=== PATIENT | male | born 1960 | race Caucasian/White ===

== ENCOUNTER → 2016-09-02 | Outpatient (CLI) | payer OTHER ==
[2016-09-02 12:51] LABS: MEAN CELL VOLUME 92.6 fL (80-100); MEAN CORPUSCULAR HEMOGLOBIN 31.7 pg (25-34); MEAN CORPUSCULAR HGB CONC 34.2 g/dl (32-36); MEAN PLATELET VOLUME 10.5 fL (7.4-10.4); PLATELET COUNT 228 K/uL (130-400); RED BLOOD COUNT 4.86 M/uL (4.7-6.1); WHITE BLOOD COUNT 5.27 K/uL (4.8-10.8)
[2016-09-02 13:03] LABS: ESTIMATED AVERAGE GLUCOSE 120 mg/dl; HA1C FLAG Normal (Normal)
[2016-09-02 13:16] LABS: CHOLESTEROL/HDL RATIO 4.1
== END | disposition home or self-care (01) ==
LOC: C.LAB1850 10:47
PROVIDERS: ATTEND Internal Medicine
DX: Z00.00 Encounter for general adult medical examination without abnormal findings (principal); Z13.1 Encounter for screening for diabetes mellitus

== ENCOUNTER → 2016-11-09 | Outpatient (CLI) | payer OTHER | END | disposition home or self-care (01) | LOC: C.LABSPEC 17:05 | PROVIDERS: ATTEND Podiatrist Primary Podiatric Medicine | DX: B35.1 Tinea unguium (principal) ==

== ENCOUNTER 2023-08-30 15:22 | Inpatient (IN) ==
[2023-08-30 16:41] LABS: Basophils # (auto) 0.03 K/uL (0.00-0.20); Basophils % (auto) 0.3 %; Eosinophils # (auto) 0.03 K/uL (0.00-0.50); Eosinophils % (auto) 0.3 %; Hematocrit (blood only) 43.5 % (42.0-52.0); Hemoglobin 14.7 g/dl (14.0-18.0); Immature Granulocytes # (auto) 0.06 K/uL (0.01-0.20); Immature Granulocytes % (auto) 0.7 %; Lymphocytes # (auto) 0.82 K/uL (1.20-3.40); Lymphocytes % (auto) 9.5 %; Mean Corpuscular Hemoglobin 31.2 pg (25.0-34.0); Mean Corpuscular Hgb Conc 33.8 g/dL (32.0-36.0); Mean Corpuscular Volume 92.4 fL (80.0-100.0); Mean Platelet Volume 9.2 fL (9.4-12.4); Monocytes # (auto) 0.55 K/uL (0.11-0.59); Monocytes % (auto) 6.4 %; Neutrophils % (auto) 82.8 %; Platelet Count 659 K/uL (130-400); RDW Coefficient of Variation 12.6 % (11.5-14.5); RDW Standard Deviation 42.8 fL (36.4-46.3); Red Blood Count 4.71 M/uL (4.70-6.10); White Blood Count 8.59 K/ul (4.8-10.8)
[2023-08-30 16:52] LABS: Alanine Aminotransferase 29 U/L (7-52); Albumin Globulin Ratio 1.1 (0.9-2); Albumin Level 4.1 gm/dl (3.4-5.0); Alkaline Phosphatase 149 U/L (34-104); Anion Gap 10 (3-11); Aspartate Aminotransferase 24 U/L (13-39); Bilirubin,Total 0.6 mg/dl (0.2-1.0); Blood Urea Nitrogen 36 mg/dl (6-23); Calcium 9.2 mg/dl (8.6-10.3); Carbon Dioxide 20 mmol/L (21-32); Chloride 105 mmol/L (98-107); Est GFR (African American) 70.8 ml/min; Est GFR (Non-African American) 61.1 ml/min; Globulin 3.7 gm/dl (2.5-4.0); Glucose 128 mg/dl (70-99(Fasting)); Magnesium 2.3 mg/dl (1.7-2.4); Potassium 3.9 mmol/L (3.5-5.1); Sodium 135 mmol/L (136-145); Total Protein 7.8 gm/dl (6.0-8.3)
[2023-08-30 17:06] LABS: Partial Thromboplastin Time 29 Seconds (21-31); Prothrombin Time 11.4 Seconds (9.0-12.0)
--- NOTE | 2023-08-30 18:51 | Emergency Department Note ---
Impression & Plan Elevated procalcitonin, Acute leg pain, Fever, Thrombocytosis, Tachycardia ED Provider Note NAME: OREN AWAN AGE: 62 SEX: M : 1960 ARRIVES VIA: Walk-In INFORMANT: Patient, ED PROVIDER(S): Bryan Ascencio MD Patient presented due to concern CHIEF COMPLAINT: MEDICAL DECISION MAKING: Patient presents due to concern for low-grade temperature of 100 with recent ORIF of the right lower extremity. Patient did have an IV established and blood work was obtained. Patient with a normal white count H&H with thrombocytosis of 659. Platelet count from June was 358. Mild hyponatremia 135. Prerenal azotemia noted. Alk phos 149 procalcitonin. Procalcitonin of .72. Patient did have blood cultures completed chest x-ray DVT ultrasound and urinalysis. Bio fire also obtained. Initial lactate not elevated. The patient's urinalysis does not show evidence of blood or infection. Bio fire negative. Chest ray read negative. The patient's DVT ultrasound was negative. Patient was splinted again. Patient was comfortable plan of care and was plan to be discharged home with the patient was noted be tachycardic and of the 140s and 150s. Patient was ordered IV fluids. The patient did have low-grade temperature but not true fever at 37 5. Patient was ordered Tylenol. Patient did not have significant change in his tachycardia which persisted even after IV fluids and Tylenol treatment. The patient is currently asymptomatic. DVT ultrasound is negative believe PE to be less likely. 2 separate EKGs ordered which shows sinus tachycardia patient denies any prior history of arrhythmia. Given the patient's persistent tachycardia I did speak to the on-call hospital service Dr. Sanchez and patient was admitted to the medicine service. Patient did have troponin and lactate ordered. Patient's troponin is negative. Lactate is not elevated. Of note the patient later had resolution of his tachycardia. Procedures: Splinting Indication: Prior right lower extremity surgery Verbal consent obtained. Risks and benefits were explained with the usual customary discussion. The injured extremity was identified. The patient was prepped and measured for the placement of a short leg trilaminar ortho-glass splint. Splint applied in the standard fashion over a layer of webril and secured using an elastic bandage. Set into a position of function. Normal neurovascular status after placement verified by me. The patient tolerated the procedure well and the care of the splint was discussed with the patient/family. No complications. Discussion w/ other healthcare providers: None Prior /Outside records reviewed: none Differential diagnosis: Viral syndrome, otitis, pharyngitis, pneumonia, influenza, meningitis, urinary tract infection, sepsis, bacteremia, as well as other pathologies. Diagnostics, as interpreted by me: ECG: Sinus tachycardia with first-degree AV block, rate of 138, normal SD and QRS, ST depressions in lateral leads no ST elevations. Repeat EKG interpreted by me Sinus tachycardia, rate of 138, normal SD and QRS, ST depressions in the lateral leads. No ST elevations. Cardiac monitoring: An order was placed for continuous cardiac monitoring. The monitor shows a rate of 135 with sinus rhythm. Patient was placed on pulse oximetry Medical decision rules: none Imaging studies: I informally interpreted the patient's Chest x-ray does not show obvious pneumonia or pneumothorax with formal report to follow. HPI: Patient presents due to concern for low-grade temperature weakness and fatigue. The patient relates that he did have a recent ORIF completed due to concern for fall in his yard that occurred 2 weeks prior. The patient did have the ORIF completed at [facility] in [place] with Dr. Tracy. Patient reportedly had some irritation of the skin was seen and evaluated had his splint removed and dressed as did have 2 areas of ulceration. Reportedly the patient had some vomiting yesterday was lightheaded dizzy had seen Dr. Arceo had blood work completed said that he had a temperature of 100 oral. Patient was very fatigable but does feel improved today. Given the concern with his recent right lower extremity surgery he presented here for further evaluation and treatment. The patient does not have follow-up with his primary surgeon for several weeks. Patient has been taking Lovenox injections at home. Patient denies any chest congestion cough upper respiratory symptoms ear pain or throat or rash. Patient denies any dysuria. PAST MEDICAL HISTORY: HLD PAST SURGICAL HISTORY: right lower extremity ORIF SOCIAL HISTORY: Non smoker, speaks belarusian. HOME MEDICATIONS: See Below ALLERGIES: See Below VITALS: See Below PHYSICAL EXAMINATION: GENERAL: NAD, non-toxic. Wearing glasses. EYE EXAM: Normal conjunctiva. PERRL, no anisocoria and EOM's grossly intact w/o pain. OROPHARYNX: Moist mucus membranes, grossly normal dentition. NECK: Trachea midline, no stridor. Supple, no nuchal rigidity, no adenopathy, non-tender. No signs of meningismus. FROM of the neck with good chin to chest and neck extension. LUNGS: Clear to auscultation. Normal chest wall mechanics. HEART: NSR, no MRG. ABDOMEN: Abdomen soft, non-tender, no masses, no rebound or guarding. BACK: No CVA TTP. SKIN: No rashes and no bruising. UPPER EXTREMITIES: Upper extremities are grossly normal. LOWER EXTREMITIES: Grossly normal, no edema. Right lower extremity with some bruising and swelling to the right ankle. Patient does have multiple incisional sites over the anterior portion of the ankle right lateral ankle proximal tibia without any overlying drainage. Prior blisters well-healed with prior Xeroform. No obvious fluctuance drainage crepitus or purulence. NEURO EXAM: A&O x3, cranial nerves II-XII grossly intact, normal speech, moves all 4 extremities. Past Med/Surg History Social History Smoking Status: Never smoker Preferred Language: Dominican Feels Safe at Home: Yes Allergies Allergies Allergy/AdvReac Type Severity Reaction Status Date / Time adhesive Allergy Intermediate RED, ITCHY Verified 08/30/23 19:28 SKIN aloe Allergy Intermediate RED, ITCHY Verified 08/30/23 19:28 SKIN zinc oxide Allergy Intermediate RED, ITCHY Verified 08/30/23 19:28 SKIN Home Meds Home Medications Medication Instructions Recorded Confirmed atenolol 25 mg tablet 25 mg PO DAILY 08/16/23 08/30/23 magnesium oxide 400 mg PO DAILY 08/16/23 08/30/23 nortriptyline 10 mg capsule 40 mg PO HS 08/16/23 08/30/23 rosuvastatin 5 mg tablet 5 mg PO QAM 08/16/23 08/30/23 topiramate 25 mg tablet 50 mg PO HS 08/16/23 08/30/23 cyanocobalamin (vitamin B-12) 1,000 mcg PO DAILY 08/30/23 08/30/23 1,000 mcg tablet (Vitamin B-12) Previous Rx's Medication Instructions Recorded cefdinir 300 mg capsule 300 mg PO Q12H 7 days #14 caps 08/30/23 doxycycline hyclate 100 mg tablet 100 mg PO BID 7 days #14 tabs 08/30/23 Results & Data (ED) Vital Signs Vital Signs - 24 hr 08/30/23 15:37 08/30/23 18:30 08/30/23 18:35 Temperature 36.3 C L Temperature Source Oral Pulse Rate 99 H 74 78 Pulse Rate from SpO2 Sensor 74 Respiratory Rate 14 15 Blood Pressure 116/80 134/86 Blood Pressure Mean 92 102 Pulse Oximetry 98 96 Oxygen Delivery Method Room Air Room Air Sepsis New/Unexplained Change in Mental Status No Sepsis Action Taken by Nursing No Action Required 08/30/23 19:00 08/30/23 19:30 08/30/23 20:00 Temperature Temperature Source Pulse Rate 71 100 H 72 Pulse Rate from SpO2 Sensor 73 87 72 Respiratory Rate 9 L 23 8 L Blood Pressure 136/83 116/70 144/84 H Blood Pressure Mean 100 85 104 Pulse Oximetry 91 98 100 Oxygen Delivery Method Room Air Room Air Room Air Sepsis New/Unexplained Change in Mental Status Sepsis Action Taken by Nursing 08/30/23 22:28 08/30/23 23:00 08/30/23 23:26 Temperature Temperature Source Pulse Rate 81 79 143 H Pulse Rate from SpO2 Sensor Respiratory Rate 19 26 H Blood Pressure 139/77 139/87 Blood Pressure Mean 97 104 Pulse Oximetry 97 100 Oxygen Delivery Method Sepsis New/Unexplained Change in Mental Status Sepsis Action Taken by Nursing 08/30/23 23:27 08/30/23 23:30 08/31/23 00:00 Temperature 37.6 C H Temperature Source Pulse Rate 135 H 137 H 129 H Pulse Rate from SpO2 Sensor Respiratory Rate 20 19 13 Blood Pressure 139/87 132/86 153/102 H Blood Pressure Mean 104 101 119 Pulse Oximetry 98 99 99 Oxygen Delivery Method Room Air Sepsis New/Unexplained Change in Mental Status Sepsis Action Taken by Nursing 08/31/23 00:30 08/31/23 00:47 08/31/23 00:54 Temperature Temperature Source Pulse Rate 133 H 167 H 148 H Pulse Rate from SpO2 Sensor Respiratory Rate 14 22 Blood Pressure 129/80 143/100 H Blood Pressure Mean 96 114 Pulse Oximetry 98 96 Oxygen Delivery Method Sepsis New/Unexplained Change in Mental Status Sepsis Action Taken by Nursing 08/31/23 01:01 08/31/23 01:26 08/31/23 01:26 Temperature Temperature Source Pulse Rate 137 H 132 H Pulse Rate from SpO2 Sensor 132 H Respiratory Rate 21 20 17 Blood Pressure 123/77 123/77 142/75 H Blood Pressure Mean 92 92 97 Pulse Oximetry 97 96 96 Oxygen Delivery Method Room Air Sepsis New/Unexplained Change in Mental Status Sepsis Action Taken by Nursing 08/31/23 01:30 Temperature Temperature Source Pulse Rate Pulse Rate from SpO2 Sensor 76 Respiratory Rate 15 Blood Pressure 120/69 Blood Pressure Mean 86 Pulse Oximetry 98 Oxygen Delivery Method Sepsis New/Unexplained Change in Mental Status Sepsis Action Taken by [facility] Medications Current Medication List: was personally reviewed by me Laboratory Data Attestation: I reviewed the patient's lab results. 08/30/23 16:13 08/30/23 16:13 Lab Results 08/30/23 08/30/23 08/30/23 Range/Units 16:13 16:36 19:33 WBC 8.59 (4.8-10.8) K/ul RBC 4.71 (4.70-6.10) M/uL Hgb 14.7 (14.0-18.0) g/dl Hct 43.5 (42.0-52.0) % MCV 92.4 (80.0-100.0) fL MCH 31.2 (25.0-34.0) pg MCHC 33.8 (32.0-36.0) g/dL RDW Std Deviation 42.8 (36.4-46.3) fL RDW Coeff of Eb 12.6 (11.5-14.5) % Plt Count 659 H (130-400) K/uL MPV 9.2 L (9.4-12.4) fL Immature Gran % (Auto) 0.7 % Neut % (Auto) 82.8 % Lymph % (Auto) 9.5 % Humphreys % (Auto) 6.4 % Eos % (Auto) 0.3 % Baso % (Auto) 0.3 % Neut # (Auto) 7.10 H (1.40-6.50) K/uL Lymph # (Auto) 0.82 L (1.20-3.40) K/uL Humphreys # (Auto) 0.55 (0.11-0.59) K/uL Eos # (Auto) 0.03 (0.00-0.50) K/uL Baso # (Auto) 0.03 (0.00-0.20) K/uL Immature Gran # (Auto) 0.06 (0.01-0.20) K/uL PT 11.4 (9.0-12.0) Seconds INR 1.0 (0.9-1.1) APTT 29 (21-31) Seconds PTT Ratio 1.0 Sodium 135 L (136-145) mmol/L Potassium 3.9 (3.5-5.1) mmol/L Chloride 105 (98-107) mmol/L Carbon Dioxide 20 L (21-32) mmol/L Anion Gap 10 (3-11) BUN 36 H (6-23) mg/dl Creatinine 1.24 (0.6-1.4) mg/dl Est Cr Clr Drug Dosing Not Reportable Est GFR ( Amer) 70.8 ml/min Est GFR (Non-Af Amer) 61.1 ml/min BUN/Creatinine Ratio 29.0 H (10-20) Glucose 128 H (70-99(Fasting)) mg/dl Lactate 2.0 (0.4-2.0) mmol/L Calcium 9.2 (8.6-10.3) mg/dl Magnesium 2.3 (1.7-2.4) mg/dl Total Bilirubin 0.6 (0.2-1.0) mg/dl AST 24 (13-39) U/L ALT 29 (7-52) U/L Alkaline Phosphatase 149 H (34-104) U/L Troponin I High Sens (0-20) pg/ml Total Protein 7.8 (6.0-8.3) gm/dl Albumin 4.1 (3.4-5.0) gm/dl Globulin 3.7 (2.5-4.0) gm/dl Albumin/Globulin Ratio 1.1 (0.9-2) Procalcitonin 0.72 H (0-0.5) ng/ml Urine Color Dark Yellow Urine Appearance Clear (Clear) Urine pH 5.5 (4.5-7.5) Ur Specific [place] 1.034 H (1.000-1.030) Urine Protein Trace H (Negative) Urine Glucose (UA) Negative (Negative) Urine Ketones Negative (Negative) Urine Blood Negative (Negative) Urine Nitrite Negative (Negative) Urine Bilirubin Negative (Negative) Urine Urobilinogen Negative (Negative) Ur Leukocyte Esterase Negative (Negative) Urine WBC (Auto) 1-5 (0-5) /hpf Urine RBC (Auto) 0-4 (0-4) /hpf U Hyaline Cast (Auto) 0 (0-5) /lpf U Epithel Cells (Auto) 0-5 (0-5) /lpf Urine Bacteria (Auto) Negative (Negative) Adenovirus (PCR) (NotDetected) B. pertussis DNA (PCR) (NotDetected) B.parapertussis DNA PCR (NotDetected) C. pneumoniae DNA (PCR) (NotDetected) Coronavirus OC43 (PCR) (NotDetected) Coronavirus HKU1 (PCR) (NotDetected) Coronavirus 229E (PCR) (NotDetected) SARS-CoV-2 (PCR) (NotDetected) Coronavirus NL63 (PCR) (NotDetected) Human Metapneumovir PCR (NotDetected) Influenza Type A (PCR) (NotDetected) Influenza Type B (PCR) (NotDetected) M. pneumoniae (PCR) (NotDetected) Parainfluenza 1 (PCR) (NotDetected) Parainfluenza 2 (PCR) (NotDetected) Parainfluenza 3 (PCR) (NotDetected) Parainfluenza 4 (PCR) (NotDetected) RSV (PCR) (NotDetected) Entero/Rhino (PCR) (NotDetected) 08/30/23 08/31/23 Range/Units 21:55 01:33 WBC (4.8-10.8) K/ul RBC (4.70-6.10) M/uL Hgb (14.0-18.0) g/dl Hct (42.0-52.0) % MCV (80.0-100.0) fL MCH (25.0-34.0) pg MCHC (32.0-36.0) g/dL RDW Std Deviation (36.4-46.3) fL RDW Coeff of Eb (11.5-14.5) % Plt Count (130-400) K/uL MPV (9.4-12.4) fL Immature Gran % (Auto) % Neut % (Auto) % Lymph % (Auto) % Humphreys % (Auto) % Eos % (Auto) % Baso % (Auto) % Neut # (Auto) (1.40-6.50) K/uL Lymph # (Auto) (1.20-3.40) K/uL Humphreys # (Auto) (0.11-0.59) K/uL Eos # (Auto) (0.00-0.50) K/uL Baso # (Auto) (0.00-0.20) K/uL Immature Gran # (Auto) (0.01-0.20) K/uL PT (9.0-12.0) Seconds INR (0.9-1.1) APTT (21-31) Seconds PTT Ratio Sodium (136-145) mmol/L Potassium (3.5-5.1) mmol/L Chloride (98-107) mmol/L Carbon Dioxide (21-32) mmol/L Anion Gap (3-11) BUN (6-23) mg/dl Creatinine (0.6-1.4) mg/dl Est Cr Clr Drug Dosing Est GFR ( Amer) ml/min Est GFR (Non-Af Amer) ml/min BUN/Creatinine Ratio (10-20) Glucose (70-99(Fasting)) mg/dl Lactate 1.5 (0.4-2.0) mmol/L Calcium (8.6-10.3) mg/dl Magnesium (1.7-2.4) mg/dl Total Bilirubin (0.2-1.0) mg/dl AST (13-39) U/L ALT (7-52) U/L Alkaline Phosphatase (34-104) U/L Troponin I High Sens 7.0 (0-20) pg/ml Total Protein (6.0-8.3) gm/dl Albumin (3.4-5.0) gm/dl Globulin (2.5-4.0) gm/dl Albumin/Globulin Ratio (0.9-2) Procalcitonin (0-0.5) ng/ml Urine Color Urine Appearance (Clear) Urine pH (4.5-7.5) Ur Specific [place] (1.000-1.030) Urine Protein (Negative) Urine Glucose (UA) (Negative) Urine Ketones (Negative) Urine Blood (Negative) Urine Nitrite (Negative) Urine Bilirubin (Negative) Urine Urobilinogen (Negative) Ur Leukocyte Esterase (Negative) Urine WBC (Auto) (0-5) /hpf Urine RBC (Auto) (0-4) /hpf U Hyaline Cast (Auto) (0-5) /lpf U Epithel Cells (Auto) (0-5) /lpf Urine Bacteria (Auto) (Negative) Adenovirus (PCR) Not Detected (NotDetected) B. pertussis DNA (PCR) Not Detected (NotDetected) B.parapertussis DNA PCR Not Detected (NotDetected) C. pneumoniae DNA (PCR) Not Detected (NotDetected) Coronavirus OC43 (PCR) Not Detected (NotDetected) Coronavirus HKU1 (PCR) Not Detected (NotDetected) Coronavirus 229E (PCR) Not Detected (NotDetected) SARS-CoV-2 (PCR) Not Detected (NotDetected) Coronavirus NL63 (PCR) Not Detected (NotDetected) Human Metapneumovir PCR Not Detected (NotDetected) Influenza Type A (PCR) Not Detected (NotDetected) Influenza Type B (PCR) Not Detected (NotDetected) M. pneumoniae (PCR) Not Detected (NotDetected) Parainfluenza 1 (PCR) Not Detected (NotDetected) Parainfluenza 2 (PCR) Not Detected (NotDetected) Parainfluenza 3 (PCR) Not Detected (NotDetected) Parainfluenza 4 (PCR) Not Detected (NotDetected) RSV (PCR) Not Detected (NotDetected) Entero/Rhino (PCR) Not Detected (NotDetected) Administered Medications Discontinued Medications Doxycycline Hyclate (Doxycycline Hyclate 100 Mg Cap) 100 mg PO NOW STA Stop: 08/30/23 19:27 Last Admin: 08/30/23 19:36 Dose: 100 mg Documented By: [facility] Ceftriaxone Sodium (Rocephin) 2,000 mg in 50 mls @ 100 mls/hr IV NOW STA Stop: 08/30/23 19:55 Last Infusion: 08/30/23 20:14 Dose: Infused Documented By: Admin: 08/30/23 19:36 Dose: 100 mls/hr Documented By: [facility] Sodium Chloride (Nss) 1,000 mls @ 999 mls/hr IV .Q1H1M ONE Stop: 08/30/23 20:31 Last Infusion: 08/30/23 21:21 Dose: Infused Documented By: Admin: 08/30/23 19:37 Dose: 999 mls/hr Documented By: MARISEL Acetaminophen (Ofirmev) 1,000 mg in 100 mls @ 400 mls/hr IV NOW STA Stop: 08/30/23 23:54 Last Infusion: 08/31/23 00:26 Dose: Infused Documented By: Admin: 08/30/23 23:52 Dose: 400 mls/hr Documented By: CARLEE Sodium Chloride (Nss) 1,000 mls @ 999 mls/hr IV .Q1H1M ONE Stop: 08/31/23 00:40 Last Infusion: 08/31/23 00:58 Dose: Infused Documented By: Admin: 08/30/23 23:52 Dose: 999 mls/hr Documented By: CARLEE Sodium Chloride (Nss) 500 mls @ 999 mls/hr IV .Q31M ONE Stop: 08/31/23 01:28 Last Admin: 08/31/23 01:25 Dose: 999 mls/hr Documented By: ERICK Ketorolac Tromethamine (Ketorolac Tromethamine 15 Mg/Ml Vial) 10 mg IV NOW ONE Stop: 08/30/23 23:41 Last Admin: 08/31/23 00:58 Dose: Not Given Documented By: EJW Imaging Data Radiologist's Impression: Venous Doppler Study 08/30/23 19:26 US venous doppler LE RT CLINICAL HISTORY: recent RLE ORIF, fever TECHNIQUE: Right lower extremity real-time compression venous ultrasound with Color Doppler imaging. Utilizing real-time ultrasonic imaging multiple real time high-resolution ultrasonic images with compression and noncompression maneuvers of the deep venous system in addition to color doppler imaging were performed from the common femoral vein through the proximal calf veins. COMPARISON: None available at the time of this dictation. FINDINGS/IMPRESSION: Currently there is normal compressibility of the deep venous system from the common femoral vein through the proximal calf veins. No superficial venous thrombosis is identified. ACT 112: Negative or not required by law. Electronically signed by: Santi Perez M.D. 08/30/2023 8:57 PM Discharge Plan Visit Data Chief Complaint: Abnormal Labs/Diagnostic Testing Stated Complaint: ABNORMAL LABS ED Provider: Bryan Ascencio Discharge Problem: Elevated procalcitonin, Acute leg pain, Fever, Thrombocytosis, Tachycardia Patient Disposition: Home - Self-Care Condition: Good Discharge Instructions [place]/Other Patient Handouts: ED [facility] Fever Activity Restrictions/Additional Instructions: Please return to the emergency department if you have worsening or recurrent symptoms not amenable to at-home treatment. Please call for a follow-up appointment with her primary care physician. Please take your medications as prescribed. If you have other concerns and/or complaints please feel free to also call your primary care physician's office or return the ED for further evaluation, management, and treatment. Take your medications as prescribed. If taking an antibiotic consider taking a probiotic and/or eating yogurt, but at the least, please take with food as it can cause upset stomach. If culture results are not available at discharge, if they are positive for concern of infection, you will be informed of the results as soon as they are available. Please ensure that you do call for follow-up with your primary care doctor as well as your primary surgeon. Your blood work showed a normal white count but you did have an elevation in your platelet count. Your kidney function likely showed dehydration. Your viral panel for things like COVID and flu were negative. Your chest x-ray did not show obvious pneumonia. You have been examined and treated today on an emergency basis only. This is not a substitute for, or an effort to provide, complete comprehensive medical care. It is impossible to recognize and treat all injuries or illnesses in a single emergency department visit. It is therefore important that you follow up closely with [facility], your PCP, and/or your specialist(s). Call as soon as possible for an appointment. Forms Stand Alone Forms: My [facility], Important Visit Information Prescriptions Prescriptions: New cefdinir 300 mg capsule 300 mg PO Q12H 7 Days Qty: 14 0RF doxycycline hyclate 100 mg tablet 100 mg PO BID 7 Days Qty: 14 0RF No Action atenolol 25 mg tablet 25 mg PO DAILY topiramate 25 mg tablet 50 mg PO HS nortriptyline 10 mg capsule 40 mg PO HS rosuvastatin 5 mg tablet 5 mg PO QAM magnesium oxide 400 mg magnesium Tablet 400 mg PO DAILY cyanocobalamin (vitamin B-12) [Vitamin B-12] 1,000 mcg Tablet 1,000 mcg PO DAILY Referrals Referrals: Primitivo Arceo MD [Primary Care Provider] - Discharge Problem: Acute leg pain Qualifiers: Laterality: right Qualified Code(s): M79.604 - Pain in right leg Fever Qualifiers: Fever type: unspecified Qualified Code(s): R50.9 - Fever, unspecified
[2023-08-30] MEDS: cefTRIAXone SODIUM 2,000 MG/50 ML BAG IV STA (19:36)
[2023-08-30] MEDS: DOXYCYCLINE HYCLATE 100 MG CAP PO STA (19:36)
[2023-08-30] MEDS: SODIUM CHLORIDE 0.9% 1,000 ML IV ONE ×2 (19:37→23:52)
[2023-08-30 20:02] LABS: Appearance Urine Clear (Clear); Bacteria Urine Automated Negative (Negative); Bilirubin Urine Negative (Negative); Blood Urine Negative (Negative); Cast Urine Automated 0 /lpf (0-5); Color Urine Dark Yellow; Epithelial Cell Urine Auto 0-5 /lpf (0-5); Glucose Urine UA Negative (Negative); Ketones Urine Negative (Negative); Leukocyte Esterase Urine Negative (Negative); Nitrite Urine Negative (Negative); Protein Urine Trace (Negative); RBC Urine Automated 0-4 /hpf (0-4); Specific Gravity Urine 1.034 (1.000-1.030); Urobilinogen Urine Negative (Negative); pH Urine 5.5 (4.5-7.5)
--- NOTE | 2023-08-30 20:58 | Ultrasound Report ---
US venous doppler LE RT CLINICAL HISTORY: recent RLE ORIF, fever TECHNIQUE: Right lower extremity real-time compression venous ultrasound with Color Doppler imaging. Utilizing real-time ultrasonic imaging multiple real time high-resolution ultrasonic images with comp ression and noncompression maneuvers of the deep venous system in addition to color doppler imaging w ere performed from the common femoral vein through the proximal calf veins. COMPARISON: None available at the time of this dictation. FINDINGS/IMPRESSION: Currently there is normal compressibility of the deep venous system from the common femoral vein thro ugh the proximal calf veins. No superficial venous thrombosis is identified. ACT 112: Negative or not required by law. Electronically signed by: Santi Perez M.D. 08/30/2023 8:57 PM
[2023-08-30 23:11] LABS: Adenovirus PCR Not Detected (NotDetected); Bordetella parapertussis PCR Not Detected (NotDetected); Bordetella pertussis PCR Not Detected (NotDetected); Chlamydia pneumoniae PCR Not Detected (NotDetected); Coronavirus 229E PCR Not Detected (NotDetected); Coronavirus CoV-2 (COVID19)PCR Not Detected (NotDetected); Coronavirus HKU1 PCR Not Detected (NotDetected); Coronavirus NL63 PCR Not Detected (NotDetected); Coronavirus OC43PCR Not Detected (NotDetected); Human Metapneumovirus PCR Not Detected (NotDetected); Influenza A PCR Not Detected (NotDetected); Influenza B PCR Not Detected (NotDetected); Mycoplasma pneumoniae PCR Not Detected (NotDetected); Parainfluenza Virus 1 PCR Not Detected (NotDetected); Parainfluenza Virus 2 PCR Not Detected (NotDetected); Parainfluenza Virus 3 PCR Not Detected (NotDetected); Parainfluenza Virus 4 PCR Not Detected (NotDetected); Respiratory Syncytial VirusPCR Not Detected (NotDetected); Rhinovirus/Enterovirus PCR Not Detected (NotDetected)
[2023-08-30] MEDS: ACETAMINOPHEN 1,000 MG/100 ML VIAL IV STA (23:52)
[2023-08-31] MEDS: KETOROLAC TROMETHAMINE 15 MG/ML VIAL IV ONE (00:58)
[2023-08-31] MEDS: SODIUM CHLORIDE 0.9% 500 ML IV ONE (01:25)
--- NOTE | 2023-08-31 02:32 | History & Physical Report ---
Date of Service August 31, 2023 Assessment & Plan (1) Tachycardia: Plan: 62-year-old male with past medical history significant for hyperlipidemia, moderate persistent asthma, bronchiectasis without complication, hypertension, psoriasis, migraine, history of Lyme disease, who had a fall on August 16, 2023 and found to have acute commuted displaced distal diaphysis fracture of the right tibia and fibula s/p reduction in the ER and was transferred to trauma center at [place] and s/p ORIF with nail as well as repair of right posterior malleolus fracture on August. Was having issues/blisters from the cast so he went back to Ortho on August 23 2023 and was recasted and gauze placed on blister. He had a regular follow-up appointment with PCP on August 29 2023. That day he was feeling weak and lethargic and somewhat lightheaded and was advised to come to the ER for workup for an infection. Today in the ER cast was replaced and there was no obvious infection noted. Plan was to discharge him on antibiotics but patient developed tachycardia with heart rate in 140s. Showing sinus tachycardia. Venous Doppler was negative for DVT. Patient taking Lovenox shots at home for DVT prophylaxis. But he states he did not take today's Lovenox dose. Currently tachycardia improved with fluids. Resting comfortably. Denies any headache. No blurred visions. No earache or runny nose. No sore throat. No cough. States last night he had a low-grade temperature. Appetite is okay. Denies any chest pain or shortness of breath. No nausea. No abdominal pain. Somewhat constipated initially after surgery but that got resolved. Denies any bloody or black stools. Normal micturition. Hemodynamics are okay currently. Tachycardia Mild temp spike Procalcitonin 0.7 Recently some blisters under the cast Empirically Rocephin and Doxy Tachycardia has improved with fluids Will continue IV fluids Doppler is negative for DVT Will do CTA chest Monitor in the hospital Follow repeat EKG and troponins History of moderate persistent asthma Bronchiectasis without complication Will monitor Hypertension On atenolol Hyperlipidemia On statin History of migraine Topamax and nortriptyline DVT prophylaxis Lovenox Disposition Med/telemetry Full code History of Present Illness Chief Complaint: Tachycardia Primary Care Provider: Primitivo Arceo MD 62-year-old male with past medical history significant for hyperlipidemia, moderate persistent asthma, bronchiectasis without complication, hypertension, psoriasis, migraine, history of Lyme disease, who had a fall on August 16, 2023 and found to have acute commuted displaced distal diaphysis fracture of the right tibia and fibula s/p reduction in the ER and was transferred to trauma center at [place] and s/p ORIF with nail as well as repair of right posterior malleolus fracture on August. Was having issues/blisters from the cast so he went back to Ortho on August 23 2023 and was recasted and gauze placed on blister. He had a regular follow-up appointment with PCP on August 29 2023. That day he was feeling weak and lethargic and somewhat lightheaded and was advised to come to the ER for workup for an infection. Today in the ER cast was replaced and there was no obvious infection noted. Plan was to discharge him on antibiotics but patient developed tachycardia with heart rate in 140s. Showing sinus tachycardia. Venous Doppler was negative for DVT. Patient taking Lovenox shots at home for DVT prophylaxis. But he states he did not take today's Lovenox dose. Currently tachycardia improved with fluids. Resting comfortably. Denies any headache. No blurred visions. No earache or runny nose. No sore throat. No cough. States last night he had a low-grade temperature. Appetite is okay. Denies any chest pain or shortness of breath. No nausea. No abdominal pain. Somewhat constipated initially after surgery but that got resolved. Denies any bloody or black stools. Normal micturition. Hemodynamics are okay currently. Past medical history. As mentioned above Past surgical history. Colonoscopy. EGD. Removal of ruptured appendix. Tonsillectomy and adenoidectomy. Treatment of tibial fracture by intramedullary implant. Social history. . No smoking. No alcohol use. No drug use. Family history. Mother has heart disease. Stroke. Father has hypertension. Migraines. Sister has obesity. Uncle has heart disorder. Allergies Allergy/AdvReac Type Severity Reaction Status Date / Time adhesive Allergy Intermediate RED, ITCHY Verified 08/30/23 19:28 SKIN aloe Allergy Intermediate RED, ITCHY Verified 08/30/23 19:28 SKIN zinc oxide Allergy Intermediate RED, ITCHY Verified 08/30/23 19:28 SKIN Home Medications Medication Instructions Recorded Confirmed Type atenolol 25 mg tablet 25 mg PO DAILY 08/16/23 08/30/23 History magnesium oxide 400 mg PO DAILY 08/16/23 08/30/23 History nortriptyline 10 mg capsule 40 mg PO HS 08/16/23 08/30/23 History rosuvastatin 5 mg tablet 5 mg PO QAM 08/16/23 08/30/23 History topiramate 25 mg tablet 50 mg PO HS 08/16/23 08/30/23 History cefdinir 300 mg capsule 300 mg PO Q12H 7 days #14 caps 08/30/23 Rx cyanocobalamin (vitamin B-12) 1,000 mcg PO DAILY 08/30/23 08/30/23 History 1,000 mcg tablet (Vitamin B-12) doxycycline hyclate 100 mg tablet 100 mg PO BID 7 days #14 tabs 08/30/23 Rx Past Med/Surg History Social History Smoking Status: Never smoker Hx Alcohol Use: No Hx Substance Use: No Preferred Language: Montene[place]in Communication Ability: Effective Dragger Out Required: No Beliefs That Will Affect Care: None Current Living Situation: Spouse Other Information That Helps Us Care for You: No Feels Safe at Home: Yes Safety Concerns: Feels Safe At This Time Review of Systems Review of Systems: All systems reviewed & are unremarkable except as noted in HPI & below Physical Exam Physical Exam: General- Not in distress Head- atraumatic Eyes- PERRL. ENT- oropharynx clear Neck- supple, no JVD. Lungs- clear to auscultation , no wheezing or crackles. Heart- regular rhythm; no murmur, no gallop. Abdomen- normal bowel sounds, soft, nontender, no distension. Extremities- right lower extremity in cast Neuro- alert, oriented PERRL, no facial palsy; no dysarthria; Results & Data Results & Data Vital Signs (Past 12 Hours) Vital Signs Temp Pulse Resp BP Pulse Ox O2 Del Method 08/31/23 01:30 15 120/69 98 08/31/23 01:26 17 142/75 H 96 08/31/23 01:26 132 H 20 123/77 96 Room Air 08/31/23 01:01 137 H 21 123/77 97 08/31/23 00:54 148 H 08/31/23 00:47 167 H 22 143/100 H 96 08/31/23 00:30 133 H 14 129/80 98 08/31/23 00:00 129 H 13 153/102 H 99 08/30/23 23:30 137 H 19 132/86 99 08/30/23 23:27 37.6 C H 135 H 20 139/87 98 Room Air 08/30/23 23:26 143 H 26 H 139/87 100 08/30/23 23:00 79 19 139/77 97 08/30/23 22:28 81 08/30/23 20:00 72 8 L 144/84 H 100 Room Air 08/30/23 19:30 100 H 23 116/70 98 Room Air 08/30/23 19:00 71 9 L 136/83 91 Room Air 08/30/23 18:35 78 08/30/23 18:30 74 15 134/86 96 Room Air 08/30/23 15:37 36.3 C L 99 H 14 116/80 98 Room Air Diagnostic Findings Laboratory Results WBC 8.59 K/ul (4.8-10.8) 08/30/23 16:13 RBC 4.71 M/uL (4.70-6.10) 08/30/23 16:13 Hgb 14.7 g/dl (14.0-18.0) 08/30/23 16:13 Hct 43.5 % (42.0-52.0) 08/30/23 16:13 MCV 92.4 fL (80.0-100.0) 08/30/23 16:13 MCH 31.2 pg (25.0-34.0) 08/30/23 16:13 MCHC 33.8 g/dL (32.0-36.0) 08/30/23 16:13 RDW Std Deviation 42.8 fL (36.4-46.3) 08/30/23 16:13 RDW Coeff of Eb 12.6 % (11.5-14.5) 08/30/23 16:13 Plt Count 659 K/uL (130-400) H 08/30/23 16:13 MPV 9.2 fL (9.4-12.4) L 08/30/23 16:13 Immature Gran % (Auto) 0.7 % 08/30/23 16:13 Neut % (Auto) 82.8 % 08/30/23 16:13 Lymph % (Auto) 9.5 % 08/30/23 16:13 Hale % (Auto) 6.4 % 08/30/23 16:13 Eos % (Auto) 0.3 % 08/30/23 16:13 Baso % (Auto) 0.3 % 08/30/23 16:13 Neut # (Auto) 7.10 K/uL (1.40-6.50) H 08/30/23 16:13 Lymph # (Auto) 0.82 K/uL (1.20-3.40) L 08/30/23 16:13 Hale # (Auto) 0.55 K/uL (0.11-0.59) 08/30/23 16:13 Eos # (Auto) 0.03 K/uL (0.00-0.50) 08/30/23 16:13 Baso # (Auto) 0.03 K/uL (0.00-0.20) 08/30/23 16:13 Immature Gran # (Auto) 0.06 K/uL (0.01-0.20) 08/30/23 16:13 PT 11.4 Seconds (9.0-12.0) 08/30/23 16:13 INR 1.0 (0.9-1.1) 08/30/23 16:13 APTT 29 Seconds (21-31) 08/30/23 16:13 PTT Ratio 1.0 08/30/23 16:13 Sodium 135 mmol/L (136-145) L 08/30/23 16:13 Potassium 3.9 mmol/L (3.5-5.1) 08/30/23 16:13 Chloride 105 mmol/L (98-107) 08/30/23 16:13 Carbon Dioxide 20 mmol/L (21-32) L 08/30/23 16:13 Anion Gap 10 (3-11) 08/30/23 16:13 BUN 36 mg/dl (6-23) H 08/30/23 16:13 Creatinine 1.24 mg/dl (0.6-1.4) 08/30/23 16:13 Est Cr Clr Drug Dosing Not Reportable 08/30/23 16:13 Est GFR ( Amer) 70.8 ml/min 08/30/23 16:13 Est GFR (Non-Af Amer) 61.1 ml/min 08/30/23 16:13 BUN/Creatinine Ratio 29.0 (10-20) H 08/30/23 16:13 Glucose 128 mg/dl (70-99(Fasting)) H 08/30/23 16:13 Lactate 1.5 mmol/L (0.4-2.0) 08/31/23 01:33 Calcium 9.2 mg/dl (8.6-10.3) 08/30/23 16:13 Magnesium 2.3 mg/dl (1.7-2.4) 08/30/23 16:13 Total Bilirubin 0.6 mg/dl (0.2-1.0) 08/30/23 16:13 AST 24 U/L (13-39) 08/30/23 16:13 ALT 29 U/L (7-52) 08/30/23 16:13 Alkaline Phosphatase 149 U/L (34-104) H 08/30/23 16:13 Total Protein 7.8 gm/dl (6.0-8.3) 08/30/23 16:13 Albumin 4.1 gm/dl (3.4-5.0) 08/30/23 16:13 Globulin 3.7 gm/dl (2.5-4.0) 08/30/23 16:13 Albumin/Globulin Ratio 1.1 (0.9-2) 08/30/23 16:13 Procalcitonin 0.72 ng/ml (0-0.5) H 08/30/23 16:13 Urine Color Dark Yellow 08/30/23 19:33 Urine Appearance Clear (Clear) 08/30/23 19:33 Urine pH 5.5 (4.5-7.5) 08/30/23 19:33 Ur Specific [place] 1.034 (1.000-1.030) H 08/30/23 19:33 Urine Protein Trace (Negative) H 08/30/23 19:33 Urine Glucose (UA) Negative (Negative) 08/30/23 19:33 Urine Ketones Negative (Negative) 08/30/23 19:33 Urine Blood Negative (Negative) 08/30/23 19:33 Urine Nitrite Negative (Negative) 08/30/23 19:33 Urine Bilirubin Negative (Negative) 08/30/23 19:33 Urine Urobilinogen Negative (Negative) 08/30/23 19:33 Ur Leukocyte Esterase Negative (Negative) 08/30/23 19:33 Urine WBC (Auto) 1-5 /hpf (0-5) 08/30/23 19:33 Urine RBC (Auto) 0-4 /hpf (0-4) 08/30/23 19:33 U Hyaline Cast (Auto) 0 /lpf (0-5) 08/30/23 19:33 U Epithel Cells (Auto) 0-5 /lpf (0-5) 08/30/23 19:33 Urine Bacteria (Auto) Negative (Negative) 08/30/23 19:33 Adenovirus (PCR) Not Detected (NotDetected) 08/30/23 21:55 B. pertussis DNA (PCR) Not Detected (NotDetected) 08/30/23 21:55 B.parapertussis DNA PCR Not Detected (NotDetected) 08/30/23 21:55 C. pneumoniae DNA (PCR) Not Detected (NotDetected) 08/30/23 21:55 Coronavirus OC43 (PCR) Not Detected (NotDetected) 08/30/23 21:55 Coronavirus HKU1 (PCR) Not Detected (NotDetected) 08/30/23 21:55 Coronavirus 229E (PCR) Not Detected (NotDetected) 08/30/23 21:55 SARS-CoV-2 (PCR) Not Detected (NotDetected) 08/30/23 21:55 Coronavirus NL63 (PCR) Not Detected (NotDetected) 08/30/23 21:55 Human Metapneumovir PCR Not Detected (NotDetected) 08/30/23 21:55 Influenza Type A (PCR) Not Detected (NotDetected) 08/30/23 21:55 Influenza Type B (PCR) Not Detected (NotDetected) 08/30/23 21:55 M. pneumoniae (PCR) Not Detected (NotDetected) 08/30/23 21:55 Parainfluenza 1 (PCR) Not Detected (NotDetected) 08/30/23 21:55 Parainfluenza 2 (PCR) Not Detected (NotDetected) 08/30/23 21:55 Parainfluenza 3 (PCR) Not Detected (NotDetected) 08/30/23 21:55 Parainfluenza 4 (PCR) Not Detected (NotDetected) 08/30/23 21:55 RSV (PCR) Not Detected (NotDetected) 08/30/23 21:55 Entero/Rhino (PCR) Not Detected (NotDetected) 08/30/23 21:55 Impressions Venous Doppler Study 08/30/23 19:26 US venous doppler LE RT CLINICAL HISTORY: recent RLE ORIF, fever TECHNIQUE: Right lower extremity real-time compression venous ultrasound with Color Doppler imaging. Utilizing real-time ultrasonic imaging multiple real time high-resolution ultrasonic images with compression and noncompression maneuvers of the deep venous system in addition to color doppler imaging were performed from the common femoral vein through the proximal calf veins. COMPARISON: None available at the time of this dictation. FINDINGS/IMPRESSION: Currently there is normal compressibility of the deep venous system from the common femoral vein through the proximal calf veins. No superficial venous thrombosis is identified. ACT 112: Negative or not required by law. Electronically signed by: Santi Perez M.D. 08/30/2023 8:57 PM ECG Additional Comments: ECG. Sinus tachycardia rate of 138. ST and T wave abnormality lateral leads. Code Status & VTE Plan VTE Prophylaxis Plan VTE Prophylaxis will be ordered: Yes
[2023-08-31] MEDS: OPTIRAY 350 500ml IV ONE (02:51)
--- NOTE | 2023-08-31 03:28 | CT Scan Report ---
Exam(s): CTA CHEST IV Amt: 107 ML OPTIRAY 350 EXAM: CT Angiography Chest With Intravenous Contrast CLINICAL HISTORY: Reason for exam: PE. TECHNIQUE: Axial computed tomographic angiography images of the chest with intravenous contrast. CTDI is 39.32 mGy and DLP is 867.6 mGy-cm. Automated exposure control was utilized for the study. A dose lowering technique was utilized adhering to the principles of ALARA. MIP reconstructed images were created and reviewed. COMPARISON: No relevant prior studies available. FINDINGS: Pulmonary arteries: Bilateral dependent atelectasis. No pulmonary embolism. Aorta: No acute findings. No thoracic aortic aneurysm. Lungs: Lung bases demonstrate bilateral dependent atelectasis. No mass. Pleural space: Unremarkable. No significant effusion. No pneumothorax. Heart: Unremarkable. No cardiomegaly. No significant pericardial effusion. No evidence of RV dysfunction. Bones/joints: No acute fracture. No dislocation. Soft tissues: Unremarkable. Lymph nodes: Unremarkable. No enlarged lymph nodes. IMPRESSION: No CT evidence of pulmonary embolism. Electronically signed by: Caesar Landrum M.D. 08/31/23 03:27 AM
[2023-08-31] MEDS ORDERED: oxyCODONE HCL IR 5 MG TAB (IMMEDIATE RELEASE) PO PRN (03:30)
[2023-08-31] MEDS ORDERED: NITROGLYCERIN SL 0.4 MG/TAB TAB SL PRN (03:30)
[2023-08-31] MEDS ORDERED: ACETAMINOPHEN 325 MG TAB PO PRN (03:30)
[2023-08-31] MEDS ORDERED: POLYETHYLENE (MIRALAX) 17 GM PACK PO PRN (03:30)
[2023-08-31] MEDS: SODIUM CHLORIDE 0.9% 1,000 ML IV SCH (03:52)
--- OUTSIDE RECORDS SUMMARY | 2023-08-31 07:02 | External Medical Summary | Summary of Care ---
Author Name Unknown Organization [facility] Address [address] [place] [address] Phone [phone] Care Team Providers Care Calculus Teacher Name Role Phone Primitivo Arceo MD Primary Care Provider + Reason for Referral * Evaluate & Treat - Unlimited Visits (Within 30 days (routine)) - Pending Review Specialty Diagnoses / Procedures Referred By Mikki arias Referred To Contact HOME CARE / Home Care Diagnoses Physical deconditioning Primitivo Arceo MD [address] [place] [address] Referral ID Status Reason Start Date Expiration Date Visits Requested Visits Authorized [id number] Pending Review Specialty Services Required 08/29/[phone] Question Answer Referral Priority Within 30 days (routine) Where should this appointment be scheduled? Chyna Comments Documentation of Okmk-wa-Qovm Encounter Addendum Patient Name: Daniel Avila I certify that this patient is under my care and that I, or a nurse practitioner or physician's showroom sales assistant working with me, had a [id number] encounter that meets the physician [id number] encounter requirements with this patient on: 08/29/2023 The encounter with the patient was in whole, or in part, for the following medical condition, which is the primary reason for home health care (List medical condition): Convalescence from surgery I certify that, based on my findings, the following services are medically necessary home health services: Nursing, Physical Therapy, and OT To provide the following care/treatments: (All hospitalists not following the patient after discharge should complete this section): Marielos Primary Care Physician to follow home care plan of care after discharge: Marielos My clinical findings support the need for the above services because: s/p recent surgery for tib/fib/ankle fx, is 50% wb, needs pt/ot for deconditioning upper body Further, I certify that my clinical findings support that this patient is homebound (i.e. Absences from home require considerable and taxing effort and are for medical reasons or denominational services or infrequently or of short duration when for other reason) because: Patient can't walk, 50% wb which makes mobility very taxing, doesn't drive Physician Signature: Date of Signature: Physician Printed Name: Primitivo Arceo MD Reason for Visit * Reason Onset Date Comments Hospital Follow-Up Hospital disc har follow up - discharged on 08/18, very restricted mobility since being home, has occasional dizziness. pt has blisters on foot and was recasted with gauze to cover. Pt's is concerned foot is infected. Pt is also in a lot of pain, cast is causing a lot of irritation. Pt's is interested in either PT or OT to help him move more at home Hospital Follow-Up 08/29/2023 Encounter Details Date Type Department Care Team (Latest Contact Info) Description 08/29/2023 3:00 PM EDT Office Visit General Internal Medicine [facility] [address] [place] [address] Primitivo Arceo MD [address] [place] [address] Hospital discharge follow-up*; Fracture of distal end of tibia with fibula, right, closed, initial encounter; Bronchiectasis without complication (HCC); Decreased hemoglobin; Serum phosphate decreased; Hypokalemia; Physical deconditioning Allergies Active Allergy Reactions Criticality Noted Date Comments Adhesive Tape Other (Please comment) 12/13/2008 blistering Zinc Rash 05/09/2014 documented as of this encounter (statuses as of 08/29/2023) Medications Medication Sig Dispensed Refills Start Date End Date Status IBUPROFEN 200 MG PO TABS Take 2 Tablets by mouth 2 times a day as needed (headache). 0 Active Magnesium Oxide 400 MG Tablet Take 1 Tab by mouth daily. 30 Tab 11 11/13/2019 Active Additional Information Patient taking differently:400 mg Oral Daily(AM),Indications: takes in the evening, Reported on 06/01/2022 Riboflavin 400 MG Capsule Take 1 Cap by mouth daily. 30 Cap 11 11/13/2019 Active Additional Information Patient taking differently:400 mg Oral Daily(AM),Indications: takes in the evening, Reported on 06/01/2022 ProAir HFA 108 (90 Base) MCG/ACT Inhalation Aerosol SolutionIndications :Cough Inhale 2 Puffs by mouth 4 times a day as needed for Wheezing. 18 g 0 12/10/2020 Active Fluticasone Propionate 50 MCG/ACT Nasal Suspension Administer 2 Sprays into each nostril daily. 0 04/15/2021 Active Additional Information Patient not taking.Reported on 08/29/2023 Triamcinolone Acetonide 0.1 % External Ointment (Aristocort)Indicat ions:Dermatitis Apply to rash nightly as needed 30 g 1 05/24/2022 Active Ammonium Lactate 12 % External CreamIndications:De rmatitis Apply to skin after bathing as needed 385 g 1 05/24/2022 Active Omeprazole 20 MG Oral Capsule Delayed Release (PriLOSEC)Indicatio ns:Gastroesophageal reflux disease without esophagitis,Cough Take 1 Capsule by mouth in the morning. 1 hour before the first meal of the day. 90 Capsule 3 06/02/2022 Active Fluticasone-Salmete rol 115-21 MCG/ACT Inhalation Aerosol (Advair HFA) Inhale 2 Puffs by mouth 2 times a day as needed for Cough, Shortness of Breath or Wheezing. 12 g 3 06/02/2022 Active Additional Information Patient not taking.Reported on 08/29/2023 Atenolol 25 MG Oral Tablet (Tenormin)Indicatio ns:HTN, goal below 130/80,Migraine without aura and without status migrainosus, not intractable TAKE 1 TABLET BY MOUTH ONCE DAILY FOR HEADACHE 90 Tablet 3 04/01/2023 Active Topiramate 25 MG Oral Tablet (topAMAX) TAKE 2 TABLETS BY MOUTH ONCE DAILY AT BEDTIME 180 Tablet 1 06/02/2023 Active Nortriptyline HCl 10 MG Oral Capsule (Pamelor) TAKE 3 CAPSULES BY MOUTH ONCE DAILY AT BEDTIME 120 Capsule 5 06/30/2023 Active Rosuvastatin Calcium 5 MG Oral Tablet (Crestor)Indication s:Mixed hyperlipidemia Take 1 Tablet by mouth in the morning. 90 Tablet 1 07/05/2023 Active Enoxaparin Sodium 60 MG/0.6ML Injection Solution Prefilled Syringe (LovenoOpower) Inject 0.5 mL (50 mg) under the skin twice a day (morning and before bedtime). Do all this for 14 days. 16.8 mL 0 08/19/2023 09/02/19 24 Active Carisoprodol 350 MG Oral Tablet (Soma) Take 1 Tablet by mouth 4 times a day as needed for Muscle spasms. 20 Tablet 0 08/23/2023 Active oxyCODONE HCl 5 MG Oral Tablet (Oxy IR) Take 1 Tablet by mouth every 6 hours as needed for Pain, Severe. 30 Tablet 0 08/25/2023 Active Rizatriptan Benzoate 10 MG Oral Tablet (Maxalt) TAKE 1 TABLET BY MOUTH AT ONSET OF HEADACHE, MAY REPEAT IN 24 HRS. NO MORE THAN 3 TIMES A WEEK 10 Tablet 5 08/29/2023 Active Docusate Sodium 100 MG Oral Capsule (Colace) Take 1 Capsule by mouth in the morning and 1 Capsule before bedtime. 10 Capsule 0 08/19/2023 08/29/19 24 Discontinu ed(Medicat ion List Clean Up) documented as of this encounter (statuses as of 08/29/2023) Active Problems Problem Noted Date Diagnosed Date Fracture of distal end of ti loli with fibula, right, closed, initial encounter 08/17/2023 Fall 08/17/2023 Mixed hyperlipidemia 10/03/2022 Bronchiectasis without complication 09/22/2022 HTN, goal below 130/80 04/24/2021 Moderate persistent asthma without complication 01/06/2021 Hx of nonmelanoma skin cancer 01/30/2020 Overview: BCC L nose decades ago History of Lyme disease 11/09/2018 Other psoriasis 07/10/2010 Migraine without aura 04/19/2003 documented as of this encounter (statuses as of 08/29/2023) Resolved Problems Problem Noted Date Diagnosed Date Resolved Date Prediabetes 10/03/2022 01/20/2023 Lyme disease 05/09/2014 11/09/2018 Dysphagia 07/10/2010 11/09/2018 Overview: ICD-10 update of inactive term Family history of premature CAD 04/19/2003 02/25/2012 documented as of this encounter (statuses as of 08/29/2023) Immunizations Name Administration Dates Next Due COVID-19 mRNA, LNP-s, No Pre serve, 2-Dose Series (Moderna) 04/18/2021,10/15/2020,09/17/2020 COVID-19, mRNA, LNR-S, Bival ent, PF, 10mcg/0.2 ml (Moderna) 6m to 5 years 03/18/2022 Pneumococcal Conjugate Vacci ne, 20-valent (Piqjugj11) 09/22/2022 Pneumococcal Polysaccharide PPV23 (Pneumovax) 04/24/2021 Seasonal Influenza, PF, 6 M & above, IM , (FluLaval or Fluzone) 02/10/2022,02/16/2021,03/04/2020,02/2019 Seasonal Influenza, Quadriva lent, No Preserve, IM 03/20/2018,03/09/2016,05/11/2015 Seasonal Influenza, Split, I IV3, With Preserve, Inj 02/08/2014,02/27/2013,04/17/2012,09/2010 TDAP (age 10 and older)(Boostrix) 11/17/2020 TDAP (age 11 and older)(Adacel) 07/10/2010 Zoster Vaccine Recombinant (Shingrix) 01/16/2019 ,11/09/2018 01/09/2019 documented as of this encounter Social History Tobacco Use Types Packs/Day Years Used Date Smoking Tobacco: Never Smokeless Tobacco: Never Alcohol Use Standard Drinks/Week Comments No 0 (1 standard drink = 0.6 oz pur e alcohol) PHQ-2 Answer Date Recorded PHQ Adult Total Score 0 09/22/2022 Hunger Vital Sign Answer Date Recorded Within the past 12 months, y ou worried that your food would run out before you got the money to buy more. Never true 09/23/19 23 Within the past 12 months, t he food you bought just didn't last and you didn't have money to get more. Never true 09/22/2022 Sex and Gender Information Value Date Recorded Sex Assigned at Male 11/09/2018 8:40 AM EDT Gender Identity Male 11/09/2018 8:40 AM EDT Sexual Orientation Straight 11/09/2018 8: 40 AM EDT Job Start Date Occupation Industry Not on file Not on file Not on file documented as of this encounter Last Filed Vital Signs Vital Sign Reading Time Taken Comments Blood Pressure 102/64 08/29/2023 2:49 PM EDT Pulse 60 08/29/2023 2:49 PM EDT Temperature 36.5 C (97.7 F) 08/29/2023 2:49 PM ED T Respiratory Rate - - Oxygen Saturation - - Inhaled Oxygen Concentration - - Weight 92.5 kg (203 lb 14.4 oz) 08/29/2023 2:49 PM EDT Height 188 cm (6' 2") 08/29/2023 2:49 PM EDT Body Mass Index 26.18 08/29/2023 2:49 PM EDT documented in this encounter Functional Status Functional Status Response Date of Assess ment Are you deaf or do you have serious difficulty h earing? No 08/17/2023 Are you blind or do you have serious difficulty seeing, even when wearing glasses? No 08/17/2023 Do you have serious difficul ty walking or climbing stairs? (5 years old or older) No 08/17/2023 Do you have difficulty dress ing or bathing? (5 years old or older) No 08/17/2023 Because of a physical, menta l, or emotional condition, do you have difficulty doing errands alone such as visiting a doctor s office or shopping? (15 years old or older) No 08/17/19 Cognitive Status Response Date of Assessm ent Because of a physical, menta l, or emotional condition, do you have serious difficulty concentrating, remembering, or making decisions? (5 years old or older) No 08/17/2023 documented as of this encounter Progress Notes * Primitivo Arceo MD - 08/29/2023 3:43 PM EDT Chief Complaint Patient presents with Hospital Follow-Up Hospital discharge follow up - discharged on 08/18, very restricted mobility since being home, has occasional dizziness. pt has blisters on foot and was recasted with gauze to cover. Pt's is concerned foot is infected. Pt is also in a lot of pain, cast is causing a lot of irritation. Pt's wifeis interested in either PT or OT to help him move more at home Hospital Follow-Up SUBJECTIVE: Daniel Avila is a 62 year old adult with PMH as below who presents for what was to be physical, but needs hospital follow up. Was admitted 08/16/23-08/19/23 after a slip and fall at home outside when slipped - caused a distal tib/fib fracture with displacement needing orif with nail which he had done as well as repair right posterior malleolus fracture on 08/17/23. He is only 50% weight bearing. Was having issues/blister from cast so went back down to ortho on 08/23/23 and they re-casted him andplaced gauze on blister. Has been taking a lot more easy at home now with resting, keeping off leg,but still has pain, ankle. No fevers, chills, extreme swelling. Did have toe pain but this is better after they trimmed gauze. No falls. Mentions occasional dizziness at home, no cp, sob, chaney, palpitations. Is eating, taking med for pain. Patient Active Problem List Diagnosis Code Migraine without aura G43.009 Other psoriasis L40.8 History of Lyme disease Z86.19 Hx of nonmelanoma skin cancer Z85.828 Moderate persistent asthma without complication J45.40 HTN, goal below 130/80 I10 Bronchiectasis without complication (HCC) J47.9 Mixed hyperlipidemia E78.2 Fracture of distal end of tibia with fibula, right, closed, initial encounter S82.831A, S82.301A Fall W19.XXXA Current Outpatient Medications Medication Sig Dispense Refill IBUPROFEN 200 MG PO TABS Take 2 Tablets by mouth 2 times a day as needed (headache). Magnesium Oxide 400 MG Tablet Take 1 Tab by mouth daily. (Patient taking differently: Take 1 Tabletby mouth in the morning.) 30 Tab 11 Riboflavin 400 MG Capsule Take 1 Cap by mouth daily. (Patient taking differently: Take 1 Capsule bymouth in the morning.) 30 Cap 11 ProAir HFA 108 (90 Base) MCG/ACT Inhalation Aerosol Solution Inhale 2 Puffs by mouth 4 times a day as needed for Wheezing. 18 g 0 Triamcinolone Acetonide 0.1 % External Ointment (Aristocort) Apply to rash nightly as needed 30 g 1 Ammonium Lactate 12 % External Cream Apply to skin after bathing as needed 385 g 1 Omeprazole 20 MG Oral Capsule Delayed Release (PriLOSEC) Take 1 Capsule by mouth in the morning. 1 hour before the first meal of the day. 90 Capsule 3 Atenolol 25 MG Oral Tablet (Tenormin) TAKE 1 TABLET BY MOUTH ONCE DAILY FOR HEADACHE 90 Tablet 3 Topiramate 25 MG Oral Tablet (topAMAX) TAKE 2 TABLETS BY MOUTH ONCE DAILY AT BEDTIME 180 Tablet 1 Nortriptyline HCl 10 MG Oral Capsule (Pamelor) TAKE 3 CAPSULES BY MOUTH ONCE DAILY AT BEDTIME 120 Capsule 5 Rosuvastatin Calcium 5 MG Oral Tablet (Crestor) Take 1 Tablet by mouth in the morning. 90 Tablet 1 Enoxaparin Sodium 60 MG/0.6ML Injection Solution Prefilled Syringe (Lovenox) Inject 0.5 mL (50 mg) under the skin twice a day (morning and before bedtime). Do all this for 14 days. 16.8 mL 0 Carisoprodol 350 MG Oral Tablet (Soma) Take 1 Tablet by mouth 4 times a day as needed for Muscle spasms. 20 Tablet 0 oxyCODONE HCl 5 MG Oral Tablet (Oxy IR) Take 1 Tablet by mouth every 6 hours as needed for Pain, Severe. 30 Tablet 0 Rizatriptan Benzoate 10 MG Oral Tablet (Maxalt) TAKE 1 TABLET BY MOUTH AT ONSET OF HEADACHE, MAY REPEAT IN 24 HRS. NO MORE THAN 3 TIMES A WEEK 10 Tablet 5 Fluticasone Propionate 50 MCG/ACT Nasal Suspension Administer 2 Sprays into each nostril daily. (Patient not taking: Reported on 08/29/2023) Fluticasone-Salmeterol 115-21 MCG/ACT Inhalation Aerosol (Advair HFA) Inhale 2 Puffs by mouth 2 times a day as needed for Cough, Shortness of Breath or Wheezing. (Patient not taking: Reported on 08/29/2023) 12 g 3 No current facility-administered medications for this visit. Review of patient's allergies indicates: Allergen Reactions Tape [Adhesive Tape] Other (Please comment) blistering Zinc Rash Health Maintenance Due Topic Date Due HIV Screening Never done Depression Screening 09/23/2023 ROS: CONSTITUTIONAL: No fevers, sweats, or chills EYE: No recent significant change in vision PULMONARY: No cough, sputum, or hemoptysis, No wheezing, No rales, No shortness of breath, and No recent change in breathing CARDIOVASCULAR: No chest pain, No shortness of breath, No dyspnea on exertion, No orthopnea, No paroxysmal nocturnal dyspnea, No edema, No palpitations, and No syncope EXTREMITIES: as per hpi SKIN/INTEGUMENTARY: as per hpi ALL OTHER SYSTEMS NEGATIVE I reviewed social, PMH, PSH, and family history and updated where needed. Social History Socioeconomic History Marital status: Spouse name: Naz Number of children: 2 Years of education: Not on file Highest education level: Not on file Occupational History Occupation: computer clerk - retired Comment: [employer] Tobacco Use Smoking status: Never Smokeless tobacco: Never Vaping Use Vaping Use: Never used Substance and Sexual Activity Alcohol use: No Drug use: No Sexual activity: Yes Partners: Female control/protection: Condom Other Topics Concern Not on file Social History Narrative No pets No mold Central air for heating and cooling with filtration system. They also have a blue light sterilizer in the system. Social Determinants of Health Financial Resource Strain: Not on file Food Insecurity: No Food Insecurity (09/22/2022) Hunger Vital Sign Worried About Running Out of Food in the Last Year: Never true Ran Out of Food in the Last Year: Never true Transportation Needs: Not on file Physical Activity: Not on file Stress: Not on file Social Connections: Not on file Intimate Partner Violence: Not on file Housing Stability: Not on file Past Medical History: Diagnosis Date Asthma Bronchiectasis (HCC) Dysphagia treated with exercise, s/p endoscopy that was normal. History of Lyme disease 11/09/2018 Migraine without aura Mixed hyperlipidemia 10/03/2022 Prediabetes 10/03/2022 Skin lesion 03/04/2016 Foot, told benign at fair, but to watch Past Surgical History: Procedure Laterality Date COLONOSCOPY, DIAGNOSTIC (RECTUM) 04/21/09 done normal colon exam COLONOSCOPY, DIAGNOSTIC (RECTUM) 02/13/2020 hyperplastic polyps, repeat 10 yrs / COLONOSCOPY FLEXIBLE PROXIMAL DIAGNOSTIC performed by Sandro Mac MD at ENDOSCOPY [facility] EGD, FLEXIBLE, DIAGNOSTIC 05/03/2012 UPPER GI ENDOSCOPY DIAGNOSTIC performed by Sandro Vale MD at ENDOSCOPY [facility], path shows inflammation and No evidence of cancer REMOVAL OF RUPTURED APPENDIX age 10 Appendectomy, Rupt Appendx+Abscess REMOVE TONSILS & ADENOIDS, UNDER 12 age 8 Tonsillectomy/Adenoids,<10 Y/O REPAIR TIBIA SHAFT FX W/IMPLANT Right 08/17/2023 TREATMENT TIBIAL FRACTURE BY INTRAMEDULLARY IMPLANT performed by German Roldan MD at OR [facility] RMV BENIGN LSN FACE <=.5CM 1983 Basal cell ca, left nose Family History Problem Relation Age of Onset Obesity Sister Heart disease Sister Pacemaker No Known Problems Brother Hypertension Father Neurological Disorder Father migraines Stroke Mother Heart disease Mother Heart Disorder Uncle (Unspecified) 3 maternal uncles of [place] in their 40's and early 50's OBJECTIVE: PHYSICAL EXAM: BP 102/64 | Pulse 60 | Temp 36.5 C (97.7 F) (Tympanic) | Ht 1.88 m (6' 2") | Wt 92.5 kg (203 lb14.4 oz) | BMI 26.18 kg/m | BSA 2.2 m General: alert, healthy, and no distress Head: Normocephalic, No masses, lesions, or abnormalities Heart: regular rate & rhythm, no murmur, no gallops, PMI non-displaced, S-1 normal, and S-2 normal Lungs: normal respiratory rate and rhythm, lungs clear to auscultation Ext: no edema at right toes, seem well perfused, not warm, no quad swelling, rest of leg in cast and splint Psych: normal affect, no flight of ideas or tangential thought, good eye contact, no pressured speech D/c hospital course: The pt is a 62 y/o male with a PMHx listed below that presents to [facility]'s ED via EMS from [facility] after a mechanical fall today. He said he was pulling on a tarp on a small grassy slop when he twisted hisR ankle and heard a "pop." He had immediate pain in his RLE. He fell backwards onto his buttock. Neg LOC or head injury. He was unable to get up, so 911 was called. At the OSH, he had R knee, tib/fib, and ankle XR. He was found to have a R distal tib/fib fx. ORTHO was consulted by the ED. You were seen by Orthopedics for your Right distal tib/fib fracture, Possible right age indeterminate tibial plateau avulsion, Right posterior malleolar fracture with intra-articular extension fracture (broken leg). You did require surgery. You were taken to surgery on 08/17/23 for operative fixation of your leg. You can bear 50% of your weight on your right leg when ambulating. I reviewed last phosphorus, gfr, cbc, potassium 08/23/23 ortho: PLAN: F/U with previously scheduled apt 50lb wb RLE Soma prescribed, PDMP reviewed ASSESSMENT: Z09 Hospital discharge follow-up (primary encounter diagnosis) S82.831A,S82.301A Fracture of distal end of tibia with fibula, right, closed, initial encounter J47.9 Bronchiectasis without complication (HCC) R71.0 Decreased hemoglobin E83.39 Serum phosphate decreased E87.6 Hypokalemia R53.81 Physical deconditioning PLAN: Hospital discharge follow-up (Primary) - DISCH MED RECON CUR MED LIS As below Fracture of distal end of tibia with fibula, right, closed, initial encounter S/p surgery, now with cast Cont oxycodone, soma - pain control per ortho We discussed given pain with cast, going back to ortho tomorrow, they will do, will let me know if issues with this Any cp, sob, palpitations worsening pain to er, they agree Recheck labs today as below Cont weight bearing per surgery May consider dexa down the line Bronchiectasis without complication (HCC) Seems stable Follow Cont inhalers Decreased hemoglobin - CBC WITH WBC DIFFERENTIAL; Future; Expected date: 08/29/2023 Serum phosphate decreased - COMPREHENSIVE METABOLIC PANEL; Future; Expected date: 08/29/2023 - PHOSPHORUS; Future; Expected date: 08/29/2023 Hypokalemia - COMPREHENSIVE METABOLIC PANEL; Future; Expected date: 08/29/2023 - MAGNESIUM; Future; Expected date: 08/29/2023 Physical deconditioning - HOME HEALTH REFERRAL OP Will let me know who they want to use Follow Up: Return in about 3 months (around 11/29/2023) for Return with Physician, Labs Today. | For: Return with Physician, Labs Today | Check-out note: Ok for private spot documented in this encounter Nursing Notes * Aster Louis MED ASSIST - 08/29/2023 3:00 PM EDT Chief Complaint Patient presents with Hospital Follow-Up Hospital discharge follow up - discharged on 08/18, very restricted mobility since being home, has occasional dizziness. pt has blisters on foot and was recasted with gauze to cover. Pt's is concerned foot is infected. Pt is also in a lot of pain, cast is causing a lot of irritation. Pt's wifeis interested in either PT or OT to help him move more at home documented in this encounter Plan of Treatment Upcoming Encounters Date Type Department Care Team (Late st Contact Info) Description 09/06/2023 12:00 PM EDT Office Visit Orthopaedics, [facility] [address] [place] [address] Eleno Sexton PA-C [address] [place] [address] 11/30/2023 12:00 PM EDT Office Visit General Internal Medicine [facility] [employer] [address] [place] [id number] Primitivo Arceo MD [address] [facility] [place] [address] 12/09/2023 3:45 PM EDT Office Visit Dermatology [facility] [address] [facility] [place] [address] Primitivo De Guzman MD [address] [facility] [place] [address] 09/03/2024 2:20 PM EDT Office Visit General Internal Medicine [facility] [address] [facility] [place] [address] Primitivo Arceo MD [address] [facility] [place] [address] Pending Results Name Type Priority Associated Diagnoses Date /Time CBC WITH WBC DIFFERENTIAL Lab Routine Decreased hemoglobin 08/29/2023 3:48 PM EDT COMPREHENSIVE METABOLIC PANEL Lab Routine Serum phosphate decreased Hypokalemia 08/29/2023 3:48 PM EDT PHOSPHORUS Lab Routine Serum phosphate decreased 08/29/2023 3:48 PM EDT MAGNESIUM Lab Routine Hypokalemia 08/29/2023 3:48 PM EDT Scheduled Orders Name Type Priority Associated Diagnoses Orde r Schedule CBC WITH WBC DIFFERENTIAL Lab Routine Decreased hemoglobin Expected: 08/29/2023 (Approximate), Expires: 08/28/2024 COMPREHENSIVE METABOLIC PANEL Lab Routine Serum phosphate decreased Hypokalemia Expected: 08/29/2023 (Approximate), Expires: 08/28/2024 PHOSPHORUS Lab Routine Serum phosphate decreased Expected: 08/29/2023 (Approximate), Expires: 08/28/2024 MAGNESIUM Lab Routine Hypokalemia Expected: 08/29/2023 (Approximate), Expires: 08/28/2024 Scheduled Procedures Name Priority Associated Diagnoses Date/Ti me COLONOSCOPY FLEXIBLE PROXIMAL DIAGNOSTIC Recall Screen for colon cancer Scheduled Referrals Name Type Priority Associated Diagnoses Orde r Schedule HOME HEALTH REFERRAL OP Referral Within 30 days (routine) Physical deconditioning Ordered: 08/29/2023 Health Maintenance Due Date Last Done Comments HIV Screening 1973 Cologuard 11/01/2003 Fecal Occult Blood Test 11/01/2003 Sigmoidoscopy 11/01/2003 Depression Screening 09/23/2023 09/22/2022 GFR 08/18/2024 08/19/2023, 08/04, 08/17/2023, Additional history exists Albumin/Creatinine Ratio 09/23/2025 09/23/2022 Diabetes Screening 08/18/2026 08/19/2023, 0 08/18/2023, 08/17/2023, Additional history exists Lipid Panel 02/19/2028 02/18/2023, 07/2 12/2022, 09/23/2022, Additional history exists Colonoscopy 02/12/2030 02/13/2020, 02/2020, 04/21/2009 Colorectal Cancer Screening 02/12/2030 DTaP,Tdap,and Td Vaccines (3 - Td or Tdap) 11/17/2030 11/17/2020, 07/10/2010, 04/19/2003 Zoster Vaccines Completed 01/16/2019, 11/09/2018 Pneumococcal Vaccine: Pediatrics (0 to 5 Years) and At-Risk Patients (6 to 64 Years) Completed 09/22/2022, 04/24/2021 COVID-19 Vaccine Completed 03/03/2023, , 04/18/2021, Additional history exists Influenza Vaccine (FLU shot) Completed 04/2023, 02/10/2022, 02/16/2021, Additional history exists GARDASIL-HPV IMMUNIZATION SERIES Aged Out No longer eligible based on patient's age to complete this topic Hepatitis B Aged Out No longer eligi ble based on patient's age to complete this topic MENINGOCOCCAL (MENACTRA/MENVEO) Aged Out No longer eligible based on patient's age to complete this topic documented as of this encounter Medical Devices Implanted Type Area Record Label Internship Device Identifier Shelf Expiration Date Model / Serial / Lot Nail T2 Alpha Tibia [id number] - [id number] Implanted:Qty: 1 on 08/17/2023 by German Roldan MD at OR [facility] [place] Right: Leg Lower TONEY : TRAUMA 07/06/2030 2341-1039S / / [id number] Screw T2 Alpha Lock 5x42.5mm - [id number] Implanted:Qty: 1 on 08/17/2023 by German Roldan MD at OR [facility] [place] Right: Leg Lower TONEY : TRAUMA 01/03/2033 2360-5042S / / [id number] Screw T2 Alpha Lock 5x42.5mm - [id number] Implanted:Qty: 1 on 08/17/2023 by German Roldan MD at OR [facility] [place] Right: Leg Lower TONEY : TRAUMA 05/05/2033 2360-5042S / / [id number] Screw T2 Alpha Lock 5x40mm - [id number] Implanted:Qty: 1 on 08/17/2023 by German Roldan MD at OR [facility] [place] Right: Leg Lower TONEY : TRAUMA 01/03/2033 2360-5040S / / [id number] Screw T2 Alpha Lock 5x47.5mm - [id number] Implanted:Qty: 1 on 08/17/2023 by German Roldan MD at OR [facility] [place] Right: Leg Lower TONEY : TRAUMA 06/05/2033 2360-5047S / / [id number] documented as of this encounter Visit Diagnoses Diagnosis Hospital discharge follow-up- Primary Other follow-up examination Fracture of distal end of tibia with fibula, right, closed, initial encounter Bronchiectasis without complication (HCC) Bronchiectasis without acute exacerbation Decreased hemoglobin Anemia, unspecified Serum phosphate decreased Disorders of phosphorus metabolism Hypokalemia Hypopotassemia Physical deconditioning Debility, unspecified documented in this encounter Advance Directives Latest Code Status on File Code Status Date Activated Date Inactivated Comments Full Code 08/17/2023 12:34 AM 08/19/2023 6:51 PM This order reflects the patients wishes and were consensually agreed upon. Question Answer Comments Discussion of Advance Directives occurred with: Not Discussed due to patient's condition Care Teams Calculus Teacher Relationship Specialty Start Date End Date Primitivo Arceo MD [address] [facility] [place] [address] PCP - General Internal Medicine 06/03/14 documented as of this encounter
--- OUTSIDE RECORDS SUMMARY | 2023-08-31 07:02 | External Medical Summary | Summary of Care ---
Author Name Unknown Organization [facility] Address [address] [place] [address] Phone [phone] Care Team Providers Care Inside Sales Engineer Name Role Phone Primitivo Arceo MD Primary Care Provider + Reason for Visit * Reason Comments Outpatient Testing Encounter Details Date Type Department Care Team (Late st Contact Info) Description 08/29/2023 3:50 PM EDT Laboratory Laboratory [facility] [place] [address] [place] [address] [facility] [address] [facility] [place] [address] Encounter for long-term (current) use of medications; Prediabetes; Decreased hemoglobin; Serum phosphate decreased; Hypokalemia Allergies Active Allergy Reactions Criticality Noted Date [...] HFA 108 (90 Base) MCG/ACT Inhalation Aerosol SolutionIndications: Cough Inhale 2 Puffs by mouth 4 times a day as needed for Wheezing. 18 g 0 12/10/2020 Active Fluticasone Propionate 50 MCG/ACT Nasal Suspension Administer 2 Sprays into each nostril daily. 0 04/15/2021 Active Additional Information Patient not taking.Reported on 08/29/2023 Triamcinolone Acetonide 0.1 % External Ointment (Aristocort)Indicati ons:Dermatitis Apply to rash nightly as needed 30 g 1 05/24/2022 Active Ammonium Lactate 12 % External CreamIndications:Bay matitis Apply to skin after bathing as needed 385 g 1 05/24/2022 Active Omeprazole 20 MG Oral Capsule Delayed Release (PriLOSEC)Indication s:Gastroesophageal reflux disease without esophagitis,Cough Take 1 Capsule by mouth in the morning. 1 hour before the first meal of the day. 90 Capsule 3 06/02/2022 Active Fluticasone-Salmeter ol 115-21 MCG/ACT Inhalation Aerosol (Advair HFA) Inhale 2 Puffs by mouth 2 times a day as needed for Cough, Shortness of Breath or Wheezing. 12 g 3 06/02/2022 Active Additional Information Patient not taking.Reported on 08/29/2023 Atenolol 25 MG Oral Tablet (Tenormin)Indication s:HTN, goal below 130/80,Migraine without aura and without [...] Active Rosuvastatin Calcium 5 MG Oral Tablet (Crestor)Indications :Mixed hyperlipidemia Take 1 Tablet by mouth in the morning. 90 Tablet 1 07/05/2023 Active Enoxaparin Sodium 60 MG/0.6ML Injection Solution Prefilled Syringe (Fiteezanox) Inject 0.5 mL (50 mg) under the skin twice a day (morning and before bedtime). Do all this for 14 days. 16.8 mL 0 08/19/2023 Active Carisoprodol 350 MG Oral Tablet (Soma) [...] A WEEK 10 Tablet 5 08/29/2023 Active documented as of this encounter (statuses as [...] years 03/18/2022 Pneumococcal Conjugate Vacci ne, 20-valent ([id number]) 09/22/2022 Pneumococcal Polysaccharide PPV23 (Pneumovax) 04/24/2021 Seasonal [...] on file documented as of this encounter Functional Status Functional Status Response [...] (15 years old or older) No 08/17/19 24 Cognitive Status Response Date of Assessm ent Because of a physical, menta l, or emotional condition, do you have serious difficulty concentrating, remembering, or making decisions? (5 years old or older) No 08/17/2023 documented as of this encounter Plan of Treatment Upcoming Encounters Date Type Department Care Team (Late st Contact Info) Description 09/06/2023 12:00 PM EDT Office Visit Orthopaedics, [place] [address] [place] [address] Eleno Sexton PA-C [address] [place] [address] 11/30/2023 12:00 PM EDT Office Visit General Internal Medicine [facility] [address] [place] [address] Primitivo Arceo MD [address] [place] [address] 12/09/2023 3:45 PM EDT Office Visit Dermatology [facility] [address] [place] [address] Primitivo De Guzman MD [address] [place] [address] 09/03/2024 2:20 PM EDT Office Visit General Internal Medicine [facility] [address] [place] [address] Primitivo Arceo MD [address] [place] [address] Pending Results Name Type Priority Associated Diagnoses Date /Time VITAMIN B12 Lab Routine Encounter for long-term (current) use of medications 08/29/2023 3:48 PM EDT HEMOGLOBIN A1C Lab Routine Prediabetes 08/29/2023 3:48 PM EDT CBC WITH WBC DIFFERENTIAL Lab Routine Decreased hemoglobin 08/29/2023 3:48 PM EDT COMPREHENSIVE METABOLIC PANEL Lab Routine Serum phosphate decreased Hypokalemia 08/29/2023 3:48 PM EDT PHOSPHORUS Lab Routine Serum phosphate decreased 08/29/2023 3:48 PM EDT MAGNESIUM Lab Routine Hypokalemia 08/29/2023 3:48 PM EDT CBC Lab Routine Decreased hemoglobin 08/29/2023 3:48 PM EDT DIFFERENTIAL, AUTOMATED Lab Routine Decreased hemoglobin 08/29/2023 3:48 PM EDT Scheduled Procedures Name Priority Associated Diagnoses Date/Ti me COLONOSCOPY FLEXIBLE PROXIMAL DIAGNOSTIC Recall Screen for colon cancer Health Maintenance Due Date Last Done Comments HIV Screening 1973 Cologuard 11/01/2003 Fecal Occult Blood Test 11/01/2003 Sigmoidoscopy 11/01/2003 Depression Screening 09/23/2023 09/22/2022 GFR 08/18/2024 08/19/2023, 08/04, 08/17/2023, Additional history exists Albumin/Creatinine Ratio 09/23/2025 09/23/2022 Diabetes Screening 08/18/2026 08/19/2023, 0 08/18/2023, 08/17/2023, Additional history exists Lipid Panel 02/19/2028 02/18/2023, 07/2 12/2022, 09/23/2022, Additional history exists Colonoscopy 02/12/2030 02/13/2020, 090 02/2020, 04/21/2009 Colorectal Cancer Screening 02/12/2030 DTaP,Tdap,and [...] this encounter Medical Devices Implanted Type Area Admin Dir Device Identifier Shelf Expiration Date Model / Serial / Lot Nail T2 Alpha Tibia [id number] - [id number] Implanted:Qty: 1 on 08/17/2023 by German Roldan [place] [facility] [place] Leg Lower TONEY : TRAUMA 07/06/2030 2341-1039S / / [id number] Screw T2 Alpha Lock 5x42.5mm - [id number] Implanted:Qty: 1 on 08/17/2023 by German Roldan [place] [facility] [place] Leg Lower TONEY : TRAUMA 01/03/2033 2360-5042S / / [id number] Screw T2 Alpha Lock 5x42.5mm - [id number] Implanted:Qty: 1 on 08/17/2023 by German Roldan MD [place] [facility] [place] Leg Lower TONEY : TRAUMA 05/05/2033 2360-5042S / / [id number] Screw T2 Alpha Lock 5x40mm - [id number] Implanted:Qty: 1 on 08/17/2023 by German Roldan MD [place] [facility] [place] Leg Lower TONEY : TRAUMA 01/03/2033 2360-5040S / / [id number] Screw T2 Alpha Lock 5x47.5mm - [id number] Implanted:Qty: 1 on 08/17/2023 by German Roldan MD [place] [facility] [place] Leg Lower TONEY : TRAUMA 06/05/2033 2360-5047S / / [id number] documented as of this encounter Visit Diagnoses Diagnosis Encounter for long-term (current) use of medications Encounter for long-term (current) use of other medications Prediabetes Other abnormal glucose Decreased hemoglobin Anemia, unspecified Serum phosphate decreased Disorders of phosphorus metabolism Hypokalemia Hypopotassemia documented in this encounter Advance Directives Latest Code Status on File Code Status Date Activated Date Inactivated Comments Full Code 08/17/2023 12:34 AM 08/19/2023 6:51 PM This order reflects the patients wishes and were consensually agreed upon. Question Answer Comments Discussion of Advance Directives occurred with: Not Discussed due to patient's condition Care Teams Inside Sales Engineer Relationship Specialty Start Date End Date Primitivo Arceo MD [address] [place] [address] PCP - General Internal Medicine 06/03/14 documented as of this encounter
--- OUTSIDE RECORDS SUMMARY | 2023-08-31 07:03 | External Medical Summary ---
Author Name Unknown Address Unknown Organization K01:LABORATORY [facility] [place] - [address] [place] [address] Laboratory Report Ordering Provider Test Date Status CHAIM CAMPOVERDE 08/29/2023 15:48:28 Final Observation Date Value Abnormality Reference (Units ) Status Vitamin B12 08/29/2023 15:48:28 1505 Above high normal 232-1245 (pg/mL) Final Performing Location LABORATORY C - [address] [place] [address]
--- OUTSIDE RECORDS SUMMARY | 2023-08-31 07:03 | External Medical Summary ---
Author Name Unknown Address Unknown Organization K01:LABORATORY [facility] - [address] [place] [address] Laboratory Report Ordering Provider Test Date Status CHAIM CAMPOVERDE 08/29/2023 15:48:28 Final Observation Date Value Abnormality Reference (Units ) Status Phosphate 08/29/2023 15:48:28 3.5 2.5-4.8 (m g/dL) Final Performing Location LABORATORY [facility] - [address] [place] [address]
--- OUTSIDE RECORDS SUMMARY | 2023-08-31 07:03 | External Medical Summary | Summary of Care ---
Author Name Unknown Organization [facility] Address [address] [place] [address] Phone [phone] Care Team Providers Care Data Engineer Name Role Phone Primitivo Arceo MD Primary Care Provider + Reason for Visit * Reason Onset Date Comments Medication Refill 08/25/2023 Encounter Details Date Type Department Care Team (Late st Contact Info) Description [facility] [address] [place] [address] German Roldan MD [address] [place] [address] Medication Refill ( ) Allergies Active Allergy Reactions Criticality Noted Date Comments Adhesive Tape Other (Please comment) 12/13/2008 blistering Zinc Rash 05/09/2014 documented as of this encounter (statuses as of 08/25/2023) Medications Medication Sig Dispensed Refills Start Date [...] daily. 0 04/15/2021 Active Additional Information Patient taking differently:2 [place] Each Nostril Daily(AM),As needed, Reported on 06/01/2022 Triamcinolone Acetonide 0.1 % External Ointment (Aristocort)Indicati [...] or Wheezing. 12 g 3 06/02/2022 Active Rizatriptan Benzoate 10 MG Oral Tablet (Maxalt) TAKE 1 TABLET BY MOUTH AT ONSET OF HEADACHE, MAY REPEAT IN 24 HRS. NO MORE THAN 3 TIMES A WEEK 10 Tablet 5 09/15/2022 Active Atenolol 25 MG Oral Tablet (Tenormin)Indication s:HTN, [...] the morning. 90 Tablet 1 07/05/2023 Active Acetaminophen 325 MG Oral Tablet (Tylenol) Take 3 Tablets by mouth in the morning and 3 Tablets at noon and 3 Tablets before bedtime. Do all this for 7 days. 63 Tablet 0 08/19/2023 4 Active Docusate Sodium 100 MG Oral Capsule (Colace) Take 1 Capsule by mouth in the morning and 1 Capsule before bedtime. 10 Capsule 0 08/19/2023 Active Enoxaparin Sodium 60 MG/0.6ML Injection Solution [...] Pain, Severe. 30 Tablet 0 08/25/2023 Active documented as of this encounter (statuses as of 08/25/2023) Active Problems Problem Noted Date Diagnosed Date [...] as of this encounter (statuses as of 08/25/2023) Resolved Problems Problem Noted Date Diagnosed Date Resolved Date Prediabetes 10/03/2022 01/20/2023 Lyme disease 05/09/2014 11/09/2018 Dysphagia 07/10/2010 11/09/2018 Overview: ICD-10 update of inactive term Family history of premature CAD 04/19/2003 02/25/2012 documented as of this encounter (statuses as of 08/25/2023) Immunizations Name Administration Dates Next Due COVID-19 mRNA, LNP-s, No Pre serve, 2-Dose Series (Moderna) 04/18/2021,10/15/2020,09/17/2020 COVID-19, mRNA, LNR-S, Bival ent, PF, 10mcg/0.2 ml (Moderna) 6m to 5 years 03/18/2022 Pneumococcal Conjugate Vacci ne, 20-valent ([id number]) 09/22/2022 Pneumococcal Polysaccharide PPV23 (Pneumovax) 04/24/2021 Seasonal [...] No 08/17/2023 documented as of this encounter Miscellaneous Notes * Telephone Encounter - Miesha Silveira PA-C - 08/25/2023 2:22 PM EDT Medication sent to the pharmacy * Telephone Encounter - Neeta Nguyen OSA - 08/25/2023 11:38 AM EDT Patient requesting refill of oxyCODONE HCl 5 MG Oral Tablet (Oxy IR) Please send to: [facility] [address] [place] Pt # [phone] documented in this encounter Plan of Treatment Upcoming Encounters Date Type Department Care Team (Late st Contact Info) Description 08/29/2023 3:00 PM EDT Office Visit General Internal Medicine [facility] [place] [address] [place] [address] Primitivo Arceo MD [address] [address] 09/06/2023 12:00 PM EDT Office Visit Orthopaedics, [place] [address] [place] [address] Eleno Sexton PA-C [address] [place] [address] 12/09/2023 3:45 PM EDT Office Visit Dermatology [facility] [place] [address] [facility] [place] [address] Primitivo De Guzman MD [address] [facility] [place] [address] Scheduled Procedures Name Priority Associated Diagnoses Date/Ti [...] 09/23/2022, Additional history exists Colonoscopy 02/12/2030 02/13/2020, 0902/2020, 04/21/2009 Colorectal Cancer Screening 02/12/2030 DTaP,Tdap,and Td [...] this encounter Medical Devices Implanted Type Area Industrial Relations Specialist Device Identifier Shelf Expiration Date Model / Serial / Lot Nail T2 Alpha Tibia [id number] - [id number] Implanted:Qty: 1 on 08/17/2023 by German Roldan MD [place] [facility] [place]: Leg Lower TONEY : TRAUMA 07/06/2030 2341-1039S / / [id number] Screw T2 Alpha Lock 5x42.5mm - [id number] Implanted:Qty: 1 on 08/17/2023 by German Roldan MD [place] [facility] [place]: Leg Lower TONEY : TRAUMA 01/03/2033 2360-5042S / / [id number] Screw T2 Alpha Lock 5x42.5mm - [id number] Implanted:Qty: 1 on 08/17/2023 by German Roldan MD [place] [facility] [place]: Leg Lower TONEY : TRAUMA 05/05/2033 2360-5042S / / [id number] Screw T2 Alpha Lock 5x40mm - [id number] Implanted:Qty: 1 on 08/17/2023 by German Roldan MD at [place] [facility] [place]: Leg Lower TONEY : TRAUMA 01/03/2033 2360-5040S / / [id number] Screw T2 Alpha Lock 5x47.5mm - [id number] Implanted:Qty: 1 on 08/17/2023 by German Roldan MD at [place] [facility] [place]: Leg Lower TONEY : TRAUMA 06/05/2033 2360-5047S / / [id number] documented as of this encounter Advance Directives Latest Code Status on File Code Status Date Activated Date Inactivated Comments Full Code 08/17/2023 12:34 AM 08/19/2023 6:51 PM This order reflects the patients wishes and were consensually agreed upon. Question Answer Comments Discussion of Advance Directives occurred with: Not Discussed due to patient's condition Care Teams Data Engineer Relationship Specialty Start Date End Date Primitivo Arceo MD [address] [place] [address] PCP - General Internal Medicine 06/03/14 documented as of this encounter
--- OUTSIDE RECORDS SUMMARY | 2023-08-31 07:03 | External Medical Summary | Summary of Care ---
Author Name Unknown Organization [facility] Address [address] [place] [address] Phone [phone] Care Team Providers Care Rotary Veneer Machine Operator Name Role Phone Primitivo Arceo MD Primary Care Provider + Encounter Details Date Type Department Care Team (Latest Contact Info) Description 08/16/2023 7:00 PM EDT - 08/16/2023 10:43 PM EDT Hospital Encounter Radiology Film [facility] [address] [place] [address] Discharge Disposition: Home - Self Care Allergies Active Allergy Reactions Criticality Noted Date Comments Adhesive Tape Other (Please comment) 12/13/2008 blistering Zinc Rash 05/09/2014 documented as of this encounter (statuses as of 08/24/2023) Medications Medication Sig Dispensed Refills Start Date [...] 04/15/2021 Active Additional Information Patient taking differently:2 [place] Each Nostril Daily(AM),As needed, Reported on 06/01/2022 [...] for 7 days. 63 Tablet 0 08/19/2023 Active Docusate Sodium 100 MG Oral Capsule (Colace) Take 1 Capsule by mouth in the morning and 1 Capsule before bedtime. 10 Capsule 0 08/19/2023 Active Enoxaparin Sodium 60 MG/0.6ML Injection Solution Prefilled Syringe (Lovenox) Inject 0.5 mL (50 mg) under the skin twice a day (morning and before bedtime). Do all this for 14 days. 16.8 mL 0 08/19/2023 4 Active oxyCODONE HCl 5 MG Oral Tablet (Oxy IR) Take 1 Tablet by mouth every 4 hours as needed for moderate to severe pain for up to 5 days. 25 Tablet 0 08/19/2023 4 Active documented as of this encounter (statuses as of 08/24/2023) Active Problems Problem Noted Date Diagnosed Date [...] as of this encounter (statuses as of 08/24/2023) Resolved Problems Problem Noted Date Diagnosed Date Resolved Date Prediabetes 10/03/2022 01/20/2023 Lyme disease 05/09/2014 11/09/2018 Dysphagia 07/10/2010 11/09/2018 Overview: ICD-10 update of inactive term Family history of premature CAD 04/19/2003 02/25/2012 documented as of this encounter (statuses as of 08/24/2023) Immunizations Name Administration Dates Next Due COVID-19 mRNA, LNP-s, No Pre serve, 2-Dose Series (Moderna) 04/18/2021,10/15/2020,09/17/2020 COVID-19, mRNA, LNR-S, Bival ent, PF, 10mcg/0.2 ml (Moderna) 6m to 5 years 03/18/2022 Pneumococcal Conjugate Vacci ne, 20-valent ([id number]) 09/22/2022 Pneumococcal Polysaccharide PPV23 (Pneumovax) 04/24/2021 Seasonal [...] on file documented as of this encounter Plan of Treatment Upcoming Encounters Date Type Department Care Team (Late st Contact Info) Description 08/29/2023 3:00 PM EDT Office Visit General Internal Medicine [facility] [address] [facility] [place] [address] Primitivo Arceo MD [address] [facility] [place] [address] 09/06/2023 12:00 PM EDT Office Visit Orthopaedics, [place] [address] [place] [address] Eleno Sexton PA-C [address] [place] [address] 12/09/2023 3:45 PM EDT Office Visit Dermatology [facility] [address] [facility] [place] [address] Primitivo De Guzman MD [address] [facility] [place] [address] Scheduled Procedures Name Priority Associated Diagnoses Date/Ti [...] this encounter Medical Devices Implanted Type Area Director Of Labor And Delivery Device Identifier Shelf Expiration Date Model / Serial / Lot Nail T2 Alpha Tibia [id number] - [id number] Implanted:Qty: 1 on 08/17/2023 by German Roldan MD at [place] [facility] [place] Right: Leg Lower TONEY : TRAUMA 07/06/2030 2341-1039S / / [id number] Screw T2 Alpha Lock 5x42.5mm - [id number] Implanted:Qty: 1 on 08/17/2023 by German Roldan MD at [place] [facility] [place] Right: Leg Lower TONEY : TRAUMA 01/03/2033 2360-5042S / / [id number] Screw T2 Alpha Lock 5x42.5mm - [id number] Implanted:Qty: 1 on 08/17/2023 by German Roldan MD at [place] [facility] [place] Right: Leg Lower TONEY : TRAUMA 05/05/2033 2360-5042S / / [id number] Screw T2 Alpha Lock 5x40mm - [id number] Implanted:Qty: 1 on 08/17/2023 by German Roldan MD at [place] [facility] [place] Right: Leg Lower TONEY : TRAUMA 01/03/2033 2360-5040S / / [id number] Screw T2 Alpha Lock 5x47.5mm - [id number] Implanted:Qty: 1 on 08/17/2023 by German Roldan MD at [place] [facility] [place] Right: Leg Lower TONEY : TRAUMA 06/05/2033 2360-5047S / / [id number] documented as of this encounter Procedures Procedure Name Priority Date/Time Associated Diagnosis Comments RADIOLOGY EXAM - GENERAL RAD (IMAGES ONLY,NO REPORT) Routine 08/16/2023 7:00 PM EDT documented in this encounter Results * RADIOLOGY EXAM - GENERAL RAD (IMAGES ONLY,NO REPORT) (08/16/2023 7:00 PM EDT) 08/16/2023 6:52 PM EDT Narrative Scheduling, Silent - 08/23/2023 5:09 PM EDT This is an imaging study not interpreted or resulted by a [employer] or [employer] contracted radiologist. Primitivo Arceo MD RADIOLOGY (RAD G ENERAL) documented in this encounter Advance Directives Latest Code Status on File Code Status Date Activated Date Inactivated Comments Full Code 08/17/2023 12:34 AM 08/19/2023 6:51 PM This order reflects the patients wishes and were consensually agreed upon. Question Answer Comments Discussion of Advance Directives occurred with: Not Discussed due to patient's condition Care Teams Rotary Veneer Machine Operator Relationship Specialty Start Date End Date Primitivo Arceo MD [address] [place] [address] [place] [address] PCP - General Internal Medicine 06/03/14 documented as of this encounter
--- OUTSIDE RECORDS SUMMARY | 2023-08-31 07:03 | External Medical Summary | Summary of Care ---
Author Name Unknown Organization [facility] Address [address] [place] [address] Phone [phone] Care Team Providers Care Judicial Law Clerk Name Role Phone Primitivo Arceo MD Primary Care Provider + Encounter Details Date Type Department Care Team (Latest Contact Info) Description 08/16/2023 4:00 PM EDT - 08/16/2023 4:04 PM EDT Hospital Encounter Radiology Film File [address] [place] [address] Discharge Disposition: Home - Self [...] 04/15/2021 Active Additional Information Patient taking differently:2 [place] Each Nostril Daily(AM),As needed, Reported on 06/01/2022 [...] Date Fracture of distal end of ti loil with fibula, right, closed, initial encounter 08/17/2023 [...] years 03/18/2022 Pneumococcal Conjugate Vacci ne, 20-valent ([id number]) 09/22/2022 Pneumococcal Polysaccharide PPV23 (Pneumovax) 04/24/2021 Seasonal [...] PM EDT Office Visit General Internal Medicine [facility] [address] [facility] [place] [address] Primitivo Arceo MD [address] [facility] [place] [address] 09/06/2023 12:00 PM EDT Office Visit Orthopaedics, [place] [address] [place] [address] Eleno Sexton PA-C [address] [place] [address] 12/09/2023 3:45 PM EDT Office Visit Dermatology [facility] [address] [facility] [place] [address] Primitivo De Guzman MD [address] [facility] [place] [address] Scheduled Procedures Name Priority Associated Diagnoses Date/Ti [...] this encounter Medical Devices Implanted Type Area Tail Board Man Device Identifier Shelf Expiration Date Model / Serial / Lot Nail T2 Alpha Tibia [id number] - [id number] Implanted:Qty: 1 on 08/17/2023 by [place] Roldan MD at [place] [facility] [place] Right: Leg Lower TONEY : TRAUMA 07/06/2030 2341-1039S / / [id number] Screw T2 Alpha Lock 5x42.5mm - [id number] Implanted:Qty: 1 on 08/17/2023 by [place] Roldan MD at [place] [facility] [place] Right: Leg Lower TONEY : TRAUMA 01/03/2033 2360-5042S / / [id number] Screw T2 Alpha Lock 5x42.5mm - [id number] Implanted:Qty: 1 on 08/17/2023 by [place] Roldan MD at [place] [facility] [place] Right: Leg Lower TONEY : TRAUMA 05/05/2033 2360-5042S / / [id number] Screw T2 Alpha Lock 5x40mm - [id number] Implanted:Qty: 1 on 08/17/2023 by [place] Roldan MD at [place] [facility] [place] Right: Leg Lower TONEY : TRAUMA 01/03/2033 2360-5040S / / [id number] Screw T2 Alpha Lock 5x47.5mm - [id number] Implanted:Qty: 1 on 08/17/2023 by [place] Roldan MD at [place] [facility] [place] Right: Leg Lower TONEY : TRAUMA 06/05/2033 2360-5047S / / [id number] documented as of this encounter Procedures Procedure Name Priority Date/Time Associated Diagnosis Comments RADIOLOGY EXAM - GENERAL RAD (IMAGES ONLY,NO REPORT) Routine 08/16/2023 4:00 PM EDT documented in this encounter Results * RADIOLOGY EXAM - GENERAL RAD (IMAGES ONLY,NO REPORT) (08/16/2023 4:00 PM EDT) 08/16/2023 3:37 PM EDT Narrative Scheduling, Silent - 08/23/2023 4:58 PM EDT This is an imaging study not interpreted or resulted by a [email or web address] or [email or web address] contracted radiologist. Primitivo Arceo MD RADIOLOGY (RAD G ENERAL) documented in this encounter Advance Directives Latest Code Status on File Code Status Date Activated Date Inactivated Comments Full Code 08/17/2023 12:34 AM 08/19/2023 6:51 PM This order reflects the patients wishes and were consensually agreed upon. Question Answer Comments Discussion of Advance Directives occurred with: Not Discussed due to patient's condition Care Teams Judicial Law Clerk Relationship Specialty Start Date End Date Primitivo Arceo MD [address] [place] [address] [place] [address] PCP - General Internal Medicine 06/03/14 documented as of this encounter
--- OUTSIDE RECORDS SUMMARY | 2023-08-31 07:03 | External Medical Summary | Summary of Care ---
Author Name Unknown Organization [facility] Address [address] [place] [address] Phone [phone] Care Team Providers Care Lube Attendant Name Role Phone Primitivo Arceo MD Primary Care Provider + Reason for Visit * Reason Comments eRx-Medication Refill Encounter Details Date Type Department Care Team (Late st Contact Info) Description 08/26/[address] [facility] [address] [place] [address] Delfina Barcenas PA-C [address] [facility] [place] [address] Allergies Active Allergy Reactions Criticality Noted Date Comments Adhesive Tape Other (Please comment) 12/13/2008 blistering Zinc Rash 05/09/2014 documented as of this encounter (statuses as of 08/26/2023) Medications Medication Sig Dispensed Refills Start Date [...] 04/15/2021 Active Additional Information Patient taking differently:2 [place] Each Nostril Daily(AM),As needed, Reported on 06/01/2022 [...] as of this encounter (statuses as of 08/26/2023) Active Problems Problem Noted Date Diagnosed Date [...] as of this encounter (statuses as of 08/26/2023) Resolved Problems Problem Noted Date Diagnosed Date Resolved Date Prediabetes 10/03/2022 01/20/2023 Lyme disease 05/09/2014 11/09/2018 Dysphagia 07/10/2010 11/09/2018 Overview: ICD-10 update of inactive term Family history of premature CAD 04/19/2003 02/25/2012 documented as of this encounter (statuses as of 08/26/2023) Immunizations Name Administration Dates Next Due COVID-19 mRNA, LNP-s, No Pre serve, 2-Dose Series (Moderna) 04/18/2021,10/15/2020,09/17/2020 COVID-19, mRNA, LNR-S, Bival ent, PF, 10mcg/0.2 ml (Moderna) 6m to 5 years 03/18/2022 Pneumococcal Conjugate Vacci ne, 20-valent ([id number]) 09/22/2022 Pneumococcal Polysaccharide PPV23 (Pneumovax) 04/24/2021 Seasonal [...] encounter Miscellaneous Notes * Telephone Encounter - Claudy Chase RPh - 08/26/2023 9:30 AM EDT Refused Prescriptions: Disp Refills Rizatriptan Benzoate 10 MG Oral Tablet (Ma*10 Tab*0 Sig: TAKE 1TABLET BY MOUTH AT THE ONSET OF HEADACHE, MAY REPEAT IN 24 HOURS. DO NOT TAKE MORE THAN 3 TIMES A WEEKRefused By: CLAUDY CHASEReason for Refusal: Duplicate Request documented in this encounter Plan of Treatment Upcoming Encounters Date Type Department Care Team (Late st Contact Info) Description 08/29/2023 3:00 PM EDT Office Visit General Internal Medicine [facility] [place] [address] [place] [address] Primitivo Arceo MD [address] [place] [address] 09/06/2023 12:00 PM EDT Office Visit Orthopaedics, [place] [address] [place] [address] Eleno Sexton PA-C [address] [place] [address] 12/09/2023 3:45 PM EDT Office Visit Dermatology [facility] [place] [address] [facility] [place] [address] Primitivo De Guzman MD [address] [facility] [place] [address] Scheduled Procedures Name Priority Associated Diagnoses Date/Ti [...] 09/23/2022, Additional history exists Colonoscopy 02/12/2030 02/13/2020, 09/0 02/2020, 04/21/2009 Colorectal Cancer Screening 02/12/2030 DTaP,Tdap,and [...] this encounter Medical Devices Implanted Type Area Funeral Arrangement Director Device Identifier Shelf Expiration Date Model / Serial / Lot Nail T2 Alpha Tibia [id number] - [id number] Implanted:Qty: 1 on 08/17/2023 by [place] Roldan MD [place] [facility] [place]: Leg Lower TONEY : TRAUMA 07/06/2030 2341-1039S / / [id number] Screw T2 Alpha Lock 5x42.5mm - [id number] Implanted:Qty: 1 on 08/17/2023 by [place] Roldan MD at [place] [facility] [place] Right: Leg Lower TONEY : TRAUMA 01/03/2033 2360-5042S / / [id number] Screw T2 Alpha Lock 5x42.5mm - [id number] Implanted:Qty: 1 on 08/17/2023 by [place] Roldan MD at [place] [facility] [place] Right: Leg Lower TONEY : TRAUMA 05/05/2033 2360-5042S / / [id number] Screw T2 Alpha Lock 5x40mm - [id number] Implanted:Qty: 1 on 08/17/2023 by [place] Roldan MD at [place] [facility] [place] Right: Leg Lower TONEY : TRAUMA 01/03/2033 2360-5040S / / [id number] Screw T2 Alpha Lock 5x47.5mm - [id number] Implanted:Qty: 1 on 08/17/2023 by [place] Roldan MD at [place] [facility] [place] Right: Leg Lower TONEY : TRAUMA 06/05/2033 2360-5047S / / [id number] documented as of this encounter Advance Directives Latest Code Status on File Code Status Date Activated Date Inactivated Comments Full Code 08/17/2023 12:34 AM 08/19/2023 6:51 PM This order reflects the patients wishes and were consensually agreed upon. Question Answer Comments Discussion of Advance Directives occurred with: Not Discussed due to patient's condition Care Teams Lube Attendant Relationship Specialty Start Date End Date Primitivo Arceo MD [address] [place] [address] PCP - General Internal Medicine 06/03/14 documented as of this encounter
--- OUTSIDE RECORDS SUMMARY | 2023-08-31 07:03 | External Medical Summary | Summary of Care ---
Author Name Unknown Organization [facility] Address [address] [place] [address] Phone [phone] Care Team Providers Care Manager Generation Name Role Phone Primitivo Arceo MD Primary Care Provider + Reason for Visit * Reason Onset Date Comments Medication Refill 08/25/2023 Encounter Details Date Type Department Care Team (Late st Contact Info) Description [facility] [address] [place] [address] German Roldan MD [address] [place] [address] Medication Refill ( ) Allergies [...] 04/15/2021 Active Additional Information Patient taking differently:2 [place] Each Nostril Daily(AM),As needed, Reported on 06/01/2022 [...] years 03/18/2022 Pneumococcal Conjugate Vacci ne, 20-valent ([id number]) 09/22/2022 Pneumococcal Polysaccharide PPV23 (Pneumovax) 04/24/2021 Seasonal [...] Oral Tablet (Oxy IR) Please send to: [facility] [id number] [place] Pt # [phone] documented in this encounter Plan of Treatment Upcoming Encounters Date Type Department Care Team (Late st Contact Info) Description 08/29/2023 3:00 PM EDT Office Visit General Internal Medicine [facility] [place] [address] [place] [address] Primitivo Arceo MD [address] [facility] [place] [address] 09/06/2023 12:00 PM EDT Office Visit Orthopaedics, [place] [address] [place] [address] Eleno Sexton PA-C [address] [place] [address] 12/09/2023 3:45 PM EDT Office Visit [facility] [place] [address] [facility] [place] [address] Primitivo De Guzman MD [address] [facility] [place] [address] Scheduled Procedures Name Priority Associated Diagnoses Date/Ti [...] this encounter Medical Devices Implanted Type Area Senior Clinical Data Analyst Device Identifier Shelf Expiration Date Model / Serial / Lot Nail T2 Alpha Tibia [id number] - [id number] Implanted:Qty: 1 on 08/17/2023 by [place] Roldan MD [place] [facility] [place]: Leg Lower TONEY : TRAUMA 07/06/2030 2341-1039S / / [id number] Screw T2 Alpha Lock 5x42.5mm - [id number] Implanted:Qty: 1 on 08/17/2023 by [place] Roldan MD [place] [facility] [place]: Leg Lower TONEY : TRAUMA 01/03/2033 2360-5042S / / [id number] Screw T2 Alpha Lock 5x42.5mm - [id number] Implanted:Qty: 1 on 08/17/2023 by [place] Roldan MD [place] [facility] [place]: Leg Lower TONEY : TRAUMA 05/05/2033 2360-5042S / / [id number] Screw T2 Alpha Lock 5x40mm - [id number] Implanted:Qty: 1 on 08/17/2023 by [place] Roldan MD [place] [facility] [place]: Leg Lower TONEY : TRAUMA 01/03/2033 2360-5040S / / [id number] Screw T2 Alpha Lock 5x47.5mm - [id number] Implanted:Qty: 1 on 08/17/2023 by [place] Roldan MD [place] [facility] [place]: Leg Lower TONEY : TRAUMA 06/05/2033 2360-5047S / / [id number] documented as of this encounter Advance Directives Latest Code Status on File Code Status Date Activated Date Inactivated Comments Full Code 08/17/2023 12:34 AM 08/19/2023 6:51 PM This order reflects the patients wishes and were consensually agreed upon. Question Answer Comments Discussion of Advance Directives occurred with: Not Discussed due to patient's condition Care Teams Manager Generation Relationship Specialty Start Date End Date Primitivo Arceo MD [address] [place] [address] PCP - General Internal Medicine 06/03/14 documented as of this encounter
--- OUTSIDE RECORDS SUMMARY | 2023-08-31 07:03 | External Medical Summary ---
Author Name Unknown Address Unknown Organization K01:LABORATORY [facility] - [address] [place] [address] Laboratory Report Ordering Provider Test Date Status GILLES,DOJOYCE 08/29/2023 15:48:28 Final Observation Date Value Abnormality Reference (Units ) Status SYNC LEUKOCYTES IN BLOOD BY AUTOMATED COUNT 08/29/2023 15:48:28 15.95 Above high normal 4.00-10.80 (K/uL) Final Segs 08/29/2023 15:48:28 90.9 Above high normal 40.0-75.0 (%) Final Lymphs % 08/29/2023 15:48:28 3.6 Below low normal 18.0-42.0 (%) Final Monos 08/29/2023 15:48:28 3.6 1.0-11.0 (%) Final Eosinophils 08/29/2023 15:48:28 0.8 0.0-6.0 (%) Final Basos 08/29/2023 15:48:28 0.4 0.0-2.0 (%) Final Immature Granulocyte, Percent 08/29/2023 15:48:28 0.7 0.0-2.0 (%) Final Absolute Segs 08/29/2023 15:48:28 14.51 Above high normal 1.80-7.70 (K/uL) Final Lymphs, absolute 08/29/2023 15:48:28 0.57 Below low normal 1.00-4.80 (K/ul) Final Monos, Abs 08/29/2023 15:48:28 0.57 0.00-1.10 (K/uL) Final Eos, Abs 08/29/2023 15:48:28 0.12 0.00-0.70 (K/uL) Final Basos, Abs 08/29/2023 15:48:28 0.07 0.00-0.20 (K/uL) Final Immature Granulocytes, Number 08/29/2023 15:48:28 0.11 0.00-0.20 (K/uL) Final Performing Location [facility] - [facility] [address] [facility] [address]
--- OUTSIDE RECORDS SUMMARY | 2023-08-31 07:03 | External Medical Summary | Summary of Care ---
Author Name Unknown Organization [facility] Address [address] [place] [address] Phone [phone] Care Team Providers Care Home Support Worker Name Role Phone Primitivo Arceo MD Primary Care Provider + Reason for Visit * Reason Onset Date Comments Medication Refill 08/26/2023 Encounter Details Date Type Department Care Team (Late st Contact Info) Description 08/26/2023 Refill Neurology [facility] [address] [place] [address] Cj Tillman MD [address] [place] [address] Allergies Active Allergy Reactions Criticality Noted Date [...] 04/15/2021 Active Additional Information Patient taking differently:2 [place] Each Nostril Daily(AM),As needed, Reported on 06/01/2022 Triamcinolone Acetonide 0.1 % External Ointment (Aristocort)Indicat [...] or Wheezing. 12 g 3 06/02/2022 Active Atenolol 25 MG Oral Tablet (Tenormin)Indicatio ns:HTN, [...] the morning. 90 Tablet 1 07/05/2023 Active Docusate Sodium 100 MG Oral Capsule [...] A WEEK 10 Tablet 5 08/29/2023 Active Rizatriptan Benzoate 10 MG Oral Tablet (Maxalt) TAKE 1 TABLET BY MOUTH AT ONSET OF HEADACHE, MAY REPEAT IN 24 HRS. NO MORE THAN 3 TIMES A WEEK 10 Tablet 5 09/15/2022 08/26/19 24 Discontinu ed(Refill) documented as of this encounter (statuses as [...] years 03/18/2022 Pneumococcal Conjugate Vacci ne, 20-valent ([id number]) 09/22/2022 Pneumococcal Polysaccharide PPV23 (Pneumovax) 04/24/2021 Seasonal [...] encounter Miscellaneous Notes * Telephone Encounter - Valerio Balderrama PA-C - 08/29/2023 7:44 AM EDT Signed Prescriptions: Disp Refills Rizatriptan Benzoate 10 MG Oral Tablet (Ma*10 Tab*5 Sig: TAKE 1 TABLET BY MOUTH AT ONSET OF HEADACHE, MAY REPEAT IN 24 HRS. NO MORE THAN 3 TIMES A WEEK Authorizing Provider: VALERIO BALDERRAMA * Telephone Encounter - Emma Jeong LPN - 08/26/2023 3:28 PM EDTPending Prescriptions: Disp Refills Rizatriptan Benzoate 10 MG Oral Tablet (Ma*10 Tab*5 Sig: TAKE 1TABLET BY MOUTH AT ONSET OF HEADACHE, MAY REPEAT IN 24 HRS. NO MORE THAN 3 TIMES A WEEK documented in this encounter Plan of Treatment Upcoming Encounters Date Type Department Care Team (Late st Contact Info) Description 08/29/2023 3:00 PM EDT Office Visit General Internal Medicine [facility] [address] [place] [address] Primitivo Arceo MD [address] [place] [address] 09/06/2023 12:00 PM EDT Office Visit Orthopaedics, [place] [address] [place] [address] Eleno Sexton, PAMaryannC [address] [place] [address] 12/09/2023 3:45 PM EDT Office Visit Dermatology [facility] [address] [place] [address] Primitivo De Guzman MD [address] [place] [address] Scheduled Procedures Name Priority Associated Diagnoses Date/Ti [...] Additional history exists Lipid Panel 02/19/2028 02/18/2023, 12/05, 09/23/2022, Additional history exists Colonoscopy 02/12/2030 02/13/2020, [...] this encounter Medical Devices Implanted Type Area Coater Operator Insulation Board Device Identifier Shelf Expiration Date Model / Serial / Lot Nail T2 Alpha Tibia [id number] - [id number] Implanted:Qty: 1 on 08/17/2023 by [place] Roldan MD at [place] [facility] [place] Right: Leg Lower TONEY : TRAUMA 07/06/2030 2341-1039S / / [id number] Screw T2 Alpha Lock 5x42.5mm - [id number] Implanted:Qty: 1 on 08/17/2023 by [place] Roldan MD at OR [facility] [place] Right: Leg Lower TONEY : TRAUMA 01/03/2033 2360-5042S / / [id number] Screw T2 Alpha Lock 5x42.5mm - [id number] Implanted:Qty: 1 on 08/17/2023 by [place] Roldan MD at OR [facility] [place] Right: Leg Lower TONEY : TRAUMA 05/05/2033 2360-5042S / / [id number] Screw T2 Alpha Lock 5x40mm - [id number] Implanted:Qty: 1 on 08/17/2023 by [place] Roldan MD at OR [facility] [place] Right: Leg Lower TONEY : TRAUMA 01/03/2033 2360-5040S / / [id number] Screw T2 Alpha Lock 5x47.5mm - [id number] Implanted:Qty: 1 on 08/17/2023 by [place] Roldan MD at OR [facility] [place] Right: Leg Lower TONEY : TRAUMA 06/05/2033 2360-5047S / / [id number] documented as of this encounter Advance Directives Latest Code Status on File Code Status Date Activated Date Inactivated Comments Full Code 08/17/2023 12:34 AM 08/19/2023 6:51 PM This order reflects the patients wishes and were consensually agreed upon. Question Answer Comments Discussion of Advance Directives occurred with: Not Discussed due to patient's condition Care Teams Home Support Worker Relationship Specialty Start Date End Date Primitivo Arceo MD [address] [place] [address] PCP - General Internal Medicine 06/03/14 documented as of this encounter
--- OUTSIDE RECORDS SUMMARY | 2023-08-31 07:03 | External Medical Summary ---
Author Name Unknown Address Unknown Organization K01:LABORATORY [facility] - [address] [place] [address] Laboratory Report Ordering Provider Test Date Status CHAIM [place]AMP[place] 08/29/2023 15:48:28 Final Observation Date Value Abnormality Reference (Units ) Status WBC, Total 08/29/2023 15:48:28 15.95 Above high normal 4.00-10.80 (K/uL) Final RBC 08/29/2023 15:48:28 4.89 4.50-5.25 (M/uL) Final Hemoglobin 08/29/2023 15:48:28 15.3 14.0-16.8 (g/dL) Final HCT 08/29/2023 15:48:28 48.7 Above high normal 40.0-48.4 (%) Final MCV 08/29/2023 15:48:28 99.6 82.0-99.5 (fL) Final MCH 08/29/2023 15:48:28 31.3 27.0-34.0 (pg) Final MCHC 08/29/2023 15:48:28 31.4 32.0-36.0 (g/dL) Final RDW 08/29/2023 15:48:28 12.5 11.5-15.5 (%) Final Platelets 08/29/2023 15:48:28 712 Above high normal 140-400 (K/uL) Final MPV 08/29/2023 15:48:28 9.9 6.6-11.1 (fL) Final Nucleated erythrocytes/100 leukocytes [Ratio] in Blood by Automated count 08/29/2023 15:48:28 0 <=0 (/100 WBCs) Final Performing Location LAB[facility]ATORY [facility] - [address] [place] [address]
--- OUTSIDE RECORDS SUMMARY | 2023-08-31 07:03 | External Medical Summary ---
Author Name Unknown Address Unknown Organization [id number]:[facility]ORY [facility] - [address] [facility] [address] Laboratory Report Ordering Provider Test Date Status CHAIM CAMPOVERDE 08/29/2023 15:48:28 Final Observation Date Value Abnormality Reference (Units ) Status BUN 08/29/2023 15:48:28 27 Above high normal 6- 20 (mg/dL) Final Creatinine 08/29/2023 15:48:28 1.1 0.6-1.2 ( mg/dL) Final The above reference range is based on the legal sex of the patient only. Results should be interpreted together with patient's sex at , gender identity, and clinical context. Glomerular filtration rate/1 .73 sq M.predicted [Volume Rate/Area] in Serum, Plasma or Blood by Creatinine-based formula (CKD-EPI) 08/29/2023 15:48:28 75 >=60 (mL/min) Fi nal eGFR is calculated based on the legal sex of the patient, using the CKD-EPI 2020 equation Sodium 08/29/2023 15:48:28 135 135-146 (m mol/L) Final Potassium 08/29/2023 15:48:28 5.8 Above high normal 3. 5-5.1 (mmol/L) Final Cl 08/29/2023 15:48:28 101 98-107 (mm ol/L) Final CO2 08/29/2023 15:48:28 18 Below low normal 22- 32 (mmol/L) Final Anion gap 08/29/2023 15:48:28 16 Above high normal 7- 15 (mmol/L) Final Glucose 08/29/2023 15:48:28 95 70-120 (mg /dL) Final Albumin 08/29/2023 15:48:28 4.6 3.8-5.0 (g /dL) Final AST (Aspartate aminotransferase) 08/29/2023 15:48:28 39 10-50 (U/L) Fin al Result may be falsely elevat ed due to hemolysis. Alk Phos 08/29/2023 15:48:28 219 Above high normal 35 -130 (U/L) Final Bilirubin, Total 08/29/2023 15:48:28 0.6 <=1 .2 (mg/dL) Final Calcium 08/29/2023 15:48:28 10.3 Above high normal 8. 4-10.2 (mg/dL) Final Protein 08/29/2023 15:48:28 7.7 6.0-8.3 (g /dL) Final ALT (Alanine aminotransferase) 08/29/2023 15:48:28 46 10-50 (U/L) Gurdeep mishra Performing Location [facility]ORY [facility] - [address] [facility] [address]
--- OUTSIDE RECORDS SUMMARY | 2023-08-31 07:03 | External Medical Summary ---
Author Name Unknown Address Unknown Organization K01:[facility] - [address] [place] [address] Laboratory Report Ordering Provider Test Date Status CHAIM CAMPOVERDE 08/29/2023 15:48:28 Final Observation Date Value Abnormality Reference (Units ) Status Magnesium 08/29/2023 15:48:28 2.7 Above high normal 1. 5-2.6 (mg/dL) Final Performing Location LABORATORY [facility] - [address] [place] [address]
--- OUTSIDE RECORDS SUMMARY | 2023-08-31 07:03 | External Medical Summary ---
Author Name Unknown Address Unknown Organization K01:[facility] [place] [address] [facility] [address] Laboratory Report Ordering Provider Test Date Status CHAIM CAMPOVERDE 08/29/2023 15:48:28 Final Observation Date Value Abnormality Reference (Units ) Status HbA1C 08/29/2023 15:48:28 6.1 Above high normal 4. 0-5.6 (%) Final The use of HbA1c to monitor glycemic status is based on normal hemoglobin and HbA composition. This test should not be used in patients with abnormal hemoglobin that affects the half life of the red blood cell or the in vivo glycation rates. Glucose, estimated average 08/29/2023 15:48:28 128 Above high normal <126 (mg/dL) Gurdeep mishra Performing Location [facility] [place] [address] [facility] [address]
--- OUTSIDE RECORDS SUMMARY | 2023-08-31 07:03 | External Medical Summary | Summary of Care ---
Author Name Unknown Organization [facility] Address [address] [place] [address] Phone [phone] Care Team Providers Care Hot Cell Technician Name Role Phone Primitivo Arceo MD Primary Care Provider + Encounter Details Date Type Department Care Team (Latest Contact Info) Description 08/16/2023 4:05 PM EDT - 08/16/2023 6:54 PM EDT Hospital Encounter Radiology Film File [address] [place] [address] Discharge Disposition: Home - Self [...] 04/15/2021 Active Additional Information Patient taking differently:2 Blunt Each Nostril Daily(AM),As needed, Reported on 06/01/2022 [...] years 03/18/2022 Pneumococcal Conjugate Vacci ne, 20-valent ([id number]) 09/22/2022 Pneumococcal Polysaccharide PPV23 (Pneumovax) 04/24/2021 Seasonal [...] PM EDT Office Visit General Internal Medicine [facility] [address] [place] [address] Primitivo Arceo MD [address] [facility] [place] [address] 09/06/2023 12:00 PM EDT Office Visit Orthopaedics, [place] [address] [place] [address] Eleno Sexton PA-C [address] [place] [address] 12/09/2023 3:45 PM EDT Office Visit Dermatology [facility] [address] [facility] [place] [address] Primitivo De Guzman MD [address] [facility] [place] [address] Scheduled Procedures Name Priority Associated Diagnoses Date/Ti [...] this encounter Medical Devices Implanted Type Area Patient Service Associate Device Identifier Shelf Expiration Date Model / Serial / Lot Nail T2 Alpha Tibia [id number] - [id number] Implanted:Qty: 1 on 08/17/2023 by German Roldan MD at [place] [facility] Right: Leg Lower TONEY : TRAUMA 07/06/2030 2341-1039S / / [id number] Screw T2 Alpha Lock 5x42.5mm - [id number] Implanted:Qty: 1 on 08/17/2023 by German Roldan MD at [place] [facility] Right: Leg Lower TONEY : TRAUMA 01/03/2033 2360-5042S / / [id number] Screw T2 Alpha Lock 5x42.5mm - [id number] Implanted:Qty: 1 on 08/17/2023 by German Roldan MD at [facility] Right: Leg Lower TONEY : TRAUMA 05/05/2033 2360-5042S / / [id number] Screw T2 Alpha Lock 5x40mm - [id number] Implanted:Qty: 1 on 08/17/2023 by German Roldan MD at [facility] Right: Leg Lower TONEY : TRAUMA 01/03/2033 2360-5040S / / [id number] Screw T2 Alpha Lock 5x47.5mm - [id number] Implanted:Qty: 1 on 08/17/2023 by German Roldan MD at [facility] Right: Leg Lower TONEY : TRAUMA 06/05/2033 2360-5047S / / [id number] documented as of this encounter Procedures Procedure Name Priority Date/Time Associated Diagnosis Comments RADIOLOGY EXAM - GENERAL RAD (IMAGES ONLY,NO REPORT) Routine 08/16/2023 4:05 PM EDT documented in this encounter Results * RADIOLOGY EXAM - GENERAL RAD (IMAGES ONLY,NO REPORT) (08/16/2023 4:05 PM EDT) 08/16/2023 3:37 PM EDT Narrative Scheduling, Silent - 08/23/2023 5:06 PM EDT This is an imaging study not interpreted or resulted by a [employer] or [employer] contracted radiologist. Primitivo Arceo MD RADIOLOGY (RAD G ENERAL) documented in this encounter Advance Directives Latest Code Status on File Code Status Date Activated Date Inactivated Comments Full Code 08/17/2023 12:34 AM 08/19/2023 6:51 PM This order reflects the patients wishes and were consensually agreed upon. Question Answer Comments Discussion of Advance Directives occurred with: Not Discussed due to patient's condition Care Teams Hot Cell Technician Relationship Specialty Start Date End Date Primitivo Arceo MD [address] [place] [address] [place] [address] PCP - General Internal Medicine 06/03/14 documented as of this encounter
--- OUTSIDE RECORDS SUMMARY | 2023-08-31 07:04 | External Medical Summary | Summary of Care ---
Author Name Unknown Organization [facility] Address [address] [place] [address] Phone [phone] Care Team Providers Care Retail Pos Specialist Name Role Phone Primitivo Arceo MD Primary Care Provider + Reason for Visit * Reason Onset Date Comments Advice 08/23/2023 Encounter Details Date Type Department Care Team (Late st Contact Info) Description [facility] [address] [place] [address] German Roldan MD [address] [place] [address] Advice Allergies Active Allergy Reactions Criticality Noted Date Comments Adhesive Tape Other (Please comment) 12/13/2008 blistering Zinc Rash 05/09/2014 documented as of this encounter (statuses as of 08/23/2023) Medications Medication Sig Dispensed Refills Start Date [...] 04/15/2021 Active Additional Information Patient taking differently:2 [place] Each Nostril Daily(AM),As needed, Reported on 06/01/2022 [...] 14 days. 16.8 mL 0 08/19/2023 Active oxyCODONE HCl 5 MG Oral Tablet (Oxy IR) Take 1 Tablet by mouth every 4 hours as needed for moderate to severe pain for up to 5 days. 25 Tablet 0 08/19/2023 4 Active documented as of this encounter (statuses as of 08/23/2023) Active Problems Problem Noted Date Diagnosed Date [...] as of this encounter (statuses as of 08/23/2023) Resolved Problems Problem Noted Date Diagnosed Date Resolved Date Prediabetes 10/03/2022 01/20/2023 Lyme disease 05/09/2014 11/09/2018 Dysphagia 07/10/2010 11/09/2018 Overview: ICD-10 update of inactive term Family history of premature CAD 04/19/2003 02/25/2012 documented as of this encounter (statuses as of 08/23/2023) Immunizations Name Administration Dates Next Due COVID-19 mRNA, LNP-s, No Pre serve, 2-Dose Series (Moderna) 04/18/2021,10/15/2020,09/17/2020 COVID-19, mRNA, LNR-S, Bival ent, PF, 10mcg/0.2 ml (Moderna) 6m to 5 years 03/18/2022 Pneumococcal Conjugate Vacci ne, 20-valent (Kbvkchf40) 09/22/2022 Pneumococcal Polysaccharide PPV23 (Pneumovax) 04/24/2021 Seasonal Influenza, PF, 6 M & above, IM , (FluLaval or Fluzone) 02/10/2022,02/16/2021,03/04/2020,02/2019 Seasonal Influenza, Quadriva lent, No Preserve, IM 03/20/2018,03/09/2016,05/11/2015 Seasonal Influenza, Split, I IV3, With Preserve, Inj 02/08/2014,02/27/2013,04/17/2012,09/2010,05/09/2003 TD - Tetanus/Diptheria (ADULT) 04/19/2003 TDAP (age 10 and older)(Boostrix) 11/17/2020 TDAP [...] Telephone Encounter - Miesha Silveira PA-C - 08/23/2023 8:39 AM EDT Called and spoke with patient arranged him to be seen at 1130 today. * Telephone Encounter - Luana Torres OSA - 08/23/2023 8:26 AM EDT Pt calling stating he is having issues with cast and requesting a return call. Please call documented in this encounter Plan of Treatment Upcoming Encounters Date Type Department Care Team (Late st Contact Info) Description 08/29/2023 3:00 PM EDT Office Visit General Internal Medicine [facility] [address] [place] [address] Primitivo Arceo MD [address] [place] [address] 09/06/2023 12:00 PM EDT Office Visit Orthopaedics, [place] [address] [place] [address] Eleno Sexton PA-C [address] [place] [address] 12/09/2023 3:45 PM EDT [facility] [address] [facility] [place] [address] Primitivo De Guzman MD [address] [facility] [place] [address] Scheduled Procedures Name Priority Associated Diagnoses Date/Ti [...] this encounter Medical Devices Implanted Type Area Post Tensioning Ironworker Helper Device Identifier Shelf Expiration Date Model / Serial / Lot Nail T2 Alpha Tibia [id number] - [id number] Implanted:Qty: 1 on 08/17/2023 by German Roldan MD [place] [facility] [place]: Leg Lower TONEY : TRAUMA 07/06/2030 2341-1039S / / [id number] Screw T2 Alpha Lock 5x42.5mm - [id number] Implanted:Qty: 1 on 08/17/2023 by German Roldan MD [place] [facility] [place] Right: Leg Lower TONEY : TRAUMA 01/03/2033 2360-5042S / / [id number] Screw T2 Alpha Lock 5x42.5mm - [id number] Implanted:Qty: 1 on 08/17/2023 by German Roldan MD at [place] [facility] Right: Leg Lower TONEY : TRAUMA 05/05/2033 2360-5042S / / [id number] Screw T2 Alpha Lock 5x40mm - [id number] Implanted:Qty: 1 on 08/17/2023 by German Roldan MD [place] [facility] Right: Leg Lower TONEY : TRAUMA 01/03/2033 2360-5040S / / [id number] Screw T2 Alpha Lock 5x47.5mm - [id number] Implanted:Qty: 1 on 08/17/2023 by German Roldan MD [place] [facility] [place] Right: Leg Lower TONEY : TRAUMA 06/05/2033 2360-5047S / / [id number] documented as of this encounter Advance Directives Latest Code Status on File Code Status Date Activated Date Inactivated Comments Full Code 08/17/2023 12:34 AM 08/19/2023 6:51 PM This order reflects the patients wishes and were consensually agreed upon. Question Answer Comments Discussion of Advance Directives occurred with: Not Discussed due to patient's condition Care Teams Retail Pos Specialist Relationship Specialty Start Date End Date Primitivo Arceo MD [address] [facility] [place] [address] PCP - General Internal Medicine 06/03/14 documented as of this encounter
--- OUTSIDE RECORDS SUMMARY | 2023-08-31 07:04 | External Medical Summary | Summary of Care ---
Author Name Unknown Organization [facility] Address [address] [place] [address] Phone [phone] Care Team Providers Care Artist Scientific Name Role Phone Primitivo Arceo MD Primary Care Provider + Reason for Visit * Reason Comments Follow Up S/p right tibia and fibula fracture Encounter Details Date Type Department Care Team (Latest Contact Info) Description 08/23/2023 11:30 AM EDT [facility] [address], [place] [id number] Miesha Silveira PA-C [address], [place] [id number] Aftercare following surgery of the musculoskeletal system* Allergies Active Allergy Reactions Criticality Noted Date [...] 04/15/2021 Active Additional Information Patient taking differently:2 [place] Each Nostril Daily(AM),As needed, Reported on 06/01/2022 [...] to 5 days. 25 Tablet 0 08/19/2023 Active Carisoprodol 350 MG Oral Tablet (Soma) Take 1 Tablet by mouth 4 times a day as needed for Muscle spasms. 20 Tablet 0 08/23/2023 Active documented as of this encounter (statuses [...] years 03/18/2022 Pneumococcal Conjugate Vacci ne, 20-valent (Cvnugse65) 09/22/2022 Pneumococcal Polysaccharide PPV23 (Pneumovax) 04/24/2021 Seasonal [...] as of this encounter Progress Notes * Miesha Silveira PA-C - 08/23/2023 2:25 PM EDT [facility] [place] [address] Patient Name: Daniel Avila DATE: 08/23/2023 PROCEDURE: ORIF Right Distal Tibia and Fibula fractures by Dr. Roldan on OR date: 08/17/2023 HPI: pt reports eearlier than scheduled f/u due to horrible ankle pain in his splint. He states that the pain is getting worse, and feels that the splint is causing him discomfort. He denies any fever, chills, nightsweats. Has been elevating General ROS: no fever or chills, no drainage from incision, no shortness of breath, no chest pain, no calf pain, no redness around incision Pain is as expected, and well controlled with oral narcotics and acetaminophen. OE: VITALS: as above. GENERAL: wdwn nad RESP: normal respiratory effort EXTREMITIES: RLE wwp, fracture blisters on the webspace of great toe, as well as the posterior aspect of the leg all unroofed, dry dressings were placed dorsiflexion intact, plantarflexion intact, sensation intact, flexion intact, and extension intact PULSES: The following pulses are normal: dorsalis pedis pulses and posterior tibials INCISION(S): will keep sutures for 2 weeks. IMPRESSION: S/P above PLAN: F/U with previously scheduled apt 50lb wb RLE Soma prescribed, PDMP reviewed CC: (1) Primitivo Arceo MD (2) Self Encounter No. : [id number] (2) Self documented in this encounter Plan of Treatment Upcoming Encounters Date Type Department Care Team (Late st Contact Info) Description 08/29/2023 3:00 PM EDT Office Visit General Internal Medicine [address] [place] [address] Primitivo Arceo MD [address] [facility] [place] [address] 09/06/2023 12:00 PM EDT Office Visit Orthopaedics, [place] [address] [place] [address] Eleno Sexton PA-C [address] [place] [address] 12/09/2023 3:45 PM EDT Office Visit Dermatology [facility] [address] [facility] [place] [address] Primitivo De Guzman MD [address] [facility] [place] [address] Scheduled Procedures Name Priority Associated Diagnoses Date/Ti [...] Additional history exists Lipid Panel 02/19/2028 02/18/2023, 0712/2022, 09/23/2022, Additional history exists Colonoscopy 02/12/2030 02/13/2020, [...] this encounter Medical Devices Implanted Type Area Mine Safety Director Device Identifier Shelf Expiration Date Model / Serial / Lot Nail T2 Alpha Tibia [id number] - [id number] Implanted:Qty: 1 on 08/17/2023 by German Roldan MD at OR [facility] Right: Leg Lower TONEY : TRAUMA 07/06/2030 2341-1039S / / [id number] Screw T2 Alpha Lock 5x42.5mm - [id number] Implanted:Qty: 1 on 08/17/2023 by German Roldan MD at OR [facility] Right: Leg Lower TONEY : TRAUMA 01/03/2033 2360-5042S / / [id number] Screw T2 Alpha Lock 5x42.5mm - [id number] Implanted:Qty: 1 on 08/17/2023 by German Roldan MD at OR [facility] Right: Leg Lower TONEY : TRAUMA 05/05/2033 2360-5042S / / [id number] Screw T2 Alpha Lock 5x40mm - [id number] Implanted:Qty: 1 on 08/17/2023 by German Roldan MD at OR [facility] Right: Leg Lower TONEY : TRAUMA 01/03/2033 2360-5040S / / [id number] Screw T2 Alpha Lock 5x47.5mm - [id number] Implanted:Qty: 1 on 08/17/2023 by German Roldan MD at OR [facility] Right: Leg Lower TONEY : TRAUMA 06/05/2033 2360-5047S / / [id number] documented as of this encounter Visit Diagnoses Diagnosis Aftercare following surgery of the musculoskeletal system- Primary Aftercare following surgery of the musculoskeletal system, NEC documented in this encounter Advance Directives Latest Code Status on File Code Status Date Activated Date Inactivated Comments Full Code 08/17/2023 12:34 AM 08/19/2023 6:51 PM This order reflects the patients wishes and were consensually agreed upon. Question Answer Comments Discussion of Advance Directives occurred with: Not Discussed due to patient's condition Care Teams Artist Scientific Relationship Specialty Start Date End Date Primitivo Arceo MD [address] [facility] [place] [address] PCP - General Internal Medicine 06/03/14 documented as of this encounter
--- OUTSIDE RECORDS SUMMARY | 2023-08-31 07:04 | External Medical Summary | Summary of Care ---
Author Name Unknown Organization [facility] Address [address] [place] [address] Phone [phone] Care Team Providers Care Laster Hand Name Role Phone Primitivo Arceo MD Primary Care Provider + Encounter Details Date Type Department Care Team (Late st Contact Info) Description 08/16/2023 Orders Only General Internal Medicine [facility] [place] [address] [facility] [place] [address] Primitivo Arceo MD [address] [facility] [place] [id number] Allergies Active Allergy Reactions Criticality Noted Date [...] 04/15/2021 Active Additional Information Patient taking differently:2 [place] Each Nostril Daily(AM),As needed, Reported on 06/01/2022 [...] years 03/18/2022 Pneumococcal Conjugate Vacci ne, 20-valent (Fnaigxe21) 09/22/2022 Pneumococcal Polysaccharide PPV23 (Pneumovax) 04/24/2021 Seasonal [...] PM EDT Office Visit General Internal Medicine [facility] [address] [facility] [place] [address] Primitivo Arceo MD [address] [facility] [place] [address] 09/06/2023 12:00 PM EDT Office Visit Orthopaedics, [place] [address] [place] [address] Eleno Sexton PA-C [address] [place] [address] 12/09/2023 3:45 PM EDT Office Visit Dermatology [facility] [address] [facility] [place] [address] Primitivo De Guzman MD [address] [facility] [place] [address] Scheduled Procedures Name Priority Associated Diagnoses Date/Ti [...] this encounter Medical Devices Implanted Type Area Coat Check Attendant Device Identifier Shelf Expiration Date Model / Serial / Lot Nail T2 Alpha Tibia [id number] - [id number] Implanted:Qty: 1 on 08/17/2023 by German Roldan MD at [place] [facility] [place] Right: Leg Lower TONEY : TRAUMA 07/06/2030 2341-1039S / / [id number] Screw T2 Alpha Lock 5x42.5mm - [id number] Implanted:Qty: 1 on 08/17/2023 by German Roldan MD at [place] [facility] [place] Right: Leg Lower TONEY : TRAUMA 01/03/2033 2360-5042S / / [id number] Screw T2 Alpha Lock 5x42.5mm - [id number] Implanted:Qty: 1 on 08/17/2023 by German Roldan MD at [place] [facility] [place] Right: Leg Lower TONEY : TRAUMA 05/05/2033 2360-5042S / / [id number] Screw T2 Alpha Lock 5x40mm - [id number] Implanted:Qty: 1 on 08/17/2023 by German Roldan MD at [place] [facility] [place] Right: Leg Lower TONEY : TRAUMA 01/03/2033 2360-5040S / / [id number] Screw T2 Alpha Lock 5x47.5mm - [id number] Implanted:Qty: 1 on 08/17/2023 by German Roldan MD at [facility] Right: Leg Lower TONEY : TRAUMA 06/05/2033 2360-4327S / / [id number] documented as of this encounter Procedures Procedure [...] study not interpreted or resulted by a [employer] or [employer] contracted radiologist. Primitivo Arceo MD RADIOLOGY (RAD G ENERAL) documented in this encounter Advance Directives Latest Code Status on File Code Status Date Activated Date Inactivated Comments Full Code 08/17/2023 12:34 AM 08/19/2023 6:51 PM This order reflects the patients wishes and were consensually agreed upon. Question Answer Comments Discussion of Advance Directives occurred with: Not Discussed due to patient's condition Care Teams Laster Hand Relationship Specialty Start Date End Date Primitivo Arceo MD [address] [place] [address] [place] [address] PCP - General Internal Medicine 06/03/14 documented as of this encounter
--- OUTSIDE RECORDS SUMMARY | 2023-08-31 07:04 | External Medical Summary | Summary of Care ---
Author Name Unknown Organization [facility] Address [address] [place] [address] Phone [phone] Care Team Providers Care Javascript Programmer Name Role Phone Primitivo Arceo MD Primary Care Provider + Encounter Details Date Type Department Care Team (Late st Contact Info) Description 08/16/2023 Orders Only General Internal Medicine [facility] [place] [address] [facility] [place] [phone] Primitivo Arceo MD [address] [facility] [place] [phone] Allergies Active Allergy Reactions Criticality Noted Date [...] 04/15/2021 Active Additional Information Patient taking differently:2 Clear Each Nostril Daily(AM),As needed, Reported on 06/01/2022 [...] years 03/18/2022 Pneumococcal Conjugate Vacci ne, 20-valent (Neifxcb75) 09/22/2022 Pneumococcal Polysaccharide PPV23 (Pneumovax) 04/24/2021 Seasonal [...] PM EDT Office Visit General Internal Medicine [facility] [address] [facility] [place] [address] Primitivo Arceo MD [address] [facility] [place] [address] 09/06/2023 12:00 PM EDT Office Visit Orthopaedics, [place] [address] [place] [address] Eleno Sexton PA-C [address] [place] [address] 12/09/2023 3:45 PM EDT Office Visit Dermatology [facility] [address] [facility] [place] [address] Primitivo De Guzman MD [address] [facility] [place] [address] Scheduled Procedures Name Priority Associated Diagnoses Date/Ti [...] this encounter Medical Devices Implanted Type Area Chief Growth Officer Device Identifier Shelf Expiration Date Model / Serial / Lot Nail T2 Alpha Tibia [id number] - [id number] Implanted:Qty: 1 on 08/17/2023 by German Roldan MD at [place] [facility] Right: Leg Lower TONEY : TRAUMA 07/06/2030 2341-1039S / / [id number] Screw T2 Alpha Lock 5x42.5mm - [id number] Implanted:Qty: 1 on 08/17/2023 by German Roldan MD at [place] [facility] Right: Leg Lower TONEY : TRAUMA 01/03/2033 2360-5042S / / [id number] Screw T2 Alpha Lock 5x42.5mm - [id number] Implanted:Qty: 1 on 08/17/2023 by German Roldan MD at [place] [facility] Right: Leg Lower TONEY : TRAUMA 05/05/2033 2360-5042S / / [id number] Screw T2 Alpha Lock 5x40mm - [id number] Implanted:Qty: 1 on 08/17/2023 by German Roldan MD at [place] [facility] Right: Leg Lower TONEY : TRAUMA 01/03/2033 2360-5040S / / [id number] Screw T2 Alpha Lock 5x47.5mm - [id number] Implanted:Qty: 1 on 08/17/2023 by German Roldan MD at [facility] Right: Leg Lower TONEY : TRAUMA 06/05/2033 2360-2307S / / [id number] documented as of this encounter Procedures Procedure [...] study not interpreted or resulted by a [employer] or [employer] contracted radiologist. Primitivo Arceo MD RADIOLOGY (RAD G ENERAL) documented in this encounter Advance Directives Latest Code Status on File Code Status Date Activated Date Inactivated Comments Full Code 08/17/2023 12:34 AM 08/19/2023 6:51 PM This order reflects the patients wishes and were consensually agreed upon. Question Answer Comments Discussion of Advance Directives occurred with: Not Discussed due to patient's condition Care Teams Javascript Programmer Relationship Specialty Start Date End Date Primitivo Arceo MD [address] [place] [address] [place] [address] PCP - General Internal Medicine 06/03/14 documented as of this encounter
--- OUTSIDE RECORDS SUMMARY | 2023-08-31 07:04 | External Medical Summary | Summary of Care ---
Author Name Unknown Organization [facility] Address [address] [place] [address] Phone [phone] Care Team Providers Care Automatic Seamer Name Role Phone Primitivo Arceo MD Primary Care Provider + Reason for Visit * Reason Onset Date Comments Advice 08/23/2023 Encounter Details Date Type Department Care Team (Late st Contact Info) Description [facility] [address] [place] [address] German Roldan MD [address] [place] [address] Advice Allergies Active Allergy Reactions [...] 04/15/2021 Active Additional Information Patient taking differently:2 [place] Each Nostril Daily(AM),As needed, Reported on 06/01/2022 [...] years 03/18/2022 Pneumococcal Conjugate Vacci ne, 20-valent ([id number]) 09/22/2022 Pneumococcal Polysaccharide PPV23 (Pneumovax) 04/24/2021 Seasonal [...] State Wilfredo Kellogg [address] [place] [address] Primitivo Arceo MD [address] [place] [address] 09/06/2023 12:00 PM EDT Office Visit Orthopaedics, [place] [address] [place] [address] Eleno Sexton PA-C [address] [place] [address] 12/09/2023 3:45 PM EDT [facility] [place] [address] Primitivo De Guzman MD 200 [facility] [place] [address] Scheduled Procedures Name Priority Associated Diagnoses Date/Ti [...] this encounter Medical Devices Implanted Type Area Electrical Technician Device Identifier Shelf Expiration Date Model / Serial / Lot Nail T2 Alpha Tibia [id number] - [id number] Implanted:Qty: 1 on 08/17/2023 by German Roldan [place] [facility] [place] Lower TONEY : TRAUMA 07/06/2030 2341-1039S / / [id number] Screw T2 Alpha Lock 5x42.5mm - [id number] Implanted:Qty: 1 on 08/17/2023 by German Roldan MD [place] [facility] [place] Leg Lower TONEY : TRAUMA 01/03/2033 2360-5042S / / [id number] Screw T2 Alpha Lock 5x42.5mm - [id number] Implanted:Qty: 1 on 08/17/2023 by German Roldan MD [place] [facility] [place]: Leg Lower TONEY : TRAUMA 05/05/2033 2360-5042S / / [id number] Screw T2 Alpha Lock 5x40mm - [id number] Implanted:Qty: 1 on 08/17/2023 by German Roldan MD [place] [facility] [place] Leg Lower TONEY : TRAUMA 01/03/2033 2360-5040S / / [id number] Screw T2 Alpha Lock 5x47.5mm - [id number] Implanted:Qty: 1 on 08/17/2023 by German Roldan MD [place] [facility] [place] Leg Lower TONEY : TRAUMA 06/05/2033 2360-5047S / / [id number] documented as of this encounter Advance Directives Latest Code Status on File Code Status Date Activated Date Inactivated Comments Full Code 08/17/2023 12:34 AM 08/19/2023 6:51 PM This order reflects the patients wishes and were consensually agreed upon. Question Answer Comments Discussion of Advance Directives occurred with: Not Discussed due to patient's condition Care Teams Automatic Seamer Relationship Specialty Start Date End Date Primitivo Arceo MD 200 [facility] [place] [address] PCP - General Internal Medicine 06/03/14 documented as of this encounter
--- OUTSIDE RECORDS SUMMARY | 2023-08-31 07:04 | External Medical Summary | Summary of Care ---
Author Name Unknown Organization [facility] Address [address] [place] [address] Phone [phone] Care Team Providers Care Hat Lining Blocker Name Role Phone Primitivo Arceo MD Primary Care Provider + Encounter Details Date Type Department Care Team (Late st Contact Info) Description 08/16/2023 Orders Only General Internal Medicine [facility] [place] [address] [facility] [place] [phone] Primitivo Arceo MD 200 [facility] [place] [phone] Allergies Active Allergy Reactions Criticality Noted Date [...] 04/15/2021 Active Additional Information Patient taking differently:2 [place] Each Nostril Daily(AM),As needed, Reported on 06/01/2022 [...] years 03/18/2022 Pneumococcal Conjugate Vacci ne, 20-valent ([id number]) 09/22/2022 Pneumococcal Polysaccharide PPV23 (Pneumovax) 04/24/2021 Seasonal [...] General Internal Medicine [facility] 200 [facility] [place] [address] Primitivo Arceo MD 200 [facility] [place] [address] 09/06/2023 12:00 PM EDT Office Visit Orthopaedics, [place] [address] [place] [address] Eleno Sexton PA-C [address] [place] [address] 12/09/2023 3:45 PM EDT Office Visit Dermatology [facility] 200 [facility] [place] [address] Primitivo De Guzman MD 200 [facility] [place] [address] Scheduled Procedures Name Priority Associated Diagnoses Date/Ti [...] this encounter Medical Devices Implanted Type Area Shot Blaster Device Identifier Shelf Expiration Date Model / Serial / Lot Nail T2 Alpha Tibia [id number] - [id number] Implanted:Qty: 1 on 08/17/2023 by German Roldan MD at [place] [facility] Right: Leg Lower TONEY : TRAUMA 07/06/2030 2341-1039S / / [id number] Screw T2 Alpha Lock 5x42.5mm - [id number] Implanted:Qty: 1 on 08/17/2023 by German Roldan MD at [place] [facility] Right: Leg Lower TONEY : TRAUMA 01/03/2033 2360-5042S / / [id number] Screw T2 Alpha Lock 5x42.5mm - [id number] Implanted:Qty: 1 on 08/17/2023 by German Roldan MD at [place] [facility] Right: Leg Lower TONEY : TRAUMA 05/05/2033 2360-5042S / / [id number] Screw T2 Alpha Lock 5x40mm - [id number] Implanted:Qty: 1 on 08/17/2023 by German Roldan MD at [place] [facility] Right: Leg Lower TONEY : TRAUMA 01/03/2033 2360-5040S / / [id number] Screw T2 Alpha Lock 5x47.5mm - [id number] Implanted:Qty: 1 on 08/17/2023 by German Roldan MD at [facility] Right: Leg Lower TONEY : TRAUMA 06/05/2033 2360-3927S / / [id number] documented as of this encounter Procedures Procedure [...] study not interpreted or resulted by a [facility] or [facility] contracted radiologist. Primitivo Arceo MD RADIOLOGY (RAD G ENERAL) documented in this encounter Advance Directives Latest Code Status on File Code Status Date Activated Date Inactivated Comments Full Code 08/17/2023 12:34 AM 08/19/2023 6:51 PM This order reflects the patients wishes and were consensually agreed upon. Question Answer Comments Discussion of Advance Directives occurred with: Not Discussed due to patient's condition Care Teams Hat Lining Blocker Relationship Specialty Start Date End Date Primitivo Arceo MD [address] [place] [address] [place] [address] PCP - General Internal Medicine 06/03/14 documented as of this encounter
--- OUTSIDE RECORDS SUMMARY | 2023-08-31 07:04 | External Medical Summary | Summary of Care ---
Author Name Unknown Organization [facility] Address [address] [place] [address] Phone [phone] Care Team Providers Care Cloth Finisher Name Role Phone Primitivo Arceo MD Primary Care Provider + Reason for Visit * Reason Onset Date Comments Advice 08/23/2023 Encounter Details Date Type Department Care Team (Late st Contact Info) Description [facility] [address] [place] [address] German Roldan MD [address] [place] [address] Advice Allergies Active Allergy Reactions [...] 04/15/2021 Active Additional Information Patient taking differently:2 [place] Each Nostril Daily(AM),As needed, Reported on 06/01/2022 [...] years 03/18/2022 Pneumococcal Conjugate Vacci ne, 20-valent ([id number]) 09/22/2022 Pneumococcal Polysaccharide PPV23 (Pneumovax) 04/24/2021 Seasonal [...] encounter Miscellaneous Notes * Telephone Encounter - Luana Torres OSA - 08/23/2023 8:26 AM EDT Pt calling stating he is having issues with cast and requesting a return call. Please call documented in this encounter Plan of Treatment Upcoming Encounters Date Type Department Care Team (Late st Contact Info) Description 08/29/2023 3:00 PM EDT Office Visit General Internal Medicine [facility] [address] [place] [address] Primitivo Arceo MD [address] [place] [address] 09/06/2023 12:00 PM EDT Office Visit Orthopaedics, [place] [address] [place] [address] Eleno Sexton PA-C [address] [place] [address] 12/09/2023 3:45 PM EDT Office Visit Dermatology [facility] [address] [place] [address] Primitivo De Guzman MD 200 [facility] [place] [address] Scheduled Procedures Name Priority Associated Diagnoses Date/Ti [...] this encounter Medical Devices Implanted Type Area Vehicle Monitor Technician Device Identifier Shelf Expiration Date Model / Serial / Lot Nail T2 Alpha Tibia [id number] - [id number] Implanted:Qty: 1 on 08/17/2023 [place] [facility] [place] Lower TONEY : TRAUMA 07/06/2030 2341-1039S / / [id number] Screw T2 Alpha Lock 5x42.5mm - [id number] Implanted:Qty: 1 on 08/17/2023 by German [place] [facility] [place] Leg Lower TONEY : TRAUMA 01/03/2033 2360-5042S / / [id number] Screw T2 Alpha Lock 5x42.5mm - [id number] Implanted:Qty: 1 on 08/17/2023 by German [place] [facility] [place]: Leg Lower TONEY : TRAUMA 05/05/2033 2360-5042S / / [id number] Screw T2 Alpha Lock 5x40mm - [id number] Implanted:Qty: 1 on 08/17/2023 by German [place] [facility] [place] Leg Lower TONEY : TRAUMA 01/03/2033 2360-5040S / / [id number] Screw T2 Alpha Lock 5x47.5mm - [id number] Implanted:Qty: 1 on 08/17/2023 by German [place] [facility] [place] Leg Lower TONEY : TRAUMA 06/05/2033 2360-5047S / / [id number] documented as of this encounter Advance Directives Latest Code Status on File Code Status Date Activated Date Inactivated Comments Full Code 08/17/2023 12:34 AM 08/19/2023 6:51 PM This order reflects the patients wishes and were consensually agreed upon. Question Answer Comments Discussion of Advance Directives occurred with: Not Discussed due to patient's condition Care Teams Cloth Finisher Relationship Specialty Start Date End Date Primitivo Arceo MD 200 [facility] [place] [address] PCP - General Internal Medicine 06/03/14 documented as of this encounter
--- OUTSIDE RECORDS SUMMARY | 2023-08-31 07:04 | External Medical Summary | Summary of Care ---
Author Name Unknown Organization [facility] Address [address] [place] [address] Phone [phone] Care Team Providers Care Traffic Circuit Engineer Name Role Phone Primitivo Arceo MD Primary Care Provider + Reason for Visit * Reason Onset Date Comments Advice 08/23/2023 Encounter Details Date Type Department Care Team (Late st Contact Info) Description [facility] [address] [place] [address] German Roldan MD [address] [place] [address] Advice Allergies Active Allergy Reactions [...] 04/15/2021 Active Additional Information Patient taking differently:2 [place] Each Nostril Daily(AM),As needed, Reported on 06/01/2022 [...] years 03/18/2022 Pneumococcal Conjugate Vacci ne, 20-valent ([id number]) 09/22/2022 Pneumococcal Polysaccharide PPV23 (Pneumovax) 04/24/2021 Seasonal [...] encounter Miscellaneous Notes * Telephone Encounter - Neeta Nguyen OSA - 08/23/2023 8:43 AM EDT Patient scheduled for 08/22 at 1130am with Ang * Telephone Encounter - Miesha Silveira PA-C [...] Team (Late st Contact Info) Description 08/23/2023 11:30 AM EDT Office Visit Orthopaedics, [place] [address] [place] [address] Miesha Silveira PA-C [address] [place] [address] 08/29/2023 3:00 PM EDT Office Visit General Internal Medicine [facility] [address] [facility] [place] [address] Primtiivo Arceo MD [address] [facility] [place] [address] 09/06/2023 12:00 PM EDT [facility] [address] [place] [address] Eleno Sexton PA-C [address] [place] [address] 12/09/2023 3:45 PM EDT Office Visit Dermatology [facility] [address] [facility] [place] [address] Primitivo De Guzman MD [address] [place] [address], [place] [address] Scheduled Procedures Name Priority Associated Diagnoses Date/Ti [...] this encounter Medical Devices Implanted Type Area Taxi Servicer Device Identifier Shelf Expiration Date Model / Serial / Lot Nail T2 Alpha Tibia [id number] - [id number] Implanted:Qty: 1 on 08/17/2023 by German Roldan MD [place] [facility] [place]: Leg Lower TONEY : TRAUMA 07/06/2030 2341-1039S / / [id number] Screw T2 Alpha Lock 5x42.5mm - [id number] Implanted:Qty: 1 on 08/17/2023 by German Roldan MD [place] [facility] [place] Right: Leg Lower TONEY : TRAUMA 01/03/2033 2360-5042S / / [id number] Screw T2 Alpha Lock 5x42.5mm - [id number] Implanted:Qty: 1 on 08/17/2023 by German Roldan MD at [place] [facility] [place] Right: Leg Lower TONEY : TRAUMA 05/05/2033 2360-5042S / / [id number] Screw T2 Alpha Lock 5x40mm - [id number] Implanted:Qty: 1 on 08/17/2023 by German Roldan MD at [place] [facility] [place] Right: Leg Lower TONEY : TRAUMA 01/03/2033 2360-5040S / / [id number] Screw T2 Alpha Lock 5x47.5mm - [id number] Implanted:Qty: 1 on 08/17/2023 by German Roldan MD at [place] [facility] [place] Right: Leg Lower TONEY : TRAUMA 06/05/2033 2360-5047S / / [id number] documented as of this encounter Advance Directives Latest Code Status on File Code Status Date Activated Date Inactivated Comments Full Code 08/17/2023 12:34 AM 08/19/2023 6:51 PM This order reflects the patients wishes and were consensually agreed upon. Question Answer Comments Discussion of Advance Directives occurred with: Not Discussed due to patient's condition Care Teams Traffic Circuit Engineer Relationship Specialty Start Date End Date Primitivo Arceo MD [address] [facility] [place] [address] PCP - General Internal Medicine 06/03/14 documented as of this encounter
--- OUTSIDE RECORDS SUMMARY | 2023-08-31 07:05 | External Medical Summary | Summary of Care ---
Author Name Unknown Organization [facility] Address [address] [place] [address] Phone [phone] Care Team Providers Care Dry Mill Operator Name Role Phone Primitivo Arceo MD Primary Care Provider + Encounter Details Date Type Department Care Team (Late st Contact Info) Description 08/20/2023 Patient Reported Data Patient Survey Ortho [facility] Allergies Active Allergy Reactions Criticality Noted Date Comments Adhesive Tape Other (Please comment) 12/13/2008 blistering Zinc Rash 05/09/2014 documented as of this encounter (statuses as of 08/20/2023) Medications Medication Sig Dispensed Refills Start Date [...] 04/15/2021 Active Additional Information Patient taking differently:2 [place] Each Nostril Daily(AM),As needed, Reported on 06/01/2022 [...] as of this encounter (statuses as of 08/20/2023) Active Problems Problem Noted Date Diagnosed Date [...] as of this encounter (statuses as of 08/20/2023) Resolved Problems Problem Noted Date Diagnosed Date Resolved Date Prediabetes 10/03/2022 01/20/2023 Lyme disease 05/09/2014 11/09/2018 Dysphagia 07/10/2010 11/09/2018 Overview: ICD-10 update of inactive term Family history of premature CAD 04/19/2003 02/25/2012 documented as of this encounter (statuses as of 08/20/2023) Immunizations Name Administration Dates Next Due COVID-19 mRNA, LNP-s, No Pre serve, 2-Dose Series (Moderna) 04/18/2021,10/15/2020,09/17/2020 COVID-19, mRNA, LNR-S, Bival ent, PF, 10mcg/0.2 ml (Moderna) 6m to 5 years 03/18/2022 Pneumococcal Conjugate Vacci ne, 20-valent ([id number]) 09/22/2022 Pneumococcal Polysaccharide PPV23 (Pneumovax) 04/24/2021 Seasonal [...] PM EDT Office Visit General Internal Medicine [facility] 200 [facility] [place] [address] Primitivo Arceo MD 200 [facility] [place] [address] 09/06/2023 12:00 PM EDT Office Visit Orthopaedics, [place] [address] [place] [address] Eleno Sexton, PA-C [address] [place] [address] 12/09/2023 3:45 PM EDT Office Visit Dermatology [facility] 200 [facility] [place] [address] Primitivo De Guzman MD [address] [place] [address] [place] [address] Scheduled Procedures Name Priority Associated Diagnoses Date/Ti [...] this encounter Medical Devices Implanted Type Area Licensed Club Manager Device Identifier Shelf Expiration Date Model / Serial / Lot Nail T2 Alpha Tibia [id number] - [id number] Implanted:Qty: 1 on 08/17/2023 by German Roldan MD [place] [facility] [place]: Leg Lower TONEY : TRAUMA 07/06/2030 2341-1039S / / [id number] Screw T2 Alpha Lock 5x42.5mm - [id number] Implanted:Qty: 1 on 08/17/2023 by German Roldan MD [place] [facility] [place]: Leg Lower TONEY : TRAUMA 01/03/2033 2360-5042S / / [id number] Screw T2 Alpha Lock 5x42.5mm - [id number] Implanted:Qty: 1 on 08/17/2023 by German Roldan MD [place] [facility] [place] Right: Leg Lower TONEY : TRAUMA 05/05/2033 2360-5042S / / [id number] Screw T2 Alpha Lock 5x40mm - [id number] Implanted:Qty: 1 on 08/17/2023 by German Roldan MD [place] [facility] [place] Right: Leg Lower TONEY : TRAUMA 01/03/2033 2360-5040S / / [id number] Screw T2 Alpha Lock 5x47.5mm - [id number] Implanted:Qty: 1 on 08/17/2023 by German Roldan MD [place] [facility] [place] Right: Leg Lower TONEY : TRAUMA 06/05/2033 2360-5047S / / [id number] documented as of this encounter Advance Directives Latest Code Status on File Code Status Date Activated Date Inactivated Comments Full Code 08/17/2023 12:34 AM 08/19/2023 6:51 PM This order reflects the patients wishes and were consensually agreed upon. Question Answer Comments Discussion of Advance Directives occurred with: Not Discussed due to patient's condition Care Teams Dry Mill Operator Relationship Specialty Start Date End Date Primitivo Arceo MD [address] [place] [address], [place] [address] PCP - General Internal Medicine 06/03/14 documented as of this encounter
--- OUTSIDE RECORDS SUMMARY | 2023-08-31 07:05 | External Medical Summary | Summary of Care ---
Author Name Unknown Organization [facility] Address [address] [place] [address] Phone [phone] Care Team Providers Care Radiologic Electronic Specialist Name Role Phone Primitivo Arceo MD [...] 04/15/2021 Active Additional Information Patient taking differently:2 [place] Each Nostril Daily(AM),As needed, Reported on 06/01/2022 [...] years 03/18/2022 Pneumococcal Conjugate Vacci ne, 20-valent (Cfutlkx21) 09/22/2022 Pneumococcal Polysaccharide PPV23 (Pneumovax) 04/24/2021 Seasonal [...] PM EDT Office Visit General Internal Medicine [facility] 200 [facility] [place] [address] Primitivo Arceo MD 200 [facility] [place] [address] 09/06/2023 12:00 PM EDT Office Visit Orthopaedics, [place] [address] [place] [address] Eleno Sexton, PA-C [address] [place] [address] 12/09/2023 3:45 PM EDT Office Visit Dermatology [facility] 200 [facility] [place] [address] Primitivo De Guzman MD [address] [place] [address] [place] [address] Scheduled Procedures Name Priority Associated Diagnoses Date/Ti [...] this encounter Medical Devices Implanted Type Area Plasma Table Operator Device Identifier Shelf Expiration Date Model / Serial / Lot Nail T2 Alpha Tibia [id number] - [id number] Implanted:Qty: 1 on 08/17/2023 by German Roldan MD at [place] [facility] Right: Leg Lower TONEY : TRAUMA 07/06/2030 2341-1039S / / [id number] Screw T2 Alpha Lock 5x42.5mm - [id number] Implanted:Qty: 1 on 08/17/2023 by German Roldan MD at [place] [facility] Right: Leg Lower TONEY : TRAUMA 01/03/2033 2360-5042S / / [id number] Screw T2 Alpha Lock 5x42.5mm - [id number] Implanted:Qty: 1 on 08/17/2023 by German Roldan MD at [place] [facility] Right: Leg Lower TONEY : TRAUMA 05/05/2033 2360-5042S / / [id number] Screw T2 Alpha Lock 5x40mm - [id number] Implanted:Qty: 1 on 08/17/2023 by German Roldan MD at [place] [facility] Right: Leg Lower TONEY : TRAUMA 01/03/2033 2360-5040S / / [id number] Screw T2 Alpha Lock 5x47.5mm - [id number] Implanted:Qty: 1 on 08/17/2023 by German Roldan MD at [place] [facility] Right: Leg Lower TONEY : TRAUMA 06/05/2033 2360-5047S / / [id number] documented as of this encounter Advance Directives Latest Code Status on File Code Status Date Activated Date Inactivated Comments Full Code 08/17/2023 12:34 AM 08/19/2023 6:51 PM This order reflects the patients wishes and were consensually agreed upon. Question Answer Comments Discussion of Advance Directives occurred with: Not Discussed due to patient's condition Care Teams Radiologic Electronic Specialist Relationship Specialty Start Date End Date Primitivo Arceo MD [address] [place] [address], [place] [address] PCP - General Internal Medicine 06/03/14 documented as of this encounter
--- OUTSIDE RECORDS SUMMARY | 2023-08-31 07:05 | External Medical Summary | Summary of Care ---
Author Name Unknown Organization [facility] Address [address] [place] [address] Phone [phone] Care Team Providers Care Call Center Supervisor Name Role Phone Primitivo Arceo MD Primary [...] 04/15/2021 Active Additional Information Patient taking differently:2 [place] Each Nostril Daily(AM),As needed, Reported on 06/01/2022 [...] years 03/18/2022 Pneumococcal Conjugate Vacci ne, 20-valent (Kkssphs42) 09/22/2022 Pneumococcal Polysaccharide PPV23 (Pneumovax) 04/24/2021 Seasonal [...] PM EDT Office Visit General Internal Medicine [facility] [address] [facility] [place] [address] Primitivo Arceo MD [address] [facility] [place] [address] 09/06/2023 12:00 PM EDT Office Visit Orthopaedics, [place] [address] [place] [address] Eleno Sexton, PA-C [address] [place] [address] 12/09/2023 3:45 PM EDT Office Visit Dermatology [facility] [address] [facility] [place] [address] Primitivo De Guzman MD [address] [place] [address] [place] [address] Scheduled Procedures Name Priority Associated Diagnoses Date/Ti [...] this encounter Medical Devices Implanted Type Area Vp Treasurer Device Identifier Shelf Expiration Date Model / Serial / Lot Nail T2 Alpha Tibia [id number] - [id number] Implanted:Qty: 1 on 08/17/2023 by German [place]old[place] [facility] [place] Leg Lower TONEY : TRAUMA 07/06/2030 2341-1039S / / [id number] Screw T2 Alpha Lock 5x42.5mm - [id number] Implanted:Qty: 1 on 08/17/2023 by German Roldan [place] [facility] [place]: Leg Lower TONEY : TRAUMA 01/03/2033 2360-5042S / / [id number] Screw T2 Alpha Lock 5x42.5mm - [id number] Implanted:Qty: 1 on 08/17/2023 by German Roldan MD [place] [facility] [place]: Leg Lower TONEY : TRAUMA 05/05/2033 2360-5042S / / [id number] Screw T2 Alpha Lock 5x40mm - [id number] Implanted:Qty: 1 on 08/17/2023 by German Roldan MD [place] [facility] [place]: Leg Lower TONEY : TRAUMA 01/03/2033 2360-5040S / / [id number] Screw T2 Alpha Lock 5x47.5mm - [id number] Implanted:Qty: 1 on 08/17/2023 by German Roldan MD [place] [facility] [place]: Leg Lower TONEY : TRAUMA 06/05/2033 2360-5047S / / [id number] documented as of this encounter Advance Directives Latest Code Status on File Code Status Date Activated Date Inactivated Comments Full Code 08/17/2023 12:34 AM 08/19/2023 6:51 PM This order reflects the patients wishes and were consensually agreed upon. Question Answer Comments Discussion of Advance Directives occurred with: Not Discussed due to patient's condition Care Teams Call Center Supervisor Relationship Specialty Start Date End Date Primitivo Arceo MD [address] [place] [address], [place] [address] PCP - General Internal Medicine 06/03/14 documented as of this encounter
--- OUTSIDE RECORDS SUMMARY | 2023-08-31 07:05 | External Medical Summary | Summary of Care ---
Author Name Unknown Organization [facility] Address [address] [place] [address] Phone [phone] Care Team Providers Care Tie Knitter Helper Name Role Phone Primitivo Arceo MD Primary [...] 04/15/2021 Active Additional Information Patient taking differently:2 [place] Each Nostril Daily(AM),As needed, Reported on 06/01/2022 [...] years 03/18/2022 Pneumococcal Conjugate Vacci ne, 20-valent ([id number]) 09/22/2022 Pneumococcal Polysaccharide PPV23 (Pneumovax) 04/24/2021 Seasonal [...] PM EDT Office Visit General Internal Medicine [facility] [address] [facility] [place] [address] Primitivo Arceo MD [address] [facility] [place] [address] 09/06/2023 12:00 PM EDT Office Visit Orthopaedics, [place] [address] [place] [address] Eleno Sexton, PA-C [address] [place] [address] 12/09/2023 3:45 PM EDT Office Visit Dermatology [facility] [address] [facility] [place] [address] Primitivo De Guzman MD [address] [place] [address] [place] [address] Scheduled Procedures Name Priority Associated Diagnoses Date/Ti [...] this encounter Medical Devices Implanted Type Area Lining Ironer Device Identifier Shelf Expiration Date Model / Serial / Lot Nail T2 Alpha Tibia [id number] - [id number] Implanted:Qty: 1 on 08/17/2023 by German Roldan MD at [place] [facility] [place] Right: Leg Lower TONEY : TRAUMA 07/06/2030 2341-1039S / / [id number] Screw T2 Alpha Lock 5x42.5mm - [id number] Implanted:Qty: 1 on 08/17/2023 by German Roldan MD at [place] [facility] [place] Right: Leg Lower TONEY : TRAUMA 01/03/2033 2360-5042S / / [id number] Screw T2 Alpha Lock 5x42.5mm - [id number] Implanted:Qty: 1 on 08/17/2023 by German Roldan MD at [place] [facility] [place] Right: Leg Lower TONEY : TRAUMA 05/05/2033 2360-5042S / / [id number] Screw T2 Alpha Lock 5x40mm - [id number] Implanted:Qty: 1 on 08/17/2023 by German Roldan MD at OR [facility] [place] Right: Leg Lower TONEY : TRAUMA 01/03/2033 2360-5040S / / [id number] Screw T2 Alpha Lock 5x47.5mm - [id number] Implanted:Qty: 1 on 08/17/2023 by German Roldan MD at OR [facility] [place] Right: Leg Lower TONEY : TRAUMA 06/05/2033 2360-5047S / / [id number] documented as of this encounter Advance Directives Latest Code Status on File Code Status Date Activated Date Inactivated Comments Full Code 08/17/2023 12:34 AM 08/19/2023 6:51 PM This order reflects the patients wishes and were consensually agreed upon. Question Answer Comments Discussion of Advance Directives occurred with: Not Discussed due to patient's condition Care Teams Tie Knitter Helper Relationship Specialty Start Date End Date Primitivo Arceo MD [address] [place] [address], [place] [address] PCP - General Internal Medicine 06/03/14 documented as of this encounter
--- OUTSIDE RECORDS SUMMARY | 2023-08-31 07:05 | External Medical Summary | Summary of Care ---
Author Name Unknown Organization [facility] Address [address] [place] [address] Phone [phone] Care Team Providers Care Molder Bench Name Role Phone Primitivo Arceo MD Primary Care Provider + Reason for Visit * Reason Onset Date Comments Hospital Follow-Up 08/22/2023 Encounter Details Date Type Department Care Team (Late st Contact Info) Description 08/22/2023 Telephone General Surgery, [place] [address] [place] [address] Flora Gonzalez RN [address] [place] [address] Hospital Follow-Up Allergies Active Allergy Reactions Criticality Noted Date Comments Adhesive Tape Other (Please comment) 12/13/2008 blistering Zinc Rash 05/09/2014 documented as of this encounter (statuses as of 08/22/2023) Medications Medication Sig Dispensed Refills Start Date [...] 04/15/2021 Active Additional Information Patient taking differently:2 [place] Each Nostril Daily(AM),As needed, Reported on 06/01/2022 [...] Sodium 60 MG/0.6ML Injection Solution Prefilled Syringe (LovenoAllofMe) Inject 0.5 mL (50 mg) under the [...] as of this encounter (statuses as of 08/22/2023) Active Problems Problem Noted Date Diagnosed Date [...] as of this encounter (statuses as of 08/22/2023) Resolved Problems Problem Noted Date Diagnosed Date Resolved Date Prediabetes 10/03/2022 01/20/2023 Lyme disease 05/09/2014 11/09/2018 Dysphagia 07/10/2010 11/09/2018 Overview: ICD-10 update of inactive term Family history of premature CAD 04/19/2003 02/25/2012 documented as of this encounter (statuses as of 08/22/2023) Immunizations Name Administration Dates Next Due COVID-19 mRNA, LNP-s, No Pre serve, 2-Dose Series (Moderna) 04/18/2021,10/15/2020,09/17/2020 COVID-19, mRNA, LNR-S, Bival ent, PF, 10mcg/0.2 ml (Moderna) 6m to 5 years 03/18/2022 Pneumococcal Conjugate Vacci ne, 20-valent ([id number]) 09/22/2022 Pneumococcal Polysaccharide PPV23 (Pneumovax) 04/24/2021 Seasonal [...] encounter Miscellaneous Notes * Telephone Encounter - Flora Gonzalez RN - 08/22/2023 2:35 PM EDT Call placed to patient to discuss recent hospital stay. Patient is doing well, had a small blister pop on his foot but is keeping a dry dressing over it. No concerns and does not look infected. He has plenty of pain meds left and was wondering if it was ok to continue taking them past 5 days shouldhe need to. We discussed this being ok. He is doing the Lovenox injections without any issues. He is aware of his follow up. He was concerned about his mobility, felt good Tuesday/Tuesday but yesterday was a rough day. We discussed his body telling him when he has done too much and he stated an understanding. Flora Gonzalez RN, BSN, TCRN, CCRN-K Trauma R D Intern 08/22/2023 2:37 PM documented in this encounter Plan of Treatment Upcoming Encounters Date Type Department Care Team (Late st Contact Info) Description 08/29/2023 3:00 PM EDT Office Visit General Internal Medicine [facility] [place] [address] [place] [address] Primitivo Arceo MD [address] [facility] [place] [address] 09/06/2023 12:00 PM EDT Office Visit Orthopaedics, [place] [address] [place] [address] Eleno Sexton PA-C [address] [place], [place] [id number] 12/09/2023 3:45 PM EDT Office Visit Dermatology [facility] [place] [address] [facility] [address] Primitivo De Guzman MD [address] [facility] [address] Scheduled Procedures Name Priority Associated Diagnoses Date/Ti [...] this encounter Medical Devices Implanted Type Area Security Operations Analyst Device Identifier Shelf Expiration Date Model / Serial / Lot Nail T2 Alpha Tibia [id number] - [id number] Implanted:Qty: 1 on 08/17/2023 by German Roldan MD at OR [facility] [place] Right: Leg Lower TONEY : TRAUMA 07/06/2030 2341-1039S / / [id number] Screw T2 Alpha Lock 5x42.5mm - [id number] Implanted:Qty: 1 on 08/17/2023 by German Roldan MD at OR [facility] [place] Right: Leg Lower TONEY : TRAUMA 01/03/2033 2360-5042S / / [id number] Screw T2 Alpha Lock 5x42.5mm - [id number] Implanted:Qty: 1 on 08/17/2023 by German Roldan MD at OR [facility] [place] Right: Leg Lower TONEY : TRAUMA 05/05/2033 2360-5042S / / [id number] Screw T2 Alpha Lock 5x40mm - [id number] Implanted:Qty: 1 on 08/17/2023 by German Roldan MD at OR [facility] [place] Right: Leg Lower TONEY : TRAUMA 01/03/2033 2360-5040S / / [id number] Screw T2 Alpha Lock 5x47.5mm - [id number] Implanted:Qty: 1 on 08/17/2023 by German Roldan MD at OR [facility] [place] Right: Leg Lower TONEY : TRAUMA 06/05/2033 2360-5047S / / [id number] documented as of this encounter Advance Directives Latest Code Status on File Code Status Date Activated Date Inactivated Comments Full Code 08/17/2023 12:34 AM 08/19/2023 6:51 PM This order reflects the patients wishes and were consensually agreed upon. Question Answer Comments Discussion of Advance Directives occurred with: Not Discussed due to patient's condition Care Teams Molder Bench Relationship Specialty Start Date End Date Primitivo Arceo MD [address] [facility] [place] [address] PCP - General Internal Medicine 06/03/14 documented as of this encounter
--- OUTSIDE RECORDS SUMMARY | 2023-08-31 07:05 | External Medical Summary | Summary of Care ---
Author Name Unknown Organization [facility] Address [address] [place] [address] Phone [phone] Care Team Providers Care Hoof And Shoe Inspector Name Role Phone Primitivo Arceo MD Primary [...] 04/15/2021 Active Additional Information Patient taking differently:2 [place] Each Nostril Daily(AM),As needed, Reported on 06/01/2022 [...] years 03/18/2022 Pneumococcal Conjugate Vacci ne, 20-valent ([id number]) 09/22/2022 Pneumococcal Polysaccharide PPV23 (Pneumovax) 04/24/2021 Seasonal [...] PM EDT Office Visit General Internal Medicine [facility] [address] [facility] [place] [address] Primitivo Arceo MD [address] [facility] [place] [address] 09/06/2023 12:00 PM EDT Office Visit Orthopaedics, [place] [address] [place] [address] Eleno Sexton, PA-C [address] [place] [address] 12/09/2023 3:45 PM EDT Office Visit Dermatology [facility] [address] [facility] [place] [address] Primitivo De Guzman MD [address] [place] [address] [place] [address] Scheduled Procedures Name Priority Associated Diagnoses Date/Ti [...] this encounter Medical Devices Implanted Type Area Barley Steeper Device Identifier Shelf Expiration Date Model / Serial / Lot Nail T2 Alpha Tibia [id number] - [id number] Implanted:Qty: 1 on 08/17/2023 by German Roldan MD at OR [facility] [place] Right: Leg Lower TONEY : TRAUMA 07/06/2030 2341-1039S / / [id number] Screw T2 Alpha Lock 5x42.5mm - [id number] Implanted:Qty: 1 on 08/17/2023 by German Roldan MD at OR [facility] [place] Right: Leg Lower TONEY : TRAUMA 01/03/2033 2360-5042S / / [id number] Screw T2 Alpha Lock 5x42.5mm - [id number] Implanted:Qty: 1 on 08/17/2023 by German Roldan MD at OR [facility] [place] Right: Leg Lower TONEY : TRAUMA 05/05/2033 2360-5042S / / [id number] Screw T2 Alpha Lock 5x40mm - [id number] Implanted:Qty: 1 on 08/17/2023 by German Roldan MD at OR [facility] [place] Right: Leg Lower TONEY : TRAUMA 01/03/2033 2360-5040S / / [id number] Screw T2 Alpha Lock 5x47.5mm - [id number] Implanted:Qty: 1 on 08/17/2023 by German Roldan MD at OR [facility] [place] Right: Leg Lower TONEY : TRAUMA 06/05/2033 2360-5047S / / [id number] documented as of this encounter Advance Directives Latest Code Status on File Code Status Date Activated Date Inactivated Comments Full Code 08/17/2023 12:34 AM 08/19/2023 6:51 PM This order reflects the patients wishes and were consensually agreed upon. Question Answer Comments Discussion of Advance Directives occurred with: Not Discussed due to patient's condition Care Teams Hoof And Shoe Inspector Relationship Specialty Start Date End Date Primitivo Arceo MD [address] [place] [address], [place] [address] PCP - General Internal Medicine 06/03/14 documented as of this encounter
--- OUTSIDE RECORDS SUMMARY | 2023-08-31 07:05 | External Medical Summary | Summary of Care ---
Author Name Unknown Organization [facility] Address [address] [place] [address] Phone [phone] Care Team Providers Care Business Objects Developer Name Role Phone Primitivo Arceo MD Primary Care Provider + Reason for Visit * Reason Comments transfer of records [facility] * Auth/Cert Specialty Diagnoses / Procedures Referred By Contac t Referred To Contact Diagnoses Fall RLE Comminuted Displaced Fracture of both Tibula/Fibula Ata Louis MD [address], [place] Bp5t [facility] [address], [place] Referral ID Status Reason Start Date Expiration Date Visits Re quested Visits Authorized [id number] Encounter Details Date Type Department Care Team (Latest Contact Info) Description 08/16/2023 10:44 PM EDT - 08/19/2023 2:46 PM EDT Hospital Encounter [id number] [address], [place] [phone] Miesha Gorman MD [address], [place] Ata Louis MD [address], [place] Dino Mclean MD [address], [place] Pt Handout (on AVS) Discharge Disposition: Home - Self Care Allergies [...] Tab by mouth daily. 30 Tab 11 0 Active Additional Information Patient taking differently:400 mg Oral Daily(AM),Indications: takes in the evening, Reported on 06/01/2022 Riboflavin 400 MG Capsule Take 1 Cap by mouth daily. 30 Cap 11 0 Active Additional Information Patient taking differently:400 mg Oral Daily(AM),Indications: takes in the evening, Reported on 06/01/2022 ProAir HFA 108 (90 Base) MCG/ACT Inhalation Aerosol SolutionIndications :Cough Inhale 2 Puffs by mouth 4 times a day as needed for Wheezing. 18 g 0 1 Active Fluticasone Propionate 50 MCG/ACT Nasal Suspension Administer 2 Sprays into each nostril daily. 0 1 Active Additional Information Patient taking differently:2 [place] Each Nostril Daily(AM),As needed, Reported on 06/01/2022 Triamcinolone Acetonide 0.1 % External Ointment (Aristocort)Indicat ions:Dermatitis Apply to rash nightly as needed 30 g 1 2 Active Ammonium Lactate 12 % External CreamIndications:De rmatitis Apply to skin after bathing as needed 385 g 1 2 Active Omeprazole 20 MG Oral Capsule Delayed Release (PriLOSEC)Indicatio ns:Gastroesophageal reflux disease without esophagitis,Cough Take 1 Capsule by mouth in the morning. 1 hour before the first meal of the day. 90 Capsule 3 2 Active Fluticasone-Salmete rol 115-21 MCG/ACT Inhalation Aerosol (Advair HFA) Inhale 2 Puffs by mouth 2 times a day as needed for Cough, Shortness of Breath or Wheezing. 12 g 3 2 Active Rizatriptan Benzoate 10 MG Oral Tablet (Maxalt) TAKE 1 TABLET BY MOUTH AT ONSET OF HEADACHE, MAY REPEAT IN 24 HRS. NO MORE THAN 3 TIMES A WEEK 10 Tablet 5 3 Active Atenolol 25 MG Oral Tablet (Tenormin)Indicatio ns:HTN, goal below 130/80,Migraine without aura and without status migrainosus, not intractable TAKE 1 TABLET BY MOUTH ONCE DAILY FOR HEADACHE 90 Tablet 3 3 Active Topiramate 25 MG Oral Tablet (topAMAX) TAKE 2 TABLETS BY MOUTH ONCE DAILY AT BEDTIME 180 Tablet 1 3 Active Nortriptyline HCl 10 MG Oral Capsule (Pamelor) TAKE 3 CAPSULES BY MOUTH ONCE DAILY AT BEDTIME 120 Capsule 5 4 Active Rosuvastatin Calcium 5 MG Oral Tablet (Crestor)Indication s:Mixed hyperlipidemia Take 1 Tablet by mouth in the morning. 90 Tablet 1 4 Active Acetaminophen 325 MG Oral Tablet (Tylenol) Take 3 Tablets by mouth in the morning and 3 Tablets at noon and 3 Tablets before bedtime. Do all this for 7 days. 63 Tablet 0 4 08/26/19 24 Active Docusate Sodium 100 MG Oral Capsule (Colace) Take 1 Capsule by mouth in the morning and 1 Capsule before bedtime. 10 Capsule 0 4 Active Enoxaparin Sodium 60 MG/0.6ML Injection Solution Prefilled Syringe (Lovenox) Inject 0.5 mL (50 mg) under the skin twice a day (morning and before bedtime). Do all this for 14 days. 16.8 mL 0 4 09/02/19 24 Active oxyCODONE HCl 5 MG Oral Tablet (Oxy IR) Take 1 Tablet by mouth every 4 hours as needed for moderate to severe pain for up to 5 days. 25 Tablet 0 4 08/24/19 24 Active Atenolol 25 MG Oral Tablet (Tenormin)Indicatio ns:HTN, goal below 130/80,Migraine without aura and without status migrainosus, not intractable TAKE 1 TABLET BY MOUTH DAILY FOR HEADACHE 90 Tablet 3 3 08/19/19 24 Discontinued documented as of this encounter (statuses as [...] years 03/18/2022 Pneumococcal Conjugate Vacci ne, 20-valent ([id number]) 09/22/2022 Pneumococcal Polysaccharide PPV23 (Pneumovax) 04/24/2021 Seasonal Influenza, PF, 6 M & above, IM , (FluLaval or Fluzone) 02/10/2022,02/16/2021,03/04/2020,1002/2019 Seasonal Influenza, Quadriva lent, No Preserve, IM [...] Sign Reading Time Taken Comments Blood Pressure 111/61 08/19/2023 10:01 AM EDT Pulse 60 08/19/2023 10:01 AM EDT Temperature 36.5 C (97.7 F) 08/19/2023 10:01 AM E DT Respiratory Rate 17 08/19/2023 10:01 AM EDT Oxygen Saturation 99% 08/19/2023 10:01 AM EDT Inhaled Oxygen Concentration - - Weight 93.4 kg (206 lb) 08/17/2023 4:24 AM EDT Height 188 cm (6' 2") 08/17/2023 4:24 AM EDT Body Mass Index 26.45 08/17/2023 4:24 AM EDT documented in this encounter Functional Status [...] No 08/17/2023 documented as of this encounter Discharge Summaries * Bryant Blackburn PA-C - 08/19/2023 6:50 AM EDT Images from the original note were not included. [address] [address] Admission Date: 08/16/2023 Discharge Date: 08/19/2023 DISCHARGE DIAGNOSES: Active Hospital Problems Diagnosis *Principal Diagnosis - Fracture of distal end of tibia with fibula, right, closed, initial encounter Fall HTN, goal below 130/80 Resolved Hospital Problems No resolved problems to display. Other Significant Diagnoses: none CONDITION ON DISCHARGE: stable Cognition: normal DISPOSITION ON DISCHARGE: home FOLLOW-UP: Future Appointments Appt Date/Time Provider Department 08/29/2023 3:00 PM Primitivo Arceo MD General Internal Medicine [facility] 12/09/2023 3:45 PM Primitivo De Guzman MD Dermatology [facility] Outpatient testing already scheduled: as above Outpatient testing that needs to be arranged: orthopedics Inpatient test results pending: none MEDICATIONS ON DISCHARGE: MEDICATION UPDATES AT DISCHARGE START taking these medications INSTRUCTIONS Acetaminophen 325 MG Tablet Commonly known as: Tylenol Take 3 Tablets by mouth in the morning and 3 Tablets at noon and 3 Tablets before bedtime. Do all this for 7 days. Docusate Sodium 100 MG Capsule Commonly known as: Colace Take 1 Capsule by mouth in the morning and 1 Capsule before bedtime. Enoxaparin 60 MG/0.6ML injection Commonly known as: Lovenox Inject 50 mg under the skin in the morning and 50 mg before bedtime. Do all this for 14 days. oxyCODONE 5 MG immediate release tablet Commonly known as: Oxy IR Take 1 Tablet by mouth every 4 hours as needed for Pain, Moderate for up to 5 days. CONTINUE taking these medications INSTRUCTIONS Ammonium Lactate 12 % cream Commonly known as: Lac-Hydrin Apply to skin after bathing as needed * Atenolol 25 MG Tablet Commonly known as: Tenormin TAKE 1 TABLET BY MOUTH DAILY FOR HEADACHE * Atenolol 25 MG Tablet Commonly known as: Tenormin TAKE 1 TABLET BY MOUTH ONCE DAILY FOR HEADACHE fluticasone 50 MCG/ACT nasal spray Commonly known as: Flonase Administer 2 Sprays into each nostril daily. Fluticasone-Salmeterol 115-21 MCG/ACT inhaler Commonly known as: Advair HFA Inhale 2 Puffs by mouth 2 times a day as needed for Cough, Shortness of Breath or Wheezing. Ibuprofen 200 MG Tablet Commonly known as: Motrin Take 2 Tablets by mouth 2 times a day as needed (headache). Magnesium Oxide 400 MG Tablet Take 1 Tab by mouth daily. nortriptyline 10 MG Capsule Commonly known as: Pamelor TAKE 3 CAPSULES BY MOUTH ONCE DAILY AT BEDTIME omeprazole 20 MG Cpdr Commonly known as: PriLOSEC Take 1 Capsule by mouth in the morning. 1 hour before the first meal of the day. ProAir HFA 108 (90 Base) MCG/ACT Aers Inhale 2 Puffs by mouth 4 times a day as needed for Wheezing. Riboflavin 400 MG Capsule Take 1 Cap by mouth daily. Rizatriptan 10 MG Tablet Commonly known as: Maxalt TAKE 1 TABLET BY MOUTH AT ONSET OF HEADACHE, MAY REPEAT IN 24 HRS. NO MORE THAN 3 TIMES A WEEK rosuvastatin 5 MG Tablet Commonly known as: Crestor Take 1 Tablet by mouth in the morning. topiramate 25 MG Tabs Commonly known as: topAMAX TAKE 2 TABLETS BY MOUTH ONCE DAILY AT BEDTIME Triamcinolone Acetonide 0.1 % ointment Commonly known as: Aristocort Apply to rash nightly as needed * This list has 2 medication(s) that are the same as other medications prescribed for you. Read thedirections carefully, and ask your doctor or other care provider to review them with you. ALLERGIES: Tape [adhesive tape] and Zinc INSTRUCTIONS: Diet: Normal diet Activity: You can bear 50% of your weight on your right leg when ambulating. Code Status: Full Code Indwelling devices: none ADMISSION HISTORY & PHYSICAL EXAM (focused): The pt is a 62 y/o male with a PMHx listed below that [facility] to [facility] from [facility] after a mechanical fall today. He said [...] fx. ORTHO was consulted by the ED. The pt was found sitting in a WC AAOX4 and GCS-15. His CC was distal RLE pain. He denied FARARR, LH, dizziness, vision changes, SOB, CP, abd pain, N/V/D, neck/back pain, and numbness/tingling in his extremities. Pt is not on any anticoagulants SEROLOGIST. Head: normocephalic / atraumatic Eyes: pupils 2 mm, bilaterally reactive to light, extraocular muscles intact ENT: oropharynx clear Neck: supple, non-tender, trachea midline Respiratory: clear to auscultation bilaterally; non-labored; saturating well on R/A; chest wall non-tender to palpation Cardiovascular: regular rate and rhythm, palpable peripheral pulses present Abdomen: soft, non-tender, non-distended Back: no tenderness across thoracic / lumbar spine Pelvis: non-tender, stable to anterior-posterior/lateral compression Rectal: deferred Genitourinary: deferred Musculoskeletal: swelling/ecchymosis to R distal smith region with pain on palpation; good ROM at R hip and foot/toes; good ROM/strength in all other extremities; all compartments are compressible; +2distal pulses; sensation intact Skin: grossly intact Neurologic: alert and oriented x3 HOSPITAL COURSE (focused): Broken Bone You were seen by Orthopedics for your Right distal tib/fib fracture, Possible right age indeterminate tibial plateau avulsion, Right posterior malleolar fracture with intra-articular extension fracture (broken leg). You did require surgery. You were taken to surgery on 08/17/23 for operative fixation of your leg. You can bear 50% of your weight on your right leg when ambulating. Follow-up Appointments - You will need to follow-up with Orthopedics in 2 weeks as an outpatient. Appointments with orthopaedics and other appropriate specialties, are or will be scheduled. If there is no orthopaedic appointment listed, and if you have not been contacted for a follow-up date/location/time by one week post-discharge, call to confirm your appointment. When asked to state the name of the physician, please say "Hospital Discharge". Surgical ORTHOPAEDIC WOUND CARE Discharge instructions: - Elevate the operative extremity above the level of your heart as much as possible. Wound Care - Keep dressing in place until follow-up visit. - You have sutures and/or ernie. They will be removed at your follow-up visit. - Do not pick at or pull the skin closure materials. Diet - Resume Pre-admission diet. - Do NOT drink alcoholic beverages while recovering from surgery. Call Orthopaedics for: - Persistent fever greater than 101 degrees F (38.3 degrees C) - Increasing pain not controlled with current medication - Wound drainage saturating multiple dressings and/or clothing - Spreading/increasing redness (some redness is normal) - Any other questions, concerns or test results - Pain medication cannot be refilled outside of normal business hours. Phone Numbers Tuesday-Tuesday from 8 am to 4 pm: [facility] [place] [phone] For after-hours emergencies: Call [phone] and have the Orthopaedic Surgeon regional recruiter paged. Call [facility], 911, or go to nearest Emergency Room for: - chest pain - shortness of breath or difficulty breathing - uncontrolled nausea/vomiting/diarrhea Pain Medications You are being discharged on Tylenol and oxycodone to control your pain. You should take 975 mg of Tylenol every 6 hours for the next 7 days. If you have increased pain you may use Oxycodone 5 mg every 4 hours as needed. - You have been prescribed a 5 day supply of these medications. If you need pain medication for longer than 5 days you will need to contact trauma and be seen in clinic. We will discuss if a refill of pain medication will be givento you. - You should take these medications as directed. Using prescription pain medication can be linked with risks such as addiction. Do not take these medications with alcohol, street drugs, or any other drugs that cause sleepiness. These medications can cause sleepiness. They can also weaken your ability to make decisions and drive a car. Blood clot prevention He is at high risk of blood clots due to his trauma and decreased mobility. He is being discharged on Lovenox, 50 mg twice a day for 14 days MINIMUM. After 14 days, his mobility should be assessed todetermine if this needs to be extended. INCIDENTAL FINDINGS: Please discuss the following -Mild tricompartmental osteoarthritis. -Proximal tibia bone islands. -Calcaneus bone island. Operations & Procedures:-S/p ORIF right fibula, IMN right tibia, and perc fixation right posterior malleolar fx 08/16 -EBL: 150 ml -IVF: 1100ml Complications: none significant SIGNIFICANT RESULTS: Vital Signs (last recorded): Most Recent Systolic BP: 118 mmHg (08/19/23643) Most Recent Diastolic BP: 59 mmHg (08/19/23643) Pulse: 61 (08/19/23643) Resp: 16 (08/19/23643) Most Recent Temperature: 36.61 C (08/19/23643) Weight: 93.4 kg (206 lb) (08/17/23 0424) SpO2: 100 % (08/19/23643) O2 flow rate: 0 L/MIN (08/18/23 1841) Labs: Lab results within last 7 days (see chart for full results) Units 08/19/23 0333 08/18/23 0342 WBC K/uL 9.25 10.72 HGB g/dL 12.2* 12.9* PLT K/uL 202 199 Sodium mmol/L 137 136 Potassium mmol/L 3.4* 4.2 Chloride mmol/L 109* 107 CO2 mmol/L 21* 21* BUN mg/dL 19 17 Creatinine mg/dL 1.2 1.2 Calcium mg/dL 8.4 8.2* Recent Cultures (2 Weeks) 08/17/2023 8:12 AM QUANT URINE CULTURE GROWTH No significant growth Imaging (focused): XR KNEE 4 OR MORE VIEWS Result Date: 08/16/2023 IMPRESSION This report is a preliminary interpretation by a resident physician and is subject to changes following review by an attending radiologist. Be sure to review the final report for any discrepancies. Comminuted, moderately displaced oblique fracture of the tibia and fibula, as above. XR TIB/FIB 2 VIEWS Result Date: 08/16/2023 IMPRESSION This report is a preliminary interpretation by a resident physician and is subject to changes following review by an attending radiologist. Be sure to review the final report for any discrepancies. Comminuted, moderately displaced oblique fracture of the tibia and fibula, as above. XR ANKLE 3 OR MORE VIEWS Result Date: 08/16/2023 IMPRESSION This report is a preliminary interpretation by a resident physician and is subject to changes following review by an attending radiologist. Be sure to review the final report for any discrepancies. Comminuted, moderately displaced oblique fracture of the tibia and fibula, as above. CONSULTS ORDERED: ORTHOPAEDICS CONSULT IP ANTI-COAGULATION CONSULT IP ADULT OCCUPATIONAL THERAPY CONSULT IP ADULT PHYSICAL THERAPY CONSULT IP REFERRING PHYSICIAN: Ref: SON SWANSON[[id number]] [address] [place] [address] (office) [phone] (fax) PRIMARY CARE PROVIDER: PCP: Primitivo Arceo MD [address] [place] [address] / [facility] [id number] (office) [phone] (fax) Note: To contact a physician responsible for this patients hospital care, please call [facility] [phone]. documented in this encounter Discharge Instructions * Discharge Instr - AVS* Bryant Blackburn PA-C - 08/19/2023 6:42 AM EDT Discharge Date: 08/19/23 You may call the department of trauma surgery at [phone] during business hours for any questions or test results. For after-hours emergencies call [phone] and have your doctor paged. The information below provides you with the instructions and the list of medications you need to betaking following discharge from the hospital. If you have any questions, please ask before leaving.Please carry this letter with you when you see your doctor in the clinic. If you have questions, you can reach us at the numbers above. Brief summary of your inpatient care: You were admitted to the trauma surgery service for the following injuries Broken Bone You were seen by Orthopedics for your Right distal tib/fib fracture, Possible right age indeterminate tibial plateau avulsion, Right posterior malleolar fracture with intra-articular extension fracture (broken leg). You did require surgery. You were taken to surgery on 08/17/23 for operative fixation of your leg. You can bear 50% of your weight on your right leg when ambulating. Follow-up Appointments - You will need to follow-up with Orthopedics in 2 weeks as an outpatient. Appointments with orthopaedics and other appropriate specialties, are or will be scheduled. If there is no orthopaedic appointment listed, and if you have not been contacted for a follow-up date/location/time by one week post-discharge, call to confirm your appointment. When asked to state the name of the physician, please say "Hospital Discharge". Surgical ORTHOPAEDIC WOUND CARE Discharge instructions: - Elevate the operative extremity above the level of your heart as much as possible. Wound Care - Keep dressing in place until follow-up visit. - You have sutures and/or ernie. They will be removed at your follow-up visit. - Do not pick at or pull the skin closure materials. Diet - Resume Pre-admission diet. - Do NOT drink alcoholic beverages while recovering from surgery. Call Orthopaedics for: - Persistent fever greater than 101 degrees F (38.3 degrees C) - Increasing pain not controlled with current medication - Wound drainage saturating multiple dressings and/or clothing - Spreading/increasing redness (some redness is normal) - Any other questions, concerns or test results - Pain medication cannot be refilled outside of normal business hours. Phone Numbers Tuesday-Tuesday from 8 am to 4 pm: [facility] [place] [phone] For after-hours emergencies: Call [phone] and have the Orthopaedic Surgeon regional recruiter paged. Call PCP, 911, or go to nearest Emergency Room for: - chest pain - shortness of breath or difficulty breathing - uncontrolled nausea/vomiting/diarrhea Pain Medications You are being discharged on Tylenol and oxycodone to control your pain. You should take 975 mg of Tylenol every 6 hours for the next 7 days. If you have increased pain you may use Oxycodone 5 mg every 4 hours as needed. - You have been prescribed a 5 day supply of these medications. If you need pain medication for longer than 5 days you will need to contact trauma and be seen in clinic. We will discuss if a refill of pain medication will be givento you. - You should take these medications as directed. Using prescription pain medication can be linked with risks such as addiction. Do not take these medications with alcohol, street drugs, or any other drugs that cause sleepiness. These medications can cause sleepiness. They can also weaken your ability to make decisions and drive a car. Blood clot prevention He is at high risk of blood clots due to his trauma and decreased mobility. He is being discharged on Lovenox, 50 mg twice a day for 14 days MINIMUM. After 14 days, his mobility should be assessed todetermine if this needs to be extended. INCIDENTAL FINDINGS: Please discuss the following -Mild tricompartmental osteoarthritis. -Proximal tibia bone islands. -Calcaneus bone island. Your doctors during this hospitalization included: Dr. Mclean - trauma surgery JamarGerman golden MD - Orthopedic surgeon Your primary diagnosis at discharge was as above Inpatient test results pending: none Operations & Procedures:-S/p ORIF right fibula, IMN right tibia, and perc fixation right posterior malleolar fx 08/16 -EBL: 150 ml -IVF: 1100ml Complications: none significant Advance Directive Documented: Advance Directive Does the Patient have an Advance Directive? Yes Diet: Normal diet Activity: You can bear 50% of your weight on your right leg when ambulating. Driving: Do not drive. Date you may return to work or school: Based on further instruction reviewed by surgeon after follow up visit. See your primary care physician (Primitivo Arceo MD) in 2 week(s). Special Instructions: Please keep all appointments as scheduled. Go to your nearest emergency department if you experience any of the following: sustained fever above 101.5, inability to eat, drink, or take pain medication, numbness/tingling in your extremities, severe nausea or vomiting. Do not drive or operate heavy machinery while taking prescription pain medication. You may take over the counter stool softeners toprevent constipation while taking pain medication. documented in this encounter Progress Notes * Bryant Blackburn PA-C - 08/19/2023 6:35 AM EDT PROGRESS NOTE - Trauma Surgery [facility] [address] Name: Daniel Avila [place] [id number] Date: 08/19/2023 Time: 6:36 AM HOSPITAL DAY#: 4 ROUNDING SURGEON: Walker ADMISSION DATE: 08/16/2023 OPERATIONS / PROCEDURES: -Ortho 08/16: ORIF of right fibula fracture 2. ORIF of right tibia shaft fracture with intramedullary nail 3. Percutaneous fixation of right posterior malleolus fracture INJURY COMPLEX: Active Problems: -Fall from standing -Right distal tib/fib fracture -Possible right age indeterminate tibial plateau avulsion -Right posterior malleolar fracture with intra-articular extension -Migraines -Asthma -Bronchiectasis -Lyme's disease -HLD INJURY COMPLEX: Active Problems: HTN, goal below 130/80 (POA: Yes) Fracture of distal end of tibia with fibula, right, closed, initial encounter (POA: Unknown) Fall (POA: Unknown) POA = Present On Admission INTERIM HISTORY (LAST 24 HOURS): Patient completed PT yesterday and cleared for home. Pending pain management may be able to discharge home today PHYSICAL EXAMINATION: Most Recent Vital Signs: BP: 104 mmHg/58 mmHg (08/19/23217) Pulse: 58 (08/19/23217) Temp: 36.39 C (08/19/23217) Temp Summary: Temp Min: 36 C (96.8 F) Max: 36.6 C (97.9 F) SpO2: 98 % (08/19/23217) O2 flow rate: 0 L/MIN (08/18/23 184) Supplemental O2 Delivery: Room Air, None (08/19/23217) SpO2: 98 % (08/19/23217) Vital Signs Last 24 Hours: Systolic BP: Most Recent Systolic BP Av mmHg Min: 94 mmHg Max: 109 mmHg Temperature: Most Recent Temperature Av.2 C Min: 36 C Max: 36.61 C Pulse: Pulse Av.7 Min: 55 Max: 73 Respirations: Resp Av Min: 16 Max: 16 SpO2: SpO2 Av.3 % Min: 97 % Max: 100 % HEENT: Atraumatic/normocephalic, pupils 3mm equal, round, reactive to light, mucous membranes moist, Neck: supple, non-tender, trachea midline, FROM without pain Respiratory: clear to auscultation bilaterally, unlabored breathing on 2L of oxygen via nasal cannula, able to take a deep breath as prompted (-) chest wall tenderness to palpation Cardiovascular: regular rate and rhythm, palpable peripheral pulses present Abdomen: soft, non-tender, non-distended, normal bowel sounds Back: no tenderness across thoracic / lumbar spine Pelvis: non-tender, stable to anterior-posterior/lateral compression Musculoskeletal: motor / sensation grossly intact, moving all extremities as prompted, (+) RLE withlong leg splint in place, it is clean and dry, decreased ROM to RLE due to splint and pain, but able to wiggle toes and move at right hip, edema noted to mid calve down, but it is soft and compressible, cap refill about 3 seconds on exam, sensation equal, (+) LLE and BUE intact, strength is 5/5 throughout, peripheral pulses here equal Skin: as above Neurologic: GCS Adult: eyes open 4 = spontaneous, best verbal response 5 = verbally appropriate forage, best motor response 6 = obeys commands appropriate for age, alert and oriented x3 DEVICES: Jessica: no TEDs/SCDs: yes IVC Filter: no Cervical Collar: no Thoracolumbar Fixation: no DIET: Regular ACTIVITY LEVEL: -PWB RLE -40-50 lbs ALLERGIES: Tape [adhesive tape] and Zinc LABORATORIES: Labs reviewed as indicated below: Lab results within last 7 days (see chart for full results) Units 08/19/23 0333 08/18/23 0342 WBC K/uL 9.25 10.72 HGB g/dL 12.2* 12.9* PLT K/uL 202 199 Sodium mmol/L 137 136 Potassium mmol/L 3.4* 4.2 Chloride mmol/L 109* 107 CO2 mmol/L 21* 21* BUN mg/dL 19 17 Creatinine mg/dL 1.2 1.2 Calcium mg/dL 8.4 8.2* Recent Cultures (2 Weeks) 08/17/2023 8:12 AM QUANT URINE CULTURE GROWTH No significant growth ASSESSMENT/PLAN: Right distal tib/fib fracture Possible right age indeterminate tibial plateau avulsion Right posterior malleolar fracture with intra-articular extension -Evaluated by Ortho, appreciate recs -S/p ORIF right fibula, IMN right tibia, and perc fixation right posterior malleolar fx 08/16 -EBL: 150 ml -IVF: 1100ml -PWB RLE -40-50 lbs -Maintain splint -Complete post op Ancef -Ortho following Migraines -Restarted on home Atenolol, Topamax, Nortr -Holding home Maxalt, restart on discharge Asthma Bronchiectasis -Restarted on home Breo -Albuterol PRN GERD -Restarted on home Prilosec HLD -Restarted on home Crestor DVT prophylaxis -TEDs/SCDS -Lovenox per protocol Bowel regimen -Colace -senna Pain control -ATC Tylenol -Soma PRN -Oxy PRN Diet -Will allow clear liquids post op until he is more awake -If he tolerates clears, will advance to regular -Will stop IVF when tolerating PO intake Activity -OOB -PWB RLE (40-50 lbs) -PT/OT consulted, pending recs Dispo -Home today Associated attestation - Dino Mclean MD - 08/19/2023 4:23 PM EDT I have reviewed the advanced practitioner's documentation on the date of service referenced in note, and I agree with, and take responsibility for the plan of care. I spent a total of 30 minutes coordinating, documenting, and providing care for this patient excluding time spent in the performance of separately billed services or time spent by another provider/QHP. - Pain well controlled - Discharge home today - Follow up with Ortho * Bryant Blackburn PA-C - 08/18/2023 1:07 PM EDT PROGRESS NOTE - [place] [facility] [id number] Name: Daniel Avila [place] [facility] [place] [facility] Date: 08/18/2023 Time: 1:07 PM HOSPITAL DAY#: 3 ROUNDING SURGEON: Vinay ADMISSION DATE: 08/16/2023 OPERATIONS / PROCEDURES: -Ortho 08/16: ORIF of right fibula fracture 2. ORIF of right tibia shaft fracture with intramedullary nail 3. Percutaneous fixation of right posterior malleolus fracture INJURY COMPLEX: Active Problems: -Fall from standing -Right distal tib/fib fracture -Possible right age indeterminate tibial plateau avulsion -Right posterior malleolar fracture with intra-articular extension -Migraines -Asthma -Bronchiectasis -Lyme's disease -HLD INTERIM HISTORY (LAST 24 HOURS): Patient had no events overnight medically stable for discharge. Pending PT/OT PHYSICAL EXAMINATION: Most Recent Vital Signs: BP: 106 mmHg/60 mmHg (08/18/231227) Pulse: 62 (08/18/231227) Temp: 36.61 C (08/18/231227) Temp Summary: Temp Min: 36.3 C (97.3 F) Max: 36.8 C (98.2 F) SpO2: 97 % (08/18/231227) O2 flow rate: 0 L/MIN (08/18/231227) Supplemental O2 Delivery: Room Air, None (08/18/231227) SpO2: 97 % (08/18/231227) Vital Signs Last 24 Hours: Systolic BP: Most Recent Systolic BP Av.5 mmHg Min: 101 mmHg Max: 125 mmHg Temperature: Most Recent Temperature Av.5 C Min: 36.28 C Max: 36.78 C Pulse: Pulse Av.5 Min: 54 Max: 80 Respirations: Resp Av.9 Min: 9 Max: 18 SpO2: SpO2 Av.1 % Min: 94 % Max: 99 % HEENT: Atraumatic/normocephalic, pupils 3mm equal, round, reactive to light, mucous membranes moist, Neck: supple, non-tender, trachea midline, FROM without pain Respiratory: clear to auscultation bilaterally, unlabored breathing on 2L of oxygen via nasal cannula, able to take a deep breath as prompted (-) chest wall tenderness to palpation Cardiovascular: regular rate and rhythm, palpable peripheral pulses present Abdomen: soft, non-tender, non-distended, normal bowel sounds Back: no tenderness across thoracic / lumbar spine Pelvis: non-tender, stable to anterior-posterior/lateral compression Musculoskeletal: motor / sensation grossly intact, moving all extremities as prompted, (+) RLE withlong leg splint in place, it is clean and dry, decreased ROM to RLE due to splint and pain, but able to wiggle toes and move at right hip, edema noted to mid calve down, but it is soft and compressible, cap refill about 3 seconds on exam, sensation equal, (+) LLE and BUE intact, strength is 5/5 throughout, peripheral pulses here equal Skin: as above Neurologic: GCS Adult: eyes open 4 = spontaneous, best verbal response 5 = verbally appropriate forage, best motor response 6 = obeys commands appropriate for age, alert and oriented x3 DEVICES: Jessica: no TEDs/SCDs: yes IVC Filter: no Cervical Collar: no Thoracolumbar Fixation: no DIET: NPO ACTIVITY LEVEL: bedrest ALLERGIES: Tape [adhesive tape] and Zinc LABORATORIES: Labs reviewed as indicated below: Lab results within last 7 days (see chart for full results) Units 08/18/23 0342 08/17/23 1702 WBC K/uL 10.72 10.99* HGB g/dL 12.9* 14.3 PLT K/uL 199 226 Sodium mmol/L 136 137 Potassium mmol/L 4.2 4.2 Chloride mmol/L 107 107 CO2 mmol/L 21* 21* BUN mg/dL 17 20 Creatinine mg/dL 1.2 1.1 Calcium mg/dL 8.2* 8.5 Recent Cultures (2 Weeks) 08/17/2023 8:12 AM QUANT URINE CULTURE GROWTH No significant growth CULTURES / SENSITIVITIES: -urine culture: pending RADIOGRAPHIC STUDIES: -Right knee, tib/fib, ankle: Acute displaced oblique fractures of the right distal tibia and fibuladiaphysis. -CXR: Left basilar atelectasis. Stable cardiomediastinal silhouette and bones. -PXR: No fracture, dislocation, or diastasis. Mild bilateral degenerative changes. -CT RLE: 1. Age-indeterminate knee posterior medial tibial plateau irregularity, concerning for possible acute avulsion fracture. Consider further assessment with knee MRI. 2. Age-indeterminate avulsion injury in the region of the femoral notch. 3. Multifocal fibula fractures, as above. 4. Acute comminuted angulated displaced distal tibia metadiaphyseal fracture. 5. Nondisplaced posterior malleolus intra-articular tibial fracture. 6. 3D CT reconstructions support the above findings. 7. No acute chest or pelvis radiographic finding. ASSESSMENT/PLAN: Right distal tib/fib fracture Possible right age indeterminate tibial plateau avulsion Right posterior malleolar fracture with intra-articular extension -Evaluated by Ortho, appreciate recs -S/p ORIF right fibula, IMN right tibia, and perc fixation right posterior malleolar fx 08/16 -EBL: 150 ml -IVF: 1100ml -PWB RLE -40-50 lbs -Maintain splint -Complete post op Ancef -Ortho following Migraines -Restarted on home Atenolol, Topamax, Nortr -Holding home Maxalt, restart on discharge Asthma Bronchiectasis -Restarted on home Breo -Albuterol PRN GERD -Restarted on home Prilosec HLD -Restarted on home Crestor DVT prophylaxis -TEDs/SCDS -Lovenox per protocol Bowel regimen -Colace -senna Pain control -ATC Tylenol -Soma PRN -Oxy PRN Diet -Will allow clear liquids post op until he is more awake -If he tolerates clears, will advance to regular -Will stop IVF when tolerating PO intake Activity -OOB -PWB RLE (40-50 lbs) -PT/OT consulted, pending recs Dispo -Medically stable for discharge, pending PT/OT Associated attestation - Dino Mclean MD - 08/18/2023 3:42 PM EDT I have reviewed the advanced practitioner's documentation on the date of service referenced in note, and I agree with, and take responsibility for the plan of care. I spent a total of 30 minutes coordinating, documenting, and providing care for this patient excluding time spent in the performance of separately billed services or time spent by another provider/QHP. - Pain well controlled - PT/OT eval - Possible discharge in the next day or two pending progress with PT/OT * Nimo Soto PA-C - 08/17/2023 6:10 AM EDT PROGRESS NOTE - Trauma [place] [facility] [place] [id number] Name: Daniel Avila [facility] Date: 08/17/2023 Time: 6:10 AM HOSPITAL DAY#: 2 ROUNDING SURGEON: Dr. Mclean ADMISSION DATE: 08/16/2023 OPERATIONS / PROCEDURES: -Ortho 08/16: ORIF of right fibula fracture 2. ORIF of right tibia shaft fracture with intramedullary nail 3. Percutaneous fixation of right posterior malleolus fracture INJURY COMPLEX: Active Problems: -Fall from standing -Right distal tib/fib fracture -Possible right age indeterminate tibial plateau avulsion -Right posterior malleolar fracture with intra-articular extension -Migraines -Asthma -Bronchiectasis -Lyme's disease -HLD INTERIM HISTORY (LAST 24 HOURS): Patient admitted to the hospital yesterday after a fall. He was found to have the injuries as listed above. He remained stable overnight without any acute issues. He is seen before his OR in PACU pre- op. He is awake and alert. He states he is having some discomfort in his right ankle are and lower right smith. It is more of a constant aching. He states it is tolerable at this time. He is ready to get the OR done with he states. He denies having any other pain, CP, SOB, abdominal pain, FARRAR, or nausea. Also denies having any numbness or tingling in his toes. He isAfebrile. He is also seen in PACU post-op after his OR He is s/p ORIF of his right fibular, right IM nail to tibia, and perc fixation of malleolus. He is asleep, but easily awakes to voice. He states he is feeling really groggy from the anesthesia at the moment. He denies having any FARRAR, CP, SOB, nausea, or trouble swallowing. He does have some slight pain in his right ankle, but it is improved from per-op.No other complaints. Is on 2L of oxygen via NC post op. Will wean when able. Afebrile. PHYSICAL EXAMINATION: Most Recent Vital Signs: BP: 112 mmHg/59 mmHg (08/17/23423) Pulse: 59 (08/17/23423) Temp: 35.33 C (08/17/23423) Temp Summary: Temp Min: 35.3 C (95.6 F) Max: 36.4 C (97.5 F) SpO2: 100 % (08/17/23423) O2 flow rate: Supplemental O2 Delivery: Room Air, None (08/17/23423) SpO2: 100 % (08/17/23423) Rhythm: Regular Vital Signs Last 24 Hours: Systolic BP: Most Recent Systolic BP Av.7 mmHg Min: 109 mmHg Max: 114 mmHg Temperature: Most Recent Temperature Av.9 C Min: 35.33 C Max: 36.39 C Pulse: Pulse Av Min: 59 Max: 71 Respirations: Resp Av.7 Min: 16 Max: 18 SpO2: SpO2 Av.7 % Min: 98 % Max: 100 % Pain Assessment (0-10): 3 Intake/Output Summary (Last 24 hours) at 08/17/2023 1724 Last data filed at 08/17/2023 1529 Gross per 24 hour Intake 1801.04 ml Output 450 ml Net 1351.04 ml LBM: SEROLOGIST HEENT: Atraumatic/normocephalic, pupils 3mm equal, round, reactive to light, mucous membranes moist, Neck: supple, non-tender, trachea midline, FROM without pain Respiratory: clear to auscultation bilaterally, unlabored breathing on 2L of oxygen via nasal cannula, able to take a deep breath as prompted (-) chest wall tenderness to palpation Cardiovascular: regular rate and rhythm, palpable peripheral pulses present Abdomen: soft, non-tender, non-distended, normal bowel sounds Back: no tenderness across thoracic / lumbar spine Pelvis: non-tender, stable to anterior-posterior/lateral compression Musculoskeletal: motor / sensation grossly intact, moving all extremities as prompted, (+) RLE withlong leg splint in place, it is clean and dry, decreased ROM to RLE due to splint and pain, but able to wiggle toes and move at right hip, edema noted to mid calve down, but it is soft and compressible, cap refill about 3 seconds on exam, sensation equal, (+) LLE and BUE intact, strength is 5/5 throughout, peripheral pulses here equal Skin: as above Neurologic: GCS Adult: eyes open 4 = spontaneous, best verbal response 5 = verbally appropriate forage, best motor response 6 = obeys commands appropriate for age, alert and oriented x3 DEVICES: Jessica: no TEDs/SCDs: yes IVC Filter: no Cervical Collar: no Thoracolumbar Fixation: no DIET: NPO ACTIVITY LEVEL: bedrest ALLERGIES: Tape [adhesive tape] and Zinc LABORATORIES: Labs reviewed as indicated below: Latest Reference Range & Units 08/17/23 09:21 Sodium 135 - 146 mmol/L 138 Potassium 3.5 - 5.1 mmol/L 3.8 Chloride 98 - 107 mmol/L 108 (H) CO2 22 - 32 mmol/L 21 (L) BUN 6 - 20 mg/dL 23 (H) Creatinine 0.6 - 1.2 mg/dL 1.2 Estimated Glomerular Filtration Rate >=60 mL/min 70 Anion Gap 7 - 15 mmol/L 9 Glucose 70 - 120 mg/dL 97 Calcium 8.4 - 10.2 mg/dL 8.8 Magnesium 1.5 - 2.6 mg/dL 2.2 Phosphorus 2.5 - 4.8 mg/dL 2.6 CBC Rpt WBC 4.00 - 10.80 K/uL 8.05 RBC 4.50 - 5.25 M/uL 4.62 HGB 14.0 - 16.8 g/dL 14.9 HCT 40.0 - 48.4 % 43.9 MCV 82.0 - 99.5 fL 95.0 MCH 27.0 - 34.0 pg 32.3 MCHC 32.0 - 36.0 g/dL 33.9 RDW 11.5 - 15.5 % 12.5 PLT 140 - 400 K/uL 221 MPV 6.6 - 11.1 fL 9.6 (H): Data is abnormally high (L): Data is abnormally low Rpt: View report in Results Review for more information CULTURES / SENSITIVITIES: -urine culture: pending RADIOGRAPHIC STUDIES: -Right knee, tib/fib, ankle: Acute displaced oblique fractures of the right distal tibia and fibuladiaphysis. -CXR: Left basilar atelectasis. Stable cardiomediastinal silhouette and bones. -PXR: No fracture, dislocation, or diastasis. Mild bilateral degenerative changes. -CT RLE: 1. Age-indeterminate knee posterior medial tibial plateau irregularity, concerning for possible acute avulsion fracture. Consider further assessment with knee MRI. 2. Age-indeterminate avulsion injury in the region of the femoral notch. 3. Multifocal fibula fractures, as above. 4. Acute comminuted angulated displaced distal tibia metadiaphyseal fracture. 5. Nondisplaced posterior malleolus intra-articular tibial fracture. 6. 3D CT reconstructions support the above findings. 7. No acute chest or pelvis radiographic finding. ASSESSMENT/PLAN: Right distal tib/fib fracture Possible right age indeterminate tibial plateau avulsion Right posterior malleolar fracture with intra-articular extension -Evaluated by Ortho, appreciate recs -S/p ORIF right fibula, IMN right tibia, and perc fixation right posterior malleolar fx 08/16 -EBL: 150 ml -IVF: 1100ml -PWB RLE -40-50 lbs -Maintain splint -Complete post op Ancef -Ortho following Migraines -Restarted on home Atenolol, Topamax, Nortr -Holding home Maxalt Asthma Bronchiectasis -Restarted on home Breo -Albuterol PRN GERD -Restarted on home Prilosec HLD -Restarted on home Crestor DVT prophylaxis -TEDs/SCDS -Lovenox per protocol Bowel regimen -Colace -senna -LBM: SEROLOGIST Pain control -ATC Tylenol -Soma PRN -Oxy PRN Diet -Will allow clear liquids post op until he is more awake -If he tolerates clears, will advance to regular -Will stop IVF when tolerating PO intake Activity -OOB -PWB RLE (40-50 lbs) -PT/OT post op Dispo -Not medically stable for discharge since he just had OR today This patient was discussed with and seen by Dr. Mclean Patient's decisional capacity: has capacity to make decisions Communication with Patient/Family: Patient updated Goals of Care: decrease pain and discomfort Associated attestation - Dino Mclean MD - 08/17/2023 7:38 PM EDT I have reviewed the advanced practitioner's documentation on the date of service referenced in note, and I agree with, and take responsibility for the plan of care. I spent a total of 30 minutes coordinating, documenting, and providing care for this patient excluding time spent in the performance of separately billed services or time spent by another provider/QHP. - OR today with Ortho - Pain well controlled - PT/OT post op documented in this encounter H&P Notes * Nimo Soto PA-C - 08/17/2023 5:37 PM EDT TRAUMA TERTIARY SURVEY [address] [id number] Name: Daniel Avila [place] [facility] [place] [facility] Date: 08/17/2023 Time: 5:37 PM PHYSICAL EXAM: HEENT: Atraumatic/normocephalic, pupils 3mm equal, round, reactive to light, mucous membranes moist, Neck: supple, non-tender, trachea midline, FROM without pain Respiratory: clear to auscultation bilaterally, unlabored breathing on 2L of oxygen via nasal cannula, able to take a deep breath as prompted (-) chest wall tenderness to palpation Cardiovascular: regular rate and rhythm, palpable peripheral pulses present Abdomen: soft, non-tender, non-distended, normal bowel sounds Back: no tenderness across thoracic / lumbar spine Pelvis: non-tender, stable to anterior-posterior/lateral compression Musculoskeletal: motor / sensation grossly intact, moving all extremities as prompted, (+) RLE withlong leg splint in place, it is clean and dry, decreased ROM to RLE due to splint and pain, but able to wiggle toes and move at right hip, edema noted to mid calve down, but it is soft and compressible, cap refill about 3 seconds on exam, sensation equal, (+) LLE and BUE intact, strength is 5/5 throughout, peripheral pulses here equal Skin: as above Neurologic: GCS Adult: eyes open 4 = spontaneous, best verbal response 5 = verbally appropriate forage, best motor response 6 = obeys commands appropriate for age, alert and oriented x3 UA: Latest Reference Range & Units 08/17/23 08:12 Color, Urine Colorless, Light Yellow, Yellow, Dark Yellow Yellow Clarity, Urine Clear Clear Glucose, Urine Negative mg/dL Negative Bilirubin, Urine Negative Negative Ketone, Urine Negative mg/dL Trace ! Specific [place], Urine 1.003 - 1.030 1.029 Blood, Urine Negative Negative pH, Urine 5.0 - 7.5 Units 6.5 Protein, Urine Negative mg/dL Trace ! Urobilinogen, Urine Normal mg/dL Normal Nitrite, Urine Negative Negative Esterase, Urine Negative Negative Comment, Urine SEE REPORT !: Data is abnormal SUBSTANCE ABUSE: ETOH: negative Substance Screen: positive, Morphine, hydrocodone CT SCAN: -CT RLE: 1. Age-indeterminate knee posterior medial tibial plateau irregularity, concerning for possible acute avulsion fracture. Consider further assessment with knee MRI. 2. Age-indeterminate avulsion injury in the region of the femoral notch. 3. Multifocal fibula fractures, as above. 4. Acute comminuted angulated displaced distal tibia metadiaphyseal fracture. 5. Nondisplaced posterior malleolus intra-articular tibial fracture. 6. 3D CT reconstructions support the above findings. 7. No acute chest or pelvis radiographic finding. C-SPINE CLEARANCE: yes RADIOGRAPHS: -Right knee, tib/fib, ankle: Acute displaced oblique fractures of the right distal tibia and fibuladiaphysis. -CXR: Left basilar atelectasis. Stable cardiomediastinal silhouette and bones. -PXR: No fracture, dislocation, or diastasis. Mild bilateral degenerative changes. MEDICATION RECONCILIATION: done NEW DIAGNOSTIC TESTS ORDERED: none CONSULTS: Orthopaedics, P.T., and O.T. INCIDENTAL FINDINGS: -Mild tricompartmental osteoarthritis. -Proximal tibia bone islands. -Calcaneus bone island. I have reviewed the patients controlled substance dispensing history in the Prescription Drug Monitoring Program in compliance with the [facility] regulations before prescribing a controlled substance: no concerns, will proceed * Alvin Wheatley PA-C - 08/17/2023 12:34 AM EDT CONSULT - Trauma [place] [facility] [place] [address] Name: Daniel Avila Location: Date: 08/17/2023 Time: 12:35 AM Date and Time Patient was Seen: 08/17/2023 at 00:00hrs REQUESTING SERVICE: ED REASON FOR CONSULT: Fall; R distal tib/fib fx FINAL ADMISSION STATUS: Trauma Consult, time - 00:00hrs MECHANISM OF INJURY: The pt is a 62 y/o male with a PMHx listed below that [place] [facility] [place] [facility] after a mechanical fall today. He said [...] fx. ORTHO was consulted by the ED. The pt was found sitting in a WC AAOX4 and GCS-15. His CC was distal RLE pain. He denied FARRAR, LH, dizziness, vision changes, SOB, CP, abd pain, N/V/D, neck/back pain, and numbness/tingling in his extremities. Pt is not on any anticoagulants SEROLOGIST. MODE OF TRANSPORTATION: ambulance LOSS OF CONSCIOUSNESS: no TETANUS VACCINE: There are no preventive care reminders to display for this patient. Administered in Trauma [place]: N/A PAST MEDICAL HISTORY: Past Medical History: Diagnosis Date Asthma Bronchiectasis (HCC) Dysphagia treated with exercise, s/p endoscopy that was normal. History of Lyme disease 11/09/2018 Migraine without aura Mixed hyperlipidemia 10/03/2022 Prediabetes 10/03/2022 Skin lesion 03/04/2016 Foot, told benign at fair, but to watch PAST SURGICAL HISTORY: Past Surgical History: Procedure Laterality Date COLONOSCOPY, DIAGNOSTIC (RECTUM) 04/21/09 done normal colon exam COLONOSCOPY, DIAGNOSTIC (RECTUM) 02/13/2020 hyperplastic polyps, repeat 10 yrs / COLONOSCOPY FLEXIBLE PROXIMAL DIAGNOSTIC performed by Sandro Mac MD at ENDOSCOPY [facility] EGD, FLEXIBLE, DIAGNOSTIC 05/03/2012 UPPER GI ENDOSCOPY DIAGNOSTIC performed by Sandro Vale MD at ENDOSCOPY [facility], path shows inflammation and No evidence of cancer REMOVAL OF RUPTURED APPENDIX age 10 Appendectomy, Rupt Appendx+Abscess REMOVE TONSILS & ADENOIDS, UNDER 12 age 8 Tonsillectomy/Adenoids,<10 Y/O RMV BENIGN LSN FACE <=.5CM 1983 Basal cell ca, left nose CURRENT HOSPITAL MEDICATIONS: Note that discontinued and completed medications (per the MAR) continue to display for 24 hours. Ordered medications to be given in the future also display. Current Facility-Administered Medications Medication Dose Route Frequency Provider Acetaminophen (Tylenol) tab 975 mg 975 mg Oral Q8H Alvin Wheatley PA-C Atenolol (Tenormin) tab 25 mg 25 mg Oral Daily(AM) Alvin Wheatley PA-C Carisoprodol (Soma) tab 350 mg 350 mg Oral Q6H PRN Alvin Wheatley PA-C Docusate Sodium (Colace) cap 100 mg 100 mg Oral BID(AM/PM) Alvin Wheatley PA-C Enoxaparin (Lovenox) inj 50 mg 0.5 mg/kg Subcutaneous Q12H (0600,1800) Alvin Wheatley PA-C fluticasone furoate-vilanterol (BREO ellipta) 100-25 MCG/ACT inhaler 1 Puff 1 Puff Inhalation Daily(AM) Alvin Wheatley PA-C nortriptyline (Pamelor) cap 30 mg 30 mg Oral QHS Alvin Wheatley PA-C NSS infusion Intravenous Continuous Alvin Wheatley PA-C omeprazole (PriLOSEC) cap 20 mg 20 mg Oral Daily(AM) Alvin Wheatley PA-C ondansetron ODT (Zofran) tab 4 mg 4 mg On Tongue Q6H PRN Alvin Wheatley PA-C Or ondansetron (Zofran) inj 4 mg 4 mg IV Push Q6H PRN Alvin Wheatley PA-C oxyCODONE (Oxy IR) tab 10 mg 10 mg Oral Q4H PRN Alvin Wheatley PA-C oxyCODONE (Oxy IR) tab 5 mg 5 mg Oral Q4H PRN Alvin Wheatley PA-C rosuvastatin (Crestor) tab 5 mg 5 mg Oral Daily(AM) Alvin Wheatley PA-C senna (Senokot) 2 Tablet 2 Tablet Oral BID(AM/PM) Alvin Wheatley PA-C topiramate (topAMAX) tab 50 mg 50 mg Oral QHS Alvin Wheatley PA-C TRAUMA enoxaparin per pharmacy order Does Not Apply Per Pharmacy Alvin Wheatley PA-C Current Outpatient Medications Medication Rosuvastatin Calcium 5 MG Oral Tablet (Crestor) Nortriptyline HCl 10 MG Oral Capsule (Pamelor) Topiramate 25 MG Oral Tablet (topAMAX) Atenolol 25 MG Oral Tablet (Tenormin) Atenolol 25 MG Oral Tablet (Tenormin) Rizatriptan Benzoate 10 MG Oral Tablet (Maxalt) Fluticasone-Salmeterol 115-21 MCG/ACT Inhalation Aerosol (Advair HFA) Omeprazole 20 MG Oral Capsule Delayed Release (PriLOSEC) Ammonium Lactate 12 % External Cream Triamcinolone Acetonide 0.1 % External Ointment (Aristocort) Fluticasone Propionate 50 MCG/ACT Nasal Suspension ProAir HFA 108 (90 Base) MCG/ACT Inhalation Aerosol Solution Magnesium Oxide 400 MG Tablet Riboflavin 400 MG Capsule IBUPROFEN 200 MG PO TABS ALLERGIES: Tape [adhesive tape] and Zinc SOCIAL HISTORY: Social History Tobacco Use Smoking status: Never Smokeless tobacco: Never Vaping Use Vaping Use: Never used Substance Use Topics Alcohol use: No Drug use: No FAMILY HISTORY: Family History Problem Relation Age of Onset Obesity Sister Heart disease Sister Pacemaker No Known Problems Brother Hypertension Father Neurological Disorder Father migraines Stroke Mother Heart disease Mother Heart Disorder Uncle (Unspecified) 3 maternal uncles of [place] in their 40's and early 50's REVIEW OF SYSTEMS: See HPI for pertinent positives and negatives, all other systems are negative. COLLARED: no BACKBOARD: no INTUBATED: no PHYSICAL EXAM: Most Recent Vital Signs: BP: 109 mmHg/41 mmHg (08/16/232154) Pulse: 62 (08/16/232154) Temp: 36.11 C (08/16/232154) Temp Summary: Temp Min: 36.1 C (97 F) Max: 36.1 C (97 F) SpO2: 98 % (08/16/232154) O2 flow rate: Supplemental O2 Delivery: Room Air, None (08/16/232154) Weight: 92.1 kg (203 lb) (08/16/232154) Rhythm: SR Head: normocephalic / atraumatic Eyes: pupils 2 mm, bilaterally reactive to light, extraocular muscles intact ENT: oropharynx clear Neck: supple, non-tender, trachea midline Respiratory: clear to auscultation bilaterally; non-labored; saturating well on R/A; chest wall non-tender to palpation Cardiovascular: regular rate and rhythm, palpable peripheral pulses present Abdomen: soft, non-tender, non-distended Back: no tenderness across thoracic / lumbar spine Pelvis: non-tender, stable to anterior-posterior/lateral compression Rectal: deferred Genitourinary: deferred Musculoskeletal: swelling/ecchymosis to R distal smith region with pain on palpation; good ROM at R hip and foot/toes; good ROM/strength in all other extremities; all compartments are compressible; +2distal pulses; sensation intact Skin: grossly intact Neurologic: alert and oriented x3 LABS: Labs reviewed as indicated below: Abnormal Labs Reviewed - No abnormal labs to display IMAGING: XR KNEE 4 OR MORE VIEWS Result Date: 08/16/2023 IMPRESSION This report is a preliminary interpretation by a resident physician and is subject to changes following review by an attending radiologist. Be sure to review the final report for any discrepancies. Comminuted, moderately displaced oblique fracture of the tibia and fibula, as above. XR TIB/FIB 2 VIEWS Result Date: 08/16/2023 IMPRESSION This report is a preliminary interpretation by a resident physician and is subject to changes following review by an attending radiologist. Be sure to review the final report for any discrepancies. Comminuted, moderately displaced oblique fracture of the tibia and fibula, as above. XR ANKLE 3 OR MORE VIEWS Result Date: 08/16/2023 IMPRESSION This report is a preliminary interpretation by a resident physician and is subject to changes following review by an attending radiologist. Be sure to review the final report for any discrepancies. Comminuted, moderately displaced oblique fracture of the tibia and fibula, as above. CXR and XR pelvis: pending FAST: pending, ED CONSULTS: ORTHO consulted by the ED PROCEDURES COMPLETED: None per trauma ASSESSMENT: -Mechanical fall -R comminuted, moderately displaced tibia/fibula fx PLAN: R comminuted, moderately displaced tibia/fibula fx: -ORTHO consulted; apprec recs: -NWB RLE, bedrest -Q4H neuro-vascular checks -will follow-up on additional recs Migraine: -SEROLOGIST atenolol and Topamax -hold SEROLOGIST maxalt GERD: -SEROLOGIST prilosec Asthma: -SEROLOGIST albuterol -Breo sub for SEROLOGIST advair Pain management: -Tylenol ATC -SOMA 350mg PRN -Oxy 5/10mg PRN -SEROLOGIST pamelor Diet: -NPO except meds -NSS @ 100ml/hr DVT prophylaxis: -TEDS/SCDS -Lovenox per protocol Bowel reg: -senna/colace PT/O: -when able Dispo: -admit to trauma med surg Alvin Wheatley PA-C Associated attestation - Ata Louis MD - 08/17/2023 6:46 PM EDT I have reviewed the advanced practitioner's documentation on the date of service referenced in note, and I agree with, and take responsibility for the plan of care. 62-year-old male with a history of dysphagia, Lyme disease, migraines, prediabetes, hyperlipidemia,asthma, and bronchiectasis that presented to [facility] after a mechanical fall. He was found to have a right distal spiral tibial and fibular fracture. He was transferred to [facility] for trauma and orthopedic evaluation. Ortho has recommended operative management and is currently nonweightbearing in a right lower extremity splint. We will admit for comanagement in the perioperative. I spent a total of 35 minutes coordinating, documenting, and providing care for this patient excluding time spent in the performance of separately billed services or time spent by another provider/QHP. documented in this encounter Consult Notes * Reina Lewis, [facility] - 08/19/2023 7:27 AM EDT PHARMACY MEDICATION TEACHING CONSULT ENOXAPARIN [address] [address] Name: Daniel Avila [place] [facility] [place] Date: 08/19/2023 Time: 7:23 AM Requesting Service: Trauma Surgery Reason for Enoxaparin Consult: Venous Thromboembolism Prophylaxis (VTE) Patient Active Problem List Diagnosis Code Migraine without aura G43.009 Other psoriasis L40.8 History of Lyme disease Z86.19 Hx of nonmelanoma skin cancer Z85.828 Moderate persistent asthma without complication J45.40 HTN, goal below 130/80 I10 Bronchiectasis without complication (HCC) J47.9 Mixed hyperlipidemia E78.2 Fracture of distal end of tibia with fibula, right, closed, initial encounter S82.831A, S82.301A Fall W19.XXXA Family member(s) present: none Patient agreed to allow visitors to attend teaching, if present. Teaching points covered with patient and/or family: Route, Dosage Form and Schedule (Including importance of taking medication as instructed),, Medication Intended Use/Action, Injection technique,, Precautions to be Observed while using this Medication,, Commonly Encountered Adverse Effects (Including risk of bleeding and potential signs and symptoms),, Methods for Self-monitoring,, Laboratory Monitoring (Including compliance with INR monitoring),, Potential Drug Interactions (Including medications that potentially affect bleeding, alcohol and amqr-xnk-aegggyv medications such as NSAIDs),, Therapeutic Contraindications,, Designated Handout(s) Provided,, Follow-up Monitoring (Including review of plans for post-discharge monitoring and follow-up),, Prescription Refill Information,, and Action for a Missed Dose. Written documentation regarding all of the teaching points was provided to the patient and/or family members present. Patient accepted patient education handout. Assessment of teaching effectiveness: Patient was very receptive to teaching. He is excited to go home. Also counseled patient on signs and symptoms of DVT/PE. Patient does not have concerns about injecting himself. Informed patient of shared handouts through [employer]. All questions answered in room. Displayed good understanding. Informed patient that if he had any further questions about the lovenox, his provider or pharmacist could help. Patient has expressed potential cost/home health concerns and Care Management has been made aware: No Plan if patient encounters questions later: Contact Physician/Provider. and Contact [facility]. Length of teaching: Brief (less than 15 minutes) Teaching completed according to pharmacy teaching standard [address] Reina Lewis [facility] * Nimo Power, OTR/L - 08/18/2023 10:43 AM EDTAssociated Order(s): ADULT OCCUPATIONAL THERAPY CONSULT IP GENERAL EVALUATION - Occupational Therapy [address] [address] Name: Daniel Avila Location: [place] [address]/A Date: 08/18/2023 Time: 1043 Daniel Avila is a 62 year old adult. Patient Status: Inpatient Insurance: Payor: [employer]) Plan: Eponym Product Type: *No Product type* Patient Seen: at bedside, nursing cleared patient for therapy Patient Identified By: Name, ID Band and Date Diagnosis: right rib/fib fracture s/p fall (08/18/231042) Status of treatment: Evaluation completed (08/18/231042) Orders: OT evaluation and treatment (08/18/231042) Weight Bearing Status: Partial weight bearing;RLE (40-60 lbs) (08/18/23 104) Precautions: Alarms;Falls;Safety (08/18/23 104) Total Treatment Time: 18 (08/18/231042) Past Medical History: Past Medical History: Diagnosis Date Asthma Bronchiectasis (HCC) Dysphagia treated with exercise, s/p endoscopy that was normal. History of Lyme disease 11/09/2018 Migraine without aura Mixed hyperlipidemia 10/03/2022 Prediabetes 10/03/2022 Skin lesion 03/04/2016 Foot, told benign at fair, but to watch Past Surgical History: Past Surgical History: Procedure Laterality Date COLONOSCOPY, DIAGNOSTIC (RECTUM) 04/21/09 done normal colon exam COLONOSCOPY, DIAGNOSTIC (RECTUM) 02/13/2020 hyperplastic polyps, repeat 10 yrs / COLONOSCOPY FLEXIBLE PROXIMAL DIAGNOSTIC performed by Sandro Mac MD at ENDOSCOPY [facility] EGD, FLEXIBLE, DIAGNOSTIC 05/03/2012 UPPER GI ENDOSCOPY DIAGNOSTIC performed by Sandro Vale MD at ENDOSCOPY [facility], path shows inflammation and No evidence of cancer REMOVAL OF RUPTURED APPENDIX age 10 Appendectomy, Rupt Appendx+Abscess REMOVE TONSILS & ADENOIDS, UNDER 10 age 8 Tonsillectomy/Adenoids,<10 Y/O REPAIR TIBIA SHAFT FX W/IMPLANT Right 08/17/2023 TREATMENT TIBIAL FRACTURE BY INTRAMEDULLARY IMPLANT performed [place] German Roldan [place] [facility] [place] [facility] [place]SN FACE <=.5CM 1983 Basal cell ca, left nose Social History/Disposition Lives with: Spouse (and son) (08/18/231042) Assistance available: Yes (08/18/231042) Dwelling type: Multi-story home (first floor setup) (08/18/231042) Entry steps: 1 (08/18/231042) Inside steps: 10 - 15 (first setup) (08/18/231042) Bedroom location: 1st floor (08/18/231042) Bath location: 1st floor full bath (08/18/231042) Prior Level of Function Reported by: Patient (08/18/231042) Ambulation: Ambulatory without device (08/18/231042) Grooming: Independent (08/18/231042) Bathing: Independent (08/18/231042) Dressing: Independent (08/18/231042) Feeding: Independent (08/18/231042) Toileting: Independent (08/18/231042) Meal Prep: Independent (08/18/231042) Homemaking: Independent (08/18/231042) Shopping: Independent (08/18/231042) Medication Management: Independent (08/18/231042) Money Management: Independent (08/18/231042) Driving: Yes (08/18/231042) Durable Medical Equipment at home: Rollator;Shower chair;Straight cane (may have Rolling walker) (08/18/231042) Pain: Patient has complaints of pain. Pain located right LE. Did not rate but stated it was not significant Observations Consciousness: Alert (08/18/231042) Orientation: Oriented times 4 (08/18/231042) Psychosocial: Patient can communicate basic needs;Patient can converse in a social setting (08/18/231042) Sitting posture: Forward head;Rounded shoulders (08/18/231042) Standing posture: Forward head;Rounded shoulders (08/18/231042) Safety awareness: The Patient verbalizes insight of current deficits.;The Patient demonstrates carryover of insight during functional tasks.;The Patient can communicate basic needs. (08/18/231042) Other Findings Endurance: Sitting tolerance;Standing tolerance;Good (08/18/231042) Light touch sensation: Intact (08/18/231042) Proprioception: Intact (08/18/231042) Coordination: Intact (08/18/231042) Tone: Normal tone (08/18/231042) Edema: No edema noted (08/18/231042) Current Functional Status: Bilateral Upper Extremity Range of Motion: WFL (08/18/231042) Strength Assessment: (4+/5 throughout) (08/18/231042) Self Care Able to provide self care: Yes (08/18/231042) Feeding: Modified Independent (08/18/231042) Grooming: Supervision (Please comment) (simulated combing hair) (08/18/231042) Dressing Upper Body: Supervision (Please comment) (robe) (08/18/231042) Lower Body: Supervision (Please comment) (sock) (08/18/231042) Functional Ambulation Assistive Device: Rolling walker (08/18/231042) Distance in feet:: 60 (08/18/231042) Level of Assistance: Supervision (Please Comment) (08/18/231042) Bed Mobility Supine-Sit: Supervision (Please comment) (08/18/231042) OT Transfers Sit-Stand: Supervision (Please comment) (08/18/231042) Stand-Sit: Supervision (Please comment) (08/18/231042) Bed-Chair: Supervision (Please comment) (08/18/231042) Balance Sit (Static): Fair (08/18/231042) Sit (Dynamic): Fair (08/18/231042) Stand (Static): Fair (08/18/231042) Stand (Dynamic): Fair (08/18/231042) Alarm Status Patient positioned in: Chair (08/18/231042) With: Pressure pad alarm intact and functioning and call rojas in reach (08/18/231042) Following session patient seated OOB in chair with chair alarm activated and cord plugged into callbell system. Patient and Family Goals: to get well Patient Education Education Topic: Role of OT;Plan of care goals (08/18/231042) Review of Precautions: Safety;Weight Bearing Status;Fall (08/18/231042) Education Provided to: Patient (08/18/231042) Response to Education: Receptive and agreeable to education (08/18/231042) Barriers to learning: Medical status (08/18/231042) Preferred learning method: Combination (08/18/231042) Treatment Provided: Evaluation Moderate Complexity 18 minutes - 04884: Patient was cooperative, pleasant, motivated, and alert during treatment session. Moderate complexity evaluation performed and 3-5 activity limitations were identified, including ADL deficit, functional mobility deficit, bed mobility deficit, decreased strength, decreased endurance, and impaired balance. Minimal or moderate modification of the functional task was necessary to complete the evaluation. Deficits Requiring O.T. Treatment: Deficits requiring O.T. treatment needs: ADL/self-care;Balance;Endurance;Functional mobility;Safety;Upper extremity strength (08/18/231042) Goals: Increase Strength of: increase 1/2 grade, Demonstrates sitting Balance at: modified independent, Demonstrates standing Balance at: modified independent, Demonstrates self care at: Grooming at Modified Independent , Bathing upper body at Modified Independent , Bathing lower body at Modified In dependent , Upper body dressing at Modified Independent , Lower body dressing at Modified Independent and Toileting at Modified Independent , Demonstrates Activity Tolerance at 40/45 minutes, Demonstrates Bed Mobility with: Supine to Sit: Modified Independent and Sit to Supine: Modified Independent, Demonstrates Transfers with: Sit to Stand: Modified Independent (100% with device/additional time) Stand to Sit: Modified Independent (100% with device/additional time) Bed to Chair/Wheelchair: Modified Independent (100% with device/additional time) Toilet: Modified Independent (100% with device/additional time) , Demonstrates Functional Ambulation: Assistive Device: least restrictive device and Level of Assistance: Modified Independent and Increase safety with transfers, ambulation and self care Goal Time Frame: 10 visits Assessment: patient is a 62 year old male admitted s/p fall and presents with minor deficits in allareas of care and mobility due to decreased strength, balance, activity tolerance, safety, PWB R LEand overall medical condition. Supervision to fernandez sock and complete UE self care after setup. Supervision to sit up at the edge of the bed and utilized bilateral UE to assist in bringing right LE towards edge of bed. Minimal pain throughout session. Educated on PWB status of 40-60 lbs and patient verbalized understanding. Stood and ambulated with use of rolling walker and accurately maintained weight bearing status throughout. Would benefit from continued OT treatment to maximize level of funct ional independence. Please consider home with post-acute care services which may include home health or outpatient therapy. The level of care will be determined in collaboration with the patient, family/caregiver and care team members. Treatment Plan: Accuracy with Precautions, Energy Conservation, Safety, Bed mobility training, Functional Ambulation, Transfer training, Upper extremity strengthening, Balance activities: , ADL training , and Endurance Anticipated Frequency (on eval): 3 to 5 times per week (08/18/231042) Equipment Needs Equipment needs: Rolling walker (08/18/231042) AM-PAC Help From Another Person Eating Meals: None (08/18/231042) Help From Another Person Taking Care of Personal Grooming: A little (08/18/231042) Help From Another Person To Put On/Take Off Upper Body Clothing: A little (08/18/231042) Help From Another Person To Put On/Take Off Lower Body Clothing: A little (08/18/231042) Help From Another Person Toileting: A little (08/18/231042) Help From Another Person Bathing: A little (08/18/231042) OT AM-PAC Score: 19 (08/18/231042) OT AM-PAC t-Scale Score: 40.22 (08/18/231042) HLM (Highest Level of Mobility) Goal: Level 5 standing (1 or more minutes) (08/18/23 1100) A portion of this AM-PAC assessment not scored based on functional assessment ; rather clinical decision making utilized based on current findings and/or prior level of function. Please refer to future AM-PAC calculations of functional ability as they become available. Nimo Power MS OTR/L Occupational Therapy [facility] 08/18/2023 2:33 PM * Caridad Arshad, PT - 08/18/2023 10:28 AM EDTAssociated Order(s): ADULT PHYSICAL THERAPY CONSULT IP GENERAL EVALUATION - Physical Therapy [address] [address] Name: Daniel Avila [facility]: [facility]/ Date: 08/18/2023 Time: 1028 Daniel Avila is a/an 62 year old adult. Patient Status: Inpatient Insurance: Payor: [employer]) Plan: Eponym Product Type: *No Product type* Patient Seen: at bedside, nursing cleared patient for therapy Patient Identified By: Name, ID Band and Date Diagnosis: s/p fall (08/18/23 1028) Status of treatment: Evaluation completed (08/18/23 1028) Orders: PT evaluation and treatment;OOB (08/18/23 1028) Weight Bearing Status: Partial weight bearing;RLE (40-50#) (08/18/23 1028) Precautions: Alarms;Falls;Safety (08/18/23 1028) Total Treatment Time--free text: 15 (08/18/23 1028) Past Medical History: Past Medical History: Diagnosis Date Asthma Bronchiectasis (HCC) Dysphagia treated with exercise, s/p endoscopy that was normal. History of Lyme disease 11/09/2018 Migraine without aura Mixed hyperlipidemia 10/03/2022 Prediabetes 10/03/2022 Skin lesion 03/04/2016 Foot, told benign at fair, but to watch Past Surgical History: Past Surgical History: Procedure Laterality Date COLONOSCOPY, DIAGNOSTIC (RECTUM) 04/21/09 done normal colon exam COLONOSCOPY, DIAGNOSTIC (RECTUM) 02/13/2020 hyperplastic polyps, repeat 10 yrs / COLONOSCOPY FLEXIBLE PROXIMAL DIAGNOSTIC performed by Sandro Mac MD at ENDOSCOPY [facility] EGD, FLEXIBLE, DIAGNOSTIC 05/03/2012 UPPER GI ENDOSCOPY DIAGNOSTIC performed by Sandro Vale MD at ENDOSCOPY [facility], path shows inflammation and No evidence of cancer REMOVAL OF RUPTURED APPENDIX age 10 Appendectomy, Rupt Appendx+Abscess REMOVE TONSILS & ADENOIDS, UNDER 10 age 8 Tonsillectomy/Adenoids,<10 Y/O REPAIR TIBIA SHAFT FX W/IMPLANT Right 08/17/2023 TREATMENT TIBIAL FRACTURE BY INTRAMEDULLARY IMPLANT performed [place] German Roldan [place] [facility] [place] [facility] B[place] LSN FACE <=.5CM 1982 Basal cell ca, left nose Subjective: Patient resting in bed, agrees to PT evaluation Social History/Disposition Lives with: Spouse (and son) (08/18/23 1043) Assistance available: Yes (08/18/23 104) Dwelling type: Multi-story home (first floor setup) (08/18/23 1043) Entry steps: 1 (08/18/23 104) Inside steps: 10 - 15 (first setup) (08/18/23 1043) Bedroom location: 1st floor (08/18/23 1043) Bath location: 1st floor full bath (08/18/23 1043) Prior Level of Function Reported by: Patient (08/18/23 1028) Ambulation: Ambulatory without device (08/18/23 1028) Devices at home: Rollator;Straight cane;Shower chair (08/18/23 1028) Observations Consciousness: Alert (08/18/23 1028) Orientation: Oriented times 4 (08/18/23 1028) Psychosocial: Patient can communicate basic needs;Patient can converse in a social setting (08/18/23 1028) Other Findings: Yes (08/18/23 1028) Findings: Light touch sensation (08/18/23 1028) Light Touch Sensation Results: Intact;LLE;RLE (08/18/23 1028) Sitting Posture: Forward head;Rounded shoulders (08/18/23 1028) Standing Posture: Forward head;Rounded shoulders (08/18/23 1028) Pain: Patient has complaints of pain. Pain located RLE, does not rate Range of Motion Range of Motion: WFL (R ankle not tested-splinted) (08/18/231027) Strength Assessment Strength Assessment: Deficits noted (08/18/231027) WNL, except: LLE;RLE (08/18/231027) LLE: 5/5 (08/18/231027) RLE: Hip;Knee;4+/5 (ankel not tested-splinted) (08/18/231027) P.T. Bed Mobility Supine-Sit: Supervision (08/18/231027) Transfers Sit-Stand: Supervision (08/18/231027) Stand-Sit: Supervision (08/18/231027) Ambulation: Distance ambulated (feet): 60 Assistive Device: Rolling walker Assist: Supervision Balance Sit (Static): Fair (08/18/231027) Sit (Dynamic): Fair (08/18/231027) Stand (Static): Fair (08/18/231027) Stand (Dynamic): Fair (08/18/231027) Patient and or Family Goal(s): to get well and to return home Patient Education Review of Precautions: Safety;Weight Bearing Status;Fall (role of PT) (08/18/231027) Safety Awareness: Patient verbalizes insight of current deficits;Patient demonstrates carryover of insight during functional tasks (08/18/231027) Preferred learning method: Combination (08/18/231027) Barriers to learning: None (08/18/231027) Method of Education: Verbalized to patient (08/18/231027) Topic of Education: Weight bearing restrictions, Safety with mobility, Goals/plan of care, Use of assistive device, and Fall prevention Method of Education: Verbal discussion and explanation provided to patient: verbalized understanding and or agreement of this information Treatment Provided: Evaluation Moderate Complexity 15 minutes - 41633: Patient was cooperative, pleasant, and motivated during treatment session. Moderate complexity evaluation performed and 1-2 personal factors or comorbidities were identified that will impact plan of care, including weight bearing restrictions. Patient presents with limitations in strength, bed mobility, transfers, gait, elevations, balance, and endurance, which will impact plan of care. These limitations will be addressed bythe goals set for this patient. Alarm Status Patient positioned in: Chair (03/14/24 1028) With: Pressure pad alarm intact and functioning and call rojas in reach (08/18/23 1028) Following session patient seated OOB in chair with chair alarm activated and cord plugged into callbell system. Treatment Status: Treatment at bedside (08/18/23 102) Goals: Demonstrate Bed Mobility with: Sit to supine: modified independent Supine to sit:modified independent Demonstrate transfers with: Sit to stand: modified independent Stand to sit: modified independent Bed to chair: modified independent with least restrictive device Chair to bed: modified independent with least restrictive device Demonstrate ambulation: distance: 100 feet with assistive device: least restrictive device and level of assistance: modified independent Demonstrate Stair climbing (when appropriate): number of stairs: 1 with level of assistance: modified independent Increase Strength: to 5/5 BLE Increase Balance: fair+ sitting / fair+ standing Time Frame: 10 visits Assessment: Patient is 62 y/o male with dx s/p fall. Patient is currently PWB RLE (40-50#). Prior to admission, patient was independent with mobility with no device. Patient currently requires supervision for supine to sit, sit<>stand, and ambulation with rolling walker x60'. Good compliance with PWB RLE. Ended session with patient resting comfortably in chair. Would recommend use of rolling walker and not rollator for safety, patient verbalizes understanding. Patient's mobility is limited by decreased LE strength, decreased balance, overall medical status, and decreased activity tolerance. Patient would benefit from continued PT to maximize functional independence. Please consider home with post-acute care services which may include home health or outpatient therapy. The level of care will be determined in collaboration with the patient, family/caregiver and care team members. Deficits requiring P.T. treatment needs: Mobility;Balance;Weakness;Endurance;Lower extremity strength (08/18/23 102) Equipment Needs: Equipment needs: (tbd) (08/18/23 102) Treatment Plan: Bed mobility training, Transfer training, Gait training, Elevation training, Strengthening exercises: BLE, and Balance activities Anticipated Frequency (on eval): 3 to 5 times per week (08/18/23 102) AM PAC Score with Stairs: 18 A portion of this AM-PAC assessment not scored based on functional assessment; rather clinical decision making utilized based on current findings and/or prior level of function. Please refer to future AM-PAC calculations of functional ability as they become available. * Ruddy Evangelista RPh - 08/17/2023 5:59 AM EDTAssociated Order(s): ANTI- COAGULATION CONSULT IP PHARMACY ENOXAPARIN IP CONSULT [address] [address] Name: Daniel Avila Location: [place] [address] Date: 08/17/2023 Time: 5:59 AM GENERAL INFORMATION: Height: 188 cm (6' 2") (08/17/23423) Weight: 93.4 kg (206 lb) (08/17/23423) BMI: 26.44 (08/17/23423) Principle Problem: No Principal Problem: There is no principal problem currently on the Problem List. Please update the Problem List and refresh. Criteria met to warrant anti-Xa level monitoring for enoxaparin: This patient does not meet any criteria for enoxaparin monitoring * Juan C Leon MD - 08/17/2023 1:43 AM EDTAssociated Order(s): ORTHOPAEDICS CONSULT IP ORTHOPAEDIC SURGERY CONSULTATION NOTE [address] [address] Name: Daniel Avila Date: 08/17/2023 Time: 1:43 AM Location: Requesting service: ED Reason for consult: "tib fib [facility] from [facility]" Notified of consult at 2250. Care for the patient, including evaluation, review of imaging, and/or planning of treatment began at 2254. History of Presenting Illness: Daniel Avila is a 62 year old adult with PMH of asthma who presents to [facility] as a transfer from [facility] after twisting his right leg in mud while picking up sticks in his backyard.The patient then had a fall from standing onto the right leg which he noted immediate deformity about the ankle and inability to bear weight. He experienced severe pain in the right lower extremity, but denies pain elsewhere. He denies any numbness or tingling. He does not take any anticoagulants he has an unassisted community ambulator at baseline. Denies head injury or LOC. Comfortable at rest. Tobacco use?: no H/o DVT/PE? no Anticoagulation use?: no Metal allergy?: no Occupation: Retired Denies numbness, tingling Past Medical History: Past Medical History: Diagnosis Date Asthma Bronchiectasis (HCC) Dysphagia treated with exercise, s/p endoscopy that was normal. History of Lyme disease 11/09/2018 Migraine without aura Mixed hyperlipidemia 10/03/2022 Prediabetes 10/03/2022 Skin lesion 03/04/2016 Foot, told benign at fair, but to watch Past Surgical History: Past Surgical History: Procedure Laterality Date COLONOSCOPY, DIAGNOSTIC (RECTUM) 04/21/09 done normal colon exam COLONOSCOPY, DIAGNOSTIC (RECTUM) 02/13/2020 hyperplastic polyps, repeat 10 yrs / COLONOSCOPY FLEXIBLE PROXIMAL DIAGNOSTIC performed by Sandro Mac MD at ENDOSCOPY [facility] EGD, FLEXIBLE, DIAGNOSTIC 05/03/2012 UPPER GI ENDOSCOPY DIAGNOSTIC performed by Sandro Vale MD at ENDOSCOPY [facility], path shows inflammation and No evidence of cancer REMOVAL OF RUPTURED APPENDIX age 10 Appendectomy, Rupt Appendx+Abscess REMOVE TONSILS & ADENOIDS, UNDER 10 age 8 Tonsillectomy/Adenoids,<10 Y/O RMV BENIGN LSN FACE <=.5CM 1983 Basal cell ca, left nose Allergies: Review of patient's allergies indicates: Allergen Reactions Tape [Adhesive Tape] Other (Please comment) blistering Zinc Rash Home medications: Prior to Admission medications Medication Sig Last Dose Discont. Rosuvastatin Calcium 5 MG Oral Tablet (Crestor) Take 1 Tablet by mouth in the morning. Nortriptyline HCl 10 MG Oral Capsule (Pamelor) TAKE 3 CAPSULES BY MOUTH ONCE DAILY AT BEDTIME Topiramate 25 MG Oral Tablet (topAMAX) TAKE 2 TABLETS BY MOUTH ONCE DAILY AT BEDTIME Atenolol 25 MG Oral Tablet (Tenormin) TAKE 1 TABLET BY MOUTH DAILY FOR HEADACHE Atenolol 25 MG Oral Tablet (Tenormin) TAKE 1 TABLET BY MOUTH ONCE DAILY FOR HEADACHE Rizatriptan Benzoate 10 MG Oral Tablet (Maxalt) TAKE 1 TABLET BY MOUTH AT ONSET OF HEADACHE, MAY REPEAT IN 24 HRS. NO MORE THAN 3 TIMES A WEEK Fluticasone-Salmeterol 115-21 MCG/ACT Inhalation Aerosol (Advair HFA) Inhale 2 Puffs by mouth 2 times a day as needed for Cough, Shortness of Breath or Wheezing. Omeprazole 20 MG Oral Capsule Delayed Release (PriLOSEC) Take 1 Capsule by mouth in the morning. 1 hour before the first meal of the day. Ammonium Lactate 12 % External Cream Apply to skin after bathing as needed Triamcinolone Acetonide 0.1 % External Ointment (Aristocort) Apply to rash nightly as needed Fluticasone Propionate 50 MCG/ACT Nasal Suspension Administer 2 Sprays into each nostril daily. Patient taking differently: Administer 2 Sprays into each nostril in the morning. As needed. ProAir HFA 108 (90 Base) MCG/ACT Inhalation Aerosol Solution Inhale 2 Puffs by mouth 4 times a day as needed for Wheezing. Magnesium Oxide 400 MG Tablet Take 1 Tab by mouth daily. Patient taking differently: Take 1 Tablet by mouth in the morning. Riboflavin 400 MG Capsule Take 1 Cap by mouth daily. Patient taking differently: Take 1 Capsule by mouth in the morning. IBUPROFEN 200 MG PO TABS Take 2 Tablets by mouth 2 times a day as needed (headache). Family History: non-contributory Social History: Social History Tobacco Use Smoking status: Never Smokeless tobacco: Never Vaping Use Vaping Use: Never used Substance Use Topics Alcohol use: No Drug use: No Physical Exam: Blood pressure 109/41, pulse 62, temperature 36.1 C (97 F), temperature source Tympanic, resp. rate 16, weight 92.1 kg (203 lb), SpO2 98%. General: Appears laying on stretcher. NAD. Awake and alert. MSK: RUE: Skin intact throughout Non-tender to palpation over: Clavicle, shoulder, humerus, elbow, forearm, wrist, hand, and fingers. Motor intact to AIN/PIN/ulnar distributions SILT to medial/ulnar/radial distributions Palpable radial pulse LUE: Skin intact throughout Non-tender to palpation over: Clavicle, shoulder, humerus, elbow, forearm, wrist, hand, and fingers. Motor: intact to AIN/PIN/ulnar distributions Sensation: SILT to medial/ulnar/radial distributions Palpable radial pulse Pelvis: non-tender to compression RLE: skin intact throughout. Gross deformity about the ankle with swelling Severe TTP over distal tibia / ankle Non-tender to palpation over: Hip, thigh, knee, foot, and toes. Motor: wiggles toes, unable to DF/PF at ankle due to pain, unable to straight leg raise Sensation: SILT to plantar and dorsal foot Compartments soft and compressible Palpable DP pulse LLE: skin intact throughout Non-tender to palpation over: Hip, thigh, knee, leg, ankle, foot, and toes. Motor: wiggles toes, DF/PF at ankle, able to straight leg raise Sensation: SILT to plantar and dorsal foot Compartments soft and compressible Palpable DP pulse Imaging: I have personally reviewed and interpreted the imaging studies noted below: XR R knee, tib/fib/ankle (08/17/2023): comminuted mildly displaced spiral fracture of the distal third tibia and fibula CT RLE (08/17/2023): ordered LABORATORY VALUES: Lab results within last 7 days (see chart for full results) Units 08/17/23 0016 08/17/23 0015 WBC K/uL -- 12.30* HGB g/dL -- 16.1 PLT K/uL -- 246 Sodium mmol/L -- 139 Potassium mmol/L -- 4.7 Chloride mmol/L -- 108* CO2 mmol/L -- 21* BUN mg/dL -- 22* Creatinine mg/dL -- 1.1 Phosphorus mg/dL -- 2.8 Magnesium mg/dL -- 2.1 Calcium mg/dL -- 9.0 Glucose mg/dL -- 137* Lactate mmol/L -- 1.8 INR 1.0 -- No results found for: "CRP" Lab Results Component Value Date/Time HEMOGLOBIN A1C - [facility] 6.0 (H) 11/17/2018 01:49 PM Cultures Recent Cultures (2 Weeks) No lab values to display. Assessment: Daniel Avila is a 62 year old year old adult s/p twisting injury and fall from standing sustaining mildly displaced spiral distal 1/3 tibia and fibula fractures. Closed, NVI. Plan: - Admit to trauma surgery - Plan to proceed to surgery within 24 hours - Well padded above knee splint applied to RLE- maintain splint - NWB RLE - Patient education: patient was counseled on appropriate splint care - NPO after 2400: Yes - TEDs/SCDs - We appreciate primary teams' assistance with medical optimization prior to surgery - The patient demonstrated understanding of the risks and benefits of surgery and consented with both verbal and written consent - Consent scanned into Epic under scans tab: Yes - The patient was educated that they are at high risk of complications due their medical comorbidities/presenting injury - XR R tib/fib and ankle ordered s/p RLE splint - CT RLE ordered s/p RLE splint -Provisional care provided by resident -Definitive care to provided by attending at a later date Given the nature of the patient's traumatic high energy/open fractures, along with the patient's underlying co-morbidities, the patient was informed that they are at higher risk of complications including but not limited to nonunion, malunion, infection, loss of fixation/hardware failure, hematoma/seroma, and the possible need for additional procedures/surgeries as indicated. General supervision provided by Dr. Vargas, attending physician on-call. Associated attestation - Antonia Vargas MD - 08/17/2023 7:39 AM EDT I did not see the patient, but I have reviewed the trainee documentation and was readily available on date of service. Name : Daniel Avila Date : 08/17/2023 Daniel Avila is a 62 year old year old adult s/p twisting injury and fall from standing sustaining mildly displaced spiral distal 1/3 tibia and fibula fractures. Closed, NVI. Provisional care provided. Plan for operative treatment once optimized. Patient to be reviewed with Orthopaedic Trauma Service for further definitive treatment planning. I have discussed the patient's management with Dr. Leon and agree with the note. Please refer tothe documented findings and plan of care. The patient's service consisted of a service. I was readily available for immediate [id number] consultation and assistance. I have reviewed the medical history, physical examination, diagnosis, and plan. Antonia Vargas MD [facility] documented in this encounter Nursing Notes * Fadumo Laureano, RN - 08/17/2023 5:46 PM EDT Dual Licensed Skin Assessment completed by Pradeep Laureano RN and Osmany Alatorre RN. The patient is/has a N/A Skin Breakdown (includes non blanchable erythema): Yes - Surgical/Procedural changes only. -fernie and splint to RLE * Kurt Peterson NA - 08/17/2023 5:44 PM EDT Post Anesthesia Care Unit Transport Note [address] [address] Dept. Daniel Avila Transported from PeriOp to : [facility] Time: 1735 Care of patient transferred to: ANDRE Garber Transported via: Bed Belongings with Patient: YES Pulse : 68 Temp : 36.8 BP : 101/61 Respirations : 18 Pulse Ox : 96 O2 : 2L SCDS: On but not activated/no machine * Fadumo Gaxiola RN - 08/17/2023 4:39 PM EDT PERIOP TO IP HANDOFF COMMUNICATION NOTE [address] [address] Name: Daniel Avila AGE: [age] year old [place] [facility] [place] Date: 08/17/2023 Attention to: Shirlene Ceron Report from: Fadumo Gaxiola RN Patient arriving via: Bed Time of call: 4:39 PM Phone Ext: [phone] Reason for SBAR (Situation, Background, Assessment, Recommendation) handoff: Procedure/Diagnostic/Treatment Sending to: [facility] Emotional/Personal Events & Special Needs: none Prescriptions in chart: Yes Code Status: Full Code Safety Concerns: no safety concerns identified Allergies: Tape [adhesive tape] and Zinc PMH: Past Medical History: Diagnosis Date Asthma Bronchiectasis (HCC) Dysphagia treated with exercise, s/p endoscopy that was normal. History of Lyme disease 11/09/2018 Migraine without aura Mixed hyperlipidemia 10/03/2022 Prediabetes 10/03/2022 Skin lesion 03/04/2016 Foot, told benign at fair, but to watch PSH: Past Surgical History: Procedure Laterality Date COLONOSCOPY, DIAGNOSTIC (RECTUM) 04/21/09 done normal colon exam COLONOSCOPY, DIAGNOSTIC (RECTUM) 02/13/2020 hyperplastic polyps, repeat 10 yrs / COLONOSCOPY FLEXIBLE PROXIMAL DIAGNOSTIC performed by Sandro Mac MD at ENDOSCOPY [facility] EGD, FLEXIBLE, DIAGNOSTIC 05/03/2012 UPPER GI ENDOSCOPY DIAGNOSTIC performed by Sandro Vale MD at ENDOSCOPY [facility], path shows inflammation and No evidence of cancer REMOVAL OF RUPTURED APPENDIX age 10 Appendectomy, Rupt Appendx+Abscess REMOVE TONSILS & ADENOIDS, UNDER 12 age 8 Tonsillectomy/Adenoids,<10 Y/O RMV BENIGN LSN FACE <=.5CM 1983 Basal cell ca, left nose Isolation: Isolation: Procedure: ORIF of right fibula fracture 2. ORIF of right tibia shaft fracture with intramedullary nail 3. Percutaneous fixation of right posterior malleolus fracture Type of Anesthesia: General endotracheal anesthesia IV intake: 1100 mL EBL: OR: 150 mL PACU: 0 mL Urine output: OR 0 mL PACU 0 mL IUBC (Jessica): Incision location: R leg Dressing location: R leg Time of last skin assessment: 1635 Pressure injuries or areas of concern: none Lines: Peripheral Line Right Arm 20 Gauge (Active) Status Fluids infusing 08/17/23 1635 Tubing Changed No 08/17/23 1635 Phlebitis Scale 0 08/17/23 1635 Infiltration Scale 0 08/17/23 1635 Site Description (Other) Without redness, swelling or drainage 08/17/23 1635 Site Intervention None required 08/17/23 1635 Dressing Assessment Dressing clean, dry, and intact 08/17/23 1635 Dressing Intervention None required 08/17/23 1635 Number of days: 1 Vital Signs: BP: 107/70 (08/17/23 1630) Temp: 36.5 C (97.7 F) (08/17/23 1630) Pulse: 68 (08/17/23 1630) Resp: 10 (08/17/23 1630) SpO2: 96 % (08/17/23 1630) O2 flow rate: 2 L/MIN (08/17/23 1630) Time of last pain medication: 1510 Med: Dilaudid Time of last antibiotic: 1257 Med: Ancef Time of last antiemetic: 1512 Med: Zofran ASSISTANT PROJECT ENGINEER: no Drips: no Neurological: Neuro WNL: X - Exceptions to WNL as documented below (08/17/23 0800) Speech: Clear (08/17/231634) Level of Consciousness: Responds to voice (08/17/231634) RUE Motor Strength: 5-Active movement with full resistance (08/17/23 163) RLE Motor Strength: 2-Active movement with gravity eliminated (08/17/231634) LUE Motor Strength: 5-Active movement with full resistance (08/17/231634) LLE Motor Strength: 5-Active movement with full resistance (08/17/231634) Coma Score: 15 (08/17/231634) Respiratory: Respiratory WNL: WNL- within normal limits (08/17/231634) Oxygen therapy/ Mechanical vent Supplemental O2 Delivery: Nasal Cannula (08/17/231629) O2 flow rate: 2 L/MIN (08/17/23 163) Cardiac: Cardiovascular WNL: WNL - within normal limits (08/17/231634) Rhythm: NSR (08/17/231634) Extremities: +Sensation;Right;Left;Upper;Lower;Warm (08/17/231634) Capillary Refill: 3 sec (08/17/231634) GI: GI WNL: WNL - within normal limits (08/17/231634) Abdomen: Soft;Non-distended;Non-tender (08/17/231634) : WNL: X - Exceptions to WNL as documented below (08/17/231634) Urine Description: Other-Describe (no urine to assess at this time) (08/17/231634) Due to Void: 2204 Integumentary:Integumentary WNL: X - Exceptions to WNL as documented below (08/17/231634) Skin Description: Dry;Warm (08/17/231634) Skin Color: Flesh Tone (03/13/24 1635) Skin Lesion: Other - Describe (see below) (08/17/23 1635) Dom Score (auto-calculation): 16 (08/17/23 0800) Family updated on transfer: no Additional Assessment Information: n/a * Alec Keller RN - 08/17/2023 4:08 PM EDT Dual Licensed Skin Assessment completed by Pradeep Keller RN and Chung Reyez RN The patient is/has a N/A Skin Breakdown (includes non blanchable erythema): Yes - Surgical/Procedural changes only. * Alec Keller RN - 08/17/2023 11:59 AM EDT Dual Licensed Skin Assessment completed by Pradeep Keller RN and Chung Oh RN The patient is/has a N/A Skin Breakdown (includes non blanchable erythema): No RLE dressing * Fadumo Laureano RN - 08/17/2023 10:49 AM EDT IP TO PERIOP HANDOFF COMMUNICATION NOTE [address] [address] Name: Daniel Avila AGE: [age] year old Location: [place] [address] Date: 08/17/2023 Attention to: PACU Report from: Fadumo Laureano RN Patient arriving via: Bed Time of Call: 1050 Phone Ext.: [phone] Reason for SBAR handoff: OR Consent: Emotional/Personal Events & Special Needs: . Allergies: Tape [adhesive tape] and Zinc PMH: Past Medical History: Diagnosis Date Asthma Bronchiectasis (HCC) Dysphagia treated with exercise, s/p endoscopy that was normal. History of Lyme disease 11/09/2018 Migraine without aura Mixed hyperlipidemia 10/03/2022 Prediabetes 10/03/2022 Skin lesion 03/04/2016 Foot, told benign at fair, but to watch PSH: Past Surgical History: Procedure Laterality Date COLONOSCOPY, DIAGNOSTIC (RECTUM) 04/21/09 done normal colon exam COLONOSCOPY, DIAGNOSTIC (RECTUM) 02/13/2020 hyperplastic polyps, repeat 10 yrs / COLONOSCOPY FLEXIBLE PROXIMAL DIAGNOSTIC performed by Sandro Mac MD at ENDOSCOPY [facility] EGD, FLEXIBLE, DIAGNOSTIC 05/03/2012 UPPER GI ENDOSCOPY DIAGNOSTIC performed [place] Sandro Vale [place] [facility], path shows inflammation and No evidence of cancer REMOVAL OF RUPTURED APPENDIX age 10 Appendectomy, Rupt Appendx+Abscess REMOVE TONSILS & ADENOIDS, UNDER 12 age 8 Tonsillectomy/Adenoids,<10 Y/O RMV BENIGN LSN FACE <=.5CM 1983 Basal cell ca, left nose Isolation: Situation/Background Admission Date: 08/16/2023 Patient Service: Trauma Surgery Attending: Dino Mclean MD Level of Care: Med Surg [3] Assessment Vital Signs: BP: 124/66 (08/17/23 1031) Temp: 36 C (96.8 F) (08/17/23 1031) Pulse: 60 (08/17/23 1031) Resp: 16 (08/17/23 1031) SpO2: 99 % (08/17/23 1031) Lines: Peripheral Line Right Arm 20 Gauge (Active) Status Fluids infusing 08/17/23 1000 Tubing Changed Yes 08/17/23 0500 Phlebitis Scale 0 08/17/23 0500 Infiltration Scale 0 08/17/23 0500 Site Description (Other) Without redness, swelling or drainage 08/17/23 0500 Site Intervention Flushed 08/17/23 0500 Dressing Assessment Dressing clean, dry, and intact 08/17/23 0500 Dressing Intervention None required 08/17/23 0500 Number of days: 1 Restraints: No orders of the defined types were placed in this encounter. Labs: Please see Lab Flowsheet for lab values. Lab Comments: . Diet: Orders Placed This Encounter Procedures NPO Except Meds NPO: Additional Diet Information: meds with sip of water Intake and Output: Intake/Output Summary (Last 24 hours) at 08/17/2023 1049 Last data filed at 08/17/2023 0815 Gross per 24 hour Intake 218.25 ml Output 300 ml Net -81.75 ml Belongings Remaining with Patient: left on BP5 What were AM meds taken with: water Time of last pain medication: NA Med: NA Time of last antibiotic: NA Med: NA Time of last skin assessment: 0800 Pressure injuries or areas of concern: sacrum and R heel Neurological: Neuro WNL: X - Exceptions to WNL as documented below (08/17/23799) Speech: Clear (08/17/23799) Level of Consciousness: Alert (08/17/23799) RUE Motor Strength: 5-Active movement with full resistance (08/17/23799) RLE Motor Strength: 3-Active movement against gravity (08/17/23799) LUE Motor Strength: 5-Active movement with full resistance (08/17/23799) LLE Motor Strength: 5-Active movement with full resistance (08/17/23799) Coma Score: 15 (08/17/23799) Respiratory: Respiratory WNL: WNL- within normal limits (08/17/23799) Oxygen therapy/ Mechanical vent Supplemental O2 Delivery: Room Air, None (08/17/23 1031) Cardiac: Cardiovascular WNL: WNL - within normal limits (08/17/23799) Rhythm: Regular (08/17/23799) Extremities: +Sensation;Right;Left;Upper;Lower (08/17/23799) Capillary Refill: 2 sec (08/17/23799) GI: GI WNL: WNL - within normal limits (08/17/23799) Abdomen: Soft;Non-distended (08/17/23799) : WNL: WNL - within normal limits (08/17/23799) Integumentary: Integumentary WNL: X - Exceptions to WNL as documented below (08/17/23799) Skin Description: Warm;Dry (08/17/23799) Skin Color: Flesh Tone (08/17/23799) Skin Lesion: Other - Describe (RLE splint/FERNIE- breakdown not visualized w dressing intact) (08/17/23 0430) Dom Score (auto-calculation): 16 (03/13/24 0800) Additional Assessment Information: . * Robert Antonio RN - 08/17/2023 4:45 AM EDT Dual Licensed Skin Assessment completed by robert lua and lorri altamirano The patient is/has a N/A Skin Breakdown (includes non blanchable erythema): No RLE in splint/FERNIE documented in this encounter Miscellaneous Notes * Ancillary Progress Note - Uma Alvarez LSW - 08/19/2023 10:06 AM EDT CARE MANAGEMENT - TRAUMA DISCHARGE NOTE [address] [address] Name: Daniel Avila Location: [address] Date: 08/19/2023 Time: 10:06 AM The following coordination of care and discharge plan has been coordinated with the care team, patient, family and/or caregiver according to the patients needs and preferences. Discharge Discharge Second Notice Important Message from Medicare delivered: Not Applicable (08/19/23 100) Was Caregiver/Family/Facility contacted regarding discharge: Yes (08/19/23 100) Discharge Transportation: Family/Friends drive (08/19/23 1005) Date of scheduled discharge transportation: 08/19/23 (08/19/23 1005) Final Discharge Plan (Complete only at time of Discharge): Home - Self Care (08/19/23 100) Narrative: Pt is medically ready to discharge home with no sw/cm needs. SW will continue to follow and remain available as needed. * Ancillary Progress Note - Lucy Barnard PTA - 08/19/2023 9:20 AM EDT PROGRESS NOTE - Physical Therapy [address] [address] Name: Daniel Avila [place] [facility] [place] Date: 08/19/2023 Time: 9:20 AM Daniel Avila is a/an 62 year old adult. Patient Status: Inpatient Insurance: Payor: DIMITRI FRANCIS ([employer]) Plan: Eponym Product Type: *No Product type* Patient Seen: at bedside, nursing cleared patient for therapy Patient Identified By: Name, ID Band and Date Diagnosis: s/p fall (08/19/23919) Status of treatment: Treatment completed (08/19/23919) Orders: PT evaluation and treatment;OOB (08/19/23919) Weight Bearing Status: Partial weight bearing;RLE (40-50#) (08/19/23919) Precautions: Alarms;Falls;Safety (08/19/23919) Total Treatment Time--free text: 17 (08/19/23919) Subjective: pt feels confident about going home today Pain: No complaints of pain Transfers Sit-Stand: Supervision (08/19/23919) Stand-Sit: Supervision (08/19/23919) Ambulation: Distance ambulated (feet): 180 Assistive Device: Rolling walker Assist: Supervision Stair Training: Number of stairs: 3 Number of handrails: using step stool and rolling walker to simulate pt's 1 step to enter home Level of Assistance: minimal assistance for first attempt, then contact guard for 2 more attempts up/ down step stool Balance Sit (Static): Fair (08/19/23919) Sit (Dynamic): Fair (08/19/23919) Stand (Static): Fair (08/19/23919) Stand (Dynamic): Fair (08/19/23919) Patient and or Family Goal(s): to get well and to return home Topic of Education: Weight bearing restrictions, Safety with mobility, Goals/plan of care, Stair training, and Fall prevention Method of Education: Verbal discussion and explanation provided to pt: verbalized understanding andor agreement of this information and demonstrated the exercise and or task Treatment Provided: Gait Training 17 minutes: gait training with rolling walker stair training Alarm Status Patient positioned in: Chair (08/19/23919) With: Pressure pad alarm intact and functioning and call rojas in reach (08/19/23919) Patient Education Review of Precautions: Safety;Weight Bearing Status;Fall (08/19/23919) Safety Awareness: Patient verbalizes insight of current deficits;Patient demonstrates carryover of insight during functional tasks;Patient can communicate basic needs (08/19/23919) Preferred learning method: Combination (08/19/23919) Barriers to learning: None (08/19/23919) Method of Education: Verbalized to patient (08/19/23919) Assessment: pt alert and agreeable to treatment. Pt seated in recliner upon arrival. Pt ambulated 180 ft from recliner into hallway with rolling walker at supervision. Pt able to follow PWB well. Pt education on negotiating stairs utilizing PWB of RLE. Pt was able to step up/down step stool with rolling walker to simulate pt's 1 step to enter home with minimal assistance for first attempt, then contact guard for 2 more attempts. Pt was able to follow PWB well. Please consider home with post-acute care services which may include home health or outpatient therapy. The level of care will be determined in collaboration with the patient, family/caregiver and care team members. Deficits requiring P.T. treatment needs: Mobility;Balance;Weakness;Endurance;Lower extremity strength (08/19/23919) Plan: Continue with current treatment plan established on evaluation. AM PAC Score with Stairs: 18 * Pt Handout (on AVS) - Reina Lewis RPh - 08/19/2023 6:56 AM EDT Images from the original note were not included. Enoxaparin - Video This is enoxaparin. It's given as an injection. To view the video go to this web address: https://bit.[email or web address] Or, scan this QR code with your smart phone 2023 [employer] / [employer]. All Rights Reserved. * Care Plan - Stephanie Lopez RN - 08/19/2023 4:09 AM EDT Clinical Goal(s): Pt will remain free of falls (08/18/23 2204) Possible barriers to meeting goal(s)/advancing plan of care: Pt condition Stability of the patient: Moderately stable - low risk of patient condition declining or worsening Summary regarding today's goal(s): Met: Pt remains free of falls Recommendations: Continue falls precautions * Care Plan - Lizette Bautista RN - 08/18/2023 6:14 PM EDT Clinical Goal(s): Pt will remain free from injury this shift. (08/18/23 0700) Possible barriers to meeting goal(s)/advancing plan of care: pt's condition Stability of the patient: Moderately stable - low risk of patient condition declining or worsening Summary regarding today's goal(s): Met: pt remained free from injury Recommendations: continue safety precautions * Ancillary Progress Note - Fuad Jain Jr., RDN - 08/18/2023 12:01 PM EDT CLINICAL NUTRITION ADULT RISK ASSESSMENT [address] [address] Name: Daniel Avila [place] [facility] [place] Date: 08/18/2023 Time: 12:01 PM How patient was identified (select 2): Medical record number and Name Daniel Avila is a 62 year old adult being assessed for clinical nutrition risk related to trauma Primary diagnosis: 62 year old male admitted as of 08/16/23 s/p fall with resulting R tibial/fibularFx. Other pertinent information: Patient is receiving a PO diet following surgical repair of his RLE fractures on 08/16. He is tolerating diet as ordered at this time. Documented meal intakes have been within a range of 75-100% thus far. No recent significant changes to appetite or intake are noted. No current issues with chewing or swallowing are reported. No N/V at this time, though Nursing does indicate that pt is having some bloating. Anthropometrics Measurements Admission weight (for dietitians): 93.4 kg Height: 188 cm (6' 2") (08/17/23423) Weight: 93.4 kg (206 lb) (08/17/23423) BMI: 26.44 (08/17/23423) Usual Body Weight or EDW for Dialysis Patients: ~97-100 kg within the past year Diet: Regular Previously followed diet: Regular Food Allergies/Intolerances: None known Oral Nutrition Supplement (ONS): None Pertinent medications/vitamins/minerals/supplements: Colace, Omeprazole, Senna, Topiramate RISK FACTORS: Adult Energy Intake: No significant decrease Interpretation of Weight Change: No recent/significant weight change Skin: Compromise without nutrition-related implications - RLE surgical wound NUTRITION RISK CATEGORY: Nutrition Risk Category: Low/Moderate (0-1 factors) Clinical Nutrition Recommendations: Diet: Continue current nutrition plan NUTRITION INTERVENTION/PLAN: Continue current care plan Will follow and adjust nutritional plan as medical condition requires. Please contact for change(s)in patient condition requiring earlier intervention. Fuad Jain RDN, CSG, LDN Clinical Dietitian II Clinical Nutrition Services [facility] / * Care Plan - Lorri Garza RN - 08/18/2023 5:16 AM EDT Problem: Actual & Potential for Falls Goal: Patient will remain free of falls. Outcome: Progressing Problem: Pain & Impaired Comfort Goal: Patient's pain & discomfort is manageable. Outcome: Progressing Problem: Safety & Risk for Injury Goal: Patient will remain free from injury. Outcome: Progressing Clinical Goal(s): patient will be free from injury throughout the shift. (08/17/23 2300) Possible barriers to meeting goal(s)/advancing plan of care: Patient condition Stability of the patient: Moderately unstable - medium risk of patient condition declining or worsening Summary regarding today's goal(s): Met: Recommendations: Call rojas reinforced, patient items by bedside, fall alarms on. * Ancillary Progress Note - Rock Archer, PhD - 08/17/2023 2:55 PM EDT Injured Trauma Survivor Screen (ITSS) BEFORE THIS INJURY Have you ever taken medication for, or been given a mental health diagnosis? PTSD:N/A DEP: No- 0 Has there ever been a time in your life you have been bothered by feeling down or hopeless or lost all interest in the things you usually enjoyed for more than 2 weeks? PTSD: N/A DEP: No- 0 WHEN YOU WERE INJURED OR RIGHT AFTERWARD 3. Did you think you were going to ? PTSD: No- 0 DEP: No- 0 4. Do you think this was done to you intentionally? PTSD: No- 0, DEP: N/A SINCE YOUR INJURY 5. Have you felt emotionally detached from your loved ones? PTSD: N/A, DEP No- 0 6. Do you find yourself crying and unsure why? PTSD: N/A, DEP No- 0 7. Have you felt more restless, tense or jumpy than usual? PTSD: No- 0, DEP: N/A 8. Have you found yourself unable to stop worrying? PTSD: No- 0, DEP: N/A 9. Do you find yourself thinking that the world is unsafe and that people are not to be trusted? PTSD No- 0 DEP: N/A TOTAL SCORE: PTSD: 0, DEP 0 Score > or = 2 in PTSD category is positive for PTSD risk (place psychology consult for Dr Brasher indicating + ITSS) Score > or = 2 in DEP category is positive for Depression Risk (check with Dr Brasher to see if aconsult is needed) Pt denies having ahistory of anxiety/depression. Will continue to follow. Rock Archer, PhD, spindle maker [employer] [facility] 08/17/2023 2:56 PM * Ancillary Progress Note - Rock Archer, PhD - 08/17/2023 2:52 PM EDT SBIRT NOTE Was screening able to be completed? Yes If unable to be completed, why? n/a S (screening) [facility]AGE-[employer] Substance Abuse Screening Tool (Any "yes" answer indicates a positive screen) C Have you ever felt the need to Cut down on your drinking or drug use? No A Have people Annoyed you by criticizing your drinking or drug use? No G Have you ever felt Guilty about drinking or drug use? No E Have you ever felt you needed a drink or used drugs first thing in the morning to steady your nerves or to get rid of a hangover (Eye-Account Assistant)? No BI (brief intervention) to be done on all patients: I have reviewed both ETOH/ Urine Tox screen with patient and discussed the results as well. After reviewing the results patient admits they they do or do not feel their drinking &/or druguse interferes with their life/goals for the future. Do Not Patient does or does not want to be referred to treatment at this time. Does not RT (referral for treatment) to be done if BI and/or screening +, or any concerns/issues arose whilespeaking with patient (pamphlet for area services given to all pts no matter what): Not referred (reason why no concerns identified during brief intervention- pt denies use of drugs and/or alcohol. Urine tox positive for hydrocodone and oxycodone- unclear if these were administered to patient at OSH prior to [place] [facility] Confirmatory pending. ETOH negative. Will continue to follow.) Rock Archer, PhD, spindle maker [employer] [facility] 08/17/2023 2:55 PM * Ancillary Progress Note - Rock Archer, PhD - 08/17/2023 2:46 PM EDT NURSING PROGRESS NOTE - Rehabilitation Review - Trauma Surgery [facility] [address] Name: Daniel Avila [place] [facility] Date: 08/17/2023 Time: 2:46 PM ADULT REHABILITATION REVIEW Chart reviewed according to [place] [employer] guidelines. Case discussed in trauma rounds. Mechanism of Injury: Twisted ankle at home. Transfer from [facility]. Injuries consistant with mechanism. Anti-coagulation, Orthopedics consulted. Occupation: Retired. Injury prevention: Fall risks/weight bearing status. Rehabilitation needs assessed. Rehabilitation Medicine: N/A Trauma Psychology: N/A Alcohol/Chemical Dependency: N/A Social Work: yes -- MARGOT Pratt, following. Physical Therapy: yes -- consult to be placed when medically appropriate, post- op, then pending eval/recs Speech Pathology: N/A Occupational Therapy: yes --consult to be placed when medically appropriate, post-op, then pending eval/recs Industrial Locomotive Operator Services: yes -- following, as needed. Plan: Home vs rehab when medically stable. Pt reports he lives with his , Naz, and 27 year old son, Eleno, in a 2 story home with 1 ALON. Per patient, he has a RW, cane, crutches, bedside commode and shower chair at home. Pt denies having a history of a rehab stay in the past. Pending PT/OT consult, eval/recs, post-op. Will continue to follow. Rock Archer, PhD, spindle maker [employer] [facility] 08/17/2023 2:52 PM * Ancillary Progress Note - Inés Fischer LSW - 08/17/2023 11:09 AM EDT CARE MANAGEMENT - TRAUMA INITIAL SCREENING [facility] [address] Name: Daniel Avila Location: [place] [address] Date: 08/17/2023 Time: 11:10 AM Discussed with Trauma and with the interdisciplinary care team. This Speech And Language Clinician performed a chartreview and met with Pt at bedside to complete admission screen and assessed needs for transition planning. The customer care associate role and services were explained and emotional support was provided. Chief Complaint: transfer of records ([facility]) Prior Living Arrangements What was your living situation prior to admission/observation?: Independently;With Spouse;With Child (08/17/23 0689) Living Quarters: House (08/17/231108) Number of steps to enter living quarters:: 1 (08/17/231108) How many stories is the dwelling?: Two Stories (08/17/231108) Prior Level of Functioning Describe the patient's ability prior to admission/observation to perform ADLs: Performs independently (08/17/231108) Describe the patient's mobility status prior to admission: Patient ambulates independently (08/17/231108) Patient uses assistive device: No (08/17/231108) Caregiver Information Patient Contacts Name Relation Home Work Mobile NAZ AVILA Spouse [phone] Eleno Avila Adult Child [phone] Risk Stratification Risk Stratification Psycho Social / Medical Concerns Identified: None Identified (08/17/231108) Readmission Risk Score: 7.7 (08/17/23 0801) AM-PAC Score With Stairs : 14 (08/17/23 0430) Prior to Admission Services Services Prior to Admission SEROLOGIST Services (Services received within the last 30 days with exception, Psych within last two years): N/A (08/17/231108) SEROLOGIST Transportation (Services received within the last 30 days): Family/Friends Personal Vehicle;Patient drives self (08/17/231108) Outpatient Speech And Language Clinician: No care sales floor team member to display Comments: Pt planning to go to OR today. PT/OT pending. Pt reported that he does have access to rollator, shower chair, BSC and cane if needed. Patient/Family Expectations: anticipate home with For further screening information, please refer to the Care Management flow document. * Ancillary Progress Note - Ata Villar SPEECH AND LANGUAGE CLINICIAN-MANAGER CALL CENTER - 08/17/2023 6:38 AM EDT PATIENT DRIVEN PROTOCOL - Respiratory Care Services [address] [address] Name: Daniel Avila [facility] Date: 08/17/2023 Time: 6:38 AM Patient Driven Protocol Summary: Initial evaluation performed. This Treatment Plan and medications will be reviewed by the Primary Care Team for any contraindications. Respiratory Care Treatment Plan Aerosol Therapy Treatment:: Inhaler(s) QDAY with Breo Ellipta (Fluticasone furoate 100 mcg and Vilanterol 25 mcg inhalation powder) / 1 inhalation. to reduce work of breathing and improve pulmonary gas exchange and suppress bronchial inflammation and edema by the use of systemic steroid sparing therapy. . Pulmonary Volume Expansion Therapy: Incentive Spirometry PRN to prevent or treat alveolar consolidation and atelectasis. . The patient will be re-evaluated: No re-evaluation needed. Indications for treatment met. The Triage Level is: (Assessment Score = 0 - 5) Level 5. Triage Level Definitions: Level 1 Severe Respiratory/Airway Compromise Level 2 Moderate Respiratory/Airway Compromise or high risk for pulmonary complications Level 3 Mild Respiratory/Airway Compromise or moderate risk for pulmonary complications Level 4 Episodic Respiratory/Airway Compromise or low risk for pulmonary complications Level 5 No Respiratory/Airway Compromise Triage 1 Triage 2 Triage 3 Triage 4 Triage 5 greater than 20 16 - 20 11 - 15 6 - 10 0 - 5 Medical Record Assessment Clinical Findings Pulmonary Status: 0 - No History Surgical Status: 1 - General Surgery Chest X-Ray: 1 - CXR Pending Assessment Score: 2 Patient Assessment Clinical Findings Respiratory Pattern: 0 - RR 12 - 20; Patient only gets breathless with strenuous exercise. Breath Sounds: 0 - Clear to auscultation Cough Effectiveness: 0 - Strong non-productive Sputum Production: 0 - No sputum production Level of Activity: 0 - Ambulatory O2 needed to keep SpO2 greater than or equal to 92%: 0 - Room Air Assessment Score: 0 Total Assessment Score: 2 Breath Sounds: Inspiratory and expiratory clear bilaterally.. Cough and Sputum: No cough was present.. CXR: Pending. Vital Signs: Resp: 18 (08/17/23636) Pulse: 58 (08/17/23636) Temp: 35.3 C (95.6 F) (08/17/23423) BP: 112/59 (08/17/23423) SpO2: 100 % (08/17/23636) PFT: Minimal Predicted IC: 1.25 L. Inspiratory capacity: 3.5 L. Primary Service: Trauma Surgery. Admitting Diagnosis: Fall [W19.XXXA] Pulmonary Diagnosis: Asthma. Prescriptions/Home Medications/Durable Medical Equipment: Advair. * Care Plan - Robert Antonio RN - 08/17/2023 6:06 AM EDT Clinical Goal(s): pt will remain free from falls for shift (08/17/23 0430) Possible barriers to meeting goal(s)/advancing plan of care: clinical condition Stability of the patient: Moderately stable - low risk of patient condition declining or worsening Summary regarding today's goal(s): Met: met Recommendations: continue hourly rounds * Progress Notes - Non-Billable - Juan C Leon MD - 08/17/2023 5:55 AM EDT Brief Orthopaedic Progress Note - Compartment check Daniel Avila [id number] 08/17/2023. Patient seen and examined at bedside. No changes in pain. No new numbness or tingling. Patient otherwise comfortable - sleeping well without complaint Exam: RLE: compartments soft and compressible (windowed through splint) no pain with extension of toes SILT toes Toes WWP Low index of suspicion of compartment syndrome. Rest of plan per prior documentation Please notify service if there is new onset numbness or tingling, increasing pain requirement/ agitation, or other concerns. General supervision provided by Dr. Vargas. * Communication - Tank Valdovinos RN - 08/17/2023 4:21 AM EDT Hand-Off - Nurse Communication Note Name: Daniel Avila [facility] Date: 08/17/2023 Time: 4:21 AM Sending to: AP5 Safety Concerns: Fall Risk Allergies: Tape [adhesive tape] and Zinc Code Status: Full Code Isolation: None Isolation flowsheet: Special Needs: Special Needs comments: Attention to: AP5 Charge Nurse Report from: Tank Valdovinos RN Phone extension: [phone] Patient arriving via: Bed Reason for SBAR handoff: Admission Situation/Background Admission date: 08/16/2023 Patient Service: Trauma Surgery [[id number]] Attending Provider: Ata Louis MD Admitting diagnosis: Fall Chief Complaint: transfer of records ([facility]) Problem list: Active Problems: * No active hospital problems. * Resolved Problems: * No resolved hospital problems. * Level of Care: Med Surg [3] Assessment Vital Signs: BP: 109/41 (08/16/232154) Temp: 36.1 C (97 F) (08/16/232154) Pulse: 62 (08/16/232154) Resp: 16 (08/16/232154) SpO2: 98 % (08/16/232154) Weight: 92.1 kg (203 lb) (08/16/232154) Fall Scale: Fall Score: 60 (08/17/23229) Fall Interventions: Bed at low level;Yellow armband applied/intact and on patient (08/17/23229) Neurological: [place] Coma Scale Eyes Open: Spontaneous (08/17/2310) Best Verbal Response: Verbally appropriate for age (08/17/2310) Best Motor Response: Obeys commands appropriate for age (08/17/2310) Coma Score: 15 (08/17/2310) Additional Neurological Information: A&O x4 Respiratory: Respiratory WNL: WNL- within normal limits (08/17/2311) Oxygen therapy/ Mechanical vent Supplemental O2 Delivery: Room Air, None (08/16/232154) Additional Respiratory Information: n/a Cardiac: Rhythm: Regular (08/17/2310) Extremities: +Sensation;Right;Left;Upper;Lower (08/17/2310) Additional Cardiac Information: n/a GI/: Abdomen: Soft;Non-distended;Non-tender (08/17/2311) Additional GI/ Information: n/a Integumentary: Skin Description: Warm;Dry (except bilateral feet) (08/17/2312) Additional Integumentary Information: n/a Restraints: No orders of the defined types were placed in this encounter. Lines: Peripheral Line Right Arm 20 Gauge (Active) Number of days: 1 Labs: Labs This Encounter CBC - Abnormal; Notable for the following components: Result Value Ref Range WBC 12.30 4.00 - 10.80 K/uL All other components within normal limits BASIC METABOLIC PANEL - Abnormal; Notable for the following components: BUN 22 6 - 20 mg/dL Chloride 108 98 - 107 mmol/L CO2 21 22 - 32 mmol/L Glucose 137 70 - 120 mg/dL All other components within normal limits PHOSPHORUS - Normal MAGNESIUM - Normal PT INR - Normal Narrative: Warfarin Therapy INR: 2.0-3.0 conventional anticoagulation INR: 2.5-3.5 high intensity anticoagulation APTT - Normal Narrative: Anticoagulation may affect testing. Refer to [employer] Test Catalog for a listof effects. LACTATE - Normal ETHANOL, MEDICAL - Normal SARS-COV-2 (COVID-19), NAAT - Normal TYPE AND SCREEN ABO/RH URINALYSIS, REFLEX TO MICROSCOPIC CULTURE, URINE, QUANTITATIVE TOXICOLOGY, URINE SCREEN W/ CONFIRMATION MRSA SCREEN, PCR CBC BASIC METABOLIC PANEL MAGNESIUM PHOSPHORUS Diet: Orders Placed This Encounter Procedures NPO Except Meds Additional Diet Information: n/a Intake and Output: No intake or output data in the 24 hours ending 08/17/23420 Patient Belongings and Home Medications Patient Belongings at Bedside Belongings at Bedside: Electronic devices;Other valuables (08/17/23229) Patient Electronics: Cell phone (08/17/23229) Other Valuables: Wallet (08/17/23229) Patient Belongings Sent Home (Does not apply to Ambulatory areas) Belongings Sent Home: None (08/17/23229) Patient Belongings Sent to Safe/Locker Belongings Sent to Safe: None (08/17/23229) Patient Medications Medications Brought by Patient?: No (08/17/23229) Recommendations/Follow up Goals/Plan of Care: -Neuro checks q4 -Pain mgt -SCD Consults not completed: Anticipated tests/studies/procedures: for OR Medication Reconcilliation completed for this Admission? * Progress Notes - Non-Billable - HarlingenJuan C MD - 08/17/2023 3:09 AM EDT Brief Orthopaedic Progress Note - Compartment check Daniel Avila [id number] 08/17/2023. Patient seen and examined at bedside. No changes in pain. No new numbness or tingling. Patient otherwise comfortable. Exam: RLE: compartments soft and compressible (windowed through splint) no pain with extension of toes SILT toes Palpable DP pulse Low index of suspicion of compartment syndrome. Rest of plan per prior documentation Will continue to follow with serial examinations Please notify service if there is new onset numbness or tingling, increasing pain requirement/ agitation, or other concerns. General supervision provided by Dr. Vargas. * Medical Necessity - Primitivo Norman, Utilization Review Staff - 08/17/2023 12:36 AM EDT AdmissionCare Guideline: Musculoskeletal Disease, Inpatient Based on the indications selected for the patient, the bed status of Inpatient was determined to beMET The following indications were selected as present at the time of evaluation of the patient: - Nonvertebral fracture, dislocation, or other musculoskeletal injury that requires inpatient care (medical), as indicated by 1 or more of the following: - Major injury requiring inpatient care (nature of injury necessitates inpatient treatment or monitoring) Additional Information: Comminuted, moderately displaced oblique fracture of the tibia and fibula AdmissionCare documentation entered by: Primitivo Norman [facility] [employer], 27th edition, Copyright 2022 [facility] [employer] All Rights Reserved. [id number] Solely for purpose of utilization review and payment; not a diagnostic tool documented in this encounter Plan of Treatment Upcoming Encounters Date Type Department Care Team (Late st Contact Info) Description 08/29/2023 3:00 PM EDT Office Visit General Internal Medicine [place] [facility] Kellogg [address] [place] [address] Primitivo Arceo MD [address] [place] [address] 09/06/2023 12:00 PM EDT Office Visit Orthopaedics, [place] [address] [place] [address] Eleno Sexton PA-C [address] [place] [address] 12/09/2023 3:45 PM EDT [facility] [place] [facility] [address] [place] [address] Primitivo De Guzman MD [address] [place] [address] Pending Results Name Type Priority Associated Diagnoses Date /Time OPIOIDS, URINE CONFIRMATION Lab Routine 08/17/2023 8:12 AM EDT Scheduled Orders Name Type Priority Associated Diagnoses Orde r Schedule EKG EKG Routine Trauma Perform Now for 1 Occurrences starting 08/17/2023 until 08/17/2023 OPIOIDS, URINE CONFIRMATION Lab Routine One Time for 1 Occurrences starting 08/17/2023 until 08/17/2023 Scheduled Procedures Name Priority Associated Diagnoses Date/Ti [...] this encounter Medical Devices Implanted Type Area Cloth Neutralizer Device Identifier Shelf Expiration Date Model / Serial / Lot Nail T2 Alpha Tibia [id number] - [id number] Implanted:Qty: 1 on 08/17/2023 by German Roldan [place] [facility] Right: Leg Lower TONEY : TRAUMA 07/06/2030 [id number] / / [id number] Screw T2 Alpha Lock 5x42.5mm - [id number] Implanted:Qty: 1 on 08/17/2023 by German Roldan [place] [facility] Right: Leg Lower TONEY : TRAUMA 01/03/2033 [id number] / / [id number] Screw T2 Alpha Lock 5x42.5mm - [id number] Implanted:Qty: 1 on 08/17/2023 by German Roldan [place] [facility] Right: Leg Lower TONEY : TRAUMA 05/05/2033 [id number] / / [id number] Screw T2 Alpha Lock 5x40mm - [id number] Implanted:Qty: 1 on 08/17/2023 by German Roldan [place] [facility] Right: Leg Lower TONEY : TRAUMA 01/03/2033 [id number] / / [id number] Screw T2 Alpha Lock 5x47.5mm - [id number] Implanted:Qty: 1 on 08/17/2023 by German Roldan [place] [facility] Right: Leg Lower TONEY : TRAUMA 06/05/2033 [id number] / / [id number] documented as of this encounter Procedures Procedure Name Priority Date/Time Associated Diagnosis Comments BASIC METABOLIC PANEL Routine 08/19/2023 3:33 AM EDT PHOSPHORUS Routine 08/19/2023 3:33 AM EDT CBC Routine 08/19/2023 3:33 AM EDT MAGNESIUM Routine 08/19/2023 3:33 AM EDT BASIC METABOLIC PANEL Routine 08/18/2023 3:42 AM EDT PHOSPHORUS Routine 08/18/2023 3:42 AM EDT CBC Routine 08/18/2023 3:42 AM EDT MAGNESIUM Routine 08/18/2023 3:42 AM EDT BASIC METABOLIC PANEL STAT 08/17/2023 5:02 PM EDT CBC STAT 08/17/2023 5:02 PM EDT XR TIB/FIB 2 VIEWS STAT 08/17/2023 4: 37 PM EDT XR INTRA-OP C-ARM CASE Routine 3:35 PM EDT GLUCOSE METER, POINT OF CARE HORACIO 08/17/2023 2:38 PM EDT REPAIR TIBIA SHAFT FX W/IMPLANT 08/17/2023 12:24 PM EDT Fracture BASIC METABOLIC PANEL Routine 08/17/2023 9:21 AM EDT PHOSPHORUS Routine 08/17/2023 9:21 AM EDT CBC Routine 08/17/2023 9:21 AM EDT MAGNESIUM Routine 08/17/2023 9:21 AM EDT XR ANKLE 3 OR MORE VIEWS STAT 08/17/2023 9:18 AM EDT XR TIB/FIB 2 VIEWS STAT 08/17/2023 9: 18 AM EDT MRSA SCREEN, PCR Routine 08/17/2023 8:12 AM EDT TOXICOLOGY, URINESCREEN W/ CONFIRMATION Routine 08/17/2023 8:12 AM EDT CULTURE, URINE, QUANTITATIVE STAT 08/17/2023 8:12 AM EDT URINALYSIS, REFLEX TO MICROSCOPIC STAT 08/17/2023 8:[address] LOWER EXTREMITY RIGHT WO CONTRAST STAT 08/17/2023 3:[address] 3D RECONSTRUCTION MUSCULOSKELETAL STAT 08/17/2023 3:25 AM EDT XR CHEST 1 VIEW STAT 08/17/2023 2:24 AM EDT XR ANKLE 3 OR MORE VIEWS STAT 08/17/2023 2:24 AM EDT XR TIB/FIB 2 VIEWS STAT 08/17/2023 2: 24 AM EDT XR PELVIS AP VIEW STAT 08/17/2023 2:2 4 AM EDT SARS-COV-2 (COVID-19), NAAT STAT 08/17/2023 1:25 AM EDT PT INR STAT 08/17/2023 12:16 AM EDT APTT STAT 08/17/2023 12:16 AM EDT BASIC METABOLIC PANEL STAT 08/17/2023 12:15 AM EDT ABO/RH STAT 08/17/2023 12:15 AM EDT TYPE AND SCREEN STAT 08/17/2023 12:15 AM EDT PHOSPHORUS STAT 08/17/2023 12:15 AM EDT LACTATE Routine 08/17/2023 12:15 AM EDT ETHANOL, MEDICAL STAT 08/17/2023 12:1 5 AM EDT CBC STAT 08/17/2023 12:15 AM EDT MAGNESIUM STAT 08/17/2023 12:15 AM EDT XR ANKLE 3 OR MORE VIEWS STAT 08/16/2023 11:14 PM EDT XR TIB/FIB 2 VIEWS STAT 08/16/2023 11 :14 PM EDT XR KNEE 4 OR MORE VIEWS STAT 08/16/19 11:14 PM EDT documented in this encounter Results * (ABNORMAL) PHOSPHORUS (08/19/2023 3:33 AM EDT) [facility] Phosphorus 1.6(L) 2.5 - 4.8 mg/dL 08/19/2023 4:24 AM EDT [facility] [place] Venous blood specimen / Unknown Venipuncture / Unknown 08/19/2023 3:33 AM EDT 08/19/2023 3:54 AM EDT Alvin Wheatley PA-C LAB BLOOD OR DERABLES [facility] [address] [place] [address] * MAGNESIUM (08/19/2023 3:33 AM EDT) Magnesium 2.0 1.5 - 2.6 mg/dL 08/19/2023 4:24 AM EDT LABORATORY C Blood Venous blood specimen / Unknown Venipuncture / Unknown 08/19/2023 3:33 AM EDT 08/19/2023 3:54 AM EDT Alvin Wheatley PA-C LAB BLOOD OR DERABLES [facility] [address] [place] [address] * (ABNORMAL) BASIC METABOLIC PANEL (08/19/2023 3:33 AM EDT) BUN 19 6 - 20 mg/dL 08/19/2023 4:24 AM EDT LABORATORY C Creatinine 1.2 0.6 - 1.2 mg/dL 08/19/2023 4:24 AM EDT [facility] Comment:The above reference range is based on the legal sex of the patient only. Results should be interpreted together with patient's sex at , gender identity, and clinical context. Estimated Glomerular Filtration Rate 65 >=60 mL/min 08/19/2023 4:24 AM EDT [facility] Comment:eGFR is calculated b ased on the legal sex of the patient, using the CKD- EPI 2020 equation Sodium 137 135 - 146 mmol/L 08/19/2023 4:24 AM EDT [facility] Potassium 3.4(L) 3.5 - 5.1 mmol/L 08/19/2023 4:24 AM EDT LAB[facility] Chloride 109(H) 98 - 107 mmol/L 08/19/2023 4:24 AM EDT [facility] CO2 21(L) 22 - 32 mmol/L 08/19/2023 4:24 AM EDT [facility] Anion Gap 7 7 - 15 mmol/L 08/19/2023 4:24 AM EDT [facility] Glucose 114 70 - 120 mg/dL 08/19/2023 4:24 AM EDT [facility] Calcium 8.4 8.4 - 10.2 mg/dL 08/19/2023 4:24 AM EDT [facility] Blood Venous blood specimen / Unknown Venipuncture / Unknown 08/19/2023 3:33 AM EDT 08/19/2023 3:54 AM EDT Alvin Wheatley PA-C LAB BLOOD OR DERABLES [facility] [address] [place] [address] * (ABNORMAL) CBC (08/19/2023 3:33 AM EDT) [facility] WBC 9.25 4.00 - 10.80 K/uL 08/19/2023 4:11 AM EDT [facility] RBC 3.87 4.50 - 5.25 M/uL 08/19/2023 4:11 AM EDT [facility] HGB 12.2(L) 14.0 - 16.8 g/dL 08/19/2023 4:11 AM EDT [facility] HCT 37.5(L) 40.0 - 48.4 % 08/19/2023 4:11 AM EDT [facility] MCV 96.9 82.0 - 99.5 fL 08/19/2023 4:11 AM EDT [facility] MCH 31.5 27.0 - 34.0 pg 08/19/2023 4:11 AM EDT [facility] MCHC 32.5 32.0 - 36.0 g/dL 08/19/2023 4:11 AM EDT [facility] RDW 12.4 11.5 - 15.5 % 08/19/2023 4:11 AM EDT [facility] PLT 202 140 - 400 K/uL 08/19/2023 4:11 AM EDT [facility] MPV 9.8 6.6 - 11.1 fL 08/19/2023 4:11 AM EDT [facility] nRBCs 0 <=0 /100 WBCs 08/19/2023 4:11 AM EDT [facility] Blood Venous blood specimen / Unknown Venipuncture / Unknown 08/19/2023 3:33 AM EDT 08/19/2023 3:54 AM EDT Alvin Villatorowaiqasim FRANCIS-C LAB BLOOD OR DERABLES Performing Organization Address [facility]/ZIP Co de Phone Number [facility] [address] [place] [address] * PHOSPHORUS (08/18/2023 3:42 AM EDT) Phosphorus 3.2 2.5 - 4.8 mg/dL 08/18/2023 4:36 AM EDT LABORATORY C Blood Venous blood specimen / Unknown Venipuncture / Unknown 08/18/2023 3:42 AM EDT 08/18/2023 4:02 AM EDT Alvin FRANCIS-C LAB BLOOD OR DERABLES Performing Organization Address [facility]/ZIP Co de Phone Number [facility] [address] [place] [address] * MAGNESIUM (08/18/2023 3:42 AM EDT) Magnesium 2.3 1.5 - 2.6 mg/dL 08/18/2023 4:36 AM EDT LABORATORY C Blood Venous blood specimen / Unknown Venipuncture / Unknown 08/18/2023 3:42 AM EDT 08/18/2023 4:02 AM EDT Alvin FRANCIS-C LAB BLOOD OR DERABLES Performing Organization Address City/[facility]/ZIP Co de Phone Number [facility] [address] [place] [address] * (ABNORMAL) BASIC METABOLIC PANEL (08/18/2023 3:42 AM EDT) BUN 17 6 - 20 mg/dL 08/18/2023 4:36 AM EDT [facility] Creatinine 1.2 0.6 - 1.2 mg/dL 08/18/2023 4:36 AM EDT [facility] Comment:The above reference range is based on the legal sex of the patient only. Results should be interpreted together with patient's sex at , gender identity, and clinical context. Estimated Glomerular Filtration Rate 70 >=60 mL/min 08/18/2023 4:36 AM EDT [facility] Comment:eGFR is calculated b ased on the legal sex of the patient, using the CKD- EPI 2020 equation Sodium 136 135 - 146 mmol/L 08/18/2023 4:36 AM EDT [facility] Potassium 4.2 3.5 - 5.1 mmol/L 08/18/2023 4:36 AM EDT [facility] Chloride 107 98 - 107 mmol/L 08/18/2023 4:36 AM EDT [facility] CO2 21(L) 22 - 32 mmol/L 08/18/2023 4:36 AM EDT [facility] Anion Gap 8 7 - 15 mmol/L 08/18/2023 4:36 AM EDT [facility] Glucose 103 70 - 120 mg/dL 08/18/2023 4:36 AM EDT [facility] Calcium 8.2(L) 8.4 - 10.2 mg/dL 08/18/2023 4:36 AM EDT [facility] Blood Venous blood specimen / Unknown Venipuncture / Unknown 08/18/2023 3:42 AM EDT 08/18/2023 4:02 AM EDT Alvin Wheatley PA-C LAB BLOOD OR DERABLES [facility] [address] [place] [address] * (ABNORMAL) CBC (08/18/2023 3:42 AM EDT) WBC 10.72 4.00 - 10.80 K/uL 08/18/2023 4:14 AM EDT [facility] RBC 3.98 4.50 - 5.25 M/uL 08/18/2023 4:14 AM EDT LAB[facility] HGB 12.9(L) 14.0 - 16.8 g/dL 08/18/2023 4:14 AM EDT [facility] HCT 38.3(L) 40.0 - 48.4 % 08/18/2023 4:14 AM EDT [facility] MCV 96.2 82.0 - 99.5 fL 08/18/2023 4:14 AM EDT [facility] MCH 32.4 27.0 - 34.0 pg 08/18/2023 4:14 AM EDT [facility] MCHC 33.7 32.0 - 36.0 g/dL 08/18/2023 4:14 AM EDT [facility] RDW 12.1 11.5 - 15.5 % 08/18/2023 4:14 AM EDT [facility] PLT 199 140 - 400 K/uL 08/18/2023 4:14 AM EDT [facility] MPV 9.5 6.6 - 11.1 fL 08/18/2023 4:14 AM EDT [facility] nRBCs 0 <=0 /100 WBCs 08/18/2023 4:14 AM EDT [facility] Blood Venous blood specimen / Unknown Venipuncture / Unknown 08/18/2023 3:42 AM EDT 08/18/2023 4:02 AM EDT Alvin Wheatley PA-C LAB BLOOD OR DERABLES [facility] [address] [place] [address] * (ABNORMAL) BASIC METABOLIC PANEL (08/17/2023 5:02 PM EDT) BUN 20 6 - 20 mg/dL 08/17/2023 6:04 PM EDT [facility] Creatinine 1.1 0.6 - 1.2 mg/dL 08/17/2023 6:04 PM EDT [facility] Comment:The above reference range is based on the legal sex of the patient only. Results should be interpreted together with patient's sex at , gender identity, and clinical context. Estimated Glomerular Filtration Rate 77 >=60 mL/min 08/17/2023 6:04 PM EDT [facility] Comment:eGFR is calculated b ased on the legal sex of the patient, using the CKD- EPI 2020 equation Sodium 137 135 - 146 mmol/L 08/17/2023 6:04 PM EDT [facility] Potassium 4.2 3.5 - 5.1 mmol/L 08/17/2023 6:04 PM EDT [facility] Chloride 107 98 - 107 mmol/L 08/17/2023 6:04 PM EDT [facility] CO2 21(L) 22 - 32 mmol/L 08/17/2023 6:04 PM EDT [facility] Anion Gap 9 7 - 15 mmol/L 08/17/2023 6:04 PM EDT [facility] Glucose 124(H) 70 - 120 mg/dL 08/17/2023 6:04 PM EDT [facility] Calcium 8.5 8.4 - 10.2 mg/dL 08/17/2023 6:04 PM EDT LABORATORY C Blood Venous blood specimen / Unknown Venipuncture / Unknown 08/17/2023 5:02 PM EDT 08/17/2023 5:10 PM EDT Nimo Soto PA-C LAB BLOOD ORD ERABLES [facility] [address] [place] [address] * (ABNORMAL) CBC (08/17/2023 5:02 PM EDT) WBC 10.99(H) 4.00 - 10.80 K/uL 08/17/2023 5:40 PM EDT [facility] RBC 4.49 4.50 - 5.25 M/uL 08/17/2023 5:40 PM EDT [facility] HGB 14.3 14.0 - 16.8 g/dL 08/17/2023 5:40 PM EDT [facility] HCT 43.2 40.0 - 48.4 % 08/17/2023 5:40 PM EDT [facility] MCV 96.2 82.0 - 99.5 fL 08/17/2023 5:40 PM EDT [facility] MCH 31.8 27.0 - 34.0 pg 08/17/2023 5:40 PM EDT [facility] MCHC 33.1 32.0 - 36.0 g/dL 08/17/2023 5:40 PM EDT [facility] RDW 12.3 11.5 - 15.5 % 08/17/2023 5:40 PM EDT [facility] PLT 226 140 - 400 K/uL 08/17/2023 5:40 PM EDT [facility] MPV 9.6 6.6 - 11.1 fL 08/17/2023 5:40 PM EDT [facility] nRBCs 0 <=0 /100 WBCs 08/17/2023 5:40 PM EDT [facility] Blood Venous blood specimen / Unknown Venipuncture / Unknown 08/17/2023 5:02 PM EDT 08/17/2023 5:10 PM EDT Nimo Soto PA-C LAB BLOOD ORD ERABLES [facility] [address] [place] [address] * XR TIB/FIB 2 VIEWS (08/17/2023 4:37 PM EDT) Anatomical Region Laterality Modality Lower Extremity, TibFib Computed Radiography 08/17/2023 5:19 PM EDT Impressions 08/17/2023 5:29 PM EDT IMPRESSION As above. I have personally reviewed this examination and agree with the resident/fellow physician's interpretation. Narrative 08/17/2023 5:29 PM EDT EXAM RT XR TIB/FIB 2 VIEWS - 08/17/2023 4:37 pm HISTORY postop TECHNIQUE Four views of the right tib-fib were acquired. COMPARISON X-ray from earlier today FINDINGS ORIF of right fibula fracture with plate and screw, right tibia shaft fracture with intramedullary nail and percutaneous fixation of right posterior malleolus fracture with screw. Improved alignment. A splint is in place. Procedure Note Liam Nova MD - 08/17/2023 EXAM RT XR TIB/FIB 2 VIEWS - 08/17/2023 4:37 pm HISTORY postop TECHNIQUE Four views of the right tib-fib were acquired. COMPARISON X-ray from earlier today FINDINGS ORIF of right fibula fracture with plate and screw, right tibia shaftfracture with intramedullary nail and percutaneous fixation of rightposterior malleolus fracture with screw. Improved alignment. A splint isin place. IMPRESSION IMPRESSION As above. I have personally reviewed this examination and agree with the resident/fellow physician's interpretation. Yared Romero MD RADIOLOGY ([facility]) * XR INTRA-OP C-ARM CASE (08/17/2023 3:35 PM EDT) Narrative Scheduling, Silent - 08/17/2023 3:38 PM EDT This procedure will not be read by a Radiologist. Please see operative note. Juan C Leon MD RADIOLOGY ( [facility]) * GLUCOSE METER, POINT OF CARE (08/17/2023 2:38 PM EDT) Glucose Meter 109 70 - 120 mg/dL 08/17/2023 2:41 PM EDT [facility] Blood Whole blood specimen / Unknown 08/17/2023 2:38 PM EDT 08/17/2023 2:41 PM EDT Dino Mclean MD LAB POINT OF C ARE TEST DOCKED DEVICE UNSOLICITED RESULTS [facility] [address] [place] [address] * PHOSPHORUS (08/17/2023 9:21 AM EDT) Phosphorus 2.6 2.5 - 4.8 mg/dL 08/17/2023 10:08 AM EDT [facility] Blood Venous blood specimen / Unknown Venipuncture / Unknown 08/17/2023 9:21 AM EDT 08/17/2023 9:42 AM EDT Alvin Wheatley PA-C LAB BLOOD OR DERABLES [facility] [address] [place] [address] * MAGNESIUM (08/17/2023 9:21 AM EDT) Magnesium 2.2 1.5 - 2.6 mg/dL 08/17/2023 10:08 AM EDT [facility] Blood Venous blood specimen / Unknown Venipuncture / Unknown 08/17/2023 9:21 AM EDT 08/17/2023 9:42 AM EDT Monaedory Vj Wheatley PA-C LAB BLOOD OR DERABLES [facility] [address] [place] [address] * (ABNORMAL) BASIC METABOLIC PANEL (08/17/2023 9:21 AM EDT) BUN 23(H) 6 - 20 mg/dL 08/17/2023 10:08 AM EDT [facility] Creatinine 1.2 0.6 - 1.2 mg/dL 08/17/2023 10:08 AM EDT [facility] Comment:The above reference range is based on the legal sex of the patient only. Results should be interpreted together with patient's sex at , gender identity, and clinical context. Estimated Glomerular Filtration Rate 70 >=60 mL/min 08/17/2023 10:08 AM EDT [facility] Comment:eGFR is calculated b ased on the legal sex of the patient, using the CKD- EPI 2020 equation Sodium 138 135 - 146 mmol/L 08/17/2023 10:08 AM EDT [facility] Potassium 3.8 3.5 - 5.1 mmol/L 08/17/2023 10:08 AM EDT LABORATORY C Chloride 108(H) 98 - 107 mmol/L 08/17/2023 10:08 AM EDT LABORATORY C CO2 21(L) 22 - 32 mmol/L 08/17/2023 10:08 AM EDT [facility] Anion Gap 9 7 - 15 mmol/L 08/17/2023 10:08 AM EDT LABORATORY C Glucose 97 70 - 120 mg/dL 08/17/2023 10:08 AM EDT LABORATORY C Calcium 8.8 8.4 - 10.2 mg/dL 08/17/2023 10:08 AM EDT [facility] Blood Venous blood specimen / Unknown Venipuncture / Unknown 08/17/2023 9:21 AM EDT 08/17/2023 9:42 AM EDT Alvin Wheatley PA-C LAB BLOOD OR DERABLES [facility] [address] [place] [address] * CBC (08/17/2023 9:21 AM EDT) WBC 8.05 4.00 - 10.80 K/uL 08/17/2023 9:54 AM EDT [facility] RBC 4.62 4.50 - 5.25 M/uL 08/17/2023 9:54 AM EDT [facility] HGB 14.9 14.0 - 16.8 g/dL 08/17/2023 9:54 AM EDT [facility] HCT 43.9 40.0 - 48.4 % 08/17/2023 9:54 AM EDT [facility] MCV 95.0 82.0 - 99.5 fL 08/17/2023 9:54 AM EDT [facility] MCH 32.3 27.0 - 34.0 pg 08/17/2023 9:54 AM EDT [facility] MCHC 33.9 32.0 - 36.0 g/dL 08/17/2023 9:54 AM EDT [facility] RDW 12.5 11.5 - 15.5 % 08/17/2023 9:54 AM EDT [facility] PLT 221 140 - 400 K/uL 08/17/2023 9:54 AM EDT [facility] MPV 9.6 6.6 - 11.1 fL 08/17/2023 9:54 AM EDT [facility] nRBCs 0 <=0 /100 WBCs 08/17/2023 9:54 AM EDT [facility] Blood Venous blood specimen / Unknown Venipuncture / Unknown 08/17/2023 9:21 AM EDT 08/17/2023 9:42 AM EDT Alvin Wheatley PA-C LAB BLOOD OR DERABLES [facility] [address] [place] [address] * XR ANKLE 3 OR MORE VIEWS (08/17/2023 9:18 AM EDT) Anatomical Region Laterality Modality Ankle, Lower Extremity Digital R adiography 08/17/2023 10:2 7 AM EDT Impressions 08/17/2023 10:25 AM EDT IMPRESSION As above. Narrative 08/17/2023 10:25 AM EDT EXAM XR TIB/FIB 2 VIEWS; XR ANKLE 3 OR MORE VIEWS-08/17/2023 9:18 am HISTORY s/p splint COMPARISON X-rays from earlier the same date TECHNIQUE Two views of the right tibia/fibula and three views of the right ankle were obtained. FINDINGS Right tibia/fibula and ankle: A splint is in place. The distal tibia and fibula fractures appear to demonstrate increased anterolateral displacement of the distal fracture fragments. The proximal fibula fracture is similar in appearance. Procedure Note Cliff Foley MD - 08/17/2023 EXAM XR TIB/FIB 2 VIEWS; XR ANKLE 3 OR MORE VIEWS-08/17/2023 9:18 am HISTORY s/p splint COMPARISON X-rays from earlier the same date TECHNIQUE Two views of the right tibia/fibula and three views of the right anklewere obtained. FINDINGS Right tibia/fibula and ankle: A splint is in place. The distal tibia andfibula fractures appear to demonstrate increased anterolateraldisplacement of the distal fracture fragments. The proximal fibulafracture is similar in appearance. IMPRESSION IMPRESSION As above. Juan C Leon MD RADIOLOGY ( [facility]) * XR TIB/FIB 2 VIEWS (08/17/2023 9:18 AM EDT) Anatomical Region Laterality Modality Lower Extremity, TibFib Digital Radiography 08/17/2023 10:2 7 AM EDT Impressions 08/17/2023 10:25 AM EDT IMPRESSION As above. Narrative 08/17/2023 10:25 AM EDT EXAM XR TIB/FIB 2 VIEWS; XR ANKLE 3 OR MORE VIEWS-08/17/2023 9:18 am HISTORY s/p splint COMPARISON X-rays from earlier the same date TECHNIQUE Two views of the right tibia/fibula and three views of the right ankle were obtained. FINDINGS Right tibia/fibula and ankle: A splint is in place. The distal tibia and fibula fractures appear to demonstrate increased anterolateral displacement of the distal fracture fragments. The proximal fibula fracture is similar in appearance. Procedure Note Cliff Foley MD - 08/17/2023 EXAM XR TIB/FIB 2 VIEWS; XR ANKLE 3 OR MORE VIEWS-08/17/2023 9:18 am HISTORY s/p splint COMPARISON X-rays from earlier the same date TECHNIQUE Two views of the right tibia/fibula and three views of the right anklewere obtained. FINDINGS Right tibia/fibula and ankle: A splint is in place. The distal tibia andfibula fractures appear to demonstrate increased anterolateraldisplacement of the distal fracture fragments. The proximal fibulafracture is similar in appearance. IMPRESSION IMPRESSION As above. Juan C Leon MD RADIOLOGY ( [facility]) * MRSA SCREEN, PCR (08/17/2023 8:12 AM EDT) [facility] MRSA PCR Result Negative Negative 10:13 AM EDT [facility] Comment:No Methicillin resis tant Staphylococcus aureus detected by PCR (amplified probe). Upper Respiratory Swab of internal nose / Unknown Non-blood Collection / Unknown 08/17/2023 8:12 AM EDT 08/17/2023 8:32 AM EDT Alvin Wheatley PA-C LAB MICRO - GENERAL ORDERABLES [facility] [address] [place] [address] * (ABNORMAL) TOXICOLOGY, URINESCREEN W/ CONFIRMATION (08/17/2023 8:12 AM EDT) Pathologist [facility] Amphetamines Screen, U Negative Negative 08/17/2023 9:24 AM EDT [facility] Benzodiazepines Screen, U Negative Negative 08/17/2023 9:24 AM EDT [facility] Cannabinoids Screen, U Negative Negative 08/17/2023 9:24 AM EDT [facility] Cocaine Metabolite Screen, U Negative Negative 08/17/2023 9:24 AM EDT [facility] Fentanyl Screen, U Negative Negative 2023 9:24 AM EDT [facility] Hydrocodone Screen, U Positive(A) Negative 08/17/2023 9:24 AM EDT [facility] Methadone Metabolite Screen, U Negative Negative 08/17/2023 9:24 AM EDT [facility] Morphine/Codeine Screen, U Positive(A) Negative 08/17/2023 9:24 AM EDT [facility] Oxycodone Screen, U Negative Negative 08/17/2023 9:24 AM EDT [facility] Urine Urine specimen obtained by clean catch procedure / Unknown Non-blood Collection / Unknown 08/17/2023 8:12 AM EDT 08/17/2023 8:22 AM EDT Narrative [facility] - 08/17/2023 9:24 AM EDT Cutoff Concentrations: Drug Level Amphetamines 500 ng/mL Benzodiazepines 100 ng/mL Cannabinoids 50 ng/mL Cocaine Metabolite 150 ng/mL Fentanyl 1 ng/mL Hydrocodone / Hydromorphone 300 ng/mL Methadone Metabolite 100 ng/mL Morphine / Codeine 300 ng/mL Oxycodone / Oxymorphone 100 ng/mL Screening results are presumptive and can only be used for medical purposes. Positive screening results are reflexed to confirmatory testing. Alvin Wheatley PA-C LAB URINE OR DERABLES Performing Organization Address City/State/[facility] Co de Phone Number [facility] [address] [place] [address] * CULTURE, URINE, QUANTITATIVE (08/17/2023 8:12 AM EDT) Culture Growth No significant growth 08/18/2023 7:58 AM EDT [facility] Urine Urine specimen obtained by clean catch procedure / Unknown Non-blood Collection / Unknown 08/17/2023 8:12 AM EDT 08/17/2023 8:21 AM EDT Chardei Leray Eshleman PA-C LAB MICRO - GENERAL ORDERABLES Performing Organization Address [facility] Co de Phone Number [facility] [place] [address] [place] [address] * (ABNORMAL) URINALYSIS, REFLEX TO MICROSCOPIC (08/17/2023 8:12 AM EDT) Color, Urine Yellow Colorless, Light Yellow, Yellow, Dark Yellow 08/17/2023 8:34 AM EDT LABORATORY C Clarity, Urine Clear Clear 08/17/2023 8:34 AM EDT LABORATORY C Glucose, Urine Negative Negative mg/dL 08/17/2023 8:34 AM EDT LABORATORY C Bilirubin, Urine Negative Negative 08/17/2023 8:34 AM EDT LABORATORY C Ketone, Urine Trace(A) Negative mg/dL 08/17/2023 8:34 AM EDT [facility] [place], Urine 1.029 1.003 - 1.030 08/17/2023 8:34 AM EDT [facility] [place] Blood, Urine Negative Negative 08/17/2023 8:34 AM EDT LABORATORY C pH, Urine 6.5 5.0 - 7.5 Units 08/17/2023 8:34 AM EDT LABORATORY C Protein, Urine Trace(A) Negative mg/dL 08/17/2023 8:34 AM EDT [facility] [place] Urobilinogen, Urine Normal Normal mg/dL 08/17/2023 8:34 AM EDT LABORATORY C Nitrite, Urine Negative Negative 08/17/2023 8:34 AM EDT LABORATORY C Esterase, Urine Negative Negative 8:34 AM EDT LABORATORY C Comment, Urine 08/17/2023 8:34 AM EDT LABORATORY C Comment:Screen negative - Mi croscopic not performed. Urine Non-blood Collection / Unknown 08/17/2023 8:12 AM EDT 08/17/2023 8:21 AM EDT Alvin Wheatley PA-C LAB URINE OR DERABLES Performing Organization Address [facility] Co de Phone Number [facility] [place] [address] [place] [address] * CT 3D RECONSTRUCTION MUSCULOSKELETAL (08/17/2023 3:25 AM EDT) Anatomical Region Laterality Modality 3drecon, Musculoskeletal, An kle, Elbow, Femur, Foot, Hip, Knee, Scapula, Shoulder, Wrist, Hand, HUMERUS, Forearm, TibFib Computed Tomography 08/17/2023 5:50 AM EDT Impressions 08/17/2023 5:48 AM EDT IMPRESSION 1. Age-indeterminate knee posterior medial tibial plateau irregularity, concerning for possible acute avulsion fracture. Consider further assessment with knee MRI. 2. Age-indeterminate avulsion injury in the region of the femoral notch. 3. Multifocal fibula fractures, as above. 4. Acute comminuted angulated displaced distal tibia metadiaphyseal fracture. 5. Nondisplaced posterior malleolus intra-articular tibial fracture. 6. 3D CT reconstructions support the above findings. 7. No acute chest or pelvis radiographic finding. Narrative 08/17/2023 5:[address] SCAN OF THE RT LWREXT; 3DRECON; PELVIS; ANKLE; CHEST; 3D CT RECONSTRUCTIONS OF THE RT LWREXT; 3DRECON; PELVIS; ANKLE; CHEST - 08/17/2023 HISTORY distal 1/3 tib/fib fracture; s/p splint; trauma COMPARISON Preceding imaging. TECHNIQUE Computed tomography of the RT lower extremity was performed without intravenous contrast. Coronal and sagittal reformatted images were provided. 3D reconstructions of the RT lower extremity were created on a separate workstation. Maximal intensity projections and surface rendered images were provided. Right tibia and fibula and right ankle radiography was performed. Chest and pelvis radiography was also performed. FINDINGS CT SCAN OF THE RT lower extremity WITHOUT CONTRAST: Bones: Age-indeterminate knee posterior medial tibial plateau irregularity, concerning for possible acute avulsion fracture. Chronic appearing lateral tibial spine irregularity. Age-indeterminate avulsion injury in the region of the femoral notch. Age-indeterminate, likely acute proximal medial fibula avulsion fracture. Age-indeterminate, likely acute distal fibula avulsion fracture. Acute comminuted displaced angulated distal fibula shaft fracture. Partially imaged anterior talus prominent trabecula and lucencies, incompletely evaluated. Could further assess with dedicated foot radiography, if clinically indicated, of doubtful clinical significance. Acute comminuted angulated displaced distal tibia metadiaphyseal fracture. Nondisplaced posterior malleolus intra-articular tibial fracture. Mild tricompartmental osteoarthritis. Proximal tibia bone islands. Calcaneus bone island. Soft Tissues: Soft tissue swelling and contusion. Ankle effusion. Vasculature: Limited non-contrast assessment. Other: Splinting material in place. 3D CT RECONSTRUCTIONS OF THE RT lower extremity: These additional images aid in demonstrating and confirming the findings discussed in the above report. Right ankle radiography: Concordant with the above. Right tibia and fibula radiography: Concordant with the above. Chest radiography: Left basilar atelectasis. Stable cardiomediastinal silhouette and bones. Pelvis radiography: No fracture, dislocation, or diastasis. Mild bilateral degenerative changes. Procedure Note Dino Benoit MD - 08/17/[address] SCAN OF THE RT LWREXT; 3DRECON; PELVIS; ANKLE; CHEST; 3D CTRECONSTRUCTIONS OF THE RT LWREXT; 3DRECON; PELVIS; ANKLE; CHEST -08/17/2023 HISTORY distal 13 tib/fib fracture; s/p splint; trauma COMPARISON Preceding imaging. TECHNIQUE Computed tomography of the RT lower extremity was performed withoutintravenous contrast. Coronal and sagittal reformatted images wereprovided. 3D reconstructions of the RT lower extremity were created on a separateworkstation. Maximal intensity projections and surface rendered imageswere provided. Right tibia and fibula and right ankle radiography was performed. Chest and pelvis radiography was also performed. FINDINGS CT SCAN OF THE RT lower extremity WITHOUT CONTRAST: Bones: Age-indeterminate knee posterior medial tibial plateau irregularity,concerning for possible acute avulsion fracture. Chronic appearinglateral tibial spine irregularity. Age-indeterminate avulsion injury in the region of the femoral notch. Age-indeterminate, likely acute proximal medial fibula avulsionfracture. Age-indeterminate, likely acute distal fibula avulsion fracture. Acute comminuted displaced angulated distal fibula shaft fracture. Partially imaged anterior talus prominent trabecula and lucencies,incompletely evaluated. Could further assess with dedicated footradiography, if clinically indicated, of doubtful clinical significance. Acute comminuted angulated displaced distal tibia metadiaphyseal fracture.Nondisplaced posterior malleolus intra-articular tibial fracture. Mild tricompartmental osteoarthritis. Proximal tibia bone islands. Calcaneus bone island. Soft Tissues: Soft tissue swelling and contusion. Ankle effusion. Vasculature: Limited non-contrast assessment. Other: Splinting material in place. 3D CT RECONSTRUCTIONS OF THE RT lower extremity: These additional images aid in demonstrating and confirming the findingsdiscussed in the above report. Right ankle radiography: Concordant with the above. Right tibia and fibula radiography: Concordant with the above. Chest radiography: Left basilar atelectasis. Stable cardiomediastinalsilhouette and bones. Pelvis radiography: No fracture, dislocation, or diastasis. Mildbilateral degenerative changes. IMPRESSION IMPRESSION 1. Age-indeterminate knee posterior medial tibial plateau irregularity,concerning for possible acute avulsion fracture. Consider furtherassessment with knee MRI. 2. Age-indeterminate avulsion injury in the region of the femoral notch. 3. Multifocal fibula fractures, as above. 4. Acute comminuted angulated displaced distal tibia metadiaphysealfracture. 5. Nondisplaced posterior malleolus intra-articular tibial fracture. 6. 3D CT reconstructions support the above findings. 7. No acute chest or pelvis radiographic finding. Juan C Leon MD RAD CT * CT LOWER EXTREMITY RIGHT WO CONTRAST (08/17/2023 3:25 AM EDT) Anatomical Region Laterality Modality Lower Extremity, Ankle, Femu r, Foot, Hip, Knee, Musculoskeletal, TibFib Computed Tomography 08/17/2023 5:50 AM EDT Impressions 08/17/2023 5:48 AM EDT IMPRESSION 1. Age-indeterminate knee posterior medial tibial plateau irregularity, concerning for possible acute avulsion fracture. Consider further assessment with knee MRI. 2. Age-indeterminate avulsion injury in the region of the femoral notch. 3. Multifocal fibula fractures, as above. 4. Acute comminuted angulated displaced distal tibia metadiaphyseal fracture. 5. Nondisplaced posterior malleolus intra-articular tibial fracture. 6. 3D CT reconstructions support the above findings. 7. No acute chest or pelvis radiographic finding. Narrative 08/17/2023 5:[address] SCAN OF THE RT LWREXT; 3DRECON; PELVIS; ANKLE; CHEST; 3D CT RECONSTRUCTIONS OF THE RT LWREXT; 3DRECON; PELVIS; ANKLE; CHEST - 08/17/2023 HISTORY distal 1/3 tib/fib fracture; s/p splint; trauma COMPARISON Preceding imaging. TECHNIQUE Computed tomography of the RT lower extremity was performed without intravenous contrast. Coronal and sagittal reformatted images were provided. 3D reconstructions of the RT lower extremity were created on a separate workstation. Maximal intensity projections and surface rendered images were provided. Right tibia and fibula and right ankle radiography was performed. Chest and pelvis radiography was also performed. FINDINGS CT SCAN OF THE RT lower extremity WITHOUT CONTRAST: Bones: Age-indeterminate knee posterior medial tibial plateau irregularity, concerning for possible acute avulsion fracture. Chronic appearing lateral tibial spine irregularity. Age-indeterminate avulsion injury in the region of the femoral notch. Age-indeterminate, likely acute proximal medial fibula avulsion fracture. Age-indeterminate, likely acute distal fibula avulsion fracture. Acute comminuted displaced angulated distal fibula shaft fracture. Partially imaged anterior talus prominent trabecula and lucencies, incompletely evaluated. Could further assess with dedicated foot radiography, if clinically indicated, of doubtful clinical significance. Acute comminuted angulated displaced distal tibia metadiaphyseal fracture. Nondisplaced posterior malleolus intra-articular tibial fracture. Mild tricompartmental osteoarthritis. Proximal tibia bone islands. Calcaneus bone island. Soft Tissues: Soft tissue swelling and contusion. Ankle effusion. Vasculature: Limited non-contrast assessment. Other: Splinting material in place. 3D CT RECONSTRUCTIONS OF THE RT lower extremity: These additional images aid in demonstrating and confirming the findings discussed in the above report. Right ankle radiography: Concordant with the above. Right tibia and fibula radiography: Concordant with the above. Chest radiography: Left basilar atelectasis. Stable cardiomediastinal silhouette and bones. Pelvis radiography: No fracture, dislocation, or diastasis. Mild bilateral degenerative changes. Procedure Note Dino Benoit MD - 08/17/[address] SCAN OF THE RT LWREXT; 3DRECON; PELVIS; ANKLE; CHEST; 3D CTRECONSTRUCTIONS OF THE RT LWREXT; 3DRECON; PELVIS; ANKLE; CHEST -08/17/2023 HISTORY distal 1/3 tib/fib fracture; s/p splint; trauma COMPARISON Preceding imaging. TECHNIQUE Computed tomography of the RT lower extremity was performed withoutintravenous contrast. Coronal and sagittal reformatted images wereprovided. 3D reconstructions of the RT lower extremity were created on a separateworkstation. Maximal intensity projections and surface rendered imageswere provided. Right tibia and fibula and right ankle radiography was performed. Chest and pelvis radiography was also performed. FINDINGS CT SCAN OF THE RT lower extremity WITHOUT CONTRAST: Bones: Age-indeterminate knee posterior medial tibial plateau irregularity,concerning for possible acute avulsion fracture. Chronic appearinglateral tibial spine irregularity. Age-indeterminate avulsion injury in the region of the femoral notch. Age-indeterminate, likely acute proximal medial fibula avulsionfracture. Age-indeterminate, likely acute distal fibula avulsion fracture. Acute comminuted displaced angulated distal fibula shaft fracture. Partially imaged anterior talus prominent trabecula and lucencies,incompletely evaluated. Could further assess with dedicated footradiography, if clinically indicated, of doubtful clinical significance. Acute comminuted angulated displaced distal tibia metadiaphyseal fracture.Nondisplaced posterior malleolus intra-articular tibial fracture. Mild tricompartmental osteoarthritis. Proximal tibia bone islands. Calcaneus bone island. Soft Tissues: Soft tissue swelling and contusion. Ankle effusion. Vasculature: Limited non-contrast assessment. Other: Splinting material in place. 3D CT RECONSTRUCTIONS OF THE RT lower extremity: These additional images aid in demonstrating and confirming the findingsdiscussed in the above report. Right ankle radiography: Concordant with the above. Right tibia and fibula radiography: Concordant with the above. Chest radiography: Left basilar atelectasis. Stable cardiomediastinalsilhouette and bones. Pelvis radiography: No fracture, dislocation, or diastasis. Mildbilateral degenerative changes. IMPRESSION IMPRESSION 1. Age-indeterminate knee posterior medial tibial plateau irregularity,concerning for possible acute avulsion fracture. Consider furtherassessment with knee MRI. 2. Age-indeterminate avulsion injury in the region of the femoral notch. 3. Multifocal fibula fractures, as above. 4. Acute comminuted angulated displaced distal tibia metadiaphysealfracture. 5. Nondisplaced posterior malleolus intra-articular tibial fracture. 6. 3D CT reconstructions support the above findings. 7. No acute chest or pelvis radiographic finding. Juan C Leon MD RAD CT * XR ANKLE 3 OR MORE VIEWS (08/17/2023 2:24 AM EDT) Anatomical Region Laterality Modality Ankle, Lower Extremity Digital R adiography 08/17/2023 5:50 AM EDT Impressions 08/17/2023 5:48 AM EDT IMPRESSION 1. Age-indeterminate knee posterior medial tibial plateau irregularity, concerning for possible acute avulsion fracture. Consider further assessment with knee MRI. 2. Age-indeterminate avulsion injury in the region of the femoral notch. 3. Multifocal fibula fractures, as above. 4. Acute comminuted angulated displaced distal tibia metadiaphyseal fracture. 5. Nondisplaced posterior malleolus intra-articular tibial fracture. 6. 3D CT reconstructions support the above findings. 7. No acute chest or pelvis radiographic finding. Narrative 08/17/2023 5:[address] SCAN OF THE RT LWREXT; 3DRECON; PELVIS; ANKLE; CHEST; 3D CT RECONSTRUCTIONS OF THE RT LWREXT; 3DRECON; PELVIS; ANKLE; CHEST - 08/17/2023 HISTORY distal 1/3 tib/fib fracture; s/p splint; trauma COMPARISON Preceding imaging. TECHNIQUE Computed tomography of the RT lower extremity was performed without intravenous contrast. Coronal and sagittal reformatted images were provided. 3D reconstructions of the RT lower extremity were created on a separate workstation. Maximal intensity projections and surface rendered images were provided. Right tibia and fibula and right ankle radiography was performed. Chest and pelvis radiography was also performed. FINDINGS CT SCAN OF THE RT lower extremity WITHOUT CONTRAST: Bones: Age-indeterminate knee posterior medial tibial plateau irregularity, concerning for possible acute avulsion fracture. Chronic appearing lateral tibial spine irregularity. Age-indeterminate avulsion injury in the region of the femoral notch. Age-indeterminate, likely acute proximal medial fibula avulsion fracture. Age-indeterminate, likely acute distal fibula avulsion fracture. Acute comminuted displaced angulated distal fibula shaft fracture. Partially imaged anterior talus prominent trabecula and lucencies, incompletely evaluated. Could further assess with dedicated foot radiography, if clinically indicated, of doubtful clinical significance. Acute comminuted angulated displaced distal tibia metadiaphyseal fracture. Nondisplaced posterior malleolus intra-articular tibial fracture. Mild tricompartmental osteoarthritis. Proximal tibia bone islands. Calcaneus bone island. Soft Tissues: Soft tissue swelling and contusion. Ankle effusion. Vasculature: Limited non-contrast assessment. Other: Splinting material in place. 3D CT RECONSTRUCTIONS OF THE RT lower extremity: These additional images aid in demonstrating and confirming the findings discussed in the above report. Right ankle radiography: Concordant with the above. Right tibia and fibula radiography: Concordant with the above. Chest radiography: Left basilar atelectasis. Stable cardiomediastinal silhouette and bones. Pelvis radiography: No fracture, dislocation, or diastasis. Mild bilateral degenerative changes. Procedure Note Dino Benoit MD - 08/17/[address] SCAN OF THE RT LWREXT; 3DRECON; PELVIS; ANKLE; CHEST; 3D CTRECONSTRUCTIONS OF THE RT LWREXT; 3DRECON; PELVIS; ANKLE; CHEST -08/17/2023 HISTORY distal 1/3 tib/fib fracture; s/p splint; trauma COMPARISON Preceding imaging. TECHNIQUE Computed tomography of the RT lower extremity was performed withoutintravenous contrast. Coronal and sagittal reformatted images wereprovided. 3D reconstructions of the RT lower extremity were created on a separateworkstation. Maximal intensity projections and surface rendered imageswere provided. Right tibia and fibula and right ankle radiography was performed. Chest and pelvis radiography was also performed. FINDINGS CT SCAN OF THE RT lower extremity WITHOUT CONTRAST: Bones: Age-indeterminate knee posterior medial tibial plateau irregularity,concerning for possible acute avulsion fracture. Chronic appearinglateral tibial spine irregularity. Age-indeterminate avulsion injury in the region of the femoral notch. Age-indeterminate, likely acute proximal medial fibula avulsionfracture. Age-indeterminate, likely acute distal fibula avulsion fracture. Acute comminuted displaced angulated distal fibula shaft fracture. Partially imaged anterior talus prominent trabecula and lucencies,incompletely evaluated. Could further assess with dedicated footradiography, if clinically indicated, of doubtful clinical significance. Acute comminuted angulated displaced distal tibia metadiaphyseal fracture.Nondisplaced posterior malleolus intra-articular tibial fracture. Mild tricompartmental osteoarthritis. Proximal tibia bone islands. Calcaneus bone island. Soft Tissues: Soft tissue swelling and contusion. Ankle effusion. Vasculature: Limited non-contrast assessment. Other: Splinting material in place. 3D CT RECONSTRUCTIONS OF THE RT lower extremity: These additional images aid in demonstrating and confirming the findingsdiscussed in the above report. Right ankle radiography: Concordant with the above. Right tibia and fibula radiography: Concordant with the above. Chest radiography: Left basilar atelectasis. Stable cardiomediastinalsilhouette and bones. Pelvis radiography: No fracture, dislocation, or diastasis. Mildbilateral degenerative changes. IMPRESSION IMPRESSION 1. Age-indeterminate knee posterior medial tibial plateau irregularity,concerning for possible acute avulsion fracture. Consider furtherassessment with knee MRI. 2. Age-indeterminate avulsion injury in the region of the femoral notch. 3. Multifocal fibula fractures, as above. 4. Acute comminuted angulated displaced distal tibia metadiaphysealfracture. 5. Nondisplaced posterior malleolus intra-articular tibial fracture. 6. 3D CT reconstructions support the above findings. 7. No acute chest or pelvis radiographic finding. Juan C Leon MD RADIOLOGY ( [facility]) * XR TIB/FIB 2 VIEWS (08/17/2023 2:24 AM EDT) Anatomical Region Laterality Modality Lower Extremity, TibFib Digital Radiography 08/17/2023 5:50 AM EDT Impressions 08/17/2023 5:48 AM EDT IMPRESSION 1. Age-indeterminate knee posterior medial tibial plateau irregularity, concerning for possible acute avulsion fracture. Consider further assessment with knee MRI. 2. Age-indeterminate avulsion injury in the region of the femoral notch. 3. Multifocal fibula fractures, as above. 4. Acute comminuted angulated displaced distal tibia metadiaphyseal fracture. 5. Nondisplaced posterior malleolus intra-articular tibial fracture. 6. 3D CT reconstructions support the above findings. 7. No acute chest or pelvis radiographic finding. Narrative 08/17/2023 5:[address] SCAN OF THE RT LWREXT; 3DRECON; PELVIS; ANKLE; CHEST; 3D CT RECONSTRUCTIONS OF THE RT LWREXT; 3DRECON; PELVIS; ANKLE; CHEST - 08/17/2023 HISTORY distal 1/3 tib/fib fracture; s/p splint; trauma COMPARISON Preceding imaging. TECHNIQUE Computed tomography of the RT lower extremity was performed without intravenous contrast. Coronal and sagittal reformatted images were provided. 3D reconstructions of the RT lower extremity were created on a separate workstation. Maximal intensity projections and surface rendered images were provided. Right tibia and fibula and right ankle radiography was performed. Chest and pelvis radiography was also performed. FINDINGS CT SCAN OF THE RT lower extremity WITHOUT CONTRAST: Bones: Age-indeterminate knee posterior medial tibial plateau irregularity, concerning for possible acute avulsion fracture. Chronic appearing lateral tibial spine irregularity. Age-indeterminate avulsion injury in the region of the femoral notch. Age-indeterminate, likely acute proximal medial fibula avulsion fracture. Age-indeterminate, likely acute distal fibula avulsion fracture. Acute comminuted displaced angulated distal fibula shaft fracture. Partially imaged anterior talus prominent trabecula and lucencies, incompletely evaluated. Could further assess with dedicated foot radiography, if clinically indicated, of doubtful clinical significance. Acute comminuted angulated displaced distal tibia metadiaphyseal fracture. Nondisplaced posterior malleolus intra-articular tibial fracture. Mild tricompartmental osteoarthritis. Proximal tibia bone islands. Calcaneus bone island. Soft Tissues: Soft tissue swelling and contusion. Ankle effusion. Vasculature: Limited non-contrast assessment. Other: Splinting material in place. 3D CT RECONSTRUCTIONS OF THE RT lower extremity: These additional images aid in demonstrating and confirming the findings discussed in the above report. Right ankle radiography: Concordant with the above. Right tibia and fibula radiography: Concordant with the above. Chest radiography: Left basilar atelectasis. Stable cardiomediastinal silhouette and bones. Pelvis radiography: No fracture, dislocation, or diastasis. Mild bilateral degenerative changes. Procedure Note Dino Benoit MD - 08/17/[address] SCAN OF THE RT LWREXT; 3DRECON; PELVIS; ANKLE; CHEST; 3D CTRECONSTRUCTIONS OF THE RT LWREXT; 3DRECON; PELVIS; ANKLE; CHEST -08/17/2023 HISTORY distal 1/3 tib/fib fracture; s/p splint; trauma COMPARISON Preceding imaging. TECHNIQUE Computed tomography of the RT lower extremity was performed withoutintravenous contrast. Coronal and sagittal reformatted images wereprovided. 3D reconstructions of the RT lower extremity were created on a separateworkstation. Maximal intensity projections and surface rendered imageswere provided. Right tibia and fibula and right ankle radiography was performed. Chest and pelvis radiography was also performed. FINDINGS CT SCAN OF THE RT lower extremity WITHOUT CONTRAST: Bones: Age-indeterminate knee posterior medial tibial plateau irregularity,concerning for possible acute avulsion fracture. Chronic appearinglateral tibial spine irregularity. Age-indeterminate avulsion injury in the region of the femoral notch. Age-indeterminate, likely acute proximal medial fibula avulsionfracture. Age-indeterminate, likely acute distal fibula avulsion fracture. Acute comminuted displaced angulated distal fibula shaft fracture. Partially imaged anterior talus prominent trabecula and lucencies,incompletely evaluated. Could further assess with dedicated footradiography, if clinically indicated, of doubtful clinical significance. Acute comminuted angulated displaced distal tibia metadiaphyseal fracture.Nondisplaced posterior malleolus intra-articular tibial fracture. Mild tricompartmental osteoarthritis. Proximal tibia bone islands. Calcaneus bone island. Soft Tissues: Soft tissue swelling and contusion. Ankle effusion. Vasculature: Limited non-contrast assessment. Other: Splinting material in place. 3D CT RECONSTRUCTIONS OF THE RT lower extremity: These additional images aid in demonstrating and confirming the findingsdiscussed in the above report. Right ankle radiography: Concordant with the above. Right tibia and fibula radiography: Concordant with the above. Chest radiography: Left basilar atelectasis. Stable cardiomediastinalsilhouette and bones. Pelvis radiography: No fracture, dislocation, or diastasis. Mildbilateral degenerative changes. IMPRESSION IMPRESSION 1. Age-indeterminate knee posterior medial tibial plateau irregularity,concerning for possible acute avulsion fracture. Consider furtherassessment with knee MRI. 2. Age-indeterminate avulsion injury in the region of the femoral notch. 3. Multifocal fibula fractures, as above. 4. Acute comminuted angulated displaced distal tibia metadiaphysealfracture. 5. Nondisplaced posterior malleolus intra-articular tibial fracture. 6. 3D CT reconstructions support the above findings. 7. No acute chest or pelvis radiographic finding. Juan C Leon MD RADIOLOGY ( [facility]) * XR PELVIS 1 VIEW (08/17/2023 2:24 AM EDT) Anatomical Region Laterality Modality Pelvis, Lower Extremity Digital Radiography 08/17/2023 5:50 AM EDT Impressions 08/17/2023 5:48 AM EDT IMPRESSION 1. Age-indeterminate knee posterior medial tibial plateau irregularity, concerning for possible acute avulsion fracture. Consider further assessment with knee MRI. 2. Age-indeterminate avulsion injury in the region of the femoral notch. 3. Multifocal fibula fractures, as above. 4. Acute comminuted angulated displaced distal tibia metadiaphyseal fracture. 5. Nondisplaced posterior malleolus intra-articular tibial fracture. 6. 3D CT reconstructions support the above findings. 7. No acute chest or pelvis radiographic finding. Narrative 08/17/2023 5:[address] SCAN OF THE RT LWREXT; 3DRECON; PELVIS; ANKLE; CHEST; 3D CT RECONSTRUCTIONS OF THE RT LWREXT; 3DRECON; PELVIS; ANKLE; CHEST - 08/17/2023 HISTORY distal 1/3 tib/fib fracture; s/p splint; trauma COMPARISON Preceding imaging. TECHNIQUE Computed tomography of the RT lower extremity was performed without intravenous contrast. Coronal and sagittal reformatted images were provided. 3D reconstructions of the RT lower extremity were created on a separate workstation. Maximal intensity projections and surface rendered images were provided. Right tibia and fibula and right ankle radiography was performed. Chest and pelvis radiography was also performed. FINDINGS CT SCAN OF THE RT lower extremity WITHOUT CONTRAST: Bones: Age-indeterminate knee posterior medial tibial plateau irregularity, concerning for possible acute avulsion fracture. Chronic appearing lateral tibial spine irregularity. Age-indeterminate avulsion injury in the region of the femoral notch. Age-indeterminate, likely acute proximal medial fibula avulsion fracture. Age-indeterminate, likely acute distal fibula avulsion fracture. Acute comminuted displaced angulated distal fibula shaft fracture. Partially imaged anterior talus prominent trabecula and lucencies, incompletely evaluated. Could further assess with dedicated foot radiography, if clinically indicated, of doubtful clinical significance. Acute comminuted angulated displaced distal tibia metadiaphyseal fracture. Nondisplaced posterior malleolus intra-articular tibial fracture. Mild tricompartmental osteoarthritis. Proximal tibia bone islands. Calcaneus bone island. Soft Tissues: Soft tissue swelling and contusion. Ankle effusion. Vasculature: Limited non-contrast assessment. Other: Splinting material in place. 3D CT RECONSTRUCTIONS OF THE RT lower extremity: These additional images aid in demonstrating and confirming the findings discussed in the above report. Right ankle radiography: Concordant with the above. Right tibia and fibula radiography: Concordant with the above. Chest radiography: Left basilar atelectasis. Stable cardiomediastinal silhouette and bones. Pelvis radiography: No fracture, dislocation, or diastasis. Mild bilateral degenerative changes. Procedure Note Dino Benoit MD - 08/17/[address] SCAN OF THE RT LWREXT; 3DRECON; PELVIS; ANKLE; CHEST; 3D CTRECONSTRUCTIONS OF THE RT LWREXT; 3DRECON; PELVIS; ANKLE; CHEST -08/17/2023 HISTORY distal 1/3 tib/fib fracture; s/p splint; trauma COMPARISON Preceding imaging. TECHNIQUE Computed tomography of the RT lower extremity was performed withoutintravenous contrast. Coronal and sagittal reformatted images wereprovided. 3D reconstructions of the RT lower extremity were created on a separateworkstation. Maximal intensity projections and surface rendered imageswere provided. Right tibia and fibula and right ankle radiography was performed. Chest and pelvis radiography was also performed. FINDINGS CT SCAN OF THE RT lower extremity WITHOUT CONTRAST: Bones: Age-indeterminate knee posterior medial tibial plateau irregularity,concerning for possible acute avulsion fracture. Chronic appearinglateral tibial spine irregularity. Age-indeterminate avulsion injury in the region of the femoral notch. Age-indeterminate, likely acute proximal medial fibula avulsionfracture. Age-indeterminate, likely acute distal fibula avulsion fracture. Acute comminuted displaced angulated distal fibula shaft fracture. Partially imaged anterior talus prominent trabecula and lucencies,incompletely evaluated. Could further assess with dedicated footradiography, if clinically indicated, of doubtful clinical significance. Acute comminuted angulated displaced distal tibia metadiaphyseal fracture.Nondisplaced posterior malleolus intra-articular tibial fracture. Mild tricompartmental osteoarthritis. Proximal tibia bone islands. Calcaneus bone island. Soft Tissues: Soft tissue swelling and contusion. Ankle effusion. Vasculature: Limited non-contrast assessment. Other: Splinting material in place. 3D CT RECONSTRUCTIONS OF THE RT lower extremity: These additional images aid in demonstrating and confirming the findingsdiscussed in the above report. Right ankle radiography: Concordant with the above. Right tibia and fibula radiography: Concordant with the above. Chest radiography: Left basilar atelectasis. Stable cardiomediastinalsilhouette and bones. Pelvis radiography: No fracture, dislocation, or diastasis. Mildbilateral degenerative changes. IMPRESSION IMPRESSION 1. Age-indeterminate knee posterior medial tibial plateau irregularity,concerning for possible acute avulsion fracture. Consider furtherassessment with knee MRI. 2. Age-indeterminate avulsion injury in the region of the femoral notch. 3. Multifocal fibula fractures, as above. 4. Acute comminuted angulated displaced distal tibia metadiaphysealfracture. 5. Nondisplaced posterior malleolus intra-articular tibial fracture. 6. 3D CT reconstructions support the above findings. 7. No acute chest or pelvis radiographic finding. Alvin FRANCIS-C RADIOLOGY (R AD GENERAL) * XR CHEST 1 VIEW (08/17/2023 2:24 AM EDT) Anatomical Region Laterality Modality Chest Digital Radiogra phy 08/17/2023 5:50 AM EDT Impressions 08/17/2023 5:48 AM EDT IMPRESSION 1. Age-indeterminate knee posterior medial tibial plateau irregularity, concerning for possible acute avulsion fracture. Consider further assessment with knee MRI. 2. Age-indeterminate avulsion injury in the region of the femoral notch. 3. Multifocal fibula fractures, as above. 4. Acute comminuted angulated displaced distal tibia metadiaphyseal fracture. 5. Nondisplaced posterior malleolus intra-articular tibial fracture. 6. 3D CT reconstructions support the above findings. 7. No acute chest or pelvis radiographic finding. Narrative 08/17/2023 5:[address] SCAN OF THE RT LWREXT; 3DRECON; PELVIS; ANKLE; CHEST; 3D CT RECONSTRUCTIONS OF THE RT LWREXT; 3DRECON; PELVIS; ANKLE; CHEST - 08/17/2023 HISTORY distal 1/3 tib/fib fracture; s/p splint; trauma COMPARISON Preceding imaging. TECHNIQUE Computed tomography of the RT lower extremity was performed without intravenous contrast. Coronal and sagittal reformatted images were provided. 3D reconstructions of the RT lower extremity were created on a separate workstation. Maximal intensity projections and surface rendered images were provided. Right tibia and fibula and right ankle radiography was performed. Chest and pelvis radiography was also performed. FINDINGS CT SCAN OF THE RT lower extremity WITHOUT CONTRAST: Bones: Age-indeterminate knee posterior medial tibial plateau irregularity, concerning for possible acute avulsion fracture. Chronic appearing lateral tibial spine irregularity. Age-indeterminate avulsion injury in the region of the femoral notch. Age-indeterminate, likely acute proximal medial fibula avulsion fracture. Age-indeterminate, likely acute distal fibula avulsion fracture. Acute comminuted displaced angulated distal fibula shaft fracture. Partially imaged anterior talus prominent trabecula and lucencies, incompletely evaluated. Could further assess with dedicated foot radiography, if clinically indicated, of doubtful clinical significance. Acute comminuted angulated displaced distal tibia metadiaphyseal fracture. Nondisplaced posterior malleolus intra-articular tibial fracture. Mild tricompartmental osteoarthritis. Proximal tibia bone islands. Calcaneus bone island. Soft Tissues: Soft tissue swelling and contusion. Ankle effusion. Vasculature: Limited non-contrast assessment. Other: Splinting material in place. 3D CT RECONSTRUCTIONS OF THE RT lower extremity: These additional images aid in demonstrating and confirming the findings discussed in the above report. Right ankle radiography: Concordant with the above. Right tibia and fibula radiography: Concordant with the above. Chest radiography: Left basilar atelectasis. Stable cardiomediastinal silhouette and bones. Pelvis radiography: No fracture, dislocation, or diastasis. Mild bilateral degenerative changes. Procedure Note Dino Benoit MD - 08/17/[address] SCAN OF THE RT LWREXT; 3DRECON; PELVIS; ANKLE; CHEST; 3D CTRECONSTRUCTIONS OF THE RT LWREXT; 3DRECON; PELVIS; ANKLE; CHEST -08/17/2023 HISTORY distal 1/3 tib/fib fracture; s/p splint; trauma COMPARISON Preceding imaging. TECHNIQUE Computed tomography of the RT lower extremity was performed withoutintravenous contrast. Coronal and sagittal reformatted images wereprovided. 3D reconstructions of the RT lower extremity were created on a separateworkstation. Maximal intensity projections and surface rendered imageswere provided. Right tibia and fibula and right ankle radiography was performed. Chest and pelvis radiography was also performed. FINDINGS CT SCAN OF THE RT lower extremity WITHOUT CONTRAST: Bones: Age-indeterminate knee posterior medial tibial plateau irregularity,concerning for possible acute avulsion fracture. Chronic appearinglateral tibial spine irregularity. Age-indeterminate avulsion injury in the region of the femoral notch. Age-indeterminate, likely acute proximal medial fibula avulsionfracture. Age-indeterminate, likely acute distal fibula avulsion fracture. Acute comminuted displaced angulated distal fibula shaft fracture. Partially imaged anterior talus prominent trabecula and lucencies,incompletely evaluated. Could further assess with dedicated footradiography, if clinically indicated, of doubtful clinical significance. Acute comminuted angulated displaced distal tibia metadiaphyseal fracture.Nondisplaced posterior malleolus intra-articular tibial fracture. Mild tricompartmental osteoarthritis. Proximal tibia bone islands. Calcaneus bone island. Soft Tissues: Soft tissue swelling and contusion. Ankle effusion. Vasculature: Limited non-contrast assessment. Other: Splinting material in place. 3D CT RECONSTRUCTIONS OF THE RT lower extremity: These additional images aid in demonstrating and confirming the findingsdiscussed in the above report. Right ankle radiography: Concordant with the above. Right tibia and fibula radiography: Concordant with the above. Chest radiography: Left basilar atelectasis. Stable cardiomediastinalsilhouette and bones. Pelvis radiography: No fracture, dislocation, or diastasis. Mildbilateral degenerative changes. IMPRESSION IMPRESSION 1. Age-indeterminate knee posterior medial tibial plateau irregularity,concerning for possible acute avulsion fracture. Consider furtherassessment with knee MRI. 2. Age-indeterminate avulsion injury in the region of the femoral notch. 3. Multifocal fibula fractures, as above. 4. Acute comminuted angulated displaced distal tibia metadiaphysealfracture. 5. Nondisplaced posterior malleolus intra-articular tibial fracture. 6. 3D CT reconstructions support the above findings. 7. No acute chest or pelvis radiographic finding. Alvin Wheatley PA-C RADIOLOGY (R AD GENERAL) * SARS-COV-2 (COVID-19), NAAT (08/17/2023 1:25 AM EDT) Pathologist [facility] SARS-CoV-2 (COVID-19) Result Negative Negative 08/17/2023 3:03 AM EDT [facility] Comment: 2019 Novel Coronavirus not detected. This express test was developed and its performance characteristics determined by [facility]. It has not been cleared or approved by the U.S. Food and Drug Administration (FDA). FDA does not require this test to go thru premarket FDA review. This test is used for clinical purposes. It should not be regarded as investigational or for research. This laboratory is certified under the Clinical Laboratory Improvement Amendments (CLIA) as qualified to perform high complexity clinical laboratory testing. This test is a nucleic acid amplification test (NAAT), a reverse transcriptase polymerase chain reaction (RT-PCR) test, or a Centers for Disease Control- acceptable equivalent. The test is performed in a high complexity Clinical Laboratory Improvement Amendments-(CLIA) certified laboratory. The test is acceptable for SARS-CoV-2 diagnosis, surveillance, and travel within the [place] and to most countries. Please check with local testing authorities about requirements before travel. The validation of bronchial specimens, tracheal aspirates, and sputum for this assay was developed and performance characteristics determined by [facility]. The validation of alternate specimen types has not been cleared or approved by the U.S. Food and Drug Administration (FDA). It has been determined that such clearance is not necessary. Upper Respiratory Mid-turbinate nasal swab / Unknown Non-blood Collection / Unknown 08/17/2023 1:25 AM EDT 08/17/2023 1:50 AM EDT Alvin FRANCIS-C LAB MICRO - GENERAL ORDERABLES [facility] [address] [place] [address] * APTT (08/17/2023 12:16 AM EDT) aPTT 30 21 - 38 seconds 08/17/2023 12:49 AM EDT [facility] Blood Venous blood specimen / Unknown Venipuncture / Unknown 08/17/2023 12:16 AM EDT 08/17/2023 12:25 AM EDT Narrative [facility] - 08/17/2023 12:49 AM EDT Anticoagulation may affect testing. Refer to [facility] Test Catalog for a list of effects. Alvin Zabala SnapYetidominic FRANCIS-C LAB BLOOD OR DERABLES [facility] [address] [place] [address] * PT INR (08/17/2023 12:16 AM EDT) [facility] Prothrombin Time 13.4 11.6 - 15.2 seconds 08/17/2023 12:48 AM EDT [facility] INR 1.0 0.8 - 1.2 08/17/2023 12:48 AM EDT [facility] Blood Venous blood specimen / Unknown Venipuncture / Unknown 08/17/2023 12:16 AM EDT 08/17/2023 12:25 AM EDT Narrative [facility] - 08/17/2023 12:48 AM EDT Warfarin Therapy INR: 2.0-3.0 conventional anticoagulation INR: 2.5-3.5 high intensity anticoagulation Alvin Wheatley PA-C LAB BLOOD OR DERABLES Performing Organization Address City/[facility] Co de Phone Number [facility] [address] [place] [address] * ABO/RH (08/17/2023 12:15 AM EDT) Pathologist [facility] ABO O 08/17/2023 1:48 AM EDT [facility] Rh Positive 08/17/2023 1:48 AM EDT [facility] Blood Venous blood specimen / Unknown Venipuncture / Unknown 08/17/2023 12:15 AM EDT 08/17/2023 12:25 AM EDT Alvin Wheatley PA-C LAB BLOOD BA NK TEST ORDERABLES Performing Organization Address City/[facility] Co de Phone Number [facility] [address] [place] [address] * TYPE AND SCREEN (08/17/2023 12:15 AM EDT) Pathologist [facility] ABO O 08/17/2023 1:48 AM EDT [facility] Rh Positive 08/17/2023 1:48 AM EDT [facility] Red Blood Cell Antibody Screen Negative 08/17/2023 1:48 AM EDT [facility] Specimen Expiration Date 08/20/2023 23:59 08/17/2023 1:48 AM EDT [facility] Blood Venous blood specimen / Unknown Venipuncture / Unknown 08/17/2023 12:15 AM EDT 08/17/2023 12:25 AM EDT Alvin Wheatley PA-C LAB BLOOD BA NK TEST ORDERABLES Performing Organization Address City/[facility]/ZIP Co de Phone Number [facility] [address] [place] [address] * ETHANOL, MEDICAL (08/17/2023 12:15 AM EDT) ETHANOL, MEDICAL Negative Negative 08/17/2023 12:50 AM EDT [facility] Blood Venous blood specimen / Unknown Venipuncture / Unknown 08/17/2023 12:15 AM EDT 08/17/2023 12:25 AM EDT Alvin Wheatley PA-C LAB BLOOD OR DERABLES Performing Organization Address [facility] Co de Phone Number [facility] [address] [place] [address] * LACTATE (08/17/2023 12:15 AM EDT) Lactate 1.8 0.4 - 2.0 mmol/L 08/17/2023 12:51 AM EDT [facility] Blood Venous blood specimen / Unknown Venipuncture / Unknown 08/17/2023 12:15 AM EDT 08/17/2023 12:25 AM EDT Alvin Wheatley PA-C LAB BLOOD OR DERABLES Performing Organization Address [place]/[facility] Co de Phone Number [facility] [address] [place] [address] * MAGNESIUM (08/17/2023 12:15 AM EDT) Magnesium 2.1 1.5 - 2.6 mg/dL 08/17/2023 12:50 AM EDT [facility] Blood Venous blood specimen / Unknown Venipuncture / Unknown 08/17/2023 12:15 AM EDT 08/17/2023 12:25 AM EDT Alvin Villatorodominic FRANCIS-C LAB BLOOD OR DERABLES Performing Organization Address [facility] Co de Phone Number LABORATORY [address] [address] * PHOSPHORUS (08/17/2023 12:15 AM EDT) Phosphorus 2.8 2.5 - 4.8 mg/dL 08/17/2023 12:50 AM EDT [facility] Blood Venous blood specimen / Unknown Venipuncture / Unknown 08/17/2023 12:15 AM EDT 08/17/2023 12:25 AM EDT Alvin Villatorodominic FRANCIS-C LAB BLOOD OR DERABLES Performing Organization Address [facility] de Phone Number LABORATORY [address] [address] * (ABNORMAL) BASIC METABOLIC PANEL (08/17/2023 12:15 AM EDT) BUN 22(H) 6 - 20 mg/dL 08/17/2023 12:50 AM EDT [facility] Creatinine 1.1 0.6 - 1.2 mg/dL 08/17/2023 12:50 AM EDT [facility] Comment:The above reference range is based on the legal sex of the patient only. Results should be interpreted together with patient's sex at , gender identity, and clinical context. Estimated Glomerular Filtration Rate 77 >=60 mL/min 08/17/2023 12:50 AM EDT [facility] Comment:eGFR is calculated b ased on the legal sex of the patient, using the CKD- EPI 2020 equation Sodium 139 135 - 146 mmol/L 08/17/2023 12:50 AM EDT [facility] Potassium 4.7 3.5 - 5.1 mmol/L 08/17/2023 12:50 AM EDT [facility] Chloride 108(H) 98 - 107 mmol/L 08/17/2023 12:50 AM EDT [facility] CO2 21(L) 22 - 32 mmol/L 08/17/2023 12:50 AM EDT [facility] Anion Gap 10 7 - 15 mmol/L 08/17/2023 12:50 AM EDT [facility] Glucose 137(H) 70 - 120 mg/dL 08/17/2023 12:50 AM EDT [facility] Calcium 9.0 8.4 - 10.2 mg/dL 08/17/2023 12:50 AM EDT [facility] Blood Venous blood specimen / Unknown Venipuncture / Unknown 08/17/2023 12:15 AM EDT 08/17/2023 12:25 AM EDT Alvin Wheatley PA-C LAB BLOOD OR DERABLES Performing Organization Address City/State/[facility] Co de Phone Number [facility] [address] [place] [address] * (ABNORMAL) CBC (08/17/2023 12:15 AM EDT) WBC 12.30(H) 4.00 - 10.80 K/uL 08/17/2023 12:38 AM EDT [facility] RBC 5.01 4.50 - 5.25 M/uL 08/17/2023 12:38 AM EDT [facility] HGB 16.1 14.0 - 16.8 g/dL 08/17/2023 12:38 AM EDT [facility] HCT 47.9 40.0 - 48.4 % 08/17/2023 12:38 AM EDT [facility] MCV 95.6 82.0 - 99.5 fL 08/17/2023 12:38 AM EDT [facility] MCH 32.1 27.0 - 34.0 pg 08/17/2023 12:38 AM EDT [facility] MCHC 33.6 32.0 - 36.0 g/dL 08/17/2023 12:38 AM EDT [facility] RDW 12.4 11.5 - 15.5 % 08/17/2023 12:38 AM EDT [facility] PLT 246 140 - 400 K/uL 08/17/2023 12:38 AM EDT [facility] MPV 9.5 6.6 - 11.1 fL 08/17/2023 12:38 AM EDT [facility] nRBCs 0 <=0 /100 WBCs 08/17/2023 12:38 AM EDT [facility] Blood Venous blood specimen / Unknown Venipuncture / Unknown 08/17/2023 12:15 AM EDT 08/17/2023 12:25 AM EDT Alvin Wheatley PA-C LAB BLOOD OR DERABLES [facility] [address] [place] [address] * XR ANKLE 3 OR MORE VIEWS (08/16/2023 11:14 PM EDT) Anatomical Region Laterality Modality Ankle, Lower Extremity Digital R adiography 08/16/2023 11:3 5 PM EDT Impressions 08/17/2023 3:19 AM EDT IMPRESSION Acute displaced oblique fractures of the right distal tibia and fibula diaphysis. I have personally reviewed this examination and agree with the resident/fellow physician's interpretation. Narrative 08/17/2023 3:19 AM EDT EXAM RIGHT XR KNEE 4 OR MORE VIEWS; XR TIB/FIB 2 VIEWS; XR ANKLE 3 OR MORE VIEWS - 08/16/2023 11:14 pm HISTORY injury TECHNIQUE Five views of the right knee were submitted. Two views of the right tib/fib were submitted. Three views of the right ankle were submitted. COMPARISON Right tib/fib and right ankle x-rays 08/16/2023. FINDINGS Right knee: No acute displaced fracture or dislocation. Normal alignment and mineralization. Joint spaces are preserved without significant narrowing or osteophyte formation. No joint effusion is appreciated. No focal soft tissue swelling is seen. Right tib/fib: Redemonstrated, acute displaced oblique fractures of the distal tibia and fibula diaphysis with associated tissue swelling. Right ankle: No additional acute fracture or dislocation. Joint spaces are preserved without significant narrowing or osteophyte formation. Soft tissue swelling is seen. Procedure Note Sawyer Pruett MD - 08/17/2023 EXAM RIGHT XR KNEE 4 OR MORE VIEWS; XR TIB/FIB 2 VIEWS; XR ANKLE 3 OR MOREVIEWS - 08/16/2023 11:14 pm HISTORY injury TECHNIQUE Five views of the right knee were submitted. Two views of the right tib/fib were submitted. Three views of the right ankle were submitted. COMPARISON Right tib/fib and right ankle x-rays 08/16/2023. FINDINGS Right knee: No acute displaced fracture or dislocation. Normal alignment andmineralization. Joint spaces are preserved without significant narrowing or osteophyteformation. No joint effusion is appreciated. No focal soft tissue swelling is seen. Right tib/fib: Redemonstrated, acute displaced oblique fractures of the distal tibia andfibula diaphysis with associated tissue swelling. Right ankle: No additional acute fracture or dislocation. Joint spaces are preserved without significant narrowing or osteophyteformation. Soft tissue swelling is seen. IMPRESSION IMPRESSION Acute displaced oblique fractures of the right distal tibia and fibuladiaphysis. I have personally reviewed this examination and agree with the resident/fellow physician's interpretation. Jb Roach DO RADIOLOGY (RAD GENER AL) * XR TIB/FIB 2 VIEWS (08/16/2023 11:14 PM EDT) Anatomical Region Laterality Modality Lower Extremity, TibFib Digital Radiography 08/16/2023 11:3 5 PM EDT Impressions 08/17/2023 3:19 AM EDT IMPRESSION Acute displaced oblique fractures of the right distal tibia and fibula diaphysis. I have personally reviewed this examination and agree with the resident/fellow physician's interpretation. Narrative 08/17/2023 3:19 AM EDT EXAM RIGHT XR KNEE 4 OR MORE VIEWS; XR TIB/FIB 2 VIEWS; XR ANKLE 3 OR MORE VIEWS - 08/16/2023 11:14 pm HISTORY injury TECHNIQUE Five views of the right knee were submitted. Two views of the right tib/fib were submitted. Three views of the right ankle were submitted. COMPARISON Right tib/fib and right ankle x-rays 08/16/2023. FINDINGS Right knee: No acute displaced fracture or dislocation. Normal alignment and mineralization. Joint spaces are preserved without significant narrowing or osteophyte formation. No joint effusion is appreciated. No focal soft tissue swelling is seen. Right tib/fib: Redemonstrated, acute displaced oblique fractures of the distal tibia and fibula diaphysis with associated tissue swelling. Right ankle: No additional acute fracture or dislocation. Joint spaces are preserved without significant narrowing or osteophyte formation. Soft tissue swelling is seen. Procedure Note Sawyer Pruett MD - 08/17/2023 EXAM RIGHT XR KNEE 4 OR MORE VIEWS; XR TIB/FIB 2 VIEWS; XR ANKLE 3 OR MOREVIEWS - 08/16/2023 11:14 pm HISTORY injury TECHNIQUE Five views of the right knee were submitted. Two views of the right tib/fib were submitted. Three views of the right ankle were submitted. COMPARISON Right tib/fib and right ankle x-rays 08/16/2023. FINDINGS Right knee: No acute displaced fracture or dislocation. Normal alignment andmineralization. Joint spaces are preserved without significant narrowing or osteophyteformation. No joint effusion is appreciated. No focal soft tissue swelling is seen. Right tib/fib: Redemonstrated, acute displaced oblique fractures of the distal tibia andfibula diaphysis with associated tissue swelling. Right ankle: No additional acute fracture or dislocation. Joint spaces are preserved without significant narrowing or osteophyteformation. Soft tissue swelling is seen. IMPRESSION IMPRESSION Acute displaced oblique fractures of the right distal tibia and fibuladiaphysis. I have personally reviewed this examination and agree with the resident/fellow physician's interpretation. Jb Roach RADIOLOGY (RAD GENER AL) * XR KNEE 4 OR MORE VIEWS (08/16/2023 11:14 PM EDT) Anatomical Region Laterality Modality Knee, Lower Extremity Digital Ra diography 08/16/2023 11:3 5 PM EDT Impressions 08/17/2023 3:19 AM EDT IMPRESSION Acute displaced oblique fractures of the right distal tibia and fibula diaphysis. I have personally reviewed this examination and agree with the resident/fellow physician's interpretation. Narrative 08/17/2023 3:19 AM EDT EXAM RIGHT XR KNEE 4 OR MORE VIEWS; XR TIB/FIB 2 VIEWS; XR ANKLE 3 OR MORE VIEWS - 08/16/2023 11:14 pm HISTORY injury TECHNIQUE Five views of the right knee were submitted. Two views of the right tib/fib were submitted. Three views of the right ankle were submitted. COMPARISON Right tib/fib and right ankle x-rays 08/16/2023. FINDINGS Right knee: No acute displaced fracture or dislocation. Normal alignment and mineralization. Joint spaces are preserved without significant narrowing or osteophyte formation. No joint effusion is appreciated. No focal soft tissue swelling is seen. Right tib/fib: Redemonstrated, acute displaced oblique fractures of the distal tibia and fibula diaphysis with associated tissue swelling. Right ankle: No additional acute fracture or dislocation. Joint spaces are preserved without significant narrowing or osteophyte formation. Soft tissue swelling is seen. Procedure Note Sawyer Pruett MD - 08/17/2023 EXAM RIGHT XR KNEE 4 OR MORE VIEWS; XR TIB/FIB 2 VIEWS; XR ANKLE 3 OR MOREVIEWS - 08/16/2023 11:14 pm HISTORY injury TECHNIQUE Five views of the right knee were submitted. Two views of the right tib/fib were submitted. Three views of the right ankle were submitted. COMPARISON Right tib/fib and right ankle x-rays 08/16/2023. FINDINGS Right knee: No acute displaced fracture or dislocation. Normal alignment andmineralization. Joint spaces are preserved without significant narrowing or osteophyteformation. No joint effusion is appreciated. No focal soft tissue swelling is seen. Right tib/fib: Redemonstrated, acute displaced oblique fractures of the distal tibia andfibula diaphysis with associated tissue swelling. Right ankle: No additional acute fracture or dislocation. Joint spaces are preserved without significant narrowing or osteophyteformation. Soft tissue swelling is seen. IMPRESSION IMPRESSION Acute displaced oblique fractures of the right distal tibia and fibuladiaphysis. I have personally reviewed this examination and agree with the resident/fellow physician's interpretation. Jb Roach DO RADIOLOGY (RAD GENER AL) documented in this encounter Visit Diagnoses Diagnosis Fracture of distal end of tibia with fibula, right, closed, initial encounter- Primary Fall Unspecified fall Trauma Injury, other and unspecified, unspecified site Closed fracture of right tibia and fibula, initial encounter Fall Unspecified fall HTN, goal below 130/80 Unspecified essential hypertension documented in this encounter Administered Medications Inactive Administered Medications - up to 3 most recent administrations Medication Order MAR Action Action Date Dose Rate Site Acetaminophen (Tylenol) tab 975 mg 975 mg, Oral, ONCE, On Tu08/16/23 at 2315, For 1 dose, Maximum of 4 grams (4000 mg) per day. Given 08/16/2023 10:51 PM EDT 975 mg Acetaminophen (Tylenol) tab 975 mg 975 mg, Oral, Q8H, First dose (after last modification) on Tue08/17/23 at 0600, Last dose on Tue08/21/23 at 2200, For 5 days, Maximum 4 g acetaminophen/day. Avoid in patients with severe hepatic impairment or severe active liver disease. Use for 5 days. Given 08/19/2023 1:43 PM EDT 975 mg Given 08/19/2023 5:31 AM EDT 975 mg Given 08/18/2023 9:09 PM EDT 975 mg Atenolol (Tenormin) tab 25 mg 25 mg, Oral, Daily(AM), First dose on Tue08/17/23 at 0900, Until Discontinued, Hold for HR less than 60 or SBP below 100 and notify service if dose is held Given 08/19/2023 7:52 AM EDT 25 mg Given 08/18/2023 8:40 AM EDT 25 mg Carisoprodol (Soma) tab 350 mg 350 mg, Oral, Q6H PRN Muscle spasms, Starting on Tue08/17/23 at 0033, Until Tue08/19/23 at 1846 ceFAZolin in dextrose (Ancef) ivpb 2 g 2 g, IV Piggyback, Q8H, 2 doses, First dose on Tue08/17/23 at 2100, Last dose on Tue08/18/23 at 0500, Post-op New Bag 08/18/2023 5:11 AM EDT 2 g 100 mL/hr Rate Verify 08/17/2023 9:59 PM EDT 4 g/hr 100 mL/hr New Bag 08/17/2023 9:29 PM EDT 2 g 100 mL/hr Docusate Sodium (Colace) cap 100 mg 100 mg, Oral, BID (.AM/PM), First dose on Tue08/17/23 at 0900, Until Discontinued, For oral administration ONLY, if route of administration is other than oral and alternative product must be ordered. Given 08/19/2023 7:52 AM EDT 100 mg Given 08/18/2023 9:09 PM EDT 100 mg Given 08/18/2023 8:39 AM EDT 100 mg Enoxaparin (Lovenox) inj 50 mg 50 mg (rounded from 46.05 mg = 0.5 mg/kg 92.1 kg), Subcutaneous, Q12H (0600,1800), First dose on Tue08/17/23 at 0600, Until Discontinued, If patient is on warfarin, inform provider if daily INR value is 2 or greater! Given 08/19/2023 5:31 AM EDT 50 mg Abdom en Left Lower Given 08/18/2023 5:58 PM EDT 50 mg Ab domen Right Lower Given 08/18/2023 5:07 AM EDT 50 mg Ab domen Left Upper ketorolac (Toradol) 30 MG/ML inj 15 mg 15 mg, IV Push, ONCE, On Tue08/16/23 at 2315, For 1 dose Given 08/16/2023 10:51 PM EDT 15 mg nortriptyline (Pamelor) cap 30 mg 30 mg, Oral, QHS, First dose on Tue08/17/23 at 0045, Until Discontinued Given 08/18/2023 9:09 PM EDT 30 mg Given 08/17/2023 10:34 PM EDT 30 mg Given 08/17/2023 2:44 AM EDT 30 mg NSS infusion Intravenous, at 100 mL/hr, CONTINUOUS, Starting on Tue08/17/23 at 0115, Until Tue08/17/23 at 1749 Rate Verify 08/17/2023 11:42 AM EDT 100 mL/hr Restarted 08/17/2023 9:31 AM EDT 100 mL/hr Restarted 08/17/2023 8:40 AM EDT 100 mL/hr NSS infusion Intravenous, at 50 mL/hr, CONTINUOUS, Starting on Tue08/17/23 at 1830, Until Tue08/18/23 at 0941 Rate Verify 08/18/2023 7:00 AM EDT 50 mL /hr Restarted 08/18/2023 5:41 AM EDT 50 mL/hr New Bag 08/17/2023 6:49 PM EDT 50 mL/hr omeprazole (PriLOSEC) cap 20 mg 20 mg, Oral, Daily(AM), First dose on Tue08/17/23 at 0900, Until Discontinued, This med should NOT be Crushed or Chewed Given 08/19/2023 7:53 AM EDT 20 mg Given 08/18/2023 8:39 AM EDT 20 mg Given 08/17/2023 7:55 AM EDT 20 mg ondansetron (Zofran) inj 4 mg 4 mg, IV Push, Q6H PRN Other, May use for nausea or vomiting if patient unable to take oral ondansetron, Starting on Tue08/17/23 at 0033, Until Tue08/19/23 at 1846 ondansetron ODT (Zofran) tab 4 mg 4 mg, On Tongue, Q6H PRN Nausea, Vomiting, Starting on Tue08/17/23 at 0033, Until Tue08/19/23 at 1846 oxyCODONE (Oxy IR) tab 10 mg 10 mg, Oral, Q4H PRN Pain, Severe, Starting on Tue08/17/23 at 0033, Until Tue08/19/23 at 1846, Hold for somnolence or respiratory rate less than 10 oxyCODONE (Oxy IR) tab 5 mg 5 mg, Oral, Q4H PRN Pain, Moderate, Starting on Tue08/17/23 at 0033, Until Tue08/19/23 at 1846, Hold for somnolence or respiratory rate less than 10 Given 08/19/2023 7:52 AM EDT 5 mg Given 08/18/2023 9:09 PM EDT 5 mg Given 08/18/2023 12:10 PM EDT 5 mg potassium and sodium phosphate (Phos-Nak) oral powder 2 Packet 2 Packet, Oral, BID (0700,1900), First dose on Tue08/19/23 at 0715, Last dose on Tue08/19/23 at 1900, For 1 day, Mix in 1/3 glass of water, stir well and administer promptly. 1 packet contains Phosphorus 250 mg (~8 mMoles) + potassium 280 mg (~7.125 mEq) + sodium 160mg (~7.125 mEq) Given 08/19/2023 7:52 AM EDT 2 Packets rosuvastatin (Crestor) tab 5 mg 5 mg, Oral, Daily(AM), First dose on Tue08/17/23 at 0900, Until Discontinued Given 08/19/2023 7:52 AM EDT 5 mg Given 08/18/2023 8:39 AM EDT 5 mg Given 08/17/2023 7:55 AM EDT 5 mg senna (Senokot) 2 Tablet 2 Tablet, Oral, BID (.AM/PM), First dose on Tue08/17/23 at 0900, Until Discontinued, hold if patient have loose stool or frequent bowel movements Given 08/19/2023 7:52 AM EDT 2 Tablets Given 08/18/2023 9:09 PM EDT 2 Tablets Given 08/18/2023 8:39 AM EDT 2 Tablets topiramate (topAMAX) tab 50 mg 50 mg, Oral, QHS, First dose on Tue08/17/23 at 0045, Until Discontinued Given 08/18/2023 9:09 PM EDT 50 mg Given 08/17/2023 9:23 PM EDT 50 mg Given 08/17/2023 2:43 AM EDT 50 mg documented in this encounter Active and Recently Administered Medications Times are shown in EDT. Scheduled Medication Order 08/17/2023 08/18/2023 08/19/2023 Acetaminophen (Tylenol) tab 975 mg 975 mg, Oral, Q8H, First dose (after last modification) on Tue08/17/23 at 0600, Last dose on Tue08/21/23 at 2200, For 5 days, Maximum 4 g acetaminophen/day. Avoid in patients with severe hepatic impairment or severe active liver disease. Use for 5 days. 0450 (Given - Provider: Robert Antonio RN)1400 (OR/Procedure - Provider: Shirlene Ceron RN)2122 (Given - Provider: Lorri Garza RN) 0507 (Given - Provider: Lorri Garza RN)141 (Given - Provider: Lizette Mehta RN)2108 (Given - Provider: Stephanie Lopez RN) 0531 (Given - Provider: Stephanie Lopez RN)1343 (Given - Provider: Kym Dawson RN) Atenolol (Tenormin) tab 25 mg 25 mg, Oral, Daily(AM), First dose on Tue08/17/23 at 0900, Until Discontinued, Hold for HR less than 60 or SBP below 100 and notify service if dose is held 0900 (Not Given - Provider: Fadumo Laureano RN - Reason: Parameter(s) Not Met - Comment: HR 56, Nimo Soto aware) 0840 (Given - Provider: Kym Dawson RN) 0752 (Given - Provider: Kym Dawson RN) ceFAZolin in dextrose (Ancef) ivpb 2 g (COMPLETED) 2 g, IV Piggyback, ONCALL, 1 dose, Starting on Tue08/17/23 at 0153, Until Tue08/17/23 at 1257, Administer within 60 minutes of skin incision 1257 (Given - Provider: Ata Tapia CRNA) ceFAZolin in dextrose (Ancef) ivpb 2 g (COMPLETED) 2 g, IV Piggyback, Q8H, 2 doses, First dose on Tue08/17/23 at 2100, Last dose on Tue08/18/23 at 0500, Post-op 2128 (New Bag - Provider: Lorri Garza RN)2158 (Rate Verify - Provider: Lorri Garza RN)2158 (Stopped - Provider: Kym Dawson RN) 0511 (New Bag - Provider: Lorri Garza RN)0541 (Stopped - Provider: Kym Dawson RN) Docusate Sodium (Colace) cap 100 mg 100 mg, Oral, BID (.AM/PM), First dose on Tue08/17/23 at 0900, Until Discontinued, For oral administration ONLY, if route of administration is other than oral and alternative product must be ordered. 0900 (Not Given - Provider: Fadumo Laureano RN - Reason: Refused-Notify Provider - Comment: Nimo ortiz)212 (Given - Provider: Lorri Garza RN) 0839 (Given - Provider: Kym Dawson RN)2108 (Given - Provider: Stephanie Lopez RN) 0752 (Given - Provider: Kym Dawson RN) Enoxaparin (Lovenox) inj 50 mg 50 mg (rounded from 46.05 mg = 0.5 mg/kg 92.1 kg), Subcutaneous, Q12H (0600,1800), First dose on Tue08/17/23 at 0600, Until Discontinued, If patient is on warfarin, inform provider if daily INR value is 2 or greater! 0611 (Given - Provider: Robert Antonio, ANDRE)1748 (Given - Provider: Shirlene Ceron, ANDRE) 0507 (Given - Provider: Lorri Garza, ANDRE)1758 (Given - Provider: Lizette Mehta, ANDRE) 0531 (Given - Provider: Stephanie Lopez RN) nortriptyline (Pamelor) cap 30 mg 30 mg, Oral, QHS, First dose on Tue08/17/23 at 0045, Until Discontinued 0244 (Given - Provider: Tank Valdovinos RN)2234 (Given - Provider: Lorri Garza RN) 210 (Given - Provider: Stephanie Lopez RN) omeprazole (PriLOSEC) cap 20 mg 20 mg, Oral, Daily(AM), First dose on Tue08/17/23 at 0900, Until Discontinued, This med should NOT be Crushed or Chewed 0755 (Given - Provider: Fadumo Laureano RN) 0839 (Given - Provider: Kym Dawson RN) 0753 (Given - Provider: Kym Dawson RN) potassium and sodium phosphate (Phos-Nak) oral powder 2 Packet 2 Packet, Oral, BID (0700,1900), First dose on Tue08/19/23 at 0715, Last dose on Tue08/19/23 at 1900, For 1 day, Mix in 1/3 glass of water, stir well and administer promptly. 1 packet contains Phosphorus 250 mg (~8 mMoles) + potassium 280 mg (~7.125 mEq) + sodium 160mg (~7.125 mEq) 0752 (Given - Provider: Kym Dawson, ANDRE) rosuvastatin (Crestor) tab 5 mg 5 mg, Oral, Daily(AM), First dose on Tue08/17/23 at 0900, Until Discontinued 0755 (Given - Provider: Fadumo Laureano RN) 0839 (Given - Provider: Kym Dawson, RN) 075 (Given - Provider: Kym Dawson RN) senna (Senokot) 2 Tablet 2 Tablet, Oral, BID (.AM/PM), First dose on Tue08/17/23 at 0900, Until Discontinued, hold if patient have loose stool or frequent bowel movements 0900 (Not Given - Provider: Fadumo Laureano RN - Reason: Refused-Notify Provider - Comment: Nimo ortiz)2122 (Given - Provider: Lorri Garza RN) 08 (Given - Provider: Kym Dawson, ANDRE)2108 (Given - Provider: Stephanie Lopez, RN) 075 (Given - Provider: Kym Dawson RN) topiramate (topAMAX) tab 50 mg 50 mg, Oral, QHS, First dose on Tue08/17/23 at 0045, Until Discontinued 0243 (Given - Provider: Tank Valdovinos RN)2122 (Given - Provider: Lorri Garza RN) 2108 (Given - Provider: Stephanie Lopez, RN) Continuous Medication Order 08/17/2023 08/18/2023 08/19/2023 NSS infusion (CANCELED) Intravenous, at 100 mL/hr, CONTINUOUS, Starting on Tue08/17/23 at 0115, Until Tue08/17/23 at 1749 0355 (New Bag - Provider: Tank Valdovinos RN)0415 (Stopped - Provider: Robert Antonio RN)0455 (New Bag - Provider: Robert Antonio RN)0634 (Paused - Provider: Robert Antonio RN)0642 (Restarted - Provider: Robert Antonio RN)0655 (Rate Verify - Provider: Robert Antonio RN)0731 (Paused - Provider: Fadumo Laureano RN)0742 (Restarted - Provider: Fadumo aLureano RN)0837 (Paused - Provider: Fadumo Laureano RN)0840 (Restarted - Provider: Fadumo Laureano RN)0924 (Paused - Provider: Fadumo Laureano RN)0931 (Restarted - Provider: Fadumo Laureano RN)1142 (Rate Verify - Provider: Fadumo Laureano RN)1749 (Stopped - Provider: Shirlene Ceron RN) NSS infusion (CANCELED) Intravenous, at 50 mL/hr, CONTINUOUS, Starting on Tue08/17/23 at 1830, Until Zabrina 08/18/23 at 0941 1849 (New Bag - Provider: Shirlene Ceron RN) 0511 (Paused - Provider: Kym Dawson RN)0541 (Restarted - Provider: Kym Dawson RN)0700 (Rate Verify - Provider: Kym Dawson RN)0941 (Stopped - Provider: Kym Dawson RN)1143 (Stopped - Provider: Kym Dawson RN) PRN Medication Order 08/17/2023 08/18/2023 08/19/2023 Carisoprodol (Soma) tab 350 mg 350 mg, Oral, Q6H PRN Muscle spasms, Starting on Tue08/17/23 at 0033, Until Tue08/19/23 at 1846 mupirocin calcium (Bactroban) 2 % ointment (CANCELED) ONCE PRN INTRA PROCEDURE, Starting on Tue08/17/23 at 1514, Until Tue08/17/23 at 1602, Intra-Op 1514 (Given - Provider: Yared Romero MD - Comment: topical to right lower leg incision sites) ondansetron (Zofran) inj 4 mg(Linked Group 1) 4 mg, IV Push, Q6H PRN Other, May use for nausea or vomiting if patient unable to take oral ondansetron, Starting on Tue08/17/23 at 0033, Until Tue08/19/23 at 1846 ondansetron ODT (Zofran) tab 4 mg(Linked Group 1) 4 mg, On Tongue, Q6H PRN Nausea, Vomiting, Starting on Tue08/17/23 at 0033, Until Tue08/19/23 at 1846 oxyCODONE (Oxy IR) tab 10 mg 10 mg, Oral, Q4H PRN Pain, Severe, Starting on Tue08/17/23 at 0033, Until Tue08/19/23 at 1846, Hold for somnolence or respiratory rate less than 10 oxyCODONE (Oxy IR) tab 5 mg 5 mg, Oral, Q4H PRN Pain, Moderate, Starting on Tue08/17/23 at 0033, Until Tue08/19/23 at 1846, Hold for somnolence or respiratory rate less than 10 2126 (Given - Provider: Lorri Garza, RN) 1210 (Given - Provider: Kym Dawson, RN)2109 (Given - Provider: Stephanie Lopez, ANDRE) 0752 (Given - Provider: Kym Dawson RN) sodium chloride IR 0.9 % irrigation (CANCELED) ONCE PRN INTRA PROCEDURE, Starting on Tue08/17/23 at 1331, Until Tue08/17/23 at 1602, Intra-Op 1331 (Given - Provider: German Roldan MD - Comment: prn intraop right lower leg) Linked Groups Order Group 1: ondansetron ODT (Zofran) tab 4 mgJump to med 4 mg, On Tongue, Q6H PRN Nausea, Vomiting, Starting on Tue08/17/23 at 0033, Until Tue08/19/23 at 1846 Or ondansetron (Zofran) inj 4 mgJump to med 4 mg, IV Push, Q6H PRN Other, May use for nausea or vomiting if patient unable to take oral ondansetron, Starting on Tue08/17/23 at 0033, Until Tue08/19/23 at 1846 documented in this encounter Advance Directives Latest Code Status on File Code Status Date Activated Date Inactivated Comments Full Code 08/17/2023 12:34 AM 08/19/2023 6:51 PM This order reflects the patients wishes and were consensually agreed upon. Question Answer Comments Discussion of Advance Directives occurred with: Not Discussed due to patient's condition Care Teams Business Objects Developer Relationship Specialty Start Date End Date Primitivo Arceo MD [address] [place] [address] PCP - General Internal Medicine 06/03/14 documented as of this encounter
--- OUTSIDE RECORDS SUMMARY | 2023-08-31 07:06 | External Medical Summary ---
Author Name Unknown Address Unknown Organization [id number]:[place] [facility] [place] [address] [place] [address] Laboratory Report Ordering Provider Test Date Status SOTERO ROMAN 08/19/2023 03:33:00 Final Observation Date Value Abnormality Reference (Units ) Status BUN 08/19/2023 03:33:00 19 6-20 (mg/d L) Final Creatinine 08/19/2023 03:33:00 1.2 0.6-1.2 ( mg/dL) Final The above reference range is based on the legal sex of the patient only. Results should be interpreted together with patient's sex at , gender identity, and clinical context. Glomerular filtration rate/1 .73 sq M.predicted [Volume Rate/Area] in Serum, Plasma or Blood by Creatinine-based formula (CKD-EPI) 08/19/2023 03:33:00 65 >=60 (mL/min) Fi nal eGFR is calculated based on the legal sex of the patient, using the CKD-EPI 2020 equation SODIUM 08/19/2023 03:33:00 137 135-146 (m mol/L) Final Potassium 08/19/2023 03:33:00 3.4 Below low normal 3.5 -5.1 (mmol/L) Final Cl 08/19/2023 03:33:00 109 Above high normal 98 -107 (mmol/L) Final CO2 08/19/2023 03:33:00 21 Below low normal 22- 32 (mmol/L) Final Anion gap 08/19/2023 03:33:00 7 7-15 (mmol /L) Final Glucose 08/19/2023 03:33:00 114 70-120 (mg /dL) Final Calcium 08/19/2023 03:33:00 8.4 8.4-10.2 ( mg/dL) Final Performing Location LABORATORY [facility] - [address] [place] [address]
--- OUTSIDE RECORDS SUMMARY | 2023-08-31 07:06 | External Medical Summary ---
Author Name Unknown Address Unknown Organization [id number]:LABORATORY [facility] – [place] - [address] [place] [address] Laboratory Report Ordering Provider Test Date Status SOTERO ROMAN 08/19/2023 03:33:00 Final Observation Date Value Abnormality Reference (Units ) Status Phosphate 08/19/2023 03:33:00 1.6 Below low normal 2.5 -4.8 (mg/dL) Final Performing Location LABORATORY [facility] - [address] [place] [address]
--- OUTSIDE RECORDS SUMMARY | 2023-08-31 07:06 | External Medical Summary ---
Author Name Unknown Address Unknown Organization [id number]:LABORATORY [facility] – [place] - [facility] [address] [place] [address] Laboratory Report Ordering Provider Test Date Status SOTERO ROMAN 08/19/2023 03:33:00 Final Observation Date Value Abnormality Reference (Units ) Status WBC, Total 08/19/2023 03:33:00 9.25 4.00-10.80 (K/uL) Final RBC 08/19/2023 03:33:00 3.87 4.50-5.25 (M/uL) Final Hemoglobin 08/19/2023 03:33:00 12.2 Below low normal 14.0-16.8 (g/dL) Final HCT 08/19/2023 03:33:00 37.5 Below low normal 40.0-48.4 (%) Final MCV 08/19/2023 03:33:00 96.9 82.0-99.5 (fL) Final MCH 08/19/2023 03:33:00 31.5 27.0-34.0 (pg) Final MCHC 08/19/2023 03:33:00 32.5 32.0-36.0 (g/dL) Final RDW 08/19/2023 03:33:00 12.4 11.5-15.5 (%) Final Platelets 08/19/2023 03:33:00 202 140-400 (K/uL) Final MPV 08/19/2023 03:33:00 9.8 6.6-11.1 (fL) Final Nucleated erythrocytes/100 leukocytes [Ratio] in Blood by Automated count 08/19/2023 03:33:00 0 <=0 (/100 WBCs) Final Performing Location LABORATORY [facility] – [place] - [address] [place] [address]
--- OUTSIDE RECORDS SUMMARY | 2023-08-31 07:06 | External Medical Summary ---
Author Name Unknown Address Unknown Organization [id number]:LABORATORY [facility] - [address] [place] [address] Laboratory Report Ordering Provider Test Date Status SOTERO ROMAN 08/19/2023 03:33:00 Final Observation Date Value Abnormality Reference (Units ) Status Magnesium 08/19/2023 03:33:00 2.0 1.5-2.6 (m g/dL) Final Performing Location LABORATORY [facility] - [address] [place] [address]
--- OUTSIDE RECORDS SUMMARY | 2023-08-31 07:06 | External Medical Summary ---
Author Name Unknown Address Unknown Organization [id number]:LABORATORY [facility] – [place] - [facility] [address] [place] [address] Laboratory Report Ordering Provider Test Date Status SOTERO ROMAN 08/18/2023 03:42:00 Final Observation Date Value Abnormality Reference (Units ) Status WBC, Total 08/18/2023 03:42:00 10.72 4.00-10.80 (K/uL) Final RBC 08/18/2023 03:42:00 3.98 4.50-5.25 (M/uL) Final Hemoglobin 08/18/2023 03:42:00 12.9 Below low normal 14.0-16.8 (g/dL) Final HCT 08/18/2023 03:42:00 38.3 Below low normal 40.0-48.4 (%) Final MCV 08/18/2023 03:42:00 96.2 82.0-99.5 (fL) Final MCH 08/18/2023 03:42:00 32.4 27.0-34.0 (pg) Final MCHC 08/18/2023 03:42:00 33.7 32.0-36.0 (g/dL) Final RDW 08/18/2023 03:42:00 12.1 11.5-15.5 (%) Final Platelets 08/18/2023 03:42:00 199 140-400 (K/uL) Final MPV 08/18/2023 03:42:00 9.5 6.6-11.1 (fL) Final Nucleated erythrocytes/100 leukocytes [Ratio] in Blood by Automated count 08/18/2023 03:42:00 0 <=0 (/100 WBCs) Final Performing Location LABORATORY [facility] [place] - [address] [place] [address]
--- OUTSIDE RECORDS SUMMARY | 2023-08-31 07:06 | External Medical Summary ---
Author Name Unknown Address Unknown Organization [id number]:LABORATORY [facility] – [place] - [address] [place] [address] Laboratory Report Ordering Provider Test Date Status SOTERO ROMAN 08/18/2023 03:42:00 Final Observation Date Value Abnormality Reference (Units ) Status BUN 08/18/2023 03:42:00 17 6-20 (mg/d L) Final Creatinine 08/18/2023 03:42:00 1.2 0.6-1.2 ( mg/dL) Final The above reference range is based on the legal sex of the patient only. Results should be interpreted together with patient's sex at , gender identity, and clinical context. Glomerular filtration rate/1 .73 sq M.predicted [Volume Rate/Area] in Serum, Plasma or Blood by Creatinine-based formula (CKD-EPI) 08/18/2023 03:42:00 70 >=60 (mL/min) Fi nal eGFR is calculated based on the legal sex of the patient, using the CKD-EPI 2020 equation SODIUM 08/18/2023 03:42:00 136 135-146 (m mol/L) Final Potassium 08/18/2023 03:42:00 4.2 3.5-5.1 (m mol/L) Final Cl 08/18/2023 03:42:00 107 98-107 (mm ol/L) Final CO2 08/18/2023 03:42:00 21 Below low normal 22- 32 (mmol/L) Final Anion gap 08/18/2023 03:42:00 8 7-15 (mmol /L) Final Glucose 08/18/2023 03:42:00 103 70-120 (mg /dL) Final Calcium 08/18/2023 03:42:00 8.2 Below low normal 8.4 -10.2 (mg/dL) Final Performing Location LABORATORY [facility] - [address] [place] [address]
--- OUTSIDE RECORDS SUMMARY | 2023-08-31 07:06 | External Medical Summary | Summary of Care ---
Author Name Unknown Organization [facility] Address [address] [place] [address] Phone [phone] Care Team Providers Care Digital Engineer Name Role Phone Primitivo Arceo MD Primary Care Provider + Encounter Details Date Type Department Care Team (Late st Contact Info) Description 08/16/2023 Orders Only [facility] [address] [place] [address] Diony Mondragon, DO [address] [place] [address] Allergies Active Allergy Reactions Criticality Noted Date Comments Adhesive Tape Other (Please comment) 12/13/2008 blistering Zinc Rash 05/09/2014 documented as of this encounter (statuses as of 08/18/2023) Medications Medication Sig Dispensed Refills Start Date End Date Status IBUPROFEN 200 MG PO TABS Take 2 Tablets by mouth 2 times a day as needed (headache). 0 Suspended Magnesium Oxide 400 MG Tablet Take 1 Tab by mouth daily. 30 Tab 11 11/13/2019 Suspended Additional Information Patient taking differently:400 mg Oral Daily(AM),Indications: takes in the evening, Reported on 06/01/2022 Riboflavin 400 MG Capsule Take 1 Cap by mouth daily. 30 Cap 11 11/13/2019 Suspended Additional Information Patient taking differently:400 mg Oral Daily(AM),Indications: takes in the evening, Reported on 06/01/2022 ProAir HFA 108 (90 Base) MCG/ACT Inhalation Aerosol SolutionIndications :Cough Inhale 2 Puffs by mouth 4 times a day as needed for Wheezing. 18 g 0 12/10/2020 Suspended Additional Information Fluticasone Propionate 50 MCG/ACT Nasal Suspension Administer 2 Sprays into each nostril daily. 0 04/15/2021 Suspended Additional Information Patient taking differently:2 [place] Each Nostril Daily(AM),As needed, Reported on 06/01/2022 Triamcinolone Acetonide 0.1 % External Ointment (Aristocort)Indicat ions:Dermatitis Apply to rash nightly as needed 30 g 1 05/24/2022 Suspended Additional Information Ammonium Lactate 12 % External CreamIndications:De rmatitis Apply to skin after bathing as needed 385 g 1 05/24/2022 Suspended Additional Information Omeprazole 20 MG Oral Capsule Delayed Release (PriLOSEC)Indicatio ns:Gastroesophageal reflux disease without esophagitis,Cough Take 1 Capsule by mouth in the morning. 1 hour before the first meal of the day. 90 Capsule 3 06/02/2022 Suspended Additional Information Fluticasone-Salmete rol 115-21 MCG/ACT Inhalation Aerosol (Advair HFA) Inhale 2 Puffs by mouth 2 times a day as needed for Cough, Shortness of Breath or Wheezing. 12 g 3 06/02/2022 Suspended Additional Information Rizatriptan Benzoate 10 MG Oral Tablet (Maxalt) TAKE 1 TABLET BY MOUTH AT ONSET OF HEADACHE, MAY REPEAT IN 24 HRS. NO MORE THAN 3 TIMES A WEEK 10 Tablet 5 09/15/2022 Suspended Additional Information Atenolol 25 MG Oral Tablet (Tenormin)Indicatio ns:HTN, goal below 130/80,Migraine without aura and without status migrainosus, not intractable TAKE 1 TABLET BY MOUTH DAILY FOR HEADACHE 90 Tablet 3 04/01/2023 Suspended Additional Information Atenolol 25 MG Oral Tablet (Tenormin)Indicatio ns:HTN, goal below 130/80,Migraine without aura and without status migrainosus, not intractable TAKE 1 TABLET BY MOUTH ONCE DAILY FOR HEADACHE 90 Tablet 3 04/01/2023 Suspended Additional Information Topiramate 25 MG Oral Tablet (topAMAX) TAKE 2 TABLETS BY MOUTH ONCE DAILY AT BEDTIME 180 Tablet 1 06/02/2023 Suspended Additional Information Nortriptyline HCl 10 MG Oral Capsule (Pamelor) TAKE 3 CAPSULES BY MOUTH ONCE DAILY AT BEDTIME 120 Capsule 5 06/30/2023 Suspended Additional Information Rosuvastatin Calcium 5 MG Oral Tablet (Crestor)Indication s:Mixed hyperlipidemia Take 1 Tablet by mouth in the morning. 90 Tablet 1 07/05/2023 Suspended Additional Information documented as of this encounter (statuses as of 08/18/2023) Active Problems Problem Noted Date Diagnosed Date [...] as of this encounter (statuses as of 08/18/2023) Resolved Problems Problem Noted Date Diagnosed Date Resolved Date Prediabetes 10/03/2022 01/20/2023 Lyme disease 05/09/2014 11/09/2018 Dysphagia 07/10/2010 11/09/2018 Overview: ICD-10 update of inactive term Family history of premature CAD 04/19/2003 02/25/2012 documented as of this encounter (statuses as of 08/18/2023) Immunizations Name Administration Dates Next Due COVID-19 mRNA, LNP-s, No Pre serve, 2-Dose Series (Moderna) 04/18/2021,10/15/2020,09/17/2020 COVID-19, mRNA, LNR-S, Bival ent, PF, 10mcg/0.2 ml (Moderna) 6m to 5 years 03/18/2022 Pneumococcal Conjugate Vacci ne, 20-valent ([id number]) 09/22/2022 Pneumococcal Polysaccharide PPV23 (Pneumovax) 04/24/2021 Seasonal Influenza, PF, 6 M & above, IM , (FluLaval or Fluzone) 02/10/2022,02/16/2021,03/04/2020,10/0 02/2019 Seasonal Influenza, Quadriva lent, No Preserve, IM [...] Office Visit General Internal Medicine Deepthi Bales [place] [address] [place] [address] Primitivo Arceo MD [address] [place] [address] [address] 12/09/2023 3:45 PM EDT Office Visit Dermatology [facility] Wilfredo [place] [address] [place] [address] Primitivo De Guzman MD [address] [place] [address] Scheduled Procedures Name Priority Associated Diagnoses Date/Ti me COLONOSCOPY FLEXIBLE PROXIMAL DIAGNOSTIC Recall Screen for colon cancer Health Maintenance Due Date Last Done Comments HIV Screening 1973 Cologuard 11/01/2003 Fecal Occult Blood Test 11/01/2003 Sigmoidoscopy 11/01/2003 Depression Screening 09/23/2023 09/22/2022 GFR 08/17/2024 08/18/2023, 08/04, 08/17/2023, Additional history exists Albumin/Creatinine Ratio 09/23/2025 09/23/2022 Diabetes Screening 08/17/2026 08/18/2023, 0 08/17/2023, 08/17/2023, Additional history exists Lipid Panel 02/19/2028 [...] this encounter Medical Devices Implanted Type Area Pipe Roller Device Identifier Shelf Expiration Date Model / Serial / Lot Nail T2 Alpha Tibia [id number] - [id number] Implanted:Qty: 1 on 08/17/2023 by German Roldan MD at OR [facility] [facility] Right: Leg Lower TONEY : TRAUMA 07/06/2030 2341-1039S / / [id number] Screw T2 Alpha Lock 5x42.5mm - [id number] Implanted:Qty: 1 on 08/17/2023 by German Roldan MD at OR [facility] Right: Leg Lower TONEY : TRAUMA 01/03/2033 2360-5042S / / [id number] Screw T2 Alpha Lock 5x42.5mm - [id number] Implanted:Qty: 1 on 08/17/2023 by German Roldan MD at OR [facility] [place] Right: Leg Lower TONEY : TRAUMA 05/05/2033 2360-5042S / / [id number] Screw T2 Alpha Lock 5x40mm - [id number] Implanted:Qty: 1 on 08/17/2023 by German Roldan MD at OR [facility] [place] Right: Leg Lower TONEY : TRAUMA 01/03/2033 2360-5040S / / [id number] Screw T2 Alpha Lock 5x47.5mm - [id number] Implanted:Qty: 1 on 08/17/2023 by German Roldan MD at OR [facility] Right: Leg Lower TONEY : TRAUMA 06/05/2033 [id number] / / [id number] documented as of this encounter Procedures Procedure Name Priority Date/Time Associated Diagnosis Comments RADIOLOGY EXAM - GENERAL RAD (IMAGES ONLY,NO REPORT) Routine 08/16/2023 3:55 PM EDT documented in this encounter Results * RADIOLOGY EXAM - GENERAL RAD (IMAGES ONLY,NO REPORT) (08/16/2023 3:55 PM EDT) 08/16/2023 3:37 PM EDT Narrative Scheduling, Silent - 08/18/2023 8:35 AM EDT This is an imaging study not interpreted or resulted by a [facility] or [facility] contracted radiologist. Diony Mondragon DO RADIOLOGY (RAD GENERAL) documented in this encounter Advance Directives Latest Code Status on File Code Status Date Activated Date Inactivated Comments Full Code 08/17/2023 12:34 AM This orde r reflects the patients wishes and were consensually agreed upon. Question Answer Comments Discussion of Advance Directives occurred with: Not Discussed due to patient's condition Care Teams Digital Engineer Relationship Specialty Start Date End Date Primitivo Arceo MD [address] [facility] [place] [address] PCP - General Internal Medicine 06/03/14 documented as of this encounter
--- OUTSIDE RECORDS SUMMARY | 2023-08-31 07:06 | External Medical Summary | Summary of Care ---
Author Name Unknown Organization [facility] Address [address] [place] [address] Phone [phone] Care Team Providers Care Retail Solar Advisor Name Role Phone Primitivo Arceo MD Primary Care Provider + Encounter Details Date Type Department Care Team (Latest Contact Info) Description 08/16/2023 3:55 PM EDT - 08/16/2023 6:54 PM EDT Hospital Encounter Radiology Film File [address] [place] [address] Arrived Discharge Disposition: Home - Self Care Allergies Active Allergy Reactions Criticality Noted Date Comments Adhesive Tape Other (Please comment) 12/13/2008 blistering Zinc Rash 05/09/2014 documented as of this encounter (statuses as of 08/19/2023) Medications Medication Sig Dispensed Refills Start Date End Date Status IBUPROFEN 200 MG PO TABS Take 2 Tablets by mouth 2 times a day as needed (headache). 0 Suspended Magnesium Oxide 400 MG Tablet Take 1 Tab by mouth daily. 30 Tab 11 0 Suspended Additional Information Patient taking differently:400 mg Oral Daily(AM),Indications: takes in the evening, Reported on 06/01/2022 Riboflavin 400 MG Capsule Take 1 Cap by mouth daily. 30 Cap 11 0 Suspended Additional Information Patient taking differently:400 mg Oral Daily(AM),Indications: takes in the evening, Reported on 06/01/2022 ProAir HFA 108 (90 Base) MCG/ACT Inhalation Aerosol SolutionIndications :Cough Inhale 2 Puffs by mouth 4 times a day as needed for Wheezing. 18 g 0 1 Suspended Additional Information Fluticasone Propionate 50 MCG/ACT Nasal Suspension Administer 2 Sprays into each nostril daily. 0 1 Suspended Additional Information Patient taking differently:2 [place] Each Nostril Daily(AM),As needed, Reported on 06/01/2022 Triamcinolone Acetonide 0.1 % External Ointment (Aristocort)Indicat ions:Dermatitis Apply to rash nightly as needed 30 g 1 2 Suspended Additional Information Ammonium Lactate 12 % External CreamIndications:De rmatitis Apply to skin after bathing as needed 385 g 1 2 Suspended Additional Information Omeprazole 20 MG Oral Capsule Delayed Release (PriLOSEC)Indicatio ns:Gastroesophageal reflux disease without esophagitis,Cough Take 1 Capsule by mouth in the morning. 1 hour before the first meal of the day. 90 Capsule 3 2 Suspended Additional Information Fluticasone-Salmete rol 115-21 MCG/ACT Inhalation Aerosol (Advair HFA) Inhale 2 Puffs by mouth 2 times a day as needed for Cough, Shortness of Breath or Wheezing. 12 g 3 2 Suspended Additional Information Rizatriptan Benzoate 10 MG Oral Tablet (Maxalt) TAKE 1 TABLET BY MOUTH AT ONSET OF HEADACHE, MAY REPEAT IN 24 HRS. NO MORE THAN 3 TIMES A WEEK 10 Tablet 5 3 Suspended Additional Information Atenolol 25 MG Oral Tablet (Tenormin)Indicatio ns:HTN, goal below 130/80,Migraine without aura and without status migrainosus, not intractable TAKE 1 TABLET BY MOUTH DAILY FOR HEADACHE 90 Tablet 3 3 08/19/19 24 Discontinued Atenolol 25 MG Oral Tablet (Tenormin)Indicatio ns:HTN, goal below 130/80,Migraine without aura and without status migrainosus, not intractable TAKE 1 TABLET BY MOUTH ONCE DAILY FOR HEADACHE 90 Tablet 3 3 Suspended Additional Information Topiramate 25 MG Oral Tablet (topAMAX) TAKE 2 TABLETS BY MOUTH ONCE DAILY AT BEDTIME 180 Tablet 1 3 Suspended Additional Information Nortriptyline HCl 10 MG Oral Capsule (Pamelor) TAKE 3 CAPSULES BY MOUTH ONCE DAILY AT BEDTIME 120 Capsule 5 4 Suspended Additional Information Rosuvastatin Calcium 5 MG Oral Tablet (Crestor)Indication s:Mixed hyperlipidemia Take 1 Tablet by mouth in the morning. 90 Tablet 1 4 Suspended Additional Information documented as of this encounter (statuses as of 08/19/2023) Active Problems Problem Noted Date Diagnosed Date [...] as of this encounter (statuses as of 08/19/2023) Resolved Problems Problem Noted Date Diagnosed Date Resolved Date Prediabetes 10/03/2022 01/20/2023 Lyme disease 05/09/2014 11/09/2018 Dysphagia 07/10/2010 11/09/2018 Overview: ICD-10 update of inactive term Family history of premature CAD 04/19/2003 02/25/2012 documented as of this encounter (statuses as of 08/19/2023) Immunizations Name Administration Dates Next Due COVID-19 mRNA, LNP-s, No Pre serve, 2-Dose Series (Moderna) 04/18/2021,10/15/2020,09/17/2020 COVID-19, mRNA, LNR-S, Bival ent, PF, 10mcg/0.2 ml (Moderna) 6m to 5 years 03/18/2022 Pneumococcal Conjugate Vacci ne, 20-valent ([id number]) 09/22/2022 Pneumococcal Polysaccharide PPV23 (Pneumovax) 04/24/2021 Seasonal [...] Office Visit General Internal Medicine Deepthi [place] [address] [place] [address] Primitivo Arceo MD [address] [place] [address] 09/06/2023 12:00 PM EDT Office Visit Orthopaedics, [place] [address], [place] [id number] Eleno Sexton PAJamie [address] [place] [address] 12/09/2023 3:45 PM EDT Office Visit Dermatology [facility] Wilfredo [place] [address] [facility] [place] [address] Primitivo De Guzman MD [address] [facility] [place] [address] Scheduled Procedures Name Priority Associated Diagnoses Date/Ti [...] this encounter Medical Devices Implanted Type Area Finisher Operator Device Identifier Shelf Expiration Date Model / Serial / Lot Nail T2 Alpha Tibia [id number] - [id number] Implanted:Qty: 1 on 08/17/2023 by German Roldan MD at OR [facility] [place] Right: Leg Lower TONEY : TRAUMA 07/06/2030 2341-1039S / / [id number] Screw T2 Alpha Lock 5x42.5mm - [id number] Implanted:Qty: 1 on 08/17/2023 by German Roldan MD at OR [facility] [place] Right: Leg Lower TONEY : TRAUMA 01/03/2033 2360-5042S / / [id number] Screw T2 Alpha Lock 5x42.5mm - [id number] Implanted:Qty: 1 on 08/17/2023 by German Roldan MD at OR [facility] [place] Right: Leg Lower TONEY : TRAUMA 05/05/2033 2360-5042S / / [id number] Screw T2 Alpha Lock 5x40mm - [id number] Implanted:Qty: 1 on 08/17/2023 by German Roldan MD at OR [facility] [place] Right: Leg Lower TONEY : TRAUMA 01/03/2033 2360-5040S / / [id number] Screw T2 Alpha Lock 5x47.5mm - [id number] Implanted:Qty: 1 on 08/17/2023 by German Roldan MD at OR [facility] [place] Right: Leg Lower TONEY : TRAUMA 06/05/2033 2360-5047S / / [id number] documented as of this encounter Procedures Procedure [...] study not interpreted or resulted by a [facility] or [facility] contracted radiologist. Diony Mondragon DO RADIOLOGY (RAD GENERAL) documented in this encounter Advance Directives Latest Code Status on File Code Status Date Activated Date Inactivated Comments Full Code 08/17/2023 12:34 AM This orde r reflects the patients wishes and were consensually agreed upon. Question Answer Comments Discussion of Advance Directives occurred with: Not Discussed due to patient's condition Care Teams Retail Solar Advisor Relationship Specialty Start Date End Date Primitivo Arceo MD [address] [place] [address] PCP - General Internal Medicine 06/03/14 documented as of this encounter
--- OUTSIDE RECORDS SUMMARY | 2023-08-31 07:07 | External Medical Summary ---
Author Name Unknown Address Unknown Organization K01:[facility] - [address] [place] [address] Laboratory Report Ordering Provider Test Date Status SOTERO ROMAN 08/18/2023 03:42:00 Final Observation Date Value Abnormality Reference (Units ) Status Magnesium 08/18/2023 03:42:00 2.3 1.5-2.6 (m g/dL) Final Performing Location [facility] - [address] [place] [address]
--- OUTSIDE RECORDS SUMMARY | 2023-08-31 07:07 | External Medical Summary | Summary of Care ---
Author Name Unknown Organization [facility] Address [address] [place] [address] Phone [phone] Care Team Providers Care Trestle Mechanic Name Role Phone Primitivo Arceo MD Primary Care Provider + Encounter Details Date Type Department Care Team (Latest Contact Info) Description 08/16/2023 6:55 PM EDT - 08/16/2023 10:43 PM EDT Hospital Encounter Radiology Film File [address] [place] [address] Arrived Discharge Disposition: Home - Self Care Allergies Active Allergy Reactions Criticality Noted Date Comments Adhesive Tape Other (Please comment) 12/13/2008 blistering Zinc Rash 05/09/2014 documented as of this encounter (statuses as of 08/17/2023) Medications Medication Sig Dispensed Refills Start Date [...] 04/15/2021 Suspended Additional Information Patient taking differently:2 [place] Each Nostril Daily(AM),As needed, Reported on 06/01/2022 [...] as of this encounter (statuses as of 08/17/2023) Active Problems Problem Noted Date Diagnosed Date Mixed hyperlipidemia 10/03/2022 Bronchiectasis without complication 09/22/2022 HTN, goal below 130/80 04/24/2021 Moderate persistent asthma without complication 01/06/2021 Hx of nonmelanoma skin cancer 01/30/2020 Overview: BCC L nose decades ago History of Lyme disease 11/09/2018 Other psoriasis 07/10/2010 Migraine without aura 04/19/2003 documented as of this encounter (statuses as of 08/17/2023) Resolved Problems Problem Noted Date Diagnosed Date Resolved Date Prediabetes 10/03/2022 01/20/2023 Lyme disease 05/09/2014 11/09/2018 Dysphagia 07/10/2010 11/09/2018 Overview: ICD-10 update of inactive term Family history of premature CAD 04/19/2003 02/25/2012 documented as of this encounter (statuses as of 08/17/2023) Immunizations Name Administration Dates Next Due COVID-19 mRNA, LNP-s, No Pre serve, 2-Dose Series (Moderna) 04/18/2021,10/15/2020,09/17/2020 COVID-19, mRNA, LNR-S, Bival ent, PF, 10mcg/0.2 ml (Moderna) 6m to 5 years 03/18/2022 Pneumococcal Conjugate Vacci ne, 20-valent ([id number]) 09/22/2022 Pneumococcal Polysaccharide PPV23 (Pneumovax) 04/24/2021 Seasonal [...] PM EDT Office Visit [facility] [address] [place] [address] Primitivo Arceo MD [address] [place] [address] 12/09/2023 3:45 PM EDT Office [facility] [address] [place] [address] Primitivo De Guzman MD [address] [place] [address] Scheduled Procedures Name Priority Associated Diagnoses Date/Ti me TREATMENT TIBIAL FRACTURE BY INTRAMEDULLARY IMPLANT Fracture 08/17/2023 12:24 PM EDT COLONOSCOPY FLEXIBLE PROXIMA L DIAGNOSTIC Recall Screen for colon cancer Health Maintenance Due Date Last Done Comments HIV Screening 1975 Cologuard 11/01/2003 Fecal Occult Blood Test 11/01/2003 Sigmoidoscopy 11/01/2003 Depression Screening 09/23/2023 09/22/2022 GFR 08/16/2024 08/17/2023, 08/04, 09/23/2022, Additional history exists Albumin/Creatinine Ratio 09/23/2025 09/23/2022 Diabetes Screening 08/16/2026 08/17/2023, 0 08/17/2023, 12/30/2022, Additional history exists Lipid Panel 02/19/2028 02/18/2023, [...] documented as of this encounter Medical Devices Not on filedocumented as of this encounter Procedures Procedure Name Priority Date/Time Associated Diagnosis Comments RADIOLOGY EXAM - GENERAL RAD (IMAGES ONLY,NO REPORT) Routine 08/16/2023 6:55 PM EDT documented in this encounter Results * RADIOLOGY EXAM - GENERAL RAD (IMAGES ONLY,NO REPORT) (08/16/2023 6:55 PM EDT) 08/16/2023 6:52 PM EDT Narrative Scheduling, Silent - 08/16/2023 10:13 PM EDT This is an imaging study not interpreted or resulted by a [facility] or [facility] contracted radiologist. Diony Mondragon DO RADIOLOGY (RAD GENERAL) documented in this encounter Advance Directives Latest Code Status on File Code Status Date Activated Date Inactivated Comments Full Code 08/17/2023 12:34 AM This orde r reflects the patients wishes and were consensually agreed upon. Question Answer Comments Discussion of Advance Directives occurred with: Not Discussed due to patient's condition Care Teams Trestle Mechanic Relationship Specialty Start Date End Date Primitivo Arceo MD [address] [place] [address] PCP - General Internal Medicine 06/03/14 documented as of this encounter
--- OUTSIDE RECORDS SUMMARY | 2023-08-31 07:07 | External Medical Summary ---
Author Name Unknown Address Unknown Organization K01:[facility] [place] [facility] [address] [facility] [address] [place] [address] Laboratory Report Ordering Provider Test Date Status ALEJANDRO LOCO 08/17/2023 17:02:00 Final Observation Date Value Abnormality Reference (Units ) Status WBC, Total 08/17/2023 17:02:00 10.99 Above high normal 4.00-10.80 (K/uL) Final RBC 08/17/2023 17:02:00 4.49 4.50-5.25 (M/uL) Final Hemoglobin 08/17/2023 17:02:00 14.3 14.0-16.8 (g/dL) Final HCT 08/17/2023 17:02:00 43.2 40.0-48.4 (%) Final MCV 08/17/2023 17:02:00 96.2 82.0-99.5 (fL) Final MCH 08/17/2023 17:02:00 31.8 27.0-34.0 (pg) Final MCHC 08/17/2023 17:02:00 33.1 32.0-36.0 (g/dL) Final RDW 08/17/2023 17:02:00 12.3 11.5-15.5 (%) Final Platelets 08/17/2023 17:02:00 226 140-400 (K/uL) Final MPV 08/17/2023 17:02:00 9.6 6.6-11.1 (fL) Final Nucleated erythrocytes/100 leukocytes [Ratio] in Blood by Automated count 08/17/2023 17:02:00 0 <=0 (/100 WBCs) Final Performing Location [facility] [place] [address] [place] [address]
--- OUTSIDE RECORDS SUMMARY | 2023-08-31 07:07 | External Medical Summary ---
Author Name Unknown Address Unknown Organization K01:[facility] [place] - [address] [place] [address] Laboratory Report Ordering Provider Test Date Status ALEJANDRO LOCO 08/17/2023 17:02:00 Final Observation Date Value Abnormality Reference (Units ) Status BUN 08/17/2023 17:02:00 20 6-20 (mg/d L) Final Creatinine 08/17/2023 17:02:00 1.1 0.6-1.2 ( mg/dL) Final The above reference range is based on the legal sex of the patient only. Results should be interpreted together with patient's sex at , gender identity, and clinical context. Glomerular filtration rate/1 .73 sq M.predicted [Volume Rate/Area] in Serum, Plasma or Blood by Creatinine-based formula (CKD-EPI) 08/17/2023 17:02:00 77 >=60 (mL/min) Fi nal eGFR is calculated based on the legal sex of the patient, using the CKD-EPI 2020 equation SODIUM 08/17/2023 17:02:00 137 135-146 (m mol/L) Final Potassium 08/17/2023 17:02:00 4.2 3.5-5.1 (m mol/L) Final Cl 08/17/2023 17:02:00 107 98-107 (mm ol/L) Final CO2 08/17/2023 17:02:00 21 Below low normal 22- 32 (mmol/L) Final Anion gap 08/17/2023 17:02:00 9 7-15 (mmol /L) Final Glucose 08/17/2023 17:02:00 124 Above high normal 70 -120 (mg/dL) Final Calcium 08/17/2023 17:02:00 8.5 8.4-10.2 ( mg/dL) Final Performing Location [facility] - [address] [place] [address]
--- OUTSIDE RECORDS SUMMARY | 2023-08-31 07:07 | External Medical Summary ---
Author Name Unknown Address Unknown Organization : Laboratory Report Ordering Provider Test Date Status DELBERT ARNDT 08/17/2023 14:38:42 Final Observation Date Value Abnormality Reference (Units ) Status Glucose Point of Care 08/17/2023 14:38:42 109 70-120 (mg/dL) Final Performing Location
--- OUTSIDE RECORDS SUMMARY | 2023-08-31 07:07 | External Medical Summary | Summary of Care ---
Author Name Unknown Organization [facility] Address [address] [place] [address] Phone [phone] Care Team Providers Care Clinical Implementation Specialist Name Role Phone Primitivo Arceo MD Primary Care Provider + Encounter Details Date Type Department Care Team (Latest Contact Info) Description 08/16/2023 3:50 PM EDT - 08/16/2023 6:54 PM EDT Hospital Encounter Radiology Film File [address] [place] [address] Arrived Discharge Disposition: Home - [...] 04/15/2021 Suspended Additional Information Patient taking differently:2 [place] Each Nostril Daily(AM),As needed, Reported on 06/01/2022 [...] years 03/18/2022 Pneumococcal Conjugate Vacci ne, 20-valent ([id number]) 09/22/2022 Pneumococcal Polysaccharide PPV23 (Pneumovax) 04/24/2021 Seasonal [...] PM EDT [facility] [place] [address] [place] [address] Primitivo Arceo MD [address] [place] [place] [address] 12/09/2023 3:45 PM EDT Office [facility] [place] [place] [address] [place] [address] Primitivo De Guzman MD [address] [place] [address] Scheduled Procedures Name Priority Associated Diagnoses Date/Ti [...] GENERAL RAD (IMAGES ONLY,NO REPORT) Routine 08/16/2023 3:50 PM EDT documented in this encounter Results * RADIOLOGY EXAM - GENERAL RAD (IMAGES ONLY,NO REPORT) (08/16/2023 3:50 PM EDT) 08/16/2023 3:37 PM EDT Narrative Scheduling, Silent - 08/16/2023 10:18 PM EDT This is an imaging study not interpreted or resulted by a [facility] or [facility] contracted radiologist. Diony Mondragon DO RADIOLOGY (RAD GENERAL) documented in this encounter Advance Directives Latest Code Status on File Code Status Date Activated Date Inactivated Comments Full Code 08/17/2023 12:34 AM This orde r reflects the patients wishes and were consensually agreed upon. Question Answer Comments Discussion of Advance Directives occurred with: Not Discussed due to patient's condition Care Teams Clinical Implementation Specialist Relationship Specialty Start Date End Date Primitivo Arceo MD [address] [place] [address] PCP - General Internal Medicine 06/03/14 documented as of this encounter
--- OUTSIDE RECORDS SUMMARY | 2023-08-31 07:07 | External Medical Summary ---
Author Name Unknown Address Unknown Organization [id number]:LAB[facility]ATORY [facility] - [address] [place] [address] Laboratory Report Ordering Provider Test Date Status SOTERO ROMAN 08/18/2023 03:42:00 Final Observation Date Value Abnormality Reference (Units ) Status Phosphate 08/18/2023 03:42:00 3.2 2.5-4.8 (m g/dL) Final Performing Location [facility] - [address] [place] [address]
--- OUTSIDE RECORDS SUMMARY | 2023-08-31 07:07 | External Medical Summary | Summary of Care ---
Author Name Unknown Organization [facility] Address [address] [place] [address] Phone [phone] Care Team Providers Care 3D Artist Name Role Phone Primitivo Arceo MD Primary Care Provider + Encounter Details Date Type Department Care Team (Latest Contact Info) Description 08/16/2023 3:40 PM EDT - 08/16/2023 3:44 PM EDT Hospital Encounter Radiology Film File [address] [place] [address] Arrived Discharge Disposition: Home - [...] 04/15/2021 Suspended Additional Information Patient taking differently:2 [place] Each Nostril Daily(AM),As needed, Reported on 06/01/2022 [...] years 03/18/2022 Pneumococcal Conjugate Vacci ne, 20-valent ([id number]) 09/22/2022 Pneumococcal Polysaccharide PPV23 (Pneumovax) 04/24/2021 Seasonal [...] PM EDT Office Visit [facility] [place] [address] [place] [address] Primitivo Arceo MD [address] [place] [address] 12/09/2023 3:45 PM EDT Office [facility] [place] [address] [place] [address] Primitivo De Guzman MD [address] [place] [address] [address] Scheduled Procedures Name Priority Associated Diagnoses Date/Ti [...] GENERAL RAD (IMAGES ONLY,NO REPORT) Routine 08/16/2023 3:40 PM EDT documented in this encounter Results * RADIOLOGY EXAM - GENERAL RAD (IMAGES ONLY,NO REPORT) (08/16/2023 3:40 PM EDT) 08/16/2023 3:37 PM EDT Narrative Scheduling, Silent - 08/16/2023 10:10 PM EDT This is an imaging study not interpreted or resulted by a [facility] or [facility] contracted radiologist. Diony Mondragon DO RADIOLOGY (RAD GENERAL) documented in this encounter Advance Directives Latest Code Status on File Code Status Date Activated Date Inactivated Comments Full Code 08/17/2023 12:34 AM This orde r reflects the patients wishes and were consensually agreed upon. Question Answer Comments Discussion of Advance Directives occurred with: Not Discussed due to patient's condition Care Teams 3D Artist Relationship Specialty Start Date End Date Primitivo Arceo MD [address] [place] [address] PCP - General Internal Medicine 06/03/14 documented as of this encounter
--- OUTSIDE RECORDS SUMMARY | 2023-08-31 07:07 | External Medical Summary ---
Author Name Unknown Address Unknown Organization [id number]:[facility] [place] [address] [place] [address] Laboratory Report Ordering Provider Test Date Status SOTERO ROMAN 08/17/2023 09:21:00 Final Observation Date Value Abnormality Reference (Units ) Status BUN 08/17/2023 09:21:00 23 Above high normal 6- 20 (mg/dL) Final Creatinine 08/17/2023 09:21:00 1.2 0.6-1.2 ( mg/dL) Final The above reference range is based on the legal sex of the patient only. Results should be interpreted together with patient's sex at , gender identity, and clinical context. Glomerular filtration rate/1 .73 sq M.predicted [Volume Rate/Area] in Serum, Plasma or Blood by Creatinine-based formula (CKD-EPI) 08/17/2023 09:21:00 70 >=60 (mL/min) Fi nal eGFR is calculated based on the legal sex of the patient, using the CKD-EPI 2020 equation SODIUM 08/17/2023 09:21:00 138 135-146 (m mol/L) Final Potassium 08/17/2023 09:21:00 3.8 3.5-5.1 (m mol/L) Final Cl 08/17/2023 09:21:00 108 Above high normal 98 -107 (mmol/L) Final CO2 08/17/2023 09:21:00 21 Below low normal 22- 32 (mmol/L) Final Anion gap 08/17/2023 09:21:00 9 7-15 (mmol /L) Final Glucose 08/17/2023 09:21:00 97 70-120 (mg /dL) Final Calcium 08/17/2023 09:21:00 8.8 8.4-10.2 ( mg/dL) Final Performing Location LABORATORY [facility] - [address] [place] [address]
--- OUTSIDE RECORDS SUMMARY | 2023-08-31 07:07 | External Medical Summary | Summary of Care ---
Author Name Unknown Organization [facility] Address [address] [place] [address] Phone [phone] Care Team Providers Care Cartographic Aide Name Role Phone Primitivo Arceo MD Primary Care Provider + Encounter Details Date Type Department Care Team (Latest Contact Info) Description 08/16/2023 3:45 PM EDT - 08/16/2023 3:49 PM EDT Hospital Encounter Radiology Film File [address] [place] [address] Arrived Discharge Disposition: Home - [...] 04/15/2021 Suspended Additional Information Patient taking differently:2 [place] Each Nostril Daily(AM),As needed, Reported on 06/01/2022 [...] years 03/18/2022 Pneumococcal Conjugate Vacci ne, 20-valent ([id number]) 09/22/2022 Pneumococcal Polysaccharide PPV23 (Pneumovax) 04/24/2021 Seasonal [...] PM EDT Office Visit [facility] [place] [address] [place] [address] Primitivo Arceo MD [address] [place] [address] 12/09/2023 3:45 PM EDT Office Visit [facility] [place] [address] [place] [address] Primitivo De Guzman MD [address] [place] [address] Scheduled Procedures Name Priority Associated Diagnoses Date/Ti [...] GENERAL RAD (IMAGES ONLY,NO REPORT) Routine 08/16/2023 3:45 PM EDT documented in this encounter Results * RADIOLOGY EXAM - GENERAL RAD (IMAGES ONLY,NO REPORT) (08/16/2023 3:45 PM EDT) 08/16/2023 3:37 PM EDT Narrative Scheduling, Silent - 08/16/2023 10:15 PM EDT This is an imaging study not interpreted or resulted by a [facility] or [facility] contracted radiologist. Diony oMndragon DO RADIOLOGY (RAD GENERAL) documented in this encounter Advance Directives Latest Code Status on File Code Status Date Activated Date Inactivated Comments Full Code 08/17/2023 12:34 AM This orde r reflects the patients wishes and were consensually agreed upon. Question Answer Comments Discussion of Advance Directives occurred with: Not Discussed due to patient's condition Care Teams Cartographic Aide Relationship Specialty Start Date End Date Primitivo Arceo MD [address] [place] [address] PCP - General Internal Medicine 06/03/14 documented as of this encounter
--- OUTSIDE RECORDS SUMMARY | 2023-08-31 07:08 | External Medical Summary ---
Author Name Unknown Address Unknown Organization [id number]:LABORATORY [facility] [place] - [address] [place] [address] Laboratory Report Ordering Provider Test Date Status SOTERO ROMAN 08/17/2023 08:12:27 Final Observation Date Value Abnormality Reference (Units ) Status Color of Urine by Auto 08/17/2023 08:12:27 Yellow Colorless, Light Yellow, Yellow, Dark Yellow Final Clarity, Urine 08/17/2023 08:12:27 Clear Clear Final Glucose [Mass/volume] in Urine by Automated test strip 08/17/2023 08:12:27 Negative Negative (mg/dL) Final Bilirubin.total [Presence] in Urine by Automated test strip 08/17/2023 08:12:27 Negative Negative Final Ketones [Mass/volume] in Urine by Automated test strip 08/17/2023 08:12:27 Trace Abnormal Negative (mg/dL) Final Specific gravity, Urine 08/17/2023 08:12:27 1.029 1.003-1.030 Final Hemoglobin [Presence] in Urine by Automated test strip 08/17/2023 08:12:27 Negative Negative Final pH, Urine 08/17/2023 08:12:27 6.5 5.0-7.5 (Units) Final Protein [Mass/volume] in Urine by Automated test strip 08/17/2023 08:12:27 Trace Abnormal Negative (mg/dL) Final Urobilinogen [Mass/volume] in Urine by Automated test strip 08/17/2023 08:12:27 Normal Normal (mg/dL) Final Nitrite [Presence] in Urine by Automated test strip 08/17/2023 08:12:27 Negative Negative Final Leukocyte esterase [Presence] in Urine by Automated test strip 08/17/2023 08:12:27 Negative Negative Final Annotation Comment 08/17/2023 08:12:27 Final Screen negative - Microscopi c not performed. Performing Location LABORATORY C - [address] [place] [address]
--- OUTSIDE RECORDS SUMMARY | 2023-08-31 07:08 | External Medical Summary ---
Author Name Unknown Address Unknown Organization [id number]:LABORATORY [facility] [place] - [facility] [address] [place] [address] Laboratory Report Ordering Provider Test Date Status JEYLISBETCIERA GranadosJAX 08/17/2023 08:12:27 Final Cutoff Concentrations:
D rug Level
Codeine 40 ng/mL
Morphine 40 ng/mL
Hydrocodone 40 ng/mL
Hydromorphone 40 ng/mL
Dihydrocodeine 40 ng/mL
Oxycodone 50 ng/mL
Oxymorphone 50 ng/mL

This test was developed and its performance characteristics determined by [facility]. It has not been cleared or approved by the [place] Food and Drug Administration. Observation Date Value Abnormality Reference (Units ) Status METHODOLOGY 08/17/2023 08:12:27 LC-MS/MS Final Codeine 08/17/2023 08:12:27 Negative Negative Final Morphine, Urine confirmatory 08/17/2023 08:12:27 >4000 Above high normal Negative (ng/mL) Final HYDROcodone cutoff [Mass/volume] in Urine for Confirmatory method 08/17/2023 08:12:27 Negative Negative Final Hydromorphone, Urine confirmatory 08/17/2023 08:12:27 259 Above high normal Negative (ng/mL) Final Dihydrocodeine [Mass/volume] in Urine by Confirmatory method 08/17/2023 08:12:27 Negative Negative Final oxyCODONE [Presence] in Urine by Screen method 08/17/2023 08:12:27 Negative Negative Final oxyMORphone cutoff [Mass/volume] in Urine for Confirmatory method 08/17/2023 08:12:27 Negative Negative Final Performing Location LABORATORY [place] [address] [place] [address]
--- OUTSIDE RECORDS SUMMARY | 2023-08-31 07:08 | External Medical Summary ---
Author Name Unknown Address Unknown Organization K01:LABORATORY [facility] [place] - [address] [place] [address] Laboratory Report Ordering Provider Test Date Status SOTERO ROMAN 08/17/2023 09:21:00 Final Observation Date Value Abnormality Reference (Units ) Status WBC, Total 08/17/2023 09:21:00 8.05 4.00-10.80 (K/uL) Final RBC 08/17/2023 09:21:00 4.62 4.50-5.25 (M/uL) Final Hemoglobin 08/17/2023 09:21:00 14.9 14.0-16.8 (g/dL) Final HCT 08/17/2023 09:21:00 43.9 40.0-48.4 (%) Final MCV 08/17/2023 09:21:00 95.0 82.0-99.5 (fL) Final MCH 08/17/2023 09:21:00 32.3 27.0-34.0 (pg) Final MCHC 08/17/2023 09:21:00 33.9 32.0-36.0 (g/dL) Final RDW 08/17/2023 09:21:00 12.5 11.5-15.5 (%) Final Platelets 08/17/2023 09:21:00 221 140-400 (K/uL) Final MPV 08/17/2023 09:21:00 9.6 6.6-11.1 (fL) Final Nucleated erythrocytes/100 leukocytes [Ratio] in Blood by Automated count 08/17/2023 09:21:00 0 <=0 (/100 WBCs) Final Performing Location LABORATORY [facility] [place] - [address] [place] [address]
--- OUTSIDE RECORDS SUMMARY | 2023-08-31 07:08 | External Medical Summary ---
Author Name Unknown Address Unknown Organization K01:LABORATORY [facility] [place] - [address] [place], [place] [address] [address] Laboratory Report Ordering Provider Test Date Status SOTERO ROMAN 08/17/2023 08:12:27 Final Cutoff Concentrations:
Drug Level
Amphetamines 500 ng/mL
Benzodiazepines 100 ng/mL
Cannabinoids 50 ng/mL
Cocaine Metabolite 150 ng/mL
Fentanyl 1 ng/mL
Hydrocodone / Hydromorphone 300 ng/mL
Methadone Metabolite 100 ng/mL
Morphine / Codeine 300 ng/mL
Oxycodone / Oxymorphone 100 ng/mL

Screening results are presumptive and can only be used for medical purposes. Positive screening results are reflexed to confirmatory testing. Observation Date Value Abnormality Reference (Units ) Status Amphetamines, Urine screen 08/17/2023 08:12:27 Negative Negative Final Benzodiazepines, Urine screen 08/17/2023 08:12:27 Negative Negative Final Cannabinoids, Urine screen 08/17/2023 08:12:27 Negative Negative Final Cocaine Metabolite, Urine screen 08/17/2023 08:12:27 Negative Negative Final fentaNYL [Presence] in Urine by Screen method 08/17/2023 08:12:27 Negative Negative Final HYDROcodone [Presence] in Urine by Screen method 08/17/2023 08:12:27 Positive Abnormal Negative Final 1-Dqzenepwvz-4,5-Dimeth yl-3,3-Diphenylpyrrolid ine (EDDP) [Presence] in Urine 08/17/2023 08:12:27 Negative Negative Final Opiates, Urine screen 08/17/2023 08:12:27 Positive Abnormal Negative Final oxyCODONE [Presence] in Urine by Screen method 08/17/2023 08:12:27 Negative Negative Final Performing Location LABORATORY [facility] [place] - [address] [facility] [address]
--- OUTSIDE RECORDS SUMMARY | 2023-08-31 07:08 | External Medical Summary ---
Author Name Unknown Address Unknown Organization K01:LABORATORY C - [address] [place] [address] Laboratory Report Ordering Provider Test Date Status SOTERO ROMAN 08/17/2023 09:21:00 Final Observation Date Value Abnormality Reference (Units ) Status Magnesium 08/17/2023 09:21:00 2.2 1.5-2.6 (m g/dL) Final Performing Location [facility] - [address] [place] [address]
--- OUTSIDE RECORDS SUMMARY | 2023-08-31 07:08 | External Medical Summary ---
Author Name Unknown Address Unknown Organization K01:[facility]ORY [facility] [place] [address] [place] [address] Laboratory Report Ordering Provider Test Date Status SOTERO ROMAN 08/17/2023 08:12:27 Final Observation Date Value Abnormality Reference (Units) Status Bacteria identified in Specimen by Culture 08/17/2023 08:12:27 No significant growth Final Test: Culture, Urine, Quanti tative
Specimen Source: Urine, Clean Catch
Specimen Type: Urine
Specimen Date: 08/17/2023 8:12 AM
Result Date: 08/18/2023 7:58 AM
Result Status: Final result
Resulting Lab: [facility]ORY [facility] [place]
[address]
[place] [address]

CULTURE

No significant growth

null Performing Location [facility] [place] [address] [facility] [address]
--- OUTSIDE RECORDS SUMMARY | 2023-08-31 07:08 | External Medical Summary ---
Author Name Unknown Address Unknown Organization K01:LABORATORY [facility] [place] - [address] [place] [address] Laboratory Report Ordering Provider Test Date Status JEYLISBETRobertaCIERAJAX 08/17/2023 08:12:27 Final Observation Date Value Abnormality Reference (Units ) Status Methicillin resistant Staphylococcus aureus (MRSA) DNA [Presence] in Nose by DELPHINE with probe detection 08/17/2023 08:12:27 Negative Negative Final No Methicillin resistant Sta phylococcus aureus detected by PCR (amplified probe). Performing Location [facility] - [address] [place] [address]
--- OUTSIDE RECORDS SUMMARY | 2023-08-31 07:08 | External Medical Summary | Summary of Care ---
Author Name Unknown Organization [facility] Address [address] [place] [address] Phone [phone] Care Team Providers Care Event Operations Manager Name Role Phone Primitivo Arceo MD Primary Care Provider + Encounter Details Date Type Department Care Team (Late st Contact Info) Description 08/16/2023 Orders Only EMS Physicians [address] [place] [address] Diony Mondragon, DO [address] [place] [address] Allergies Active Allergy Reactions Criticality Noted Date Comments Adhesive Tape Other (Please comment) 12/13/2008 blistering Zinc Rash 05/09/2014 documented as of this encounter (statuses as of 08/16/2023) Medications Medication Sig Dispensed Refills Start Date [...] 04/15/2021 Active Additional Information Patient taking differently:2 [place] Each Nostril Daily(AM),As needed, Reported on 06/01/2022 [...] FOR HEADACHE 90 Tablet 3 04/01/2023 Active Atenolol 25 MG Oral Tablet (Tenormin)Indication [...] the morning. 90 Tablet 1 07/05/2023 Active documented as of this encounter (statuses as of 08/16/2023) Active Problems Problem Noted Date Diagnosed Date Mixed hyperlipidemia 10/03/2022 Bronchiectasis without complication 09/22/2022 HTN, goal below 130/80 04/24/2021 Moderate persistent asthma without complication 01/06/2021 Hx of nonmelanoma skin cancer 01/30/2020 Overview: BCC L nose decades ago History of Lyme disease 11/09/2018 Other psoriasis 07/10/2010 Migraine without aura 04/19/2003 documented as of this encounter (statuses as of 08/16/2023) Resolved Problems Problem Noted Date Diagnosed Date Resolved Date Prediabetes 10/03/2022 01/20/2023 Lyme disease 05/09/2014 11/09/2018 Dysphagia 07/10/2010 11/09/2018 Overview: ICD-10 update of inactive term Family history of premature CAD 04/19/2003 02/25/2012 documented as of this encounter (statuses as of 08/16/2023) Immunizations Name Administration Dates Next Due COVID-19 mRNA, LNP-s, No Pre serve, 2-Dose Series (Moderna) 04/18/2021,10/15/2020,09/17/2020 COVID-19, mRNA, LNR-S, Bival ent, PF, 10mcg/0.2 ml (Moderna) 6m to 5 years 03/18/2022 Pneumococcal Conjugate Vacci ne, 20-valent ([id number]) 09/22/2022 Pneumococcal Polysaccharide PPV23 (Pneumovax) 04/24/2021 Seasonal Influenza, PF, 6 M & above, IM , (FluLaval or Fluzone) 02/10/2022,02/16/2021,03/04/2020,100 02/2019 Seasonal Influenza, Quadriva lent, No Preserve, [...] PM EDT Office Visit [place] [facility] [place] [address] [place] [address] Primitivo Arceo MD [address] [place] [place] [place] [address] 12/09/2023 3:45 PM EDT Office Visit Dermatology [place] [address] [place] [address] Primitivo De Guzman MD [address] [place] [address] Scheduled Procedures Name Priority Associated Diagnoses Date/Ti me COLONOSCOPY FLEXIBLE PROXIMAL DIAGNOSTIC Recall Screen for colon cancer Health Maintenance Due Date Last Done Comments HIV Screening 1973 Cologuard 11/01/2003 Fecal Occult Blood Test 11/01/2003 Sigmoidoscopy 11/01/2003 Depression Screening 09/23/2023 09/22/2022 GFR 09/24/2023 09/23/2022, 10/05, 09/17/2021, Additional history exists Albumin/Creatinine Ratio 09/23/2025 09/23/2022 Diabetes Screening 12/30/2025 12/30/2022, 0 09/23/2022, 10/23/2021, Additional history exists Lipid Panel 02/19/2028 02/18/2023, [...] interpreted or resulted by a [facility] or [facility] contracted radiologist. Diony Mondragon DO RADIOLOGY (RAD GENERAL) documented in this encounter Care Teams Event Operations Manager Relationship Specialty Start Date End Date Primitivo Arceo MD [address] [place] [address] PCP - General Internal Medicine 06/03/14 documented as of this encounter
--- OUTSIDE RECORDS SUMMARY | 2023-08-31 07:08 | External Medical Summary | Summary of Care ---
Author Name Unknown Organization [facility] Address [address] [place] [address] Phone [phone] Care Team Providers Care Government Minister Name Role Phone Primitivo Arceo MD Primary Care Provider + Encounter Details Date Type Department Care Team (Late st Contact Info) Description 08/16/2023 Orders Only EMS Physicians [address] [place] [address] Diony Mondragon, DO [address] [place] [address] Allergies Active Allergy Reactions Criticality [...] 04/15/2021 Active Additional Information Patient taking differently:2 [place] Each Nostril Daily(AM),As needed, Reported on 06/01/2022 [...] years 03/18/2022 Pneumococcal Conjugate Vacci ne, 20-valent ([id number]) 09/22/2022 Pneumococcal Polysaccharide PPV23 (Pneumovax) 04/24/2021 Seasonal [...] PM EDT Office Visit [facility] [place] [place] [address] [place] [address] [address] Primitivo Arceo MD [address] [place] [address] 12/09/2023 3:45 PM EDT Office Visit Dermatology [place] [address] [place] [address] Primitivo De Guzman MD [address] [place] [address] [address] Scheduled Procedures Name Priority Associated Diagnoses Date/Ti [...] interpreted or resulted by a [facility] or [facility] contracted radiologist. Diony Mondragon DO RADIOLOGY (RAD GENERAL) documented in this encounter Care Teams Government Minister Relationship Specialty Start Date End Date Primitivo Arceo MD [address] [place] [address] PCP - General Internal Medicine 06/03/14 documented as of this encounter
--- OUTSIDE RECORDS SUMMARY | 2023-08-31 07:08 | External Medical Summary ---
Author Name Unknown Address Unknown Organization K01:LABORATORY C - [address] [place] [address] Laboratory Report Ordering Provider Test Date Status SOTERO ROMAN 08/17/2023 09:21:00 Final Observation Date Value Abnormality Reference (Units ) Status Phosphate 08/17/2023 09:21:00 2.6 2.5-4.8 (m g/dL) Final Performing Location [facility] - [address] [place] [address]
--- OUTSIDE RECORDS SUMMARY | 2023-08-31 07:08 | External Medical Summary | Summary of Care ---
Author Name Unknown Organization [facility] Address [address] [place] [address] Phone [phone] Care Team Providers Care Artist Consultant Name Role Phone Primitivo Arceo MD Primary Care Provider + Encounter Details Date Type Department Care Team (Late st Contact Info) Description 08/16/2023 Orders Only EMS Physicians [address] [place] [address] Diony Mondragon, DO [address] [place] [address] Allergies Active Allergy Reactions Criticality [...] 04/15/2021 Active Additional Information Patient taking differently:2 [place] Each Nostril Daily(AM),As needed, Reported on 06/01/2022 [...] years 03/18/2022 Pneumococcal Conjugate Vacci ne, 20-valent ([id number]) 09/22/2022 Pneumococcal Polysaccharide PPV23 (Pneumovax) 04/24/2021 Seasonal [...] EDT Office [facility] [place] [facility] [address] [place] [address] Primitivo Arceo MD [address] [place] [address] 12/09/2023 3:45 PM EDT Office Visit Dermatology Deepthi [place] [address] [place] [address] Primitivo De Guzman MD [address] [place] [address] Scheduled Procedures Name Priority Associated Diagnoses Date/Ti [...] interpreted or resulted by a [facility] or [facility] contracted radiologist. Diony Mondragon DO RADIOLOGY (RAD GENERAL) documented in this encounter Care Teams Artist Consultant Relationship Specialty Start Date End Date Primitivo Arceo MD [address] [place] [address] PCP - General Internal Medicine 06/03/14 documented as of this encounter
--- OUTSIDE RECORDS SUMMARY | 2023-08-31 07:08 | External Medical Summary ---
Author Name Unknown Address Unknown Organization [id number]:[facility] [place] [address] [facility] [place] [address] Laboratory Report Ordering Provider Test Date Status SOTERO ROMAN 08/17/2023 08:12:27 Final Cutoff Concentrations:
D rug \X09\\X09\ Level
6-Monoacetylmorphine 5 ng/mL

This test was developed and its performance characteristics determined by [facility]. It has not been cleared or approved by the [place] Food and Drug Administration. Observation Date Value Abnormality Reference (Units ) Status METHODOLOGY 08/17/2023 08:12:27 LC-MS/MS Final 6-Monoacetylmorphine (6-LEONOR) [Presence] in Urine by Screen method 08/17/2023 08:12:27 Negative Negative Final Performing Location [facility] [place] [address] [facility] [address] [place] [address]
--- OUTSIDE RECORDS SUMMARY | 2023-08-31 07:08 | External Medical Summary | Summary of Care ---
Author Name Unknown Organization [facility] Address [address] [place] [address] Phone [phone] Care Team Providers Care Director Of Slot Operations Name Role Phone Primitivo Arceo MD Primary Care Provider + Encounter Details Date Type Department Care Team (Late st Contact Info) Description 08/16/2023 Orders Only EMS Physicians [address] [place] [address] Diony Mondragon, DO [address] [place] [address] Allergies Active Allergy Reactions Criticality [...] 04/15/2021 Active Additional Information Patient taking differently:2 [place] Each Nostril Daily(AM),As needed, Reported on 06/01/2022 [...] years 03/18/2022 Pneumococcal Conjugate Vacci ne, 20-valent ([id number]) 09/22/2022 Pneumococcal Polysaccharide PPV23 (Pneumovax) 04/24/2021 Seasonal [...] PM EDT Office Visit [facility] Internal Medicine [facility] [place] [place] [address] [place] [address] Primitivo Arceo MD [address] [place] [address] 12/09/2023 3:45 PM EDT Office Visit Dermatology Deepthi [place] [address] [place] [address] Primitivo De Guzman MD [address] [place] [address] Scheduled Procedures Name Priority Associated Diagnoses Date/Ti [...] interpreted or resulted by a [facility] or [facility] contracted radiologist. Diony Mondragon DO RADIOLOGY (RAD GENERAL) documented in this encounter Care Teams Director Of Slot Operations Relationship Specialty Start Date End Date Primitivo Arceo MD [address] [place] [address] PCP - General Internal Medicine 06/03/14 documented as of this encounter
--- OUTSIDE RECORDS SUMMARY | 2023-08-31 07:09 | External Medical Summary ---
Author Name Unknown Address Unknown Organization [id number]:[facility] [place] [facility] - [address] [place] [address] Laboratory Report Ordering Provider Test Date Status SOTERO ROMAN 08/17/2023 00:15:00 Final Observation Date Value Abnormality Reference (Units ) Status ABO 08/17/2023 00:15:00 O Final RH 08/17/2023 00:15:00 Positive Final Performing Location [facility] [place] [facility] - [address] [place] [address]
--- OUTSIDE RECORDS SUMMARY | 2023-08-31 07:09 | External Medical Summary ---
Author Name Unknown Address Unknown Organization [id number]:[facility] [place] [address] [place] [address] Laboratory Report Ordering Provider Test Date Status SOTERO ROMAN 08/17/2023 00:15:00 Final Observation Date Value Abnormality Reference (Units ) Status Lactic Acid 08/17/2023 00:15:00 1.8 0.4-2.0 (mmol/L) Final Performing Location [facility] [place] [address] [place] [address]
--- OUTSIDE RECORDS SUMMARY | 2023-08-31 07:09 | External Medical Summary ---
Author Name Unknown Address Unknown Organization [id number]:[facility] [place] [facility] [address] [facility] [address] Laboratory Report Ordering Provider Test Date Status SOTERO ROMAN 08/17/2023 01:25:56 Final SCREENING Observation Date Value Abnormality Reference (Units ) Status SARS Coronavirus 2 08/17/2023 01:25:56 Negative N egative Final 2019 Novel Coronavirus not d etected.

This express test was developed and its performance characteristics determined by [facility]. It has not been cleared or approved [...] (RT-PCR) test, or a Centers for Disease Control-acceptable equivalent. The test is performed in a high complexity Clinical Laboratory Improvement Amendments-(CLIA) certified laboratory. The test is acceptable for SARS-CoV-2 diagnosis, surveillance, and travel within the [place] and to most countries. Please check with local testing authorities about requirements before travel.

The validation of bronchial specimens, tracheal aspirates, and sputum for this assay was developed and performance characteristics determined by [facility]. The validation of alternate specimen types has not been cleared or approved by the U.S. Food and Drug Administration (FDA). It has been determined that such clearance is not necessary. Performing Location [facility] [place] [facility] [address] [facility] [address]
--- OUTSIDE RECORDS SUMMARY | 2023-08-31 07:09 | External Medical Summary ---
Author Name Unknown Address Unknown Organization K01:[facility] [place] - [address] [place] [address] Laboratory Report Ordering Provider Test Date Status SOTERO ROMAN 08/17/2023 00:15:00 Final Observation Date Value Abnormality Reference (Units ) Status Magnesium 08/17/2023 00:15:00 2.1 1.5-2.6 (m g/dL) Final Performing Location [facility] - [address] [place] [address]
--- OUTSIDE RECORDS SUMMARY | 2023-08-31 07:09 | External Medical Summary ---
Author Name Unknown Address Unknown Organization [id number]:[facility] [place] [address] [place] [address] Laboratory Report Ordering Provider Test Date Status SOTERO ROMAN 08/17/2023 00:16:00 Final Warfarin Therapy
INR: 2 .0-3.0 conventional anticoagulation
INR: 2.5- 3.5 high intensity anticoagulation Observation Date Value Abnormality Reference (Units ) Status PT 08/17/2023 00:16:00 13.4 11.6-15.2 (seconds) Final INR 08/17/2023 00:16:00 1.0 0.8-1.2 Final Performing Location [facility] [place] [address] [place] [address]
--- OUTSIDE RECORDS SUMMARY | 2023-08-31 07:09 | External Medical Summary ---
Author Name Unknown Address Unknown Organization K01:[facility] [place] [facility] [place] [address] [place] [address] Laboratory Report Ordering Provider Test Date Status SOTERO ROMAN 08/17/2023 00:15:00 Final Observation Date Value Abnormality Reference (Units ) Status ABO 08/17/2023 00:15:00 O Final RH 08/17/2023 00:15:00 Positive Final RED BLOOD CELL ANTIBODY SCREEN 08/17/2023 00:15:00 Negative Final SPECIMEN EXPIRATION DATE 08/17/2023 00:15:00 08/20/2023 23:59 Final Performing Location [facility] [place] [facility] [place] [address] [place] [address]
--- OUTSIDE RECORDS SUMMARY | 2023-08-31 07:09 | External Medical Summary ---
Author Name Unknown Address Unknown Organization K01:[facility] [address] [place] [address] Laboratory Report Ordering Provider Test Date Status SOTERO ROMAN 08/17/2023 00:15:00 Final Observation Date Value Abnormality Reference (Units ) Status WBC, Total 08/17/2023 00:15:00 12.30 Above high normal 4.00-10.80 (K/uL) Final RBC 08/17/2023 00:15:00 5.01 4.50-5.25 (M/uL) Final Hemoglobin 08/17/2023 00:15:00 16.1 14.0-16.8 (g/dL) Final HCT 08/17/2023 00:15:00 47.9 40.0-48.4 (%) Final MCV 08/17/2023 00:15:00 95.6 82.0-99.5 (fL) Final MCH 08/17/2023 00:15:00 32.1 27.0-34.0 (pg) Final MCHC 08/17/2023 00:15:00 33.6 32.0-36.0 (g/dL) Final RDW 08/17/2023 00:15:00 12.4 11.5-15.5 (%) Final Platelets 08/17/2023 00:15:00 246 140-400 (K/uL) Final MPV 08/17/2023 00:15:00 9.5 6.6-11.1 (fL) Final Nucleated erythrocytes/100 leukocytes [Ratio] in Blood by Automated count 08/17/2023 00:15:00 0 <=0 (/100 WBCs) Final Performing Location [facility] [place] [address] [place] [address]
--- OUTSIDE RECORDS SUMMARY | 2023-08-31 07:09 | External Medical Summary ---
Author Name Unknown Address Unknown Organization K01:[facility] [place] [address] [place] [address] Laboratory Report Ordering Provider Test Date Status SOTERO ROMAN 08/17/2023 00:16:00 Final Anticoagulation may affect t esting. Refer to [facility] Test Catalog for a list of effects. Observation Date Value Abnormality Reference (Units ) Status aPTT panel - Platelet poor plasma 08/17/2023 00:16:00 30 21-38 (seconds) Final Performing Location [facility] [place] [address] [place] [address]
--- OUTSIDE RECORDS SUMMARY | 2023-08-31 07:09 | External Medical Summary ---
Author Name Unknown Address Unknown Organization K01:[facility] [place] [address] [place] [address] Laboratory Report Ordering Provider Test Date Status SOTERO ROMAN 08/17/2023 00:15:00 Final Observation Date Value Abnormality Reference (Units ) Status Ethanol 08/17/2023 00:15:00 Negative Negative Final Performing Location [facility] [place] [address] [place] [address]
--- OUTSIDE RECORDS SUMMARY | 2023-08-31 07:09 | External Medical Summary ---
Author Name Unknown Address Unknown Organization K01:[facility] [place] [address] [place] [address] Laboratory Report Ordering Provider Test Date Status SOTERO ROMAN 08/17/2023 00:15:00 Final Observation Date Value Abnormality Reference (Units ) Status BUN 08/17/2023 00:15:00 22 Above high normal 6- 20 (mg/dL) Final Creatinine 08/17/2023 00:15:00 1.1 0.6-1.2 ( mg/dL) Final The above reference range is based on the legal sex of the patient only. Results should be interpreted together with patient's sex at , gender identity, and clinical context. Glomerular filtration rate/1 .73 sq M.predicted [Volume Rate/Area] in Serum, Plasma or Blood by Creatinine-based formula (CKD-EPI) 08/17/2023 00:15:00 77 >=60 (mL/min) Fi nal eGFR is calculated based on the legal sex of the patient, using the CKD-EPI 2020 equation SODIUM 08/17/2023 00:15:00 139 135-146 (m mol/L) Final Potassium 08/17/2023 00:15:00 4.7 3.5-5.1 (m mol/L) Final Cl 08/17/2023 00:15:00 108 Above high normal 98 -107 (mmol/L) Final CO2 08/17/2023 00:15:00 21 Below low normal 22- 32 (mmol/L) Final Anion gap 08/17/2023 00:15:00 10 7-15 (mmol /L) Final Glucose 08/17/2023 00:15:00 137 Above high normal 70 -120 (mg/dL) Final Calcium 08/17/2023 00:15:00 9.0 8.4-10.2 ( mg/dL) Final Performing Location LAB[facility]ATORY [facility] - [address] [place] [address]
--- OUTSIDE RECORDS SUMMARY | 2023-08-31 07:09 | External Medical Summary ---
Author Name Unknown Address Unknown Organization K01:[facility] - [address] [place] [address] Laboratory Report Ordering Provider Test Date Status SOTERO ROMAN 08/17/2023 00:15:00 Final Observation Date Value Abnormality Reference (Units ) Status Phosphate 08/17/2023 00:15:00 2.8 2.5-4.8 (m g/dL) Final Performing Location [facility] - [address] [place] [address]
--- NOTE | 2023-08-31 07:29 | XRay Report ---
XR chest 1V portable CLINICAL HISTORY: Fever. COMPARISON STUDY: No previous studies for comparison. FINDINGS: Lung volumes are normal. There is no consolidation to suggest pneumonia. Linear left basila r opacity represents atelectasis. There is no pneumothorax or pleural effusion. Cardiac size is consuelo l. Mediastinal contours are normal. There is no evidence for pulmonary edema. IMPRESSION: No acute cardiopulmonary findings. ACT 112: Negative or not required by law. Electronically signed by: Ranjith Irizarry M.D. 08/31/2023 7:27 AM
[2023-08-31 07:45] LABS: Basophils # (auto) 0.05 K/uL (0.00-0.20); Basophils % (auto) 0.8 %; Eosinophils # (auto) 0.17 K/uL (0.00-0.50); Eosinophils % (auto) 2.7 %; Hematocrit (blood only) 34.9 % (42.0-52.0); Hemoglobin 11.7 g/dl (14.0-18.0); Immature Granulocytes # (auto) 0.05 K/uL (0.01-0.20); Immature Granulocytes % (auto) 0.8 %; Lymphocytes # (auto) 1.73 K/uL (1.20-3.40); Lymphocytes % (auto) 27.8 %; Mean Corpuscular Hgb Conc 33.5 g/dL (32.0-36.0); Mean Corpuscular Volume 92.6 fL (80.0-100.0); Mean Platelet Volume 9.3 fL (9.4-12.4); Monocytes # (auto) 0.66 K/uL (0.11-0.59); Monocytes % (auto) 10.6 %; Neutrophils # (auto) 3.56 K/uL (1.40-6.50); Neutrophils % (auto) 57.3 %; Platelet Count 489 K/uL (130-400); RDW Coefficient of Variation 12.9 % (11.5-14.5); RDW Standard Deviation 43.2 fL (36.4-46.3); Red Blood Count 3.77 M/uL (4.70-6.10); White Blood Count 6.22 K/ul (4.8-10.8)
[2023-08-31 07:56] LABS: BUN Creatinine Ratio 28.4 (10-20); Calcium 7.7 mg/dl (8.6-10.3); Creatinine Clr Calc Pharmacy 91.3 ml/min; Est GFR (African American) 97.7 ml/min; Est GFR (Non-African American) 84.3 ml/min; Magnesium 2.1 mg/dl (1.7-2.4); Potassium 3.7 mmol/L (3.5-5.1)
[2023-08-31] MEDS: DOXYCYCLINE HYCLATE 100 MG CAP PO SCH (08:01)
[2023-08-31] MEDS: ENOXAPARIN INJ 40 MG/0.4 ML SYR SQ SCH (08:01)
[2023-08-31 08:03] LABS: Troponin I High Sensitivity 8.1 pg/ml (0-20)
--- NOTE | 2023-08-31 10:58 | Communication Note ---
Date of Service: August 31, 2023 62-year-old gentleman with PMH of HLD, moderate persistent asthma, bronchiectasis without complication, HTN, psoriasis, migraine, Lyme disease who had a fall on August 16, 2023 [acute comminuted displaced distal diaphysis fracture of the right tibia and fibula] status post ORIF as well as repair of posterior malleolus fracture x right at [place] on August 17, 2023. He was having issues/blisters from the cast so he went back to Ortho on August 23, 2023 and was recasted and gauze placed on blister. At his follow-up appointment with PCP on August 29, 2023, he was feeling weak/lethargic/lightheaded and he was advised to go to ED for workup on infection. He reports feeling low-grade fever and weak prior to arrival. He denies any cough or chest pain or sore throat or abdominal pain or acute changes in his bowel or bladder habit. He was noted to be tachycardic at presentation. RLE venous Doppler study and CTA chest negative for blood clot. Urine analysis and CXR at presentation WNL Patient tachycardic at presentation, troponin x 2 negative, chest pain negative, EKG with sinus tachycardia. Rule out infection, continue with ivf, continue with Rocephin and doxycycline for concern of soft tissue infection at this point. Telemetry monitoring. For detailed information on the patient, reported to disease SIDE PIECE COVERER note.
[2023-08-31] MEDS: ATENOLOL 25 MG TABLET PO SCH (11:44)
--- OUTSIDE RECORDS SUMMARY | 2023-08-31 13:54 | External Medical Summary | Summary of Care ---
Author Name Unknown Organization [facility] Address [address] [place] [address] Phone [phone] Care Team Providers Care Wine Bottle Inspector Name Role Phone Primitivo Arceo MD Primary Care Provider + Reason for Visit * Reason Onset Date Comments Advice 08/30/2023 Update Encounter Details Date Type Department Care Team (Late st Contact Info) Description 08/30/2023 Telephone General Internal Medicine [facility] [address] [facility] [place] [address] Primitivo Arceo MD [address] [place] [address] Advice (Update ) Allergies Active Allergy Reactions Criticality Noted Date Comments Adhesive Tape Other (Please comment) 12/13/2008 blistering Zinc Rash 05/09/2014 documented as of this encounter (statuses as of 08/30/2023) Medications Medication Sig Dispensed Refills Start Date [...] as of this encounter (statuses as of 08/30/2023) Active Problems Problem Noted Date Diagnosed Date [...] as of this encounter (statuses as of 08/30/2023) Resolved Problems Problem Noted Date Diagnosed Date Resolved Date Prediabetes 10/03/2022 01/20/2023 Lyme disease 05/09/2014 11/09/2018 Dysphagia 07/10/2010 11/09/2018 Overview: ICD-10 update of inactive term Family history of premature CAD 04/19/2003 02/25/2012 documented as of this encounter (statuses as of 08/30/2023) Immunizations Name Administration Dates Next Due COVID-19 mRNA, LNP-s, No Pre serve, 2-Dose Series (Moderna) 04/18/2021,10/15/2020,09/17/2020 COVID-19, mRNA, LNR-S, Bival ent, PF, 10mcg/0.2 ml (Moderna) 6m to 5 years 03/18/2022 Pneumococcal Conjugate Vacci ne, 20-valent ([id number]) 09/22/2022 Pneumococcal Polysaccharide PPV23 (Pneumovax) 04/24/2021 Seasonal [...] encounter Miscellaneous Notes * Telephone Encounter - Primitivo Arceo MD - 08/30/2023 3:59 PM EDT I called [facility] * Telephone Encounter - Aster Louis MED ASSIST - 08/30/2023 1:39 PM EDT Patient aware and verbalized understanding Pt is agreeable to going to ER. Pt states his symptoms are better than they were earlier, but with his lab results he was advised to go to ER. MyG sent to remind pt what blood work needs repeated * Telephone Encounter - Aster Louis MED ASSIST - 08/30/2023 1:30 PM EDT ----- Message from Primitivo Arcoe MD sent at 08/30/2023 12:02 PM EDT ----- 1. Wbc elevated as is platelets, which could suggest infection - if not feeling well, rigors, chills, suggest ER eli 2. Potassium and calcium high, this is from hemolyzed specimen, needs to be repeated, if goes to [facility] do there, 3. Magnesium high, needs to be repeated 1-2 days, but if goes to er, can be done there, let us know * Telephone Encounter - Primitivo Arceo MD - 08/30/2023 11:52 AM EDT If he is having chills, persistent dizziness, I would actually suggest ER now for emergent evaul make sure no severe infection, clot, etc * Telephone Encounter - Lori Jett OSA - 08/30/2023 8:45 AM EDT FYI - Pt calling with update on pt condition since leaving appt yesterday with PCP office where pt had been lightheaded to the point that he couldn't sit. Shivering with extreme chills when got into the car. Got warmed up at home, temp was normal when arrived home, but pt said he was hot. 7pm - 8am temp was 100, 97.6 at 8am. 7pm - midnight pt was vomiting and having dry heaves. Vomited again at 3:30am but not again since then. wants cast looked at again. is declining to go to [place] today She is requesting PT for pt. Unsure where she wants him to go. Pt is now sleeping, calm. Should she do anything different? Please advise documented in this encounter Plan of Treatment Upcoming Encounters Date Type Department Care Team (Late st Contact Info) Description 09/06/2023 12:00 PM EDT Office Visit Orthopaedics, [place] [address] [place] [address] Eleno Sexton PA-C [address] [place] [address] 11/30/2023 12:00 PM EDT Office Visit General Internal Medicine Deepthi [place] [address] [facility] [place] [place] [address] Primitivo Arceo MD [address] [facility] [place] [address] 12/09/2023 3:45 PM EDT Office Visit Dermatology [facility] [address] [facility] [place] [address] Primitivo De Guzman MD [address] [facility] [place] [address] 09/03/2024 2:20 PM EDT Office Visit General Internal Medicine [facility] [address] [facility] [place] [address] Primitivo Arceo MD [address] [facility] [place] [address] Scheduled Procedures Name Priority Associated Diagnoses Date/Ti me COLONOSCOPY FLEXIBLE PROXIMAL DIAGNOSTIC Recall Screen for colon cancer Health Maintenance Due Date Last Done Comments HIV Screening 1973 Cologuard 11/01/2003 Fecal Occult Blood Test 11/01/2003 Sigmoidoscopy 11/01/2003 Depression Screening 09/23/2023 09/22/2022 GFR 08/28/2024 08/29/2023, 08/04, 08/18/2023, Additional history exists Albumin/Creatinine Ratio 09/23/2025 09/23/2022 Diabetes Screening 08/28/2026 08/29/2023, 0 08/29/2023, 08/19/2023, Additional history exists Lipid Panel 02/19/2028 02/18/2023, [...] this encounter Medical Devices Implanted Type Area Section Laborer Device Identifier Shelf Expiration Date Model / Serial / Lot Nail T2 Alpha Tibia [id number] - [id number] Implanted:Qty: 1 on 08/17/2023 by German Roldan MD at [place] [facility] [place] Right: Leg Lower TONEY : [place]UMA 07/06/2030 [id number] / / [id number] Screw T2 Alpha Lock 5x42.5mm - [id number] Implanted:Qty: 1 on 08/17/2023 by German Roldan MD at OR [facility] [place] Right: Leg Lower TONEY : TRAUMA 01/03/2033 [id number] / / [id number] Screw T2 Alpha Lock 5x42.5mm - [id number] Implanted:Qty: 1 on 08/17/2023 by German Roldan MD at OR [facility] [place] Right: Leg Lower TONEY : TRAUMA 05/05/2033 [id number] / / [id number] Screw T2 Alpha Lock 5x40mm - [id number] Implanted:Qty: 1 on 08/17/2023 by German Roldan MD at OR [facility] [place] Right: Leg Lower TONEY : TRAUMA 01/03/2033 [id number] / / [id number] Screw T2 Alpha Lock 5x47.5mm - [id number] Implanted:Qty: 1 on 08/17/2023 by German Roldan MD at OR [facility] [place] Right: Leg Lower TONEY : TRAUMA 06/05/2033 [id number] / / [id number] documented as of this encounter Advance Directives Latest Code Status on File Code Status Date Activated Date Inactivated Comments Full Code 08/17/2023 12:34 AM 08/19/2023 6:51 PM This order reflects the patients wishes and were consensually agreed upon. Question Answer Comments Discussion of Advance Directives occurred with: Not Discussed due to patient's condition Care Teams Wine Bottle Inspector Relationship Specialty Start Date End Date Primitivo Arceo MD [address] [place] [address] PCP - General Internal Medicine 06/03/14 documented as of this encounter
--- NOTE | 2023-08-31 16:07 | Electrocardiogram Report ---
Test Reason : Blood Pressure : / mmHG Vent. Rate : 138 BPM Atrial Rate : 138 BPM P-R Int : 136 ms QRS Dur : 078 ms QT Int : 350 ms P-R-T Axes : 000 015 -77 degrees QTc Int : 530 ms Unusual P axis, possible ectopic atrial tachycardia Abnormal ECG No previous ECGs available Confirmed by Hamilton Pugh ([id number]) on 08/31/2023 4:06:49 PM Referred By: Primitivo Arceo Confirmed By:Hamilton Pugh
--- NOTE | 2023-08-31 16:10 | Electrocardiogram Report ---
Test Reason : Blood Pressure : / mmHG Vent. Rate : 070 BPM Atrial Rate : 070 BPM P-R Int : 142 ms QRS Dur : 080 ms QT Int : 436 ms P-R-T Axes : 062 021 064 degrees QTc Int : 470 ms Normal sinus rhythm Nonspecific ST and T wave abnormality Abnormal ECG When compared with ECG of 31-AUG-2023 00:50, (unconfirmed) Vent. rate has decreased BY 68 BPM Nonspecific T wave abnormality no longer evident in Inferior leads T wave inversion no longer evident in Lateral leads Confirmed by Hamilton Pugh ([id number]) on 08/31/2023 4:10:18 PM Referred By: Primitivo Arceo Confirmed By:Hamilton Pugh
[2023-08-31] MEDS: cefTRIAXone SODIUM 2,000 MG in DEXTROSE 5 % MINI-B 50 ML IV SCH (17:59)
[2023-08-31] MEDS: NORTRIPTYLINE HCL 10 MG CAP PO SCH (19:51)
[2023-08-31] MEDS: TOPIRAMATE 50 MG TAB PO SCH (19:52)
[2023-09-01 06:19] LABS: BUN Creatinine Ratio 20.5 (10-20); Calcium 8.2 mg/dl (8.6-10.3); Creatinine Clr Calc Pharmacy 104.5 ml/min; Est GFR (African American) 107.8 ml/min; Magnesium 1.7 mg/dl (1.7-2.4); Phosphorus 2.4 mg/dl (2.5-4.9); Potassium 3.4 mmol/L (3.5-5.1)
[2023-09-01 06:41] LABS: Hematocrit (blood only) 33.9 % (42.0-52.0); Hemoglobin 11.3 g/dl (14.0-18.0); Mean Corpuscular Hemoglobin 31.4 pg (25.0-34.0); Mean Corpuscular Hgb Conc 33.3 g/dL (32.0-36.0); Mean Corpuscular Volume 94.2 fL (80.0-100.0); Mean Platelet Volume 9.3 fL (9.4-12.4); Platelet Count 480 K/uL (130-400); RDW Coefficient of Variation 12.5 % (11.5-14.5); RDW Standard Deviation 43.3 fL (36.4-46.3); White Blood Count 7.92 K/ul (4.8-10.8)
[2023-09-01] MEDS: ROSUVASTATIN CALCIUM 5 MG TAB PO SCH (07:52)
[2023-09-01] MEDS: MAGNESIUM OXIDE 400 MG TAB PO SCH (07:54)
[2023-09-01] MEDS: CYANOCOBALAMIN (B-12) 500 MCG TABLET PO SCH (07:54)
[2023-09-01] MEDS ORDERED: POTASSIUM PHOS 3 MMOL/1 ML INFUSION IV STA (09:13)
[2023-09-01] MEDS: POTASSIUM PHOSPHATE 24 MMOL in SODIUM CHLORIDE 0.9% 500 ML IV ONE (09:56)
--- NOTE | 2023-09-01 12:28 | Electrocardiogram Report ---
Test Reason : Blood Pressure : / mmHG Vent. Rate : 061 BPM Atrial Rate : 061 BPM P-R Int : 140 ms QRS Dur : 080 ms QT Int : 446 ms P-R-T Axes : 056 024 053 degrees QTc Int : 448 ms Normal sinus rhythm Normal ECG When compared with ECG of 31-AUG-2023 07:45, Nonspecific T wave abnormality no longer evident in Anterior leads Confirmed by Hamilton Pugh ([id number]) on 09/01/2023 12:28:40 PM Referred By: Primitivo Arceo Confirmed By:Hamilton Pugh
--- NOTE | 2023-09-01 13:44 | Hospitalist Progress Note ---
Date of Service September 01, 2023 Assessment & Plan (1) Tachycardia: Plan: 62-year-old male with past medical history significant for hyperlipidemia, moderate persistent asthma, bronchiectasis without complication, hypertension, psoriasis, migraine, history of Lyme disease, who had a fall on August 16, 2023 and found to have acute commuted displaced distal diaphysis fracture of the right tibia and fibula s/p reduction in the ER and was transferred to trauma center at [place] and s/p ORIF with nail as well as repair of right posterior malleolus fracture on August. Was having issues/blisters from the cast so he went back to Ortho on August 23 2023 and was recasted and gauze placed on blister. He had a regular follow-up appointment with PCP on August 29 2023. That day he was feeling weak and lethargic and somewhat lightheaded and was advised to come to the ER for workup for an infection. Today in the ER cast was replaced and there was no obvious infection noted. Plan was to discharge him on antibiotics but patient developed tachycardia with heart rate in 140s. Showing sinus tachycardia. Venous Doppler was negative for DVT. Patient taking Lovenox shots at home for DVT prophylaxis. But he states he did not take today's Lovenox dose. Currently tachycardia improved with fluids. Resting comfortably. Denies any headache. No blurred visions. No earache or runny nose. No sore throat. No cough. States last night he had a low-grade temperature. Appetite is okay. Denies any chest pain or shortness of breath. No nausea. No abdominal pain. Somewhat constipated initially after surgery but that got resolved. Denies any bloody or black stools. Normal micturition. Hemodynamics are okay currently. Tachycardia-differentials include infection, thromboembolism, dehydration Mild temp spike Procalcitonin 0.7 Recently some blisters under the cast Empirically Rocephin and Doxy Tachycardia has improved with fluids Will continue IV fluids Doppler is negative for DVT and CTA has been negative for any pulmonary embolism He has been feeling much better and does not have any more tachycardia No other evidence of infection at this time and the blood cultures have been negative and urine culture has been negative too Blisters-as far as that can be seen did not show any evidence of drainage and ulceration Status post ORIF right tibia and fibula on 08/17/2023 The right leg is in a splint and bandaged Will get an Ortho evaluation prior to discharge Will get PT and OT evaluation as well May need to have wound care to make sure there is no ongoing infection underneath History of moderate persistent asthma Bronchiectasis without complication Will monitor Hypertension On atenolol Hyperlipidemia On statin History of migraine Topamax and nortriptyline DVT prophylaxis Lovenox Disposition Med/telemetry Full code Admission and Anticipated Discharge Date Admission Date: August 31, 2023 Subjective 09/01/2023 The patient was seen and examined in medical telemetry unit He has been feeling much better and denies any fever and or chills or sweating Tachycardia has resolved Awaiting PT and OT evaluation prior to discharge Review of Systems Review of Systems: All systems reviewed and are unremarkable except as noted below Physical Exam Physical Exam: Lying in bed without any acute distress Constitutional: well developed, well nourished, + ill appearing and + obese Eyes: PERRL, conjunctivae normal, anicteric sclerae ENMT: external ear and nose normal, oropharynx normal Neck: trachea midline, no thyromegaly Respiratory: no respiratory distress Auscultation: lungs clear to auscultation bilaterally Cardiovascular: Rate/Rhythm: regular rate and regular rhythm; not tachycardic Heart Sounds: normal S1 and normal S2; no murmur Extremities: no edema Gastrointestinal (Abdomen): Inspection/Auscultation: normal bowel sounds; abdomen not distended Percussion/Palpation: abdomen soft; abdomen nontender Musculoskeletal: Right leg is bandaged. Right knee sutures are clean. Blisters on the right dorsum of foot is better and not showing any oozing. Neurologic: normal touch/pain/proprioception, moves all extremities and + focal motor deficit (Status post ORIF right tibia-fibula) Psychiatric: A+Ox3, euthymic affect Lymphatic: no cervical or axillary lymphadenopathy Results & Data Results & Data Vital Signs (Past 12 Hours) Vital Signs Temp Pulse Pulse Resp BP Pulse Ox Pulse Ox 09/01/23 11:11 36.6 C 59 L 20 131/77 96 09/01/23 08:07 36.5 C 63 16 142/77 H 100 09/01/23 07:29 63 09/01/23 06:00 98 09/01/23 04:01 36.6 C 60 20 138/71 95 O2 Del Method O2 Del Method 09/01/23 11:11 Room Air 09/01/23 08:07 Room Air 09/01/23 07:29 09/01/23 06:00 Room Air 09/01/23 04:01 Room Air Laboratory Results Short CBC 09/01/23 Range/Units 05:49 WBC 7.92 (4.8-10.8) K/ul Hgb 11.3 L (14.0-18.0) g/dl Hct 33.9 L (42.0-52.0) % Plt Count 480 H (130-400) K/uL BMP 09/01/23 05:49 Sodium 136 Potassium 3.4 L Chloride 112 H Carbon Dioxide 19 L BUN 17 Creatinine 0.83 Glucose 91 Calcium 8.2 L Medications Administered Current Inpatient Medications Acetaminophen (Acetaminophen 325 Mg Tab) 650 mg PO Q4H PRN PRN Reason: Pain or Fever Stop: 09/30/23 03:29 Atenolol (Atenolol 25 Mg Tablet) 25 mg PO DAILY RAYSHAWN Stop: 09/30/23 10:59 Last Admin: 09/01/23 07:52 Dose: 25 mg Cyanocobalamin (Cyanocobalamin (B-12) 500 Mcg Tablet) 1,000 mcg PO DAILY RAYSHAWN Stop: 10/01/23 08:59 Last Admin: 09/01/23 07:54 Dose: 1,000 mcg Doxycycline Hyclate (Doxycycline Hyclate 100 Mg Cap) 100 mg PO BID RAYSHAWN Stop: 09/07/23 08:59 Last Admin: 09/01/23 07:52 Dose: 100 mg Enoxaparin Sodium (Enoxaparin Inj 40 Mg/0.4 Ml Syr) 40 mg SQ Q24H RAYSHAWN Stop: 09/30/23 08:59 Last Admin: 09/01/23 07:51 Dose: 40 mg Sodium Chloride (Nss) 1,000 mls @ 125 mls/hr IV .Q8H RAYSHAWN Stop: 09/30/23 03:29 Last Admin: 09/01/23 10:10 Dose: 125 mls/hr Ceftriaxone Sodium 2,000 mg/ (Dextrose) 50 mls @ 100 mls/hr IV Q24H [facility]; Protocol Stop: 09/07/23 18:59 Last Infusion: 08/31/23 18:27 Dose: Infused Potassium Phosphate 24 mmol/ (Sodium Chloride) 508 mls @ 88 mls/hr IV ONE ONE Stop: 09/01/23 15:31 Last Admin: 09/01/23 09:56 Dose: 88 mls/hr Magnesium Oxide (Magnesium Oxide 400 Mg Tab) 400 mg PO DAILY [facility] Stop: 10/01/23 08:59 Last Admin: 09/01/23 07:54 Dose: 400 mg Nitroglycerin (Nitroglycerin Sl 0.4 Mg/Tab Tab) 0.4 mg SL Q5M PRN PRN Reason: Chest Pain Stop: 09/30/23 03:29 Nortriptyline HCl (Nortriptyline Hcl 10 Mg Cap) 40 mg PO HS [facility] Stop: 09/30/23 20:59 Last Admin: 08/31/23 19:51 Dose: 40 mg Oxycodone HCl (Oxycodone Hcl Ir 5 Mg Tab (Immediate Release)) 5 mg PO Q6H PRN PRN Reason: Mod-Sev Pain (Scale 4-10) Stop: 09/14/23 03:29 Polyethylene Glycol (Polyethylene (Miralax) 17 Gm Pack) 17 gm PO DAILY PRN PRN Reason: Constipation Stop: 09/30/23 03:29 Rosuvastatin Calcium (Rosuvastatin Calcium 5 Mg Tab) 5 mg PO QAM [facility] Stop: 10/01/23 08:59 Last Admin: 09/01/23 07:52 Dose: 5 mg Topiramate (Topiramate 50 Mg Tab) 50 mg PO HS [facility] Stop: 09/30/23 20:59 Last Admin: 08/31/23 19:52 Dose: 50 mg
--- NOTE | 2023-09-01 15:22 | Orthopedic Consultation ---
Date of Service September 01, 2023 Assessment & Plan (1) Status post open reduction and internal fixation (ORIF) of fracture: I had a long discussion today with the patient about his right lower extremity pathology in great detail with ample amount of time for patient to ask any questions or state and concerns. All questions or concerns were answered to the patient's satisfaction. At this point, I do not feel that there is any infectious nature coming from the blisters on his legs. I do feel that these are fracture blisters versus pressure blisters to the right lower extremity. They do not appear to be infectious in nature. I would recommend however daily wound care to the blister sites to allow for better healing. To allow this to happen, I am going to transition him from his splint into a fracture boot. I would like him to maintain nonweightbearing status due to his original surgeon wanted him to remain nonweightbearing until follow-up. He may be out of his boot when at rest. He should continue the rest, ice, elevation procedures. He does have a follow-up appointment with his surgeon next week in which I do highly recommend that he follows up with his original surgeon for his distal tibia-fibula fracture. We would recommend continuing with empiric antibiotics at this point. DVT prophylaxis and medical management per primary. Please reach out by [place] text or to [facility] orthopedics of this patient's situation is to change. History of Present Illness Reason for Consultation: . Possible surgical site infection right tibia and fibula postoperative Requesting Physician: . Attending Physician: Sandra Sherwood MD . Daniel is a 62-year-old gentleman who presented to the emergency department yesterday evening due to complications of his postoperative splint to his right lower extremity. He notes that back on August 16, 2023 he was out in his yard whenever he tripped and fell and sustained a acute comminuted displaced distal diaphyseal fracture of the right tibia and fibula status post reduction in the emergency department and transferred to trauma center at [place] where he underwent an ORIF with now as well as a repair of a right posterior malleolus fracture on August 17, 2023. He did note that everything was going well postoperatively until around August 22 where he was having a little bit of discomfort to the right lower extremity. He was noted that he was having some blisters to the right lower extremity so they retested him and padded the blistered areas. On August 29, 2023 he was feeling a little lethargic with other symptoms that he went to his PCP. His PCP recommended that he go to the emergency department. He then arrived at the emergency department on 08/31/2023 where they took down his splint and again saw blistering. They originally just reinforced the blistered areas summary splinted him but then he started to have tachycardia. It was at that point that it was decided to admit him to rule out infectious nature. Today, he notes that he is doing quite well with good pain control to the right lower extremity. He notes that his splint is feeling quite well today compared to previous days. Does not appear to have any drainage from any of the blistered sites. He denies any other concerns today. He is currently on Lovenox for DVT prophylaxis. His heart rate is better controlled today and has improved with fluids. He is empirically on Rocephin and Doxy. Allergies Allergy/AdvReac Type Severity Reaction Status Date / Time adhesive Allergy Intermediate RED, ITCHY Verified 08/30/23 19:28 SKIN aloe Allergy Intermediate RED, ITCHY Verified 08/30/23 19:28 SKIN zinc oxide Allergy Intermediate RED, ITCHY Verified 08/30/23 19:28 SKIN Home Medications Medication Instructions Recorded Confirmed Type atenolol 25 mg tablet 25 mg PO DAILY 08/16/23 08/30/23 History magnesium oxide 400 mg PO DAILY 08/16/23 08/30/23 History nortriptyline 10 mg capsule 40 mg PO HS 08/16/23 08/30/23 History rosuvastatin 5 mg tablet 5 mg PO QAM 08/16/23 08/30/23 History topiramate 25 mg tablet 50 mg PO HS 08/16/23 08/30/23 History cefdinir 300 mg capsule 300 mg PO Q12H 7 days #14 caps 08/30/23 Rx cyanocobalamin (vitamin B-12) 1,000 mcg PO DAILY 08/30/23 08/30/23 History 1,000 mcg tablet (Vitamin B-12) doxycycline hyclate 100 mg tablet 100 mg PO BID 7 days #14 tabs 08/30/23 Rx Past Med/Surg History Social History Smoking Status: Never smoker Hx Alcohol Use: No Hx Substance Use: No Preferred Language: Romanian Communication Ability: Effective Bobbin Stripper Required: No Beliefs That Will Affect Care: None Current Living Situation: Spouse Other Information That Helps Us Care for You: No Feels Safe at Home: Yes Safety Concerns: Feels Safe At This Time Assistive Devices: Walker Review of Systems All systems reviewed & are unremarkable except as noted in HPI & below. Physical Exam .General- Not in distress Head- atraumatic Eyes- PERRL. ENT- oropharynx clear Neck- supple, no JVD. Lungs- clear to auscultation , no wheezing or crackles. Heart- regular rhythm; no murmur, no gallop. Abdomen- normal bowel sounds, soft, nontender, no distension. Neuro- alert, oriented PERRL, no facial palsy; no dysarthria; Musculoskeletal On physical examination of the right lower extremity, he is currently in a posterior sugar-tong splint. Out of the splint, he does have blistering sites that are secondary from fracture blisters versus pressure blisters from previous splints. They do not appear to be infectious with no erythema, warmth to touch, or purulent discharge. Well-healed surgical incisions with sutures intact. Mild soft tissue edema diffusely throughout the right lower extremity. Limited range of motion at the right ankle due to subjective discomfort and stiffness. +2 DP and PT pulse. Less than 2-second capillary refill. Normal sensation. Neurovascular intact. Results & Data Results & Data Laboratory Results . Laboratory Results - last 24 hr 09/01/23 05:49 WBC 7.92 RBC 3.60 L Hgb 11.3 L Hct 33.9 L MCV 94.2 MCH 31.4 MCHC 33.3 RDW Std Deviation 43.3 RDW Coeff of Eb 12.5 Plt Count 480 H MPV 9.3 L Sodium 136 Potassium 3.4 L Chloride 112 H Carbon Dioxide 19 L Anion Gap 5 BUN 17 Creatinine 0.83 Est Cr Clr Drug Dosing 104.5 Est GFR ( Amer) 107.8 Est GFR (Non-Af Amer) 93.0 BUN/Creatinine Ratio 20.5 H Glucose 91 Calcium 8.2 L Phosphorus 2.4 L Magnesium 1.7 Diagnostic Findings . Chest X-Ray 08/30/23 19:26 XR chest 1V portable CLINICAL HISTORY: Fever. COMPARISON STUDY: No previous studies for comparison. FINDINGS: Lung volumes are normal. There is no consolidation to suggest pneumonia. Linear left basilar opacity represents atelectasis. There is no pneumothorax or pleural effusion. Cardiac size is normal. Mediastinal contours a re normal. There is no evidence for pulmonary edema. IMPRESSION: No acute cardiopulmonary findings. ACT 112: Negative or not required by law. Electronically signed by: Ranjith Irizarry M.D. 08/31/2023 7:27 AM Venous Doppler Study 08/30/23 19:26 US venous doppler LE RT CLINICAL HISTORY: recent RLE ORIF, fever TECHNIQUE: Right lower extremity real-time compression venous ultrasound with Color Doppler imaging. Utilizing real-time ultrasonic imaging multiple real time high-resolution ultrasonic images with compression and noncompression maneuvers of the deep venous system in addition to color doppler imaging were performed from the common femoral vein through the proximal calf veins. COMPARISON: None available at the time of this dictation. FINDINGS/IMPRESSION: Currently there is normal compressibility of the deep venous system from the common femoral vein through the proximal calf veins. No superficial venous thrombosis is identified. ACT 112: Negative or not required by law. Electronically signed by: Santi Perez M.D. 08/30/2023 8:57 PM Chest CTA 08/31/23 02:21 Exam(s): CTA CHEST IV Amt: 107 ML OPTIRAY 350 EXAM: CT Angiography Chest With Intravenous Contrast CLINICAL HISTORY: Reason for exam: PE. TECHNIQUE: Axial computed tomographic angiography images of the chest with intravenous contrast. CTDI is 39.32 mGy and DLP is 867.6 mGy-cm. Automated exposure control was utilized for the study. A dose lowering technique was utilized adhering to the principles of ALARA. MIP reconstructed images were created and reviewed. COMPARISON: No relevant prior studies available. FINDINGS: Pulmonary arteries: Bilateral dependent atelectasis. No pulmonary embolism. Aorta: No acute findings. No thoracic aortic aneurysm. Lungs: Lung bases demonstrate bilateral dependent atelectasis. No mass. Pleural space: Unremarkable. No significant effusion. No pneumothorax. Heart: Unremarkable. No cardiomegaly. No significant pericardial effusion. No evidence of RV dysfunction. Bones/joints: No acute fracture. No dislocation. Soft tissues: Unremarkable. Lymph nodes: Unremarkable. No enlarged lymph nodes. IMPRESSION: No CT evidence of pulmonary embolism. Electronically signed by: Caesar Landrum M.D. 08/31/23 03:27 AM PG Care Time/CCT Total # of Minutes Spent Total Time Spent with Patient: Total time spent is greater than 50% in coordination of care (as documented) at patient's floor/unit and/or counseling patient: Supervising Physician Co-Signing Physician Notes I independently saw and examined the patient and reviewed the plan of care. Agree with PA note. Fracture blisters look to be resolved. No evidence of infection. I ordered a CAM boot to facilitate exams and begin gentle AROM to ankle/knee as demonstrated. Will update xray. Patient should follow with surgeon, as planned. No further inpatient orthopedic needs are expected. Coding Level of Care Code 00504 IN/OBS CONSULT LVL 3,45M Diagnoses Status post open reduction and internal fixation (ORIF) of fracture Z98.890; Z87.81 Additional Codes Fx Knee/Leg - Tibial shaft: Tibial shaft ([id number]) Fx Knee/Leg - Fibula proximal/shaft: Fibula proximal/shaft ([id number])
--- NOTE | 2023-09-01 23:21 | XRay Report ---
RIGHT TIBIA AND FIBULA 2 VIEWS CLINICAL HISTORY: Postoperative examination. FINDINGS: AP and lateral views of the right tibia and fibula are compared to study dated 08/15/1955. T he skeletal structures are well mineralized. Again seen are spiral fractures through the distal shaft s of the tibia and fibula. There has been buttress plate fixation along the lateral cortex of the fib kylee with at least 4 cortical lag screws transfixing the plate. An intramedullary nail has been placed in the tibia. 2 cortical lag screws transfix the proximal and distal ends of the intramedullary nail . An additional cortical lag screw transfixes the distal tibial epiphysis. Near-anatomic alignment zaragoza s been restored with mild persistent offset of fragments. The orthopedic hardware appears intact. Sof t tissue swelling is seen probable fractures. The knee and ankle joints are grossly maintained. IMPRESSION: Distal tibial and fibular shaft fractures as above status post open reduction and fixatio n. Electronically signed by: Isidoro Burroughs M.D. 09/01/2023 11:19 PM
[2023-09-02 06:27] LABS: Basophils # (auto) 0.04 K/uL (0.00-0.20); Basophils % (auto) 0.7 %; Eosinophils # (auto) 0.26 K/uL (0.00-0.50); Eosinophils % (auto) 4.6 %; Hematocrit (blood only) 34.1 % (42.0-52.0); Hemoglobin 11.4 g/dl (14.0-18.0); Immature Granulocytes # (auto) 0.03 K/uL (0.01-0.20); Immature Granulocytes % (auto) 0.5 %; Lymphocytes # (auto) 2.12 K/uL (1.20-3.40); Lymphocytes % (auto) 37.8 %; Mean Corpuscular Hemoglobin 30.8 pg (25.0-34.0); Mean Corpuscular Hgb Conc 33.4 g/dL (32.0-36.0); Mean Corpuscular Volume 92.2 fL (80.0-100.0); Mean Platelet Volume 9.2 fL (9.4-12.4); Monocytes % (auto) 8.9 %; Neutrophils # (auto) 2.66 K/uL (1.40-6.50); Neutrophils % (auto) 47.5 %; Platelet Count 501 K/uL (130-400); RDW Coefficient of Variation 12.5 % (11.5-14.5); RDW Standard Deviation 41.9 fL (36.4-46.3); White Blood Count 5.61 K/ul (4.8-10.8)
[2023-09-02 06:51] LABS: BUN Creatinine Ratio 15.6 (10-20); Calcium 8.7 mg/dl (8.6-10.3); Creatinine Clr Calc Pharmacy 96.4 ml/min; Est GFR (African American) 104.2 ml/min; Est GFR (Non-African American) 89.9 ml/min; Magnesium 1.8 mg/dl (1.7-2.4); Potassium 3.8 mmol/L (3.5-5.1)
--- NOTE | 2023-09-02 13:48 | Hospitalist Progress Note ---
Date of Service September 02, 2023 Assessment & Plan (1) Tachycardia: Plan: 62-year-old male with past medical history significant for hyperlipidemia, moderate persistent asthma, bronchiectasis without complication, hypertension, psoriasis, migraine, history of Lyme disease, who had a fall on August 16, 2023 and found to have acute commuted displaced distal diaphysis fracture of the right tibia and fibula s/p reduction in the ER and was transferred to trauma center at [place] and s/p ORIF with nail as well as repair of right posterior malleolus fracture on August. Was having issues/blisters from the cast so he went back to Ortho on August 23 2023 and was recasted and gauze placed on blister. He had a regular follow-up appointment with PCP on August 29 2023. That day he was feeling weak and lethargic and somewhat lightheaded and was advised to come to the ER for workup for an infection. Today in the ER cast was replaced and there was no obvious infection noted. Plan was to discharge him on antibiotics but patient developed tachycardia with heart rate in 140s. Showing sinus tachycardia. Venous Doppler was negative for DVT. Patient taking Lovenox shots at home for DVT prophylaxis. But he states he did not take today's Lovenox dose. Currently tachycardia improved with fluids. Resting comfortably. Denies any headache. No blurred visions. No earache or runny nose. No sore throat. No cough. States last night he had a low-grade temperature. Appetite is okay. Denies any chest pain or shortness of breath. No nausea. No abdominal pain. Somewhat constipated initially after surgery but that got resolved. Denies any bloody or black stools. Normal micturition. Hemodynamics are okay currently. Tachycardia-differentials include infection, thromboembolism, dehydration Mild temp spike Procalcitonin 0.7 Recently some blisters under the cast Empirically Rocephin and Doxy Tachycardia has improved with fluids Will continue IV fluids Doppler is negative for DVT and CTA has been negative for any pulmonary embolism He has been feeling much better and does not have any more tachycardia No other evidence of infection at this time and the blood cultures have been negative and urine culture has been negative too Blisters-as far as that can be seen did not show any evidence of drainage and ulceration No signs and or symptoms of infection Will be discharged home this afternoon and does not need to have any antibiotic Status post ORIF right tibia and fibula on 08/17/2023 The right leg is in a splint and bandaged Will get an Ortho evaluation prior to discharge Will get PT and OT evaluation as well May need to have wound care to make sure there is no ongoing infection underneath Appreciate Ortho input and recommendation Will have nonweightbearing and the Ortho boot placed today before he is di scharged Strongly advised to keep appointment with the PCP and also his surgeon History of moderate persistent asthma Bronchiectasis without complication Will monitor Hypertension On atenolol Hyperlipidemia On statin History of migraine Topamax and nortriptyline DVT prophylaxis Lovenox Disposition Med/telemetry Full code Admission and Anticipated Discharge Date Admission Date: August 31, 2023 Subjective 09/01/2023 The patient was seen and examined in medical telemetry unit He has been feeling much better and denies any fever and or chills or sweating Tachycardia has resolved Awaiting PT and OT evaluation prior to discharge 09/02/2023 The patient was seen and examined in medical telemetry unit He has been stable and denies any fever and or chills No wound in the legs He does not have any signs or symptoms of infection Review of Systems Review of Systems: All systems reviewed and are unremarkable except as noted below Physical Exam Physical Exam: Lying in bed without any acute distress Constitutional: well developed, well nourished, + ill appearing and + obese Eyes: PERRL, conjunctivae normal, anicteric sclerae ENMT: external ear and nose normal, oropharynx normal Neck: trachea midline, no thyromegaly Respiratory: no respiratory distress Auscultation: lungs clear to auscultation bilaterally Cardiovascular: Rate/Rhythm: regular rate and regular rhythm; not tachycardic Heart Sounds: normal S1 and normal S2; no murmur Extremities: no edema Gastrointestinal (Abdomen): Inspection/Auscultation: normal bowel sounds; abdomen not distended Percussion/Palpation: abdomen soft; abdomen nontender Neurologic: normal touch/pain/proprioception, moves all extremities and + focal motor deficit (Status post ORIF right tibia-fibula) Psychiatric: A+Ox3, euthymic affect Lymphatic: no cervical or axillary lymphadenopathy Results & Data Results & Data Vital Signs (Past 12 Hours) Vital Signs Temp Pulse Pulse Resp BP Pulse Ox Pulse Ox 09/02/23 11:36 36.5 C 81 16 132/74 97 09/02/23 08:00 54 L 09/02/23 07:52 36.4 C L 52 L 16 123/69 97 09/02/23 05:53 98 09/02/23 04:04 36.5 C 60 16 135/75 97 O2 Del Method O2 Del Method 09/02/23 11:36 Room Air 09/02/23 08:00 09/02/23 07:52 Room Air 09/02/23 05:53 Room Air 09/02/23 04:04 Room Air Laboratory Results Short CBC 09/02/23 Range/Units 05:55 WBC 5.61 (4.8-10.8) K/ul Hgb 11.4 L (14.0-18.0) g/dl Hct 34.1 L (42.0-52.0) % Plt Count 501 H (130-400) K/uL BMP 09/02/23 05:55 Sodium 139 Potassium 3.8 Chloride 113 H Carbon Dioxide 19 L BUN 14 Creatinine 0.90 Glucose 89 Calcium 8.7 Medications Administered Current Inpatient Medications Acetaminophen (Acetaminophen 325 Mg Tab) 650 mg PO Q4H PRN PRN Reason: Pain or Fever Stop: 09/30/23 03:29 Atenolol (Atenolol 25 Mg Tablet) 25 mg PO DAILY RAYSHAWN Stop: 09/30/23 10:59 Last Admin: 09/02/23 08:25 Dose: Not Given Cyanocobalamin (Cyanocobalamin (B-12) 500 Mcg Tablet) 1,000 mcg PO DAILY RAYSHAWN Stop: 10/01/23 08:59 Last Admin: 09/02/23 08:24 Dose: 1,000 mcg Doxycycline Hyclate (Doxycycline Hyclate 100 Mg Cap) 100 mg PO BID RAYSHAWN Stop: 09/07/23 08:59 Last Admin: 09/02/23 08:24 Dose: 100 mg Enoxaparin Sodium (Enoxaparin Inj 40 Mg/0.4 Ml Syr) 40 mg SQ Q24H RAYSHAWN Stop: 09/30/23 08:59 Last Admin: 09/02/23 08:24 Dose: 40 mg Sodium Chloride (Nss) 1,000 mls @ 125 mls/hr IV .Q8H RAYSHAWN Stop: 09/30/23 03:29 Last Admin: 09/02/23 13:17 Dose: Not Given Ceftriaxone Sodium 2,000 mg/ (Dextrose) 50 mls @ 100 mls/hr IV Q24H [facility]; Protocol Stop: 09/07/23 18:59 Last Infusion: 09/01/23 18:34 Dose: Infused Magnesium Oxide (Magnesium Oxide 400 Mg Tab) 400 mg PO DAILY [facility] Stop: 10/01/23 08:59 Last Admin: 09/02/23 08:24 Dose: 400 mg Nitroglycerin (Nitroglycerin Sl 0.4 Mg/Tab Tab) 0.4 mg SL Q5M PRN PRN Reason: Chest Pain Stop: 09/30/23 03:29 Nortriptyline HCl (Nortriptyline Hcl 10 Mg Cap) 40 mg PO HS [facility] Stop: 09/30/23 20:59 Last Admin: 09/01/23 20:32 Dose: 40 mg Oxycodone HCl (Oxycodone Hcl Ir 5 Mg Tab (Immediate Release)) 5 mg PO Q6H PRN PRN Reason: Mod-Sev Pain (Scale 4-10) Stop: 09/14/23 03:29 Polyethylene Glycol (Polyethylene (Miralax) 17 Gm Pack) 17 gm PO DAILY PRN PRN Reason: Constipation Stop: 09/30/23 03:29 Rosuvastatin Calcium (Rosuvastatin Calcium 5 Mg Tab) 5 mg PO QAM [facility] Stop: 10/01/23 08:59 Last Admin: 09/02/23 08:24 Dose: 5 mg Topiramate (Topiramate 50 Mg Tab) 50 mg PO HS [facility] Stop: 09/30/23 20:59 Last Admin: 09/01/23 20:32 Dose: 50 mg
--- NOTE | 2023-09-02 16:13 | Electrocardiogram Report ---
Test Reason : Blood Pressure : / mmHG Vent. Rate : 051 BPM Atrial Rate : 051 BPM P-R Int : 152 ms QRS Dur : 074 ms QT Int : 464 ms P-R-T Axes : 041 022 033 degrees QTc Int : 427 ms Sinus bradycardia Otherwise normal ECG When compared with ECG of 01-SEP-2023 05:56, No significant change was found Confirmed by Hamilton Pugh ([id number]) on 09/02/2023 4:12:46 PM Referred By: Primitivo Arceo Confirmed By:Hamilton Pugh
--- NOTE | 2023-09-03 07:39 | Discharge Summary ---
Date of Service September 02, 2023 Admission HPI Per Admitting Provider 62-year-old male with past medical history significant for hyperlipidemia, moderate persistent asthma, bronchiectasis without complication, hypertension, psoriasis, migraine, history of Lyme disease, who had a fall on August 16, 2023 and found to have acute commuted displaced distal diaphysis fracture of the right tibia and fibula s/p reduction in the ER and was transferred to trauma center at [place] and s/p ORIF with nail as well as repair of right posterior malleolus fracture on August. Was having issues/blisters from the cast so he went back to Ortho on August 23 2023 and was recasted and gauze placed on blister. He had a regular follow-up appointment with PCP on August 29 2023. That day he was feeling weak and lethargic and somewhat lightheaded and was advised to come to the ER for workup for an infection. Today in the ER cast was replaced and there was no obvious infection noted. Plan was to discharge him on antibiotics but patient developed tachycardia with heart rate in 140s. Showing sinus tachycardia. Venous Doppler was negative for DVT. Patient taking Lovenox shots at home for DVT prophylaxis. But he states he did not take today's Lovenox dose. Currently tachycardia improved with fluids. Resting comfortably. Denies any headache. No blurred visions. No earache or runny nose. No sore throat. No cough. States last night he had a low-grade temperature. Appetite is okay. Denies any chest pain or shortness of breath. No nausea. No abdominal pain. Somewhat constipated initially after surgery but that got resolved. Denies any bloody or black stools. Normal micturition. Hemodynamics are okay currently. Past medical history. As mentioned above Past surgical history. Colonoscopy. EGD. Removal of ruptured appendix. Tonsillectomy and adenoidectomy. Treatment of tibial fracture by intramedullary implant. Social history. . No smoking. No alcohol use. No drug use. Family history. Mother has heart disease. Stroke. Father has hypertension. Migraines. Sister has obesity. Uncle has heart disorder. Admission Exam Per Admitting Provider Physical Exam: General- Not in distress Head- atraumatic Eyes- PERRL. ENT- oropharynx clear Neck- supple, no JVD. Lungs- clear to auscultation , no wheezing or crackles. Heart- regular rhythm; no murmur, no gallop. Abdomen- normal bowel sounds, soft, nontender, no distension. Extremities- right lower extremity in cast Neuro- alert, oriented PERRL, no facial palsy; no dysarthria; Principal Diagnosis Tachycardia-resolved, status post ORIF right tibia and fibula, moderate persistent as Discharge Exam Lying in bed without any acute distress Constitutional well developed, well nourished, + ill appearing and + obese Eyes PERRL, conjunctivae normal, anicteric sclerae ENMT external ear and nose normal, oropharynx normal Neck trachea midline, no thyromegaly Respiratory no respiratory distress Auscultation: lungs clear to auscultation bilaterally Cardiovascular Rate/Rhythm: regular rate and regular rhythm; not tachycardic Heart Sounds: normal S1 and normal S2; no murmur Extremities: no edema Gastrointestinal (Abdomen) Inspection/Auscultation: normal bowel sounds; abdomen not distended Percussion/Palpation: abdomen soft; abdomen nontender Neurologic normal touch/pain/proprioception, moves all extremities and + focal motor deficit (Status post ORIF right tibia-fibula) Psychiatric A+Ox3, euthymic affect Lymphatic no cervical or axillary lymphadenopathy Discharge Data Allergies Allergy/AdvReac Type Severity Reaction Status Date / Time adhesive Allergy Intermediate RED, ITCHY Verified 08/30/23 19:28 SKIN aloe Allergy Intermediate RED, ITCHY Verified 08/30/23 19:28 SKIN zinc oxide Allergy Intermediate RED, ITCHY Verified 08/30/23 19:28 SKIN Consultations 08/31/23 00:58 ED Decision to Admit Stat 09/01/23 13:07 Consult Orthopedic Surgery Routine Ordered Studies 08/30/23 19:26 US venous doppler LE RT Stat 08/31/23 02:21 CT angio chest PE protocol Stat Hospital Course (1) Tachycardia: 62-year-old male with past medical history significant for hyperlipidemia, moderate persistent asthma, bronchiectasis without complication, hypertension, psoriasis, migraine, history of Lyme disease, who had a fall on August 16, 2023 and found to have acute commuted displaced distal diaphysis fracture of the right tibia and fibula s/p reduction in the ER and was transferred to trauma center at [place] and s/p ORIF with nail as well as repair of right posterior malleolus fracture on August. Was having issues/blisters from the cast so he went back to Ortho on August 23 2023 and was recasted and gauze placed on blister. He had a regular follow-up appointment with PCP on August 29 2023. That day he was feeling weak and lethargic and somewhat lightheaded and was advised to come to the ER for workup for an infection. Today in the ER cast was replaced and there was no obvious infection noted. Plan was to discharge him on antibiotics but patient developed tachycardia with heart rate in 140s. Showing sinus tachycardia. Venous Doppler was negative for DVT. Patient taking Lovenox shots at home for DVT prophylaxis. But he states he did not take today's Lovenox dose. Currently tachycardia improved with fluids. Resting comfortably. Denies any headache. No blurred visions. No earache or runny nose. No sore throat. No cough. States last night he had a low-grade temperature. Appetite is okay. Denies any chest pain or shortness of breath. No nausea. No abdom inal pain. Somewhat constipated initially after surgery but that got resolved. Denies any bloody or black stools. Normal micturition. Hemodynamics are okay currently. Tachycardia-differentials include infection, thromboembolism, dehydration Mild temp spike Procalcitonin 0.7 Recently some blisters under the cast Empirically Rocephin and Doxy Tachycardia has improved with fluids Will continue IV fluids Doppler is negative for DVT and CTA has been negative for any pulmonary embolism He has been feeling much better and does not have any more tachycardia No other evidence of infection at this time and the blood cultures have been negative and urine culture has been negative too Blisters-as far as that can be seen did not show any evidence of drainage and ulceration No signs and or symptoms of infection Will be discharged home this afternoon and does not need to have any antibiotic Status post ORIF right tibia and fibula on 08/17/2023 The right leg is in a splint and bandaged Will get an Ortho evaluation prior to discharge Will get PT and OT evaluation as well May need to have wound care to make sure there is no ongoing infection underneath Appreciate Ortho input and recommendation Will have nonweightbearing and the Ortho boot placed today before he is discharged Strongly advised to keep appointment with the PCP and also his surgeon History of moderate persistent asthma Bronchiectasis without complication Will monitor Hypertension On atenolol Hyperlipidemia On statin History of migraine Topamax and nortriptyline DVT prophylaxis Lovenox Disposition Med/telemetry Full code Total Time Total Time Spent Total Time Spent (In Minutes): 40 minutes Discharge Plan Discharge Items Patient Disposition: Home - Self-Care Reason For Visit: TACHYCARDIA Discharge Diagnosis: Tachycardia-resolved, status post ORIF right tibia and fibula, moderate persistent as Condition on Discharge: Good Activity: Resume your previous activity Non-emergency contact: Primary Care Provider Call non-emergency contact if: you have any medication questions and your symptoms worsen Follow-up/Referrals: Eleno Sexton PA-C [Other] (Date & Time 09/06/2023 12:00 PM Provider [facility] Primitivo Arceo MD [Primary Care Provider] - (Date & Time 09/07/2023 10:00 AM Provider Piedad Real MD Department General Internal Medicine [facility] ) Diet: Heart Healthy Addtl Attending Provider Instructions: Please take precautions to avoid fall Finish the course of antibiotic as advised Please keep follow-up appointments with the healthcare providers Recommendations from Ortho: I would recommend however daily wound care to the blister sites to allow for better healing. To allow this to happen, I am going to transition him from his splint into a fracture boot. I would like him to maintain nonweightbearing status due to his original surgeon wanted him to remain nonweightbearing until follow-up. He may be out of his boot when at rest. Pending Studies at Discharge: No Stand-Alone Forms: My [facility], Smoking Cessation Medications and DC Order Prescriptions: New cefdinir 300 mg capsule 300 mg PO Q12H 7 Days Qty: 14 0RF doxycycline hyclate 100 mg tablet 100 mg PO BID 7 Days Qty: 14 0RF Continued atenolol 25 mg tablet 25 mg PO DAILY topiramate 25 mg tablet 50 mg PO HS nortriptyline 10 mg capsule 40 mg PO HS rosuvastatin 5 mg tablet 5 mg PO QAM magnesium oxide 400 mg magnesium Tablet 400 mg PO DAILY cyanocobalamin (vitamin B-12) [Vitamin B-12] 1,000 mcg Tablet 1,000 mcg PO DAILY Discharge Orders: Discharge Order (Routine); Ordered 09/02/23 Ordered By: Sandra Sherwood Admission Data Admit Date/Time: 08/31/23 02:21 Attending Provider: Sandra Sherwood Admit Provider: Amado Sanchez Primary Care Provider: Primitivo Arceo Other Providers: Amado Sanchez; Fany Lopez; Cliff Hope Other Interventions: Discharge Summary Assessment (RN) Last Done: 09/02/23 16:53
== END 2023-09-02 18:11 | disposition home or self-care (01) | DRG 310 ==
LOC: ED 15:22 → EDINP 08-31 02:21 → SUATTDRO 08-31 02:21 → 2N 08-31 03:30
DX: E78.5 Hyperlipidemia, unspecified; J47.9 Bronchiectasis, uncomplicated; I10 Essential (primary) hypertension; Z91.048 Other nonmedicinal substance allergy status; J45.40 Moderate persistent asthma, uncomplicated; Z79.899 Other long term (current) drug therapy; R00.0 Tachycardia, unspecified